=== PATIENT | female | born 1950 | race Caucasian/White ===

== ENCOUNTER 2018-10-12 21:58 | Inpatient (IN) | payer OTHER ==
[~2018-10-12] VITALS: Ht 165.1 cm; Wt 94.0 kg
--- OUTSIDE RECORDS SUMMARY | 2018-10-12 22:01 | XMS REPORT | Clinical Summary ---
Author Author [facility] Organization [facility] Address Unknown Phone Unavailable Care Team Providers Care Group Art Supervisor Name Role Phone Prabhu Kirk DO PCP Allergies Comments Active Allergy Reactions Severity Noted Date Erythromycin GI 05/22/2018 Intolerance Penicillins Rash Low 05/22/2018 Medications End Date Status Medication Sig Dispensed Refills Start Date Active LYRICA 50 mg capsule TK 1 C PO 1 BID FOR PAIN 8 Active sertraline (ZOLOFT) 100 TK 1 T PO D 1 MG tablet FOR MOOD 8 Active traZODone (DESYREL) 150 Take 150 mg 1 MG tablet by mouth 8 nightly as needed. for sleep Active Problems Not on file Encounters Care Team Description Date Type Specialty Aftab Freed MD Leukopenia, unspecified type (Primary Dx); Thrombocytopenia (HCC) 05/22/2018 Office Visit Oncology after 10/11/2017 Family History Medical History Relation Name Comments Colon cancer Mother Ovarian cancer Mother Relation Name Status Comments Mother Social History Date Tobacco Use Types Packs/Day Years Used Former Smoker Comments: quick 2010 Alcohol Use Drinks/Week oz/Week Comments No Alcohol Habits Answer Date Recorded How often do you have a drink containing alcohol? Never 05/22/2018 How many drinks containing alcohol do you have on Not asked a typical day when you are drinking? How often do you have six or more drinks on one Not asked occasion? Sex Assigned at Date Recorded Not on file Industry Job Start Date Occupation Not on file Not on file Not on file Travel End Travel History Travel Start No recent travel history available. Last Filed Vital Signs Time Taken Vital Sign Reading 05/22/2018 11:10 AM [facility] Blood Pressure 110/52 05/22/2018 11:10 AM [facility] Pulse 75 05/22/2018 11:10 AM [facility] Temperature 36.9 C (98.5 F) - Respiratory Rate - - Oxygen Saturation - - Inhaled Oxygen - Concentration 05/22/2018 11:10 AM [facility] Weight 78.9 kg (174 lb) 05/22/2018 11:10 AM [facility] Height 165.1 cm (5' 5") 05/22/2018 11:10 AM [facility] Body Mass Index 28.96 Plan of Treatment Care Team Description Date [place] [id number] [facility] [facility] [address] [place], [place] [id number] 11/20/2018 Office Visit Oncology Health Maintenance Due Date Last Done Comments BREAST CANCER SCREENING 1998 COLON CANCER SCREENING 1998 SHINGLES VACCINES (#1) 1998 65+ PNEUMOCOCCAL VACCINE 2013 (1 of 2 - PCV13) PNEUMOCOCCAL 2013 POLYSACCHARIDE VACCINE AGE 65 AND OVER INFLUENZA VACCINE 01/16/2019 Procedures Comments Procedure Name Priority Date/Time Associated Diagnosis HEMATOPATH, SMEAR Routine 05/22/2018 Leukopenia, unspecified 12:42 PM [facility] type Thrombocytopenia (HCC) HEPATITIS C ANTIBODY Routine 05/22/2018 Leukopenia, unspecified 12:42 PM [facility] type Thrombocytopenia (HCC) THYROID PANEL WITH TSH Routine 05/22/2018 Leukopenia, unspecified 12:42 PM [facility]ULER type Thrombocytopenia (HCC) PROTHROMBIN TIME WITH INR Routine 05/22/2018 Leukopenia, unspecified 12:42 PM [facility] type Thrombocytopenia (HCC) PARTIAL THROMBOPLASTIN Routine 05/22/2018 Leukopenia, unspecified TIME (PTT) 12:42 PM [facility]ER type Thrombocytopenia (HCC) COMPREHENSIVE METABOLIC Routine 05/22/2018 Leukopenia, unspecified PANEL 12:42 PM [facility]OBBIN [facility]ULER type Thrombocytopenia (HCC) SHASTA CASCADING REFLEX Routine 05/22/2018 Leukopenia, unspecified 12:42 PM [facility]BIN [facility]ULER type Thrombocytopenia (HCC) VITAMIN B12 LEVEL Routine 05/22/2018 Leukopenia, unspecified 12:42 PM [facility]ULER type Thrombocytopenia (HCC) FOLATE LEVEL Routine 05/22/2018 Leukopenia, unspecified 12:42 PM [facility]OBBIN [facility]ULER type Thrombocytopenia (HCC) after 10/11/2017 Results * SHASTA CASCADING REFLEX (05/22/2018 12:42 PM BOBBIN HAULER) SHASTA direct Negative Negative [facility] Comment: Effective June 24, 2018, test [id number] Antinuclear Ab Reflex [place] will be made nonorderable. There is not a direct replacement test. [facility] offers several SHASTA test options. Please refer to the [facility] Directory of Services. See below: Comment [facility] Comment: Autoantibody Disease Association Condition Frequency Antinuclear Antibody,SLE, mixed connective Direct (SHASTA-D) tissue diseases dsDNA SLE 40 - 60% Chromatin Drug induced SLE 90% SLE 48 - 97% SSA (Ro) SLE 25 - 35% Sjogren's Syndrome 40 - 70% Lupus 100% SSB (La) SLE 10% Sjogren's Syndrome 30% Sm (anti-Garcia) SLE 15 - 30% DIRECTOR OF MEDICAL STAFF SERVICES Mixed Connective Tissue Disease 95% (U1 nRNP, SLE 30 - 50% anti-ribonucleoprotein)Juwan ymyositis and/or Dermatomyositis 20% Scl-70 (antiDNASc leroderma (diffuse)20 - 35% topoisomerase) Crest 13% Jessica-1 Polymyositis and/or Dermatomyositis 20 - 40% Centromere B Scleroderma - Crest variant 80% Ribosomal PS LE 10 - 20% Specimen Blood Narrative Performed At Performed at:01 - [facility] [address], [id number] Training Director: Tarik Cedeño MD, Phone:[phone] Performing Organization Address City/[facility]/Zipcode Phone Number [facility] * Hepatitis C antibody (05/22/2018 12:42 PM BOBBIN HAULER) Hepatitis C Ab <0.1 0.0 - 0.9 s/co ratio [facility] Comment: Negative: < 0.8 Indeterminate: 0.8 - 0.9 Positive: > 0.9 The CDC recommends that a positive HCV antibody result be followed up with a HCV Nucleic Acid Amplification test (408714). Specimen Blood Narrative Performed At Performed at: - [facility] [address] [place], [id number] Training Director: Tarik Cedeño MD, Phone:[phone] Performing Organization Address [facility] Phone Number [facility] * Hematopath Smear (05/22/2018 12:42 PM [facility]ULER) WBC Note:Comment: No morphologic [facility] abnormality was detected on the Velasquez stained smear. RBC Note:Comment: No morphologic [facility] abnormality was detected on the Velasquez stained smear. Platelet count Note:Comment: Thrombocytopenia [facility] is confirmed by blood smear observation. Comment Note: [facility] Comment: Clinical correlation is suggested. Suggest repeat study after resolution of clinical symptoms to assure return of values to baseline levels. Pathologist Note:Comment: Reviewed by: [facility] Cooper MD, Pathologist WBC 3.6 3.4 - 10.8 x10E3/uL [facility] RBC 4.30 3.77 - 5.28 x10E6/uL [facility] HGB 12.3 11.1 - 15.9 g/dL [facility] HCT 38.5 34.0 - 46.6 % [facility] MCV 90 79 - 97 fL [facility] MCH 28.6 26.6 - 33.0 pg [facility] MCHC 31.9 31.5 - 35.7 g/dL [facility] RDW 15.9 (H) 12.3 - 15.4 % [facility] Platelet count 77 (LL) 150 - 379 x10E3/uL [facility] Comment: Platelet count verified by examination of peripheral blood smear. Decreased. Neutrophils 53 Not Estab. % [facility] Lymphocytes 33 Not Estab. % [facility] Monocytes 7 Not Estab. % [facility] Eosinophils 7 Not Estab. % [facility] Basophils 0 Not Estab. % [facility] Neutrophils, absolute 1.9 1.4 - 7.0 x10E3/uL [facility] Lymphocytes, absolute 1.2 0.7 - 3.1 x10E3/uL [facility] Monocytes, absolute 0.3 0.1 - 0.9 x10E3/uL [facility] Eosinophils, absolute 0.3 0.0 - 0.4 x10E3/uL [facility] Basophils, absolute 0.0 0.0 - 0.2 x10E3/uL [facility] Immature granulocytes 0 Not Estab. % [facility] Immature grans (abs) 0.0 0.0 - 0.1 x10E3/uL [facility] Hematology comments: Note:Comment: Verified by [facility] microscopic examination. Specimen Blood Narrative Performed At Performed at:[address] [place], [place] [id number] Training Director: Tarik Cedeño MD, Phone:[phone] Performing Organization Address [facility] Phone Number [facility] * Thyroid Panel With TSH (05/22/2018 12:42 PM BOBBIN HAULER) TSH 2.800 0.450 - 4.500 uIU/mL [facility] T4 4.7 4.5 - 12.0 ug/dL [facility] T3 uptake 26 24 - 39 % [facility] Free T4 index 1.2 1.2 - 4.9 [facility] Specimen Blood Narrative Performed At Performed at:[address] [place], [place] [id number] Training Director: Tarik Cedeño MD, Phone:[phone] Performing Organization Address [facility] Phone Number [facility] * Partial thromboplastin time, activated (05/22/2018 12:42 PM BOBBIN HAULER) aPTT 29 24 - 33 sec [facility] Comment: This test has not been validated for monitoring unfractionated heparin therapy. aPTT-based therapeutic ranges for unfractionated heparin therapy have not been established. For general guidelines on Heparin monitoring, refer to the [facility] Directory of Services. Specimen Blood Narrative Performed At Performed at:[address] [place], [place] [id number] Training Director: Tarik Cedeño MD, Phone:[phone] Performing Organization Address [facility] Phone Number [facility] * Prothrombin time with INR (05/22/2018 12:42 PM BOBBIN HAULER) INR 1.1 0.8 - 1.2 [facility] Comment: Reference interval is for non-anticoagulated patients. Suggested INR therapeutic range for Vitamin K antagonist therapy: Standard Dose (moderate intensity therapeutic range): 2.0 - 3.0 Higher intensity therapeutic range 2.5 - 3.5 Prothrombin time 11.7 9.1 - 12.0 sec [facility] Specimen Blood Narrative Performed At Performed at: [facility] [address] [place], [place] [id number] Training Director: Tarik Cedeño MD, Phone:[phone] Performing Organization Address [facility] Phone Number [facility] * Folate level (05/22/2018 12:42 PM BOBBIN HAULER) Folate 4.9 >3.0 ng/mL [facility] Comment: A serum folate concentration of less than 3.1 ng/mL is considered to represent clinical deficiency. Specimen Blood Narrative Performed At Performed at: [facility] [address] [place], [place] [id number] Training Director: Tarik Cedeño MD, Phone:[phone] Performing Organization Address [facility] Phone Number [facility] * Vitamin B12 level (05/22/2018 12:42 PM BOBBIN HAULER) Vitamin B12 522 232 - 1,245 pg/mL [facility] Specimen Blood Narrative Performed At Performed at: [facility] [place], [id number] Training Director: Tarik Cedeño MD, Phone:[phone] Performing Organization Address [facility] Phone Number [facility] * Comprehensive metabolic panel (05/22/2018 12:42 PM BOBBIN HAULER) Glucose 85 65 - 99 mg/dL [facility] BUN, whole blood 15 8 - 27 mg/dL [facility] Creatinine 0.88 0.57 - 1.00 mg/dL [facility] EGFR Non-Afr. Ethiopian 67 >59 mL/min/1.73 [facility] EGFR 78 >59 mL/min/1.73 [facility] BUN/creatinine ratio 17 12 - 28 [facility] Sodium 143 134 - 144 mmol/L [facility] Potassium 4.6 3.5 - 5.2 mmol/L [facility] Chloride 102 96 - 106 mmol/L [facility] CO2 27 20 - 29 mmol/L [facility] Calcium 9.0 8.7 - 10.3 mg/dL [facility] Protein 6.6 6.0 - 8.5 g/dL [facility] Albumin, S 3.8 3.6 - 4.8 g/dL [facility] Globulin, total 2.8 1.5 - 4.5 g/dL [facility] Albumin/globulin ratio 1.4 1.2 - 2.2 [facility] Total bilirubin 1.2 0.0 - 1.2 mg/dL [facility] Alkaline phosphatase 71 39 - 117 IU/L [facility] AST 37 0 - 40 IU/L [facility] ALT 17 0 - 32 IU/L [facility] Specimen Blood Narrative Performed At Performed at: - [facility] [address] [place], [id number] Training Director: Tarik Cedeño MD, Phone:[phone] Performing Organization Address City/State/Zipcode Phone Number [facility] after 10/11/2017 Insurance Payer Benefit Subscriber ID Type Phone Address Plan / Group UHC MEDICARE UHC xxxxxxxxx HMO MEDICARE HMO/PPO Advance Directives Patient has advance care planning documents on file. For more information, vikash mckee contact: Willard Kessler [address] [place] [address]
--- OUTSIDE RECORDS SUMMARY | 2018-10-12 22:01 | XMS REPORT ---
Author Author [facility] Address Unknown Phone Unavailable Care Team Providers Care Pipe Fitter Welding Name Role Phone Unavailable Unavailable Payers Payer Name Policy Type Policy Number Effective Date Expiration Date Problems This patient has no known problems. Allergies, Adverse Reactions, Alerts Allergy Name Allergy Type Status Severity Reaction(s) Onset Date Inactive Date Treating Clinician Comments Penicillins DA Active SV 2016-04-12 00:00:00 Macrolide Antibiotics DA Active U 2016-04-12 00:00:00 erythromycin base DA Active OR 2016-04-12 00:00:00 azithromycin DA Active OR 2016-04-12 00:00:00 Medications This patient has no known medications.
[2018-10-12] MEDS ORDERED: MORPHINE SULFATE INJ 4 MG/ML INJ 1ML IV STA (22:05)
[2018-10-12] MEDS ORDERED: ONDANSETRON HCL INJ 2MG/ML 2ML 2 MG/ML VIAL IV STA (22:05)
[2018-10-12] MEDS ORDERED: PANTOPRAZOLE 40 MG 10ML VIAL IV STA (22:05)
[2018-10-12] MEDS ORDERED: DICYCLOMINE HCL 20 MG/2 ML VIAL IM ONE (22:15)
[2018-10-12 23:13] LABS: BASOPHILS % 0.6 % (0.0-1.0); EOSINOPHILS # (AUTO) 0.3 (0.0-0.4); EOSINOPHILS % 5.7 % (0.0-6.0); HEMATOCRIT 38.5 % (34.2-44.1); HEMOGLOBIN 12.8 g/dL (12.0-16.0); LYMPHOCYTES # (AUTO) 1.1 (1.0-3.2); LYMPHOCYTES % 23.4 % (18.0-39.1); MEAN CORPUSCULAR HEMOGLOBIN 29.8 pg (28-32); MEAN CORPUSCULAR HGB CONC 33.2 g/dL (31-35); MEAN CORPUSCULAR VOLUME 89.5 fL (81-99); MONOCYTES # (AUTO) 0.3 (0.2-0.8); MONOCYTES % 6.8 % (4.4-11.3); NEUTROPHILS % 63.1 % (38.7-80.0); PLATELET COUNT 93 x10e3/uL (140-360); RED CELL DISTRIBUTION WIDTH 14.6 % (11.7-14.4)
[2018-10-12 23:19] LABS: CLARITY,URINE CLEAR (CLEAR); COLOR,URINE YELLOW (YELLOW); KETONES,URINE TRACE (NEGATIVE); LEUKOCYTE ESTERASE ,URINE 1+ (NEGATIVE); NITRITE,URINE NEGATIVE (NEGATIVE); PROTEIN,URINE DIPSTICK NEGATIVE (NEGATIVE); URINE UROBILINOGEN 0.2 mg/dL (0.2 - 1)
[2018-10-12 23:20] LABS: BILIRUBIN,URINE NEGATIVE (NEGATIVE)
[2018-10-12 23:22] LABS: INR 0.97; PROTHROMBIN TIME 13.4 seconds (11.9-14.5)
--- NOTE | 2018-10-12 23:23 | Diagnostic Imaging Report ---
EXAM: Gallbladder Ultrasound INDICATION: RUQ PAIN. Vomiting. COMPARISON: None. TECHNIQUE: Transverse and longitudinal images of the gallbladder were obtained. FINDINGS: Liver: 13.3 centimeters in length with coarsened echotexture diffusely. 1.4 cm simple cyst. Slight nodular contour. Gallbladder: Hydropic. Stones/Sludge: None Wall: 0.3 cm Appearance: No wall thickening, pericholecystic fluid or hydrops. Sonographic Danielson's Sign: Negative Bile Ducts: Intrahepatic Ducts: No dilatation Extrahepatic Ducts: Common bile duct measures 0.3 cm, no dilatation Free Fluid: No ascites or pleural effusion Pancreas obscured by bowel gas Right kidney: 11.2 cm in length. No hydronephrosis, shadowing nephrolithiasis or focal mass. Main portal vein: 0.5 cm in diameter. IMPRESSION: Hydropic gallbladder is a nonspecific finding. No gallbladder wall thickening, pericholecystic fluid or calculi/sludge. Signed by: Dr. Kamari Gomes M.D. on 10/12/2018 11:20 PM
[2018-10-12 23:24] LABS: BACTERIA,URINE MODERATE /HPF; EPITHELIAL CELLS,URINE MODERATE /LPF; RBC,URINE 0-5 /HPF (0-5)
[2018-10-12 23:42] LABS: ALBUMIN 3.4 g/dL (3.5-5.0); ALBUMIN/GLOBULIN RATIO 0.9 (0.8-2.0); ANION GAP 14.9 mmol/L (8-16); CALCIUM 9.1 mg/dL (8.4-10.2); CREATININE, SERUM 0.96 mg/dL (0.57-1.11); POTASSIUM 3.9 mmol/L (3.5-5.1)
[2018-10-13] VITALS (10 sets, daily range): BP systolic 91–107; BP diastolic 50–54
[2018-10-13] MEDS ORDERED: SODIUM CHLORIDE 0.9% 50ML 50 ML ONE (00:08)
[2018-10-13] MEDS ORDERED: IOPAMIDOL 370 MG/ML 200 ML INFUS..BTL INJ ONE (00:08)
--- NOTE | 2018-10-13 01:27 | Diagnostic Imaging Report ---
EXAM: CT Abdomen and Pelvis WITH contrast INDICATION: Abdominal pain. Vomiting. COMPARISON: None. Ultrasound gallbladder dated 10/12/2018. TECHNIQUE: Abdomen and pelvis were scanned utilizing a multidetector helical scanner from the lung base to the pubic symphysis after administration of IV contrast. Coronal and sagittal reformations were obtained. Routine protocol was performed. Scan was performed when during portal venous phase. IV CONTRAST: 100 cc Isovue-300 ORAL CONTRAST: Water RADIATION DOSE: Total DLP: 551.71 mGy*cm Estimated effective dose: (DLP x 0.015 x size factor) mSv COMPLICATIONS: None FINDINGS: LINES and TUBES: None. LOWER THORAX: Bibasilar subsegmental atelectasis, right greater than left. HEPATOBILIARY: Nodular hepatic contour. No biliary ductal dilation. GALLBLADDER: The gallbladder is elongated measuring 12.0 cm in craniocaudal dimension. No radio-opaque stones or sludge. The gallbladder wall is mildly thickened measuring 5.5 mm. Trace pericholecystic fluid. No significant pericholecystic fat stranding. SPLEEN: No splenomegaly. PANCREAS: No focal masses or ductal dilatation. ADRENALS: No adrenal nodules KIDNEYS/URETERS: Kidneys enhance symmetrically. No hydronephrosis. No cystic or solid mass lesions. No stones. GI TRACT: No abnormal distention, wall thickening, or evidence of bowel obstruction. Appendix is normal. 3.9 cm diverticulum off the second portion of the duodenum. PELVIC ORGANS/BLADDER: Unremarkable. LYMPH NODES: No lymphadenopathy. 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 There are splenic varices with a left splenorenal shunt. Atherosclerotic calcifications of the aorta, with mild ectasia just proximal to the bifurcation. Atherosclerotic calcifications of the iliac arteries without aneurysmal dilatation. PERITONEUM / RETROPERITONEUM: No free air or fluid. BONES: There are degenerative changes in the lumbar spine. SOFT TISSUES: Unremarkable. IMPRESSION: 1. Cirrhotic hepatic morphology. 2. Mild splenomegaly, and evidence of portal hypertension including gastrosplenic varices, and a spontaneous left splenorenal shunt. 3. Gallbladder hydrops. Mild gallbladder wall thickening and trace pericholecystic fluid may be in part related to the presence of hepatocellular disease and/or hypoalbuminemia in the proper setting. Acalculous cholecystitis is within the differential diagnosis but no additional supporting findings on the recently performed ultrasound of gallbladder. Correlate clinically. Consider surgical consultation. 4. 3.1 cm splenic artery aneurysm. Signed by: Dr. Kamari Gomes M.D. on 10/13/2018 1:24 AM
[2018-10-13] MEDS ORDERED: SODIUM CHLORIDE 0.9% 1000ML 1,000 ML IV ONE (01:45)
[2018-10-13] MEDS ORDERED: ONDANSETRON HCL INJ 2MG/ML 2ML 2 MG/ML VIAL IV PRN (02:15)
[2018-10-13] MEDS ORDERED: LEVOFLOXACIN 500MG/D5W 100ML IV SCH (02:15)
--- OUTSIDE RECORDS SUMMARY | 2018-10-13 02:27 | XMS REPORT | Clinical Summary ---
Author Author [facility] Organization [facility] Address Unknown Phone Unavailable Care Team Providers Care Copper Miner Name Role Phone Prabhu Kirk DO PCP [...] Thrombocytopenia (HCC) 05/22/2018 Office Visit Oncology after 10/12/2017 Family History Medical History Relation Name Comments [...] Taken Vital Sign Reading 05/22/2018 11:10 AM SPECTROSCOPIST Blood Pressure 110/52 05/22/2018 11:10 AM SPECTROSCOPIST Pulse 75 05/22/2018 11:10 AM SPECTROSCOPIST Temperature 36.9 C (98.5 F) - Respiratory Rate - - Oxygen Saturation - - Inhaled Oxygen - Concentration 05/22/2018 11:10 AM SPECTROSCOPIST Weight 78.9 kg (174 lb) 05/22/2018 11:10 AM SPECTROSCOPIST Height 165.1 cm (5' 5") 05/22/2018 11:10 AM SPECTROSCOPIST Body Mass Index 28.96 Plan of Treatment Care Team Description Date [place] [id number] [facility] [address] [place], [place] [id number] 11/20/2018 Office Visit Oncology Health Maintenance Due Date Last Done Comments BREAST CANCER SCREENING 1998 COLON CANCER SCREENING 1998 SHINGLES VACCINES (#1) 1998 65+ PNEUMOCOCCAL VACCINE 2013 (1 of 2 - PCV13) PNEUMOCOCCAL 2013 POLYSACCHARIDE VACCINE AGE 65 AND OVER INFLUENZA VACCINE 01/16/2019 Procedures Comments Procedure Name Priority Date/Time Associated Diagnosis HEMATOPATH, SMEAR Routine 05/22/2018 Leukopenia, unspecified 12:42 PM SPECTROSCOPIST type Thrombocytopenia (HCC) HEPATITIS C ANTIBODY Routine 05/22/2018 Leukopenia, unspecified 12:42 PM SPECTROSCOPIST type Thrombocytopenia (HCC) THYROID PANEL WITH TSH Routine 05/22/2018 Leukopenia, unspecified 12:42 PM SPECTROSCOPIST type Thrombocytopenia (HCC) PROTHROMBIN TIME WITH INR Routine 05/22/2018 Leukopenia, unspecified 12:42 PM SPECTROSCOPIST type Thrombocytopenia (HCC) PARTIAL THROMBOPLASTIN Routine 05/22/2018 Leukopenia, unspecified TIME (PTT) 12:42 PM SPECTROSCOPIST type Thrombocytopenia (HCC) COMPREHENSIVE METABOLIC Routine 05/22/2018 Leukopenia, unspecified PANEL 12:42 PM SPECTROSCOPIST type Thrombocytopenia (HCC) SHASTA CASCADING REFLEX Routine 05/22/2018 Leukopenia, unspecified 12:42 PM SPECTROSCOPIST type Thrombocytopenia (HCC) VITAMIN B12 LEVEL Routine 05/22/2018 Leukopenia, unspecified 12:42 PM SPECTROSCOPIST type Thrombocytopenia (HCC) FOLATE LEVEL Routine 05/22/2018 Leukopenia, unspecified 12:42 PM SPECTROSCOPIST type Thrombocytopenia (HCC) after 10/12/2017 Results * SHASTA CASCADING REFLEX (05/22/2018 12:42 PM SPECTROSCOPIST) SHASTA direct Negative Negative [facility] Comment: Effective June 24, 2018, test [id number] Antinuclear Ab Reflex [place] will be made nonorderable. There is not a direct replacement test. [facility] offers several SHASTA test options. Please refer to the [facility] Directory of Services. See below: Comment [facility] Comment: Autoantibody Disease Association Condition Frequency Antinuclear Antibody,SLE, mixed connective Direct (SHASTA-D) tissue diseases dsDNA SLE 40 - 60% Chromatin Drug induced SLE 90% SLE 48 - 97% SSA (Ro) SLE 25 - 35% Sjogren's Syndrome 40 - 70% Lupus 100% SSB (La) SLE 10% Sjogren's Syndrome 30% Sm (anti-Garcia) SLE 15 - 30% BITUMEN PLANT OPERATOR Mixed Connective Tissue Disease 95% (U1 nRNP, SLE 30 - 50% anti-ribonucleoprotein)Juwan ymyositis and/or Dermatomyositis 20% Scl-70 (antiDNASc leroderma (diffuse)20 - 35% topoisomerase) Crest 13% Jessica-1 Polymyositis and/or Dermatomyositis 20 - 40% Centromere B Scleroderma - Crest variant 80% Ribosomal PS LE 10 - 20% Specimen Blood Narrative Performed At Performed at:01 - [facility] [address], [id number] Prep[employer] Foods Supervisor: Tarik Cedeño MD, Phone:[phone] Performing Organization Address City/[facility]/Zipcode Phone Number [facility] * Hepatitis C antibody (05/22/2018 12:42 PM SPECTROSCOPIST) Hepatitis C Ab <0.1 0.0 - 0.9 s/co ratio [facility] Comment: Negative: < 0.8 Indeterminate: 0.8 - 0.9 Positive: > 0.9 The CDC recommends that a positive HCV antibody result be followed up with a HCV Nucleic Acid Amplification test (520132). Specimen Blood Narrative Performed At Performed at: - [facility] [address] [place], [id number] [employer] Supervisor: Tarik Cedeño MD, Phone:[phone] Performing Organization Address [facility] Phone Number [facility] * Hematopath Smear (05/22/2018 12:42 PM SPECTROSCOPIST) WBC Note:Comment: No morphologic [facility] abnormality was [...] examination. Specimen Blood Narrative Performed At Performed at:[address] [place], [place] [id number] Prep[employer] Supervisor: Tarik Cedeño MD, Phone:[phone] Performing Organization Address [facility] Phone Number [facility] * Thyroid Panel With TSH (05/22/2018 12:42 PM SPECTROSCOPIST) TSH 2.800 0.450 - 4.500 uIU/mL [facility] T4 4.7 4.5 - 12.0 ug/dL [facility] T3 uptake 26 24 - 39 % [facility] Free T4 index 1.2 1.2 - 4.9 [facility] Specimen Blood Narrative Performed At Performed at:[address] [place], [place] [id number] [employer] Supervisor: Tarik Cedeño MD, Phone:[phone] Performing Organization Address [facility] Phone Number [facility] * Partial thromboplastin time, activated (05/22/2018 12:42 PM SPECTROSCOPIST) aPTT 29 24 - 33 sec [facility] Comment: This test has not been validated for monitoring unfractionated heparin therapy. aPTT-based therapeutic ranges for unfractionated heparin therapy have not been established. For general guidelines on Heparin monitoring, refer to the [facility] Directory of Services. Specimen Blood Narrative Performed At Performed at:[address] [place], [place] [id number] [employer] Supervisor: Tarik Cedeño MD, Phone:[phone] Performing Organization Address [facility] Phone Number [facility] * Prothrombin time with INR (05/22/2018 12:42 PM SPECTROSCOPIST) INR 1.1 0.8 - 1.2 [facility] Comment: Reference interval is for non-anticoagulated patients. Suggested INR therapeutic range for Vitamin K antagonist therapy: Standard Dose (moderate intensity therapeutic range): 2.0 - 3.0 Higher intensity therapeutic range 2.5 - 3.5 Prothrombin time 11.7 9.1 - 12.0 sec [facility] Specimen Blood Narrative Performed At Performed at: [facility] [address] [place], [place] [id number] Prep[employer] Supervisor: Tarik Cedeño MD, Phone:[phone] Performing Organization Address [facility] Phone Number [facility] * Folate level (05/22/2018 12:42 PM SPECTROSCOPIST) Folate 4.9 >3.0 ng/mL [facility] Comment: A serum folate concentration of less than 3.1 ng/mL is considered to represent clinical deficiency. Specimen Blood Narrative Performed At Performed at: [facility] [address] [place], [place] [id number] [employer] Supervisor: Tarik Cedeño MD, Phone:[phone] Performing Organization Address [facility] Phone Number [facility] * Vitamin B12 level (05/22/2018 12:42 PM SPECTROSCOPIST) Vitamin B12 522 232 - 1,245 pg/mL [facility] Specimen Blood Narrative Performed At Performed at: [facility] [place], [id number] Prep[employer] Supervisor: Tarik Cedeño MD, Phone:[phone] Performing Organization Address [facility] Phone Number [facility] * Comprehensive metabolic panel (05/22/2018 12:42 PM SPECTROSCOPIST) Glucose 85 65 - 99 mg/dL [facility] BUN, whole blood 15 8 - 27 mg/dL [facility] Creatinine 0.88 0.57 - 1.00 mg/dL [facility] EGFR Non-Afr. Nauruan 67 >59 mL/min/1.73 [facility] EGFR 78 >59 [...] Narrative Performed At Performed at: - [facility] [address] [place], [id number] Prep[employer] Supervisor: Tarik Cedeño MD, Phone:[phone] Performing Organization Address City/State/Zipcode Phone Number [facility] after 10/12/2017 Insurance Payer Benefit Subscriber ID Type Phone Address Plan / Group UHC MEDICARE UHC xxxxxxxxx HMO MEDICARE HMO/PPO Advance Directives Patient has advance care planning documents on file. For more information, vikash mckee contact: Willard Kessler [address] [place] [address]
[2018-10-13] MEDS: SODIUM CHLORIDE 0.9% 1000ML 1,000 ML IV SCH ×3 (02:50→20:17)
[2018-10-13] MEDS ORDERED: METRONIDAZOLE 500MG/NS 100ML IV SCH (03:00)
--- NOTE | 2018-10-13 03:08 | NUR ---
Received patient from ER at this time. A&Ox3. Lungs clear. Bowel sounds active. Skin intact. Patient has small scabbed area on mid back and L upper arm from scratching but no other wounds or lesions noted. No edema noted. Patient wearing own socks, but wears shoes anytime she ambulates d/t her neuropathy. Gave patient non-skid footwear and explained that if she wanted to walk without shoes, to make sure she wears non-skid footwear. Patient verbalized understanding. R AC IV asymptomatic, intact, patent. Patient said her mouth was dry, provided with lemon swabs and mouth moisturizer. Explained bed alarm, call light system. Bed locked in lowest position. Semi-fowlers position with knees elevated. Call light in reach.
[2018-10-13] MEDS ORDERED: INFLUENZA VIRUS VAC SPLIT INJ 0.5 ML SYR IM SCH (04:52)
[2018-10-13] MEDS ORDERED: TRAZODONE HCL50 MG PO (05:02)
[2018-10-13] MEDS ORDERED: LYRICA50 MG PO ×2 (05:02)
[2018-10-13] MEDS ORDERED: ZOLOFT50 MG PO (05:02)
[2018-10-13] MEDS ORDERED: ASPERCREME 1035.4 GM TOP (05:02)
[2018-10-13] MEDS ORDERED: eye drops OU (05:02)
[2018-10-13] MEDS ORDERED: [UNRECOGNIZED DRUG - OTHER] (05:02)
[2018-10-13] MEDS ORDERED: HYDRALAZINE HCL 20 MG/ML VIAL IV PRN (06:00)
[2018-10-13] MEDS ORDERED: TRAZODONE HCL 50 MG TAB PO PRN (06:00)
[2018-10-13] MEDS ORDERED: ACETAMINOPHEN 325 MG TAB PO PRN (06:00)
[2018-10-13] MEDS: MORPHINE SULFATE INJ 4 MG/ML INJ 1ML IV PRN (06:00)
[2018-10-13] MEDS ORDERED: PREGABALIN 50 MG CAP PO PRN (06:00)
[2018-10-13] MEDS: CEFTRIAXONE SOD 1 GM/NS 50 ML 50 ML IV SCH (06:20)
[2018-10-13] MEDS: FAMOTIDINE 20 MG/2 ML VIAL IV SCH ×2 (07:30→16:30)
--- NOTE | 2018-10-13 13:28 | NUR ---
Patient seen by Dr. Campbell and started patient on a clear liquid diet.
--- NOTE | 2018-10-13 15:24 | Consultation ---
DATE OF CONSULTATION: 10/13/2018 CHIEF COMPLAINT: Abdominal pain. HISTORY OF PRESENT ILLNESS: The patient is a 68-year-old female with 1-day history of pain in the right upper quadrant radiating to the back with vomiting. No fever, chills, or diarrhea. No prior episodes. PAST MEDICAL HISTORY: Positive for fibromyalgia, lower extremity neuropathy, and polycythemia vera. PAST SURGICAL HISTORY: Positive for lower extremity fracture. Breast surgery. ALLERGIES: NO DRUGS ALLERGY EXCEPT FOR PENICILLIN AND ERYTHROMYCIN. SOCIAL HABITS: Nonsmoker. Alcohol abuser. REVIEW OF SYSTEMS: No chest pain. No shortness of breath. No cough. PHYSICAL EXAMINATION: VITAL SIGNS: Stable, afebrile. GENERAL: She is awake, alert, in mild discomfort. HEENT: Sclera nonicteric. NECK: Supple. LUNGS: Clear. HEART: Regular rate and rhythm. ABDOMEN: Soft with mild guarding and tenderness in right upper quadrant. No rebound. EXTREMITIES: No cyanosis or edema. LABORATORY DATA: White cell count 4.7, hemoglobin 12.8, and platelet count 93. Creatinine 0.9. Liver function tests; bilirubin 1.7, alkaline phosphatase 84, and lipase 64. CT of the abdomen showed gallbladder distention with no stones or pericholecystic fluid noted. 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 ASSESSMENT: Acalculous cholecystitis with incidental finding of aneurysm near the splenic hilum. PLAN: Vascular Surgery has been consulted regarding aneurysm. We will coordinate for cholecystectomy and with management of splenic artery aneurysm. Yuriy Herrera MD DNLorena/MODLorena /[id number]
--- NOTE | 2018-10-13 15:28 | NUR ---
Call to [facility], spoke with Jairo and notified of consult to Dr. Loo for splenic artery aneurysm.
--- NOTE | 2018-10-13 18:35 | Consultation ---
DATE OF CONSULTATION: 10/13/2018 REASON FOR CONSULTATION: Abdominal pain, evaluation of splenic artery aneurysm; requested by Dr. Luis. HISTORY OF PRESENT ILLNESS: I saw and evaluated this patient on October 13, 2018. She is a 68-year-old lady, who has a history of cirrhosis and presented with one-day history of right upper quadrant pain, radiating into the back with some vomiting. She did not have any fevers, chills, or diarrhea. She has a history of cirrhosis, which is attributed to alcohol, she has stopped drinking. She has not had any prior surgery. A CT scan of the abdomen was obtained on admission. This shows an enlarged gallbladder without stones and acalculous cholecystitis was suspected. There is a 3.1 cm splenic artery aneurysm in the splenic hilum that is not ruptured and does not have any signs of hemorrhage or thrombus. Note is made of a splenorenal shunt on the report dictation, but I could not visualize this on the images. There was also no history of surgically induced or radiologically induced splenorenal shunt that the patient admits to. No history of coronary artery disease. She has a history of fibromyalgia. No strokes. PAST MEDICAL HISTORY: Positive for fibromyalgia, lower extremity neuropathy, and polycythemia vera. PAST SURGICAL HISTORY: Positive for lower extremity fracture and breast surgery. SOCIAL HISTORY: Nonsmoker. She drank heavily until several years ago. No IV drugs. MEDICATIONS: Currently on flagyl and levofloxacin. Getting Protonix, Zofran, and hydralazine as necessary. ALLERGIES: NONE KNOWN. REVIEW OF SYSTEMS: GENERAL: Negative for fatigue or malaise. NEUROLOGIC: Negative for focal weakness of extremities or dysarthria. HEENT: Negative for decreased vision or decreased hearing. CARDIAC: Negative for chest pain or palpitation. PULMONARY: Negative for shortness of breath or wheezing. GI: Positive as above. : Negative for hematuria or dysuria. ENDOCRINE: Negative for polyuria or polydipsia. VASCULAR: Negative for claudication. SKIN: Negative for rashes or itching. HEMATOLOGIC: Negative for clotting or bleeding. INFECTIOUS: Negative for fevers or sweating. PHYSICAL EXAMINATION: GENERAL: Somewhat overweight lady, sitting up in bed, in no apparent distress. VITAL SIGNS: Blood pressure 140/70, pulse 80 and regular, respirations 16 and unlabored. NECK: Supple and nontender. No JVD. CARDIAC: Shows a regular rate and rhythm. There is a normal S1 and S2. There is no S3, S4, rub, or murmur. LUNGS: Clear to auscultation and percussion bilaterally. ABDOMEN: Some right upper quadrant tenderness to palpation, but no generalized rebound. There is no pain in the left upper quadrant. No back pain. No back or abdominal ecchymosis. BACK: No CVA tenderness. No muscular spasm. EXTREMITIES: No cyanosis, clubbing, or edema. VASCULAR: Carotids 2+/2+ bilaterally. No carotid bruits. Radials and femorals 2+/2+ bilaterally. SKIN: No rashes or nonhealing ulcers. MUSCULOSKELETAL: Full range of motion at all joints. No evidence of joint swelling. NEUROLOGIC: Cranial nerves II through XII intact. Sensation intact to light touch and pinprick bilaterally. Strength 5/5 in all extremities. LYMPHATICS: Negative for cervical, clavicular, or femoral adenopathy. LABORATORY DATA: CT scan and images are reviewed and as are above. White count 4.7, hemoglobin 12.8, hematocrit 38.5, and platelet count 93,000. INR 0.97 with PT 13.4 and PTT 32.0. Sodium 142, potassium 3.9, BUN 13, creatinine 0.96. Liver function tests are normal except for slightly elevated total bilirubin of 1.7 and slightly elevated AST of 43. Albumin is low at 3.4. IMPRESSION: Acalculous cholecystitis, which is being evaluated for surgery by Dr. Herrera and the General Surgery Service. The splenic artery aneurysm is approximately 3.1 cm in diameter. There was no evidence of rupture. CT imaging does not completely show the aneurysm. After cholecystectomy, further imaging maybe warranted. Thank you very much for asking me to see this nice lady. MD WILLIAM Gifford/SPENCER /[id number]
--- NOTE | 2018-10-13 18:37 | NUR ---
Rounds by Dr. Loo and saw patient, splenic aneurysm not very severe and will monitor from his stand point. Patient stable, abdl pains reduced, nausea reduced, medicated as ordered, OOB and ambulated x2 today and goes to the bathroom with help. will monitor
--- NOTE | 2018-10-13 18:39 | NUR ---
Tolerated clear liq diet and no vomiting, will monitor, continues on IV fluid
--- NOTE | 2018-10-13 18:55 | NUR ---
BEDSIDE SHIFT REPORT PERFORMED. RECEIVED PT LAYING SEMI FOWLERS IN BED, AAOX3, RR EVEN AND NON-LABORED, ON RA. NO S/SX OF DISTRESS NOTED. LEFT PT LAYING SEMI FOWLERS IN BED, BED IN LOW LOCKED POSITION, SIDE RAILS UPX2, CALL LIGHT AND PHONE WITHIN REACH.
[2018-10-13] MEDS: SERTRALINE HCL 50 MG TAB PO SCH (20:17)
[2018-10-13] MEDS: PREGABALIN 50 MG CAP PO SCH (20:17)
--- NOTE | 2018-10-13 20:56 | NUR ---
SPOKE WITH MD PANG CONCERNING POSSIBLE SURGERY IN AM. NEW ORDERS RECEIVED TO KEEP PT NPO PAST MIDNIGHT AND HE WILL SEE PATIENT IN AM.
[2018-10-14] VITALS (8 sets, daily range): BP systolic 94–137; BP diastolic 51–68
[2018-10-14 03:22] LABS: BASOPHILS % 0.8 % (0.0-1.0); EOSINOPHILS # (AUTO) 0.1 (0.0-0.4); EOSINOPHILS % 5.2 % (0.0-6.0); HEMATOCRIT 30.3 % (34.2-44.1); HEMOGLOBIN 9.8 g/dL (12.0-16.0); LYMPHOCYTES # (AUTO) 0.8 (1.0-3.2); MEAN CORPUSCULAR HEMOGLOBIN 29.8 pg (28-32); MEAN CORPUSCULAR HGB CONC 32.3 g/dL (31-35); MEAN CORPUSCULAR VOLUME 92.1 fL (81-99); MONOCYTES # (AUTO) 0.2 (0.2-0.8); MONOCYTES % 7.1 % (4.4-11.3); NEUTROPHILS # (AUTO) 1.4 (2.1-6.9); NEUTROPHILS % 55.1 % (38.7-80.0); PLATELET COUNT 55 x10e3/uL (140-360); RED BLOOD COUNT 3.29 x10e6/uL (3.6-5.1); RED CELL DISTRIBUTION WIDTH 14.6 % (11.7-14.4)
[2018-10-14 03:39] LABS: MAGNESIUM 1.5 MG/DL (1.3-2.1)
[2018-10-14 03:42] LABS: ALANINE AMINOTRANSFERASE 18 IU/L (0-55); ALBUMIN 2.7 g/dL (3.5-5.0); ALKALINE PHOSPHATASE 65 IU/L (40-150); AMYLASE 44 U/L (25-125); ANION GAP 9.9 mmol/L (8-16); BLOOD UREA NITROGEN 8 mg/dL (7-26); BUN/CREATININE RATIO 10 (6-25); CALCIUM 7.7 mg/dL (8.4-10.2); CARBON DIOXIDE 26 mmol/L (22-29); CHLORIDE 110 mmol/L (98-107); EST GLOMERULAR FILTRATION RATE > 60 ML/MIN (60-); GLUCOSE 85 mg/dL (74-118); LIPASE 61 U/L (8-78); POTASSIUM 3.9 mmol/L (3.5-5.1); SODIUM 142 mmol/L (136-145)
[2018-10-14 03:52] LABS: B-TYPE NATRIURETIC PEPTIDE2 207.9 pg/mL (0-100)
[2018-10-14 04:07] LABS: FREE T4 (FREE THYROXINE) 0.78 ng/dL (0.9-1.8); THYROID STIMULATING HORMONE 0.86 uIU/mL (0.350-4.940)
[2018-10-14] MEDS: SODIUM CHLORIDE 0.9% 1000ML 1,000 ML IV SCH ×3 (04:20→16:53)
[2018-10-14] MEDS: CEFTRIAXONE SOD 1 GM/NS 50 ML 50 ML IV SCH (05:05)
--- NOTE | 2018-10-14 07:23 | NUR ---
RECEIVED PATIENT AND WALKING ROUNDS COMPLETE. PATIENT AWAKE AT THIS TIME NO SIGNS OF DISTRESS. CALL LIGHT IN REACH, WHEELS LOCKED, BED IN LOWEST POSITION, SIDE RAILS X2. WILL CONTINUE TO MONITOR.
[2018-10-14] MEDS: FAMOTIDINE 20 MG/2 ML VIAL IV SCH ×2 (08:20→16:53)
--- NOTE | 2018-10-14 09:00 | NUR ---
PATIENT A/O X3, EVEN RESPIRATIONS ON RA. BOWEL SOUNDS ACTIVE, SKIN INTACT, NO EDEMA. TELE #[phone] NSR 86. PATIENT NPO AT THIS TIME DUE TO POSSIBLE PROCEDURE TODAY. RIGHT AC 20 GAUGE IV WITH NS @ 125 CC/HR. PATIENT AMBULATORY WITHOUT ASSISTANCE. CALL LIGHT IN REACH, BED LOW, WHEELS LOCKED, SIDE RAILS X2. VITALS STABLE. WILL CONTINUE TO MONITOR PATIENT.
--- NOTE | 2018-10-14 13:34 | NUR ---
SPOKE WITH DR. PANG, PATIENT OK TO HAVE CLEAR LIQUID DIET.
--- NOTE | 2018-10-14 16:39 | NUR ---
RIGHT AC IV LEAKING. REMOVED RIGHT AC IV, CATHETER TIP INTACT AND PRESSURE DRESSING APPLIED. NEW IV STARTED TO RIGHT FA 20 GAUGE.
[2018-10-14] MEDS: MORPHINE SULFATE INJ 4 MG/ML INJ 1ML IV PRN (16:53)
[2018-10-14] MEDS: SERTRALINE HCL 50 MG TAB PO SCH (21:07)
[2018-10-14] MEDS: PREGABALIN 50 MG CAP PO SCH (21:07)
[2018-10-15] VITALS (8 sets, daily range): BP systolic 96–111; BP diastolic 51–55
[2018-10-15] MEDS: SODIUM CHLORIDE 0.9% 1000ML 1,000 ML IV SCH ×3 (00:46→17:32)
--- NOTE | 2018-10-15 00:48 | NUR ---
PT IS MAINTAINING NPO FOR THE PROCEDURE.ASSESSMENT DONE.NO RESP.DISTRESS.NO PAIN VOICED AMBULATES.VOIDED.EDUCATE TO TAKE THE HIBICLEANS BATH.AGREED TO TAKE IN INTERIOR DECORATOR PAPERHANGING.BED LOCKED AND IN LOWEST POSITION.PHONE AND CALL LIGHT WITHIN REACH.INSTRUCTED TO CALL FOR ASSISTANCE NEEDED.
[2018-10-15] MEDS: CEFTRIAXONE SOD 1 GM/NS 50 ML 50 ML IV SCH (05:21)
[2018-10-15 07:00] LABS: BASOPHILS % 0.4 % (0.0-1.0); EOSINOPHILS # (AUTO) 0.1 (0.0-0.4); EOSINOPHILS % 5.5 % (0.0-6.0); HEMATOCRIT 29.3 % (34.2-44.1); HEMOGLOBIN 9.5 g/dL (12.0-16.0); LYMPHOCYTES # (AUTO) 0.7 (1.0-3.2); LYMPHOCYTES % 30.3 % (18.0-39.1); MEAN CORPUSCULAR HEMOGLOBIN 30.4 pg (28-32); MEAN CORPUSCULAR HGB CONC 32.4 g/dL (31-35); MEAN CORPUSCULAR VOLUME 93.6 fL (81-99); MONOCYTES # (AUTO) 0.2 (0.2-0.8); MONOCYTES % 8.4 % (4.4-11.3); NEUTROPHILS # (AUTO) 1.3 (2.1-6.9); NEUTROPHILS % 54.1 % (38.7-80.0); PLATELET COUNT 53 x10e3/uL (140-360); RED BLOOD COUNT 3.13 x10e6/uL (3.6-5.1); RED CELL DISTRIBUTION WIDTH 14.6 % (11.7-14.4)
--- NOTE | 2018-10-15 07:00 | NUR ---
Hibicleans bath taken.Report given to the oncoming rn.walking rounds done.stable condition.
[2018-10-15 07:34] LABS: ALANINE AMINOTRANSFERASE 14 IU/L (0-55); ALBUMIN 2.7 g/dL (3.5-5.0); ALKALINE PHOSPHATASE 58 IU/L (40-150); BILIRUBIN,DIRECT 0.7 mg/dL (0.0-0.5); CALCIUM 7.3 mg/dL (8.4-10.2); CARBON DIOXIDE 27 mmol/L (22-29); CHLORIDE 109 mmol/L (98-107); CREATININE, SERUM 0.76 mg/dL (0.57-1.11); EST GLOMERULAR FILTRATION RATE > 60 ML/MIN (60-); GLUCOSE 93 mg/dL (74-118); MAGNESIUM 1.8 MG/DL (1.3-2.1); SODIUM 140 mmol/L (136-145)
--- NOTE | 2018-10-15 07:43 | NUR ---
RECEIVED PATIENT AWAKE SITTING UPRIGHT IN BED. BED LOW, WHEELS LOCKED, SIDE RAILS X2. NO SIGNS OF DISTRESS AT THIS TIME. WILL CONTINUE TO MONITOR PATIENT.
[2018-10-15 08:22] LABS: BLOOD UREA NITROGEN 6 mg/dL (7-26); BUN/CREATININE RATIO 8 (6-25)
[2018-10-15] MEDS: FAMOTIDINE 20 MG/2 ML VIAL IV SCH (09:20)
[2018-10-15] MEDS ORDERED: BUPIVACAINE 0.25%/EPI 30ML SDV INJ ONE (10:36)
--- NOTE | 2018-10-15 11:14 | NUR ---
PATIENT LEFT TO OR AT THIS TIME VIA STRETCHER.
[2018-10-15] MEDS ORDERED: MEPERIDINE HCL INJ 25 MG/ML VIAL ONE (13:58)
--- NOTE | 2018-10-15 14:21 | NUR ---
PATIENT BACK FROM SURGERY AT THIS TIME. INCISION SITES INTACT AND JULIUS DRAIN IN PLACE WITH SEROUS FLUID. NO SIGNS OF DISTRESS. WILL CONTINUE TO MONITOR PATIENT.
[2018-10-15] MEDS: MORPHINE SULFATE INJ 4 MG/ML INJ 1ML IV PRN ×2 (15:01→23:58)
[2018-10-15] MEDS ORDERED: FAMOTIDINE 20 MG TAB PO SCH (16:30)
[2018-10-15] MEDS ORDERED: NEOSTIGMINE 5 MG/5ML SYR ONE (19:16)
[2018-10-15] MEDS ORDERED: ACETAMINOPHEN 1000 MG/100 ML IV ONE (19:16)
[2018-10-15] MEDS ORDERED: LIDOCAINE HCL 2% LOCAL INJ 5 ML SDV VIAL INJ ONE (19:16)
[2018-10-15] MEDS ORDERED: ROCURONIUM BROMIDE 10 MG/ML 5ML VIAL ONE (19:16)
[2018-10-15] MEDS ORDERED: SEVOFLURANE INHAL SOLN 250 ML PEN BTL ONE (19:16)
[2018-10-15] MEDS ORDERED: PROPOFOL IV EMULSION 10 MG/ML 20 ML VIAL ONE (19:16)
[2018-10-15] MEDS ORDERED: DEXAMETHASONE SOD PHOS INJ 4 MG/ML VIAL ONE (19:16)
[2018-10-15] MEDS ORDERED: GLYCOPYRROLATE INJ 1MG/ 5 ML SYR ONE (19:16)
[2018-10-15] MEDS ORDERED: ONDANSETRON HCL INJ 2MG/ML 2ML 2 MG/ML VIAL ONE (19:16)
[2018-10-15] MEDS ORDERED: MIDAZOLAM HCL 2 MG/2 ML VIAL ONE (19:57)
[2018-10-15] MEDS ORDERED: FENTANYL CITRATE/PF 100MCG/2 ML INJ ONE ×2 (19:57→19:59)
--- NOTE | 2018-10-15 20:10 | NUR ---
Assist to ambulate in the anna way.assessment done.no resp.distress.pain medication given.no pass gas .tolerated diet.beba draining serosanginuous .3 trochar sites noted .bed locked and in lowest position.phone and call light within reach.instructed to call for assistance as needed.
[2018-10-15] MEDS: SERTRALINE HCL 50 MG TAB PO SCH (20:50)
[2018-10-15] MEDS: PREGABALIN 50 MG CAP PO SCH (20:50)
--- NOTE | 2018-10-15 21:16 | Operative Report ---
DATE OF PROCEDURE: 10/15/2018 SURGEON: Yuriy Herrera MD PREOPERATIVE DIAGNOSIS: Acalculous cholecystitis. POSTOPERATIVE DIAGNOSIS: Acalculous cholecystitis. PROCEDURE: Laparoscopic cholecystectomy. PROCESSING TALC AND BORATE SUPERVISOR: None. ANESTHESIA: General endotracheal. INDICATION: A 68-year-old female with abdominal pain and dilated gallbladder consistent with a chronic acalculous cholecystitis. Patient consented for laparoscopic cholecystectomy, attendant risks discussed. PROCEDURE FINDING: Chronic dilated cholecystitis with cirrhosis of the liver and portal hypertension. DESCRIPTION OF PROCEDURE: The patient was brought to the OR intubated, abdomen was prepped and draped in a sterile fashion. Infraumbilical incision was made. An 11 mm port inserted, insufflation began under direct vision, other ports I placed in midepigastric and right upper quadrant. The gallbladder was chronically dilated and inflamed. Gallbladder fundus was retracted in cephalad direction. Next, the gallbladder retracted laterally with blunt and sharp dissection. The cystic artery and cystic duct isolated and triple clipped and divided between clips. The gallbladder detached from the liver with cautery. Bleeding from the gallbladder fossa controlled with cautery and Surgicel and hemostasis was achieved. The gallbladder was taken out through umbilical port site. A 19-Kazakh Jimmie drain was placed in the Morison pouch and taking it out from right upper quadrant port site. All other ports removed under direct vision. Fascia closure with 0 Vicryl. Skin was closed with subcuticular stitch. The patient was extubated and transported to the recovery room. ESTIMATED BLOOD LOSS: 100 mL. Yuriy Herrera MD DNL/MODL /[id number]
[2018-10-15] MEDS: ONDANSETRON HCL 4 MG ORAL DISINTEGRATING TAB PO PRN (23:55)
[2018-10-16] VITALS (9 sets, daily range): BP systolic 89–116; BP diastolic 50–56
--- NOTE | 2018-10-16 03:00 | NUR ---
French drain dressing saturated with serosanginuonus fluid.notified to .reinforces the dressing.keep monitor the pt.
[2018-10-16] MEDS: SODIUM CHLORIDE 0.9% 1000ML 1,000 ML IV SCH ×3 (04:37→18:50)
[2018-10-16 06:07] LABS: HEMATOCRIT 27.5 % (34.2-44.1); HEMOGLOBIN 8.9 g/dL (12.0-16.0); LYMPHOCYTES # (AUTO) 0.6 (1.0-3.2); LYMPHOCYTES % 19.7 % (18.0-39.1); MEAN CORPUSCULAR HEMOGLOBIN 29.8 pg (28-32); MEAN CORPUSCULAR HGB CONC 32.4 g/dL (31-35); MONOCYTES # (AUTO) 0.3 (0.2-0.8); MONOCYTES % 9.2 % (4.4-11.3); NEUTROPHILS # (AUTO) 2.1 (2.1-6.9); NEUTROPHILS % 70.1 % (38.7-80.0); RED BLOOD COUNT 2.99 x10e6/uL (3.6-5.1); RED CELL DISTRIBUTION WIDTH 14.3 % (11.7-14.4)
[2018-10-16 06:14] LABS: PLATELET COUNT 48 x10e3/uL (140-360)
--- NOTE | 2018-10-16 06:22 | NUR ---
Lab critical value (platelet 48L )informed to high school football coach of .no new orders.
[2018-10-16 06:32] LABS: BLOOD UREA NITROGEN 6 mg/dL (7-26); BUN/CREATININE RATIO 8 (6-25); CALCIUM 7.3 mg/dL (8.4-10.2); CARBON DIOXIDE 24 mmol/L (22-29); CREATININE, SERUM 0.77 mg/dL (0.57-1.11); EST GLOMERULAR FILTRATION RATE > 60 ML/MIN (60-); GLUCOSE 108 mg/dL (74-118); MAGNESIUM 1.4 MG/DL (1.3-2.1); PHOSPHORUS 2.2 MG/DL (2.3-4.7)
[2018-10-16 06:54] LABS: CHLORIDE 107 mmol/L (98-107); POTASSIUM 4.2 mmol/L (3.5-5.1); SODIUM 135 mmol/L (136-145)
[2018-10-16 07:11] LABS: ANION GAP 8.2 mmol/L (8-16)
--- NOTE | 2018-10-16 07:50 | NUR ---
Report given to the oncoming rn.walking rounds done.stable condition.
--- NOTE | 2018-10-16 07:50 | NUR ---
BEDSIDE REPORT GIVEN. NO COMPLAINS VOICED. PT VERY PLEASANT
[2018-10-16] MEDS: ALBUTEROL/IPRATROPIUM 3 ML NEB NEB SCH ×2 (08:15→13:00)
[2018-10-16] MEDS: PANTOPRAZOLE SOD 40 MG TABEC PO SCH (08:15)
[2018-10-16] MEDS: GUAIFENESIN 600 MG TAB PO SCH ×2 (08:18→20:57)
--- NOTE | 2018-10-16 10:00 | NUR ---
PT SEEN BY DR PANG EARLIER AND NO CHANGES AT THIS TIME
--- NOTE | 2018-10-16 10:08 | NUR ---
Ashley Palmer informed nurse to notify Dr. Loo regarding need for further images for possible surgery. Dr. Loo office notified at this time. Awaiting for call back.
[2018-10-16] MEDS: ONDANSETRON HCL 4 MG ORAL DISINTEGRATING TAB PO PRN (11:41)
[2018-10-16] MEDS: MORPHINE SULFATE INJ 4 MG/ML INJ 1ML IV PRN (11:41)
--- NOTE | 2018-10-16 15:27 | NUR ---
CASE MANAGEMENT ASSESSMENT Bench Scientist to bedside to discuss plan of care with patient/family. CM/SW role and care transitions discussed. Anticipated discharge plan discussed along with duration of care. CM/SW discussed patients right to make decisions in care. CM/SW work hours given. Patient lives: with daughter and 3 grandchildren Admit/Transfer: thru ED Hospital/ER visits since last admit: 2 ED visits; states has not been hospitalized in a few years POA/Emergency contact: daughter Olive Anglin [phone] Current/Previous Home Health: none PCP/Follow-up Care: Dr. Bajwa - PCP; advised pt to follow up with one of her MDs within a week of discharge Current/Previous DME: wheelchair, walker, rollator; pt states she only uses these DMEs as needed Medications (referring to index hospitalization or the first time you were in the hospital) a. Were changes made in your medications when you were in the hospital on [date of index hospitalization]? n/a b. Did you understand the changes? n/a c. Were you able to obtain your new medications right away? n/a d. Were you able to take your medications like the doctor wanted you to? n/a e. Did the hospital give you an accurate, easy to understand list of medications when you left? n/a Scale of 1-10 how comfortable does patient feel with disease management in outpatient settin Other Services: has provider M-F for 2-3 hrs each day Employment Status: retired Areas of Concerns: splenic artery aneurysm, cholecystitis Referral Needs: none Education Needs: medical management IMM/BRAVO given and signed (if applicable): n/a Goal for discharge: pt states she wants to transfer to another hospital if she needs to have surgery for her aneurysm. if no surgery, then pt wants to discharge home. CM/SW left business card at the bedside with contact information. Name and number was also written on the patients whiteboard. Patient verbalized understanding of discussion. CM will follow-up with ongoing discharge and transition of care needs.
--- NOTE | 2018-10-16 20:25 | Consultation ---
DATE OF CONSULTATION: 10/16/2018 REASON FOR CONSULTATION: Pancytopenia. HISTORY OF PRESENT ILLNESS: She is a very pleasant 68-year-old female with past medical history includes fibromyalgia, lower extremity neuropathy, history of polycythemia, history of alcohol abuse with chronic liver disease, admitted through Emergency with right upper quadrant pain, radiating to back, associated with nausea and vomiting. No fever or chills reported at admission. She has history of alcohol abuse causing chronic liver disease. Her CAT scan shows acalculous cholecystitis. The CAT scan also shows cirrhotic hepatic morphology, mild splenomegaly. The patient denies any weight loss or night sweats. Blood work on admission shows white cell count 4.3, hemoglobin 12, platelet count of 93. INR was 0.97. The patient also had elevated bilirubin with slightly elevated AST. Albumin was low 3.4. The patient with surgeon. PAST MEDICAL HISTORY: Fibromyalgia, lower extremity neuropathy, chronic liver disease, polycythemia. PAST SURGICAL HISTORY: Positive for the lower extremity fracture and history of breast surgery. SOCIAL HISTORY: Not a smoker. She has a history of rujmmjby-ay-bugdiy alcohol abuse. She has currently stopped drinking. No history of IV drug abuse. MEDICATIONS: List reviewed. ALLERGIES: NKDA. REVIEW OF SYSTEMS: A 12-point review as per HPI. PHYSICAL EXAMINATION: GENERAL: Alert, awake, communicative. HEENT: Normocephalic, atraumatic. Sclerae pale. Conjunctiva clear. NECK: Supple. CHEST: Decreased breath sounds at bases. CARDIOVASCULAR: Regular rate and rhythm. EXTREMITIES: No clubbing, cyanosis, or edema. EMERY GRINDER: Intact. LABORATORY DATA: Reviewed. ASSESSMENT AND PLAN: The patient with history of multiple medical conditions, I am currently following for pancytopenia. 1. Pancytopenia. The patient has history of chronic liver disease attributed to alcoholic abuse in the past. The patient's recent CAT scan showed cirrhotic liver with splenomegaly. Likely responsible of pancytopenia, chronic liver disease with portal hypertension causing decreased production of thrombopoietin, increased destruction . The patient has no active bleeding. Hemoglobin is stable. RECOMMENDATIONS: Close observation. We will check flow cytometry considering the history of polycythemia to rule out any possible myeloproliferative disorder. We will continue remaining care. We will follow the patient very closely. MD MACIEJ Cruz /[id number]
[2018-10-16] MEDS: SERTRALINE HCL 50 MG TAB PO SCH (20:57)
[2018-10-16] MEDS: PREGABALIN 50 MG CAP PO SCH (20:57)
--- NOTE | 2018-10-16 22:28 | NUR ---
Blood pressure reassessed manually: 110/60
[2018-10-17] VITALS (9 sets, daily range): BP systolic 96–117; BP diastolic 51–67
--- NOTE | 2018-10-17 02:23 | NUR ---
JULIUS drain dressing saturated with serosanginuonus fluid. Dressing removed and new dressing was placed.
[2018-10-17 03:58] LABS: BASOPHILS % 0.3 % (0.0-1.0); EOSINOPHILS # (AUTO) 0.1 (0.0-0.4); EOSINOPHILS % 3.4 % (0.0-6.0); HEMATOCRIT 24.4 % (34.2-44.1); HEMOGLOBIN 7.9 g/dL (12.0-16.0); LYMPHOCYTES # (AUTO) 0.9 (1.0-3.2); MEAN CORPUSCULAR HEMOGLOBIN 30.3 pg (28-32); MEAN CORPUSCULAR HGB CONC 32.4 g/dL (31-35); MEAN CORPUSCULAR VOLUME 93.5 fL (81-99); MONOCYTES # (AUTO) 0.3 (0.2-0.8); MONOCYTES % 8.4 % (4.4-11.3); NEUTROPHILS # (AUTO) 1.7 (2.1-6.9); NEUTROPHILS % 56.9 % (38.7-80.0); RED BLOOD COUNT 2.61 x10e6/uL (3.6-5.1); RED CELL DISTRIBUTION WIDTH 14.8 % (11.7-14.4)
[2018-10-17 04:12] LABS: PLATELET COUNT 47 x10e3/uL (140-360)
[2018-10-17 04:15] LABS: ALANINE AMINOTRANSFERASE 13 IU/L (0-55); ALBUMIN 2.3 g/dL (3.5-5.0); ALKALINE PHOSPHATASE 52 IU/L (40-150); BILIRUBIN,DIRECT 0.5 mg/dL (0.0-0.5); BLOOD UREA NITROGEN 5 mg/dL (7-26); BUN/CREATININE RATIO 8 (6-25); CARBON DIOXIDE 22 mmol/L (22-29); CHLORIDE 113 mmol/L (98-107); CREATININE, SERUM 0.65 mg/dL (0.57-1.11); EST GLOMERULAR FILTRATION RATE > 60 ML/MIN (60-); GLUCOSE 80 mg/dL (74-118); SODIUM 139 mmol/L (136-145)
--- NOTE | 2018-10-17 04:15 | NUR ---
KEITH Miles notified of critical lab value
[2018-10-17 04:31] LABS: CALCIUM 6.4 mg/dL (8.4-10.2)
[2018-10-17 04:32] LABS: MAGNESIUM 1.1 MG/DL (1.3-2.1)
[2018-10-17] MEDS: SODIUM CHLORIDE 0.9% 1000ML 1,000 ML IV SCH ×3 (04:43→17:01)
--- NOTE | 2018-10-17 06:08 | NUR ---
Dr. Bell aware of critical lab values
[2018-10-17] MEDS ORDERED: MAGNESIUM SULF 1GRAM/DEXTROSE 300 ML IV ONE (07:15)
--- NOTE | 2018-10-17 07:26 | NUR ---
KEITH Miles notified of 32 consecutive V tachs, orders received and placed
[2018-10-17 07:53] LABS: HYPOCHROMASIA MODERATE
[2018-10-17 07:54] LABS: ANISOCYTOSIS SLIGHT; PLATELET ESTIMATE MARKEDLY DECREASED; PLATELET MORPHOLOGY COMMENT NORMAL; RBC MORPHOLOGY COMMENT NORMAL
[2018-10-17] MEDS: PANTOPRAZOLE SOD 40 MG TABEC PO SCH (07:57)
[2018-10-17] MEDS ORDERED: CALCIUM GLUCONATE IV ONE (08:00)
[2018-10-17] MEDS ORDERED: CALCIUM GLUCONATE 10% INJ 4.65 MEQ in SODIUM CHLORIDE 0.9% 100 ML IV ONE (08:00)
[2018-10-17] MEDS ORDERED: SODIUM CHLORIDE 0.9% IV ONE (08:00)
[2018-10-17] MEDS: ASCORBIC ACID 500 MG TAB PO SCH ×2 (12:29→17:01)
[2018-10-17] MEDS: GUAIFENESIN 600 MG TAB PO SCH ×2 (12:29→21:20)
[2018-10-17] MEDS: METOPROLOL TARTRATE 25 MG TAB PO SCH ×2 (14:50→20:45)
[2018-10-17] MEDS ORDERED: POTASSIUM CHLORIDE 20 MEQ TAB CR PO NR (16:00)
--- NOTE | 2018-10-17 16:57 | NUR ---
JULIUS drain removed at this time, per orders of Dr. Herrera. 25cc of serous fluid collected in bulb.
[2018-10-17] MEDS ORDERED: IRON SUCROSE 100 MG in SODIUM CHLORIDE 0.9% 100 ML 100 ML IV SCH (17:00)
--- NOTE | 2018-10-17 19:32 | Consultation ---
DATE OF CONSULTATION: 10/17/2018 REASON FOR CONSULTATION: Questionable supraventricular tachycardia, ventricular tachycardia. CHIEF COMPLAINT: Nausea, vomiting. HISTORY OF PRESENT ILLNESS: This is a 68-year-old female with history of liver cirrhosis, esophageal varices, fibromyalgia, neuropathy, pancytopenia. The patient presents to [facility] ER with apparent complaints of nausea, vomiting, right upper quadrant pain, was seen by General Surgery, underwent a cholecystectomy on October 15. No major complications or events during the surgery, however, this morning, the patient was noted with questionable supraventricular tachycardia, ventricular tachycardia, so therefore Cardiology was consulted. Of note, on initial evaluation, the patient was noted on CT with a 3.1 cm splenic artery aneurysm and has been evaluated by CV Surgery. The patient was seen in room in no acute distress. She reports she feels fine. She does, however, report for many years has felt intermittent palpitations, occasional dizziness, but no syncope. Denies any chest pains or shortness of breath. Currently, the patient is comfortable and in no acute distress. PAST MEDICAL HISTORY: Liver cirrhosis, esophageal varices, fibromyalgia, pancytopenia, neuropathy, ex-smoker. PAST SURGICAL HISTORY: Apparently, several breast biopsies, left ankle surgery, tonsillectomy, x2, and also colonoscopy with polypectomy. FAMILY HISTORY: Apparently, mother at the age of 62 with apparently history of CAD. Father, unknown as the patient has not seen her father since the age of 6. SOCIAL HISTORY: The patient lives with her daughter. She is an ex-smoker, she quit about 6 years ago, she smoked for 40 years 3 packs a day. Alcohol use, she has quit in the recent history, however, she did drink, but apparently a pint of Aamir daily for 30 years. HOME MEDICATIONS: Lyrica 50 mg daily, Zoloft 50 mg daily, and trazodone p.r.n. ALLERGIES: PENICILLIN. REVIEW OF SYSTEMS: GENERAL: Denies any weight changes, any fatigue, weakness, fevers, chills, or night sweats. SKIN: No rashes or bruises. HEENT: Positive for nausea and vomiting prior to admission. Denies any vision changes, blurred vision, double vision, epistaxis, sore throat, swollen gums, bleeding gums. CARDIAC: Denies any chest pain. Positive for intermittent palpitations. Positive for dyspnea on exertion. Denies any orthopnea, PND, or lower extremity edema. RESPIRATORY: Positive for dyspnea on exertion. Denies any hemoptysis. GI: Reports good appetite, however, recently had episodes of nausea and vomiting. Denies any melena or hematochezia. URINARY: Denies any frequency, urgency, dysuria, or hematuria. VASCULAR: Denies any lower extremity edema or claudication. NEUROLOGIC: Denies any tremors, weakness, paralysis, fainting, blackout, or seizures. HEMATOLOGY: Positive for anemia. Denies any bruising. ENDOCRINE: Denies any heat or cold intolerance, any polyuria, polydipsia, or polyphagia. PHYSICAL EXAMINATION: VITAL SIGNS: Height 65 inches, weight 185 pounds. Current vitals, temperature 98.7, pulse 90, respiratory rate 22, blood pressure 108/55, pulse ox 92% on room air. GENERAL: Appears stated age, reliable informant, pleasant person. SKIN: No rashes or bruises noted. HEENT: Normocephalic. Pupils equal and reactive. Extraocular movements intact. Oral mucosa pink. NECK: Trachea midline. Soft right carotid bruit noted. No JVD. HEART: Regular rate and rhythm. Positive for systolic murmur heard in the right upper quadrant sternal border. LUNGS: Bilateral breath sounds clear to auscultation. Diminished throughout. ABDOMEN: Soft, has a right JULIUS drain. Positive bowel sounds. VASCULAR: +2 bilateral radial pulses bilaterally and +1 DP and PT pulses bilaterally. NEUROLOGIC: Cranial nerves II through XII seem intact. LABORATORY DATA: Sodium 139, potassium 3.0, chloride 113, BUN 5, creatinine 0.6, calcium 6.4, magnesium 1.1. BNP 154. TSH 0.8. White count of 2.9, hemoglobin 7.9, hematocrit 24, platelets 47. IMAGING DATA: CT of abdomen showing a cirrhotic liver, mild splenomegaly and portal hypertension and gastrosplenic varices, 3.1 cm splenic artery aneurysm. ASSESSMENT: 1. Cholecystitis, status post cholecystectomy. 2. Liver cirrhosis. 3. Paroxysmal atrial fibrillation with aberrancy. 4. Splenic artery aneurysm. 5. Pancytopenia. 6. Hypokalemia. 7. Hypomagnesemia. PLAN: 1. The patient presents with abdominal pain, nausea, vomiting, underwent cholecystectomy. No major events noted, however, overnight. This morning, was noted with episode of tachycardia and questionable ventricular tachycardia. However, during review of the telemetry, the patient appears to be in atrial fibrillation with aberrancies. Given patient's history of liver cirrhosis, pancytopenia, the patient is not a candidate for oral anticoagulation therapy. Currently, platelets of 40s. 2. We will go ahead and place the patient on BiPAP, on rate control therapy and continue telemonitoring. Also, the patient is also not a candidate for antiarrhythmic therapy such as amiodarone given liver cirrhosis. 3. We will go ahead and get an echo just to evaluate heart structure and function. 4. Continue telemonitoring. 5. We will monitor the patient and adjust cardiac therapy as clinical course dictates. Thank you very much for this consult. Dictated by Yuriy Kang NP seen and examined, agree with note Amalia Cotter MD DC/SPENCER /[id number] ABELARDO
[2018-10-17] MEDS: SERTRALINE HCL 50 MG TAB PO SCH (21:20)
[2018-10-17] MEDS: PREGABALIN 50 MG CAP PO SCH (21:20)
[2018-10-18] VITALS: BP 107/54
--- NOTE | 2018-10-18 00:43 | Progress Note ---
DATE: SUBJECTIVE: The patient seen and examined today. The patient appeared comfortable. She had persistent pancytopenia and anemia. Hemoglobin dropped. The patient was started on iron treatment. OBJECTIVE: GENERAL: Alert, awake, communicative. HEENT: Normocephalic, atraumatic. Sclerae pale. Conjunctivae are clear. NECK: Supple. CHEST: Decreased breath sounds in the bases. CARDIOVASCULAR: Regular rate and rhythm. EXTREMITIES: No edema. LABORATORY AND IMAGING DATA: Labs and imaging reviewed. ASSESSMENT/PLAN: The patient with history of multiple medical conditions, I am currently following for anemia and pancytopenia. The patient has a history of chronic liver disease patient's hemoglobin is slightly trending down. Workup in the past consistent with anemia of iron deficiency and anemia of chronic disease. RECOMMENDATIONS: Continue present treatment. Blood transfusion if hemoglobin below 7. Monitor patient closely. We will follow the patient. MD SHARRI Cruz/SPENCER /[id number]
[2018-10-18 04:00] VITALS: BP 97/52
[2018-10-18] MEDS: SODIUM CHLORIDE 0.9% 1000ML 1,000 ML IV SCH (04:00)
[2018-10-18 04:18] LABS: BASOPHILS % 0.3 % (0.0-1.0); EOSINOPHILS # (AUTO) 0.1 (0.0-0.4); EOSINOPHILS % 4.5 % (0.0-6.0); HEMATOCRIT 27.5 % (34.2-44.1); HEMOGLOBIN 8.7 g/dL (12.0-16.0); LYMPHOCYTES # (AUTO) 0.8 (1.0-3.2); LYMPHOCYTES % 25.8 % (18.0-39.1); MEAN CORPUSCULAR HGB CONC 31.6 g/dL (31-35); MEAN CORPUSCULAR VOLUME 94.8 fL (81-99); MONOCYTES # (AUTO) 0.3 (0.2-0.8); MONOCYTES % 8.7 % (4.4-11.3); NEUTROPHILS # (AUTO) 1.9 (2.1-6.9); NEUTROPHILS % 59.7 % (38.7-80.0); PLATELET COUNT 57 x10e3/uL (140-360); RED CELL DISTRIBUTION WIDTH 15.1 % (11.7-14.4)
[2018-10-18 04:44] LABS: MAGNESIUM 1.8 MG/DL (1.3-2.1)
[2018-10-18 05:04] LABS: FERRITIN 100.37 ng/mL (4.63-204.00)
[2018-10-18] MEDS: METOPROLOL TARTRATE 25 MG TAB PO SCH (06:00)
[2018-10-18] MEDS ORDERED: FOLIC ACID1 MG PO (06:49)
[2018-10-18] MEDS ORDERED: LOPRESSOR25 MG PO (06:49)
[2018-10-18] MEDS ORDERED: ASCORBIC ACID500 MG PO (06:49)
--- NOTE | 2018-10-18 07:05 | NUR ---
received pt lying in bed with eyes open and TV on. denies pain and sob at this time. call light within reach and instructed to call for assistance.
[2018-10-18 07:16] LABS: ALANINE AMINOTRANSFERASE 13 IU/L (0-55); ALBUMIN 2.6 g/dL (3.5-5.0); ALKALINE PHOSPHATASE 53 IU/L (40-150); ANION GAP 7.2 mmol/L (8-16); BLOOD UREA NITROGEN 5 mg/dL (7-26); BUN/CREATININE RATIO 7 (6-25); CALCIUM 7.6 mg/dL (8.4-10.2); CARBON DIOXIDE 24 mmol/L (22-29); CHLORIDE 111 mmol/L (98-107); CREATININE, SERUM 0.68 mg/dL (0.57-1.11); EST GLOMERULAR FILTRATION RATE > 60 ML/MIN (60-); GLUCOSE 91 mg/dL (74-118); POTASSIUM 4.2 mmol/L (3.5-5.1); SODIUM 138 mmol/L (136-145)
[2018-10-18 07:29] VITALS: BP 97/53
[2018-10-18 08:01] VITALS: BP 97/53
[2018-10-18] MEDS: GUAIFENESIN 600 MG TAB PO SCH (08:23)
[2018-10-18] MEDS: PANTOPRAZOLE SOD 40 MG TABEC PO SCH (08:23)
[2018-10-18] MEDS: ASCORBIC ACID 500 MG TAB PO SCH (08:23)
[2018-10-18] MEDS ORDERED: FOLIC ACID 1 MG TAB PO SCH (09:00)
--- NOTE | 2018-10-18 10:30 | Progress Note ---
DATE: 10/18/2018 SUBJECTIVE: The patient seen and examined today. The patient appears comfortable. Clinical condition has improved. OBJECTIVE: GENERAL: Alert, awake, communicative. HEENT: Normocephalic, atraumatic. Sclerae pale. Conjunctivae are clear. NECK: Supple. CHEST: Clear to auscultation. CARDIOVASCULAR: Regular rate and rhythm. ABDOMEN: Soft. EXTREMITIES: No edema. LABORATORY AND IMAGING DATA: Labs and imaging reviewed. ASSESSMENT: The patient with history of multiple medical conditions, includes anemia, pancytopenia. Workup is consistent with a chronic liver disease. Anemia workup showed iron deficiency, currently on iron infusion. Hemoglobin improved. Blood count has improved. RECOMMENDATION: Continue current care. We will follow the patient as outpatient. MD SHARRI Cruz/SPENCER /[id number]
[2018-10-18] MEDS ORDERED: CALCIUM GLUCONATE 10% INJ 9.3 MEQ in SODIUM CHLORIDE 0.9% 100 ML 100 ML IV ONE (11:00)
[2018-10-18 11:50] VITALS: BP 139/64
--- NOTE | 2018-10-18 13:19 | NUR ---
PIV removed with tip intact. denies pain, denies SOB upon d/c. all personal belongings, D/C instructions and RX with pt at time of d/c. escorted to front lobby entrance where daughter awaited in private auto.
--- NOTE | 2018-10-19 04:10 | Discharge Summary ---
ADMISSION DIAGNOSES: Acalculous cholecystitis, splenic artery aneurysm, cirrhosis, fibromyalgia, urinary tract infection, insomnia, depression. DISCHARGE DIAGNOSES: Acalculous cholecystitis, splenic artery aneurysm, cirrhosis, fibromyalgia, urinary tract infection, insomnia, depression, new onset atrial fibrillation; pancytopenia, status post lap josephine, folic acid deficiency, anemia. PAST MEDICAL HISTORY: The patient has a history of cirrhosis, fibromyalgia, depression, insomnia, and polycythemia. SURGICAL HISTORY: Tonsillectomy, , left ankle surgery, left foot surgery, right breast biopsy. FAMILY HISTORY: The patient's mom and grandma had cancer. SOCIAL HISTORY: Noncontributory. The patient admits to quitting smoking 6 to 7 years ago. She also admits to a history of alcohol abuse, but quit 13 years ago. HOSPITAL COURSE: A 68-year-old female, complains of right back pain that began two days ago. She was using with no issues. Then yesterday, the back pain radiated to her right upper quadrant. The pain was sharp and constant. She denies dizziness, fever, and diarrhea. She had associated nausea and vomiting. On admission, the patient was started on Rocephin. Ultrasound of the gallbladder showed hydropic gallbladder with nonspecific findings. CT of the abdomen showed cirrhotic hepatic morphology, mild splenomegaly, gallbladder hydrops, 3.1 cm splenic artery aneurysm. The patient was believed to have a urine infection, so once the culture came back and was negative, the Rocephin was stopped. The patient had a lap josephine by Dr. Herrera before CV Surgery would see the patient. The patient was given IV iron by Hematology for her anemia x1 bag. After discussing the plan with CV Surgery and Dr. Luis, it was decided that the patient will discharge home and follow up at [place] for further workup of the splenic artery aneurysm as the patient's [facility] is unable to do the test that wanted. The patient is tolerating diet and having bowel movements, status post lap josephine and she is feeling much better. She will discharge home with metoprolol due to her new found atrial fibrillation. Per cardiology, she is not a candidate for anticoagulation due to her pancytopenia. She is also not a candidate for amiodarone due to her cirrhosis. The patient will also get a prescription for folic acid and vitamin C. She refuses iron p.o. as she says that it upsets her stomach. She will follow up with primary care in 1 to 2 weeks, Cardiology in 1 to 2 weeks, and CV Surgery as discussed. The patient understands discharge instructions and agrees to plan. Dictated by Ashley Palmer NP MD MANJULA Vann/SPENCER /[id number]
== END 2018-10-18 13:19 | disposition home or self-care (01) | DRG 418 ==
LOC: ER 21:58 → ERHOLD 10-13 02:24 → MED/SURG 10-13 03:08
PROVIDERS: ADMIT Internal Medicine; ATTEND Internal Medicine
PROC: 0FT44ZZ Resection of Gallbladder, Percutaneous Endoscopic Approach (ICD-10-PCS; principal; 2018-10-15 11:30)
DX: K81.0 Acute cholecystitis (principal); A52.0 Cardiovascular and cerebrovascular syphilis
CPT/HCPCS: 36415; 74177; 76705; 80048; 80053; 80076; 81001; 82150; 82607; 82728; 82746; 83036; 83540; 83690; 83735; 83880; 84100; 84439; 84443; 84466; 85025; 85610; 85730; 86850; 86900; 87086; 88304; 93306; 99284; J0500; J0610; J0696; J1100; J1756; J1956; J2001; J2175; J2250; J2270; J2405; J3475; J7030; J7050; Q9967

== ENCOUNTER 2019-09-07 15:47 | Inpatient (IN) | payer MEDICARE, OTHER ==
[~2019-09-07] VITALS: Ht 165.1 cm; Wt 85.7 kg
[~2019-09-07 15:47] MED LIST: ASCORBIC ACID500 MG PO; ASPERCREME 1035.4 GM TOP; FOLIC ACID1 MG PO; LOPRESSOR25 MG PO; LYRICA50 MG PO; TRAZODONE HCL50 MG PO; ZOLOFT50 MG PO; [UNRECOGNIZED DRUG - OTHER]; eye drops OU
[2019-09-07] MEDS ORDERED: MORPHINE SULFATE 2 MG/ML SYR 1ML IV NR (16:45)
[2019-09-07 16:50] LABS: BASOPHILS % 0.5 % (0.0-1.0); EOSINOPHILS # (AUTO) 0.1 (0.0-0.4); EOSINOPHILS % 1.7 % (0.0-6.0); HEMATOCRIT 35.5 % (34.2-44.1); HEMOGLOBIN 11.8 g/dL (12.0-16.0); LYMPHOCYTES # (AUTO) 1.3 (1.0-3.2); LYMPHOCYTES % 20.9 % (18.0-39.1); MEAN CORPUSCULAR HEMOGLOBIN 29.6 pg (28-32); MEAN CORPUSCULAR HGB CONC 33.2 g/dL (31-35); MEAN CORPUSCULAR VOLUME 89.2 fL (81-99); MONOCYTES # (AUTO) 0.6 (0.2-0.8); NEUTROPHILS # (AUTO) 4.2 (2.1-6.9); NEUTROPHILS % 66.3 % (38.7-80.0); PLATELET COUNT 101 x10e3/uL (140-360); RED BLOOD COUNT 3.98 x10e6/uL (3.6-5.1); RED CELL DISTRIBUTION WIDTH 14.4 % (11.7-14.4)
[2019-09-07] MEDS ORDERED: ONDANSETRON HCL INJ 2MG/ML 2ML 2 MG/ML VIAL IV NR (17:00)
[2019-09-07 17:04] LABS: INR 1.26; PROTHROMBIN TIME 16.6 seconds (11.9-14.5)
[2019-09-07 17:05] LABS: PARTIAL THROMBOPLASTIN TIME 32.1 seconds (23.8-35.5)
[2019-09-07 17:16] LABS: ALANINE AMINOTRANSFERASE 22 IU/L (0-55); ALBUMIN 3.6 g/dL (3.5-5.0); ALBUMIN/GLOBULIN RATIO 1.2 (0.8-2.0); ALKALINE PHOSPHATASE 74 IU/L (40-150); ANION GAP 13.2 mmol/L (8-16); BLOOD UREA NITROGEN 17 mg/dL (7-26); BUN/CREATININE RATIO 18 (6-25); CALCIUM 8.9 mg/dL (8.4-10.2); CARBON DIOXIDE 27 mmol/L (22-29); CHLORIDE 101 mmol/L (98-107); CREATINE KINASE 913 IU/L (29-168); CREATININE, SERUM 0.94 mg/dL (0.57-1.11); EST GLOMERULAR FILTRATION RATE 59 ML/MIN (60-); GLUCOSE 87 mg/dL (74-118); MAGNESIUM 1.6 MG/DL (1.3-2.1); POTASSIUM 4.2 mmol/L (3.5-5.1); SODIUM 137 mmol/L (136-145)
[2019-09-07 17:29] LABS: CLARITY,URINE CLEAR (CLEAR); COLOR,URINE YELLOW (YELLOW)
[2019-09-07 17:30] LABS: KETONES,URINE TRACE (NEGATIVE); LEUKOCYTE ESTERASE ,URINE NEGATIVE (NEGATIVE); NITRITE,URINE NEGATIVE (NEGATIVE); PROTEIN,URINE DIPSTICK NEGATIVE (NEGATIVE)
[2019-09-07 17:31] LABS: BILIRUBIN,URINE NEGATIVE (NEGATIVE)
[2019-09-07 17:32] LABS: BACTERIA,URINE RARE /HPF; EPITHELIAL CELLS,URINE FEW /LPF; RBC,URINE 0-5 /HPF (0-5); WBC,URINE (MAN) 0-5 /HPF (0-5)
--- NOTE | 2019-09-07 17:57 | Diagnostic Imaging Report ---
Examination: Single AP view of the chest. COMPARISON: None. INDICATION: Stroke, altered mental status DISCUSSION: Lines/tubes: None. Lungs: The lungs are well inflated and clear. No pneumonia or pulmonary edema. Pleura: No pleural effusion or pneumothorax. Heart and mediastinum: The heart and the mediastinum are unremarkable. Bones and soft tissues: No acute bony abnormalities. IMPRESSION: 1. No acute cardiopulmonary abnormalities. Signed by: Dr. Benedict Carpio M.D. on 09/07/2019 5:54 PM
--- NOTE | 2019-09-07 17:57 | Diagnostic Imaging Report ---
History: Altered mental status Comparison studies: None Technique: Axial images were obtained from the skull base to the vertex. Coronal and sagittal reconstructions obtained from the axial data. Dose modulation, iterative reconstruction, and/or weight based adjustment of the mA/kV was utilized to reduce the radiation dose to as low as reasonably achievable. Intravenous contrast: None Findings: Scalp/skull: No abnormalities. No fractures, blastic or lytic lesions. Extra-axial spaces: No masses. No fluid collections. Brain sulci: Appropriate for age. Ventricles: Normal in size and configuration. No hydrocephalus. Parenchyma: No abnormal densities. No masses, hemorrhage, acute or chronic cortical vascular insults. Sellar/suprasellar region: No abnormalities Craniocervical junction: Patent foramen magnum. No Chiari one malformation. Incidental findings: None. IMPRESSION: No abnormalities Signed by: Dr. Oscar Luu M.D. on 09/07/2019 5:53 PM
[2019-09-07] MEDS ORDERED: SODIUM CHLORIDE 0.9% 250ML 500 ML ONE (18:19)
[2019-09-07] MEDS ORDERED: ULTRAM 50MG50 MG PO (18:26)
[2019-09-07] MEDS ORDERED: SODIUM CHLORIDE 0.9% 500ML 500 ML IV ONE (18:30)
[2019-09-07] MEDS ORDERED: MEROPENEM 1GM 100 ML IV ONE (18:30)
[2019-09-07] MEDS ORDERED: ONDANSETRON HCL INJ 2MG/ML 2ML 2 MG/ML VIAL IV PRN (18:30)
[2019-09-07 19:24] LABS: AMYLASE 22 U/L (25-125); LIPASE 15 U/L (8-78)
[2019-09-07] MEDS ORDERED: IOPAMIDOL 370 MG/ML 200 ML INFUS..BTL INJ ONE (19:51)
[2019-09-07] MEDS ORDERED: SODIUM CHLORIDE 0.9% 50ML 50 ML ONE (19:51)
[2019-09-07] MEDS: FAMOTIDINE 20 MG/2 ML VIAL IV SCH (20:00)
[2019-09-07] MEDS: SODIUM CHLORIDE 0.9% 1000ML 1,000 ML IV SCH (20:03)
[2019-09-07] MEDS ORDERED: SERTRALINE HCL 50 MG TAB PO ONE (20:30)
[2019-09-07] MEDS ORDERED: TRAZODONE HCL 50 MG TAB PO ONE (20:30)
--- NOTE | 2019-09-07 20:36 | Diagnostic Imaging Report ---
EXAM: CT Abdomen and Pelvis WITH contrast INDICATION: Abdominal pain. Elevated bilirubin. COMPARISON: 10/13/2018. TECHNIQUE: Abdomen and pelvis were scanned utilizing a multidetector helical scanner from the lung base to the pubic symphysis after administration of IV contrast. Coronal and sagittal reformations were obtained. Routine protocol was performed. Scan was performed when during portal venous phase. IV CONTRAST: 100 cc Isovue-370 ORAL CONTRAST: Water RADIATION DOSE: Total DLP: 829.92 mGy*cm Estimated effective dose: (DLP x 0.015 x size factor) mSv COMPLICATIONS: None FINDINGS: LINES and TUBES: None. LOWER THORAX: Unremarkable HEPATOBILIARY: Shrunken liver with nodular contour, consistent with cirrhotic morphology. No focal hepatic lesions. Mild dilatation of the common bile duct up to 1.0 cm may reflect reservoir effect status post cholecystectomy. GALLBLADDER: There are cholecystectomy clips. SPLEEN: Mild splenomegaly. PANCREAS: No focal masses or ductal dilatation. ADRENALS: No adrenal nodules KIDNEYS/URETERS: Kidneys enhance symmetrically. No hydronephrosis. No cystic or solid mass lesions. No stones. GI TRACT: No abnormal distention, wall thickening, or evidence of bowel obstruction. Appendix is normal. PELVIC ORGANS/BLADDER: Unremarkable. LYMPH NODES: No lymphadenopathy. VESSELS: There is mild atherosclerotic disease in the aorta and major arterial branches. The main portal vein branches are decreased in caliber, with mild cavernous transformation again observed. Extensive collateral circulation, with a large splenic varices and splenorenal shunt. Prominent left gonadal vein. 3.0 cm splenic artery aneurysm. PERITONEUM / RETROPERITONEUM: No free air or fluid. BONES: There are degenerative disc disease and spondylosis at L1-L2. Generalized osteopenia. SOFT TISSUES: Unremarkable. IMPRESSION: 1. Hepatic cirrhosis. 2. Splenomegaly and portal hypertension. 3. Mild dilatation of the common bile duct up to 1.0 cm may reflect reservoir effect status post cholecystectomy. Signed by: Dr. Kamari Gomes M.D. on 09/07/2019 8:33 PM
[2019-09-07] MEDS ORDERED: TRAZODONE HCL 50 MG TAB ONE (20:38)
[2019-09-07 22:40] VITALS: BP 100/73
[2019-09-07 23:10] VITALS: BP 100/73
[2019-09-07 23:21] VITALS: BP 100/73
[2019-09-07 23:23] VITALS: BP 100/73
[2019-09-08] VITALS (10 sets, daily range): BP systolic 80–100; BP diastolic 44–73
[2019-09-08] MEDS: SODIUM CHLORIDE 0.9% 1000ML 1,000 ML IV SCH (04:36)
[2019-09-08 05:32] LABS: BASOPHILS % 0.6 % (0.0-1.0); EOSINOPHILS # (AUTO) 0.1 (0.0-0.4); EOSINOPHILS % 2.1 % (0.0-6.0); HEMATOCRIT 32.4 % (34.2-44.1); LYMPHOCYTES # (AUTO) 1.2 (1.0-3.2); MEAN CORPUSCULAR HEMOGLOBIN 28.4 pg (28-32); MEAN CORPUSCULAR HGB CONC 30.9 g/dL (31-35); MONOCYTES # (AUTO) 0.6 (0.2-0.8); MONOCYTES % 10.7 % (4.4-11.3); NEUTROPHILS # (AUTO) 3.4 (2.1-6.9); PLATELET COUNT 72 x10e3/uL (140-360); RED BLOOD COUNT 3.52 x10e6/uL (3.6-5.1); RED CELL DISTRIBUTION WIDTH 14.6 % (11.7-14.4)
[2019-09-08 05:42] LABS: CREATINE KINASE 962 IU/L (29-168)
[2019-09-08 06:18] LABS: ALANINE AMINOTRANSFERASE 24 IU/L (0-55); ALBUMIN 3.2 g/dL (3.5-5.0); ALBUMIN/GLOBULIN RATIO 1.2 (0.8-2.0); ALKALINE PHOSPHATASE 60 IU/L (40-150); ANION GAP 11.1 mmol/L (8-16); BLOOD UREA NITROGEN 16 mg/dL (7-26); BUN/CREATININE RATIO 18 (6-25); CALCIUM 8.3 mg/dL (8.4-10.2); CARBON DIOXIDE 27 mmol/L (22-29); CHLORIDE 104 mmol/L (98-107); CHOL/HDL RATIO 3.1 (3.0-3.6); CHOLESTEROL 138 MD/DL (0-199); EST GLOMERULAR FILTRATION RATE > 60 ML/MIN (60-); GLUCOSE 79 mg/dL (74-118); HDL CHOLESTEROL 44 MG/DL (40-60); LDL CHOLESTEROL 72 MG/DL (60-130); POTASSIUM 4.1 mmol/L (3.5-5.1); SODIUM 138 mmol/L (136-145); TRIGLYCERIDES 110 MG/DL (0-149)
--- NOTE | 2019-09-08 07:10 | NUR ---
PT AWAKE AND ALERT ON BEDSIDE. 1:1 AT BEDSIDE FOR SAFETY
[2019-09-08] MEDS: FAMOTIDINE 20 MG/2 ML VIAL IV SCH ×2 (08:20→19:49)
--- NOTE | 2019-09-08 10:25 | NUR ---
ASSESSMENT: No concerns expressed Staff sitter at bedside. Pt open, friendly and challenged to stay awake. Intervention: Provided hospitality and information on how to reach saturator, if needed. Outcome: No need to follow at this time. STEVEN PEREZ Showroom Sales Consultant Spiritual Care Department O: [phone]
--- NOTE | 2019-09-08 10:30 | NUR ---
SAFETY MAINTAIN. 1:1 AT BEDSIDE
--- NOTE | 2019-09-08 13:36 | NUR ---
WOUND CARE CONSULTATION PUP SCREEN Age=69 Aníbal Score = 15 Alternating Pressure Air Mattress Moderate PATIENT VISIT / SKIN CHECK: - NO WOUNDS NOTED AT THIS TIME RECOMMENDATION: - MODERATE PUP STATUS AND INTERVENTIONS - Alternating Pressure Air Mattress - Bilateral Heel Protectors / Offload Heels with Pillows - Turn and Reposition Every 2 Hours Addendum: 09/08/19 at 1338 by Cosme Lopez RN Amended: Links added.
[2019-09-08 14:17] LABS: CREATINE KINASE MB 17.8 ng/mL (0-5.0)
--- NOTE | 2019-09-08 14:40 | NUR ---
Stephanie NAQVI INFORMED OF MICRO RESULTS.
[2019-09-08] MEDS ORDERED: MEROPENEM 1GM 100 ML IV SCH (15:30)
[2019-09-08] MEDS ORDERED: CEFTRIAXONE SOD 1 GM/NS 50 ML 50 ML IV SCH (15:30)
[2019-09-08] MEDS ORDERED: SODIUM CHLORIDE 0.9% 500ML 500 ML IV ONE (16:15)
--- NOTE | 2019-09-08 16:45 | NUR ---
pt transferred to [facility] closer for safety. bed alarm on
[2019-09-08] MEDS ORDERED: ASCORBIC ACID 500 MG TAB PO SCH (17:00)
[2019-09-08] MEDS: MEROPENEM 1GM 100 ML IV SCH (17:00)
[2019-09-08] MEDS: TROLAMINE SALICYLATE 35.4 GM CR TP SCH (17:00)
[2019-09-08] MEDS: ASCORBIC ACID 500 MG TAB PO SCH (17:00)
--- NOTE | 2019-09-08 18:40 | NUR ---
PT UP TO BATHROOM AND BACK IN BED. FALL ALARM ON
--- NOTE | 2019-09-08 19:00 | NUR ---
RECEIVED PATIENT IN BEDSIDE SHIFT REPORT. PATIENT RESTING IN BED AT THIS TIME. BACK PAIN REPORTED 11/25, WILL MEDICATE. BOLUS RUNNING AT THIS TIME, FOR 500ML D/T LOW BP TO L WRIST 22G ASYMPTOMATIC, INTACT, AND PATENT. NO S&S OF DISTRESS NOTED. BED ALARM ACTIVE. BED LOCKED IN LOWEST POSITION, SIDE RAILS UPX2, CALL LIGHT IN REACH.
[2019-09-08] MEDS: TRAMADOL HCL 50 MG TAB PO PRN (19:49)
[2019-09-08] MEDS ORDERED: TRAMADOL HCL 50 MG TAB PO PRN (22:00)
[2019-09-09] VITALS (7 sets, daily range): BP systolic 92–129; BP diastolic 53–62
[2019-09-09] MEDS: TRAMADOL HCL 50 MG TAB PO PRN ×2 (05:00→21:52)
[2019-09-09] MEDS: MEROPENEM 1GM 100 ML IV SCH ×2 (05:00→17:42)
--- NOTE | 2019-09-09 05:22 | NUR ---
PATIENT HAS AMBULATED UP AND DOWN WANG 4 TIMES THIS SHIFT WITH ROLLING WALKER AND STAFF STANDBY ASSISTANCE. STEADY GAIT NOTED, BUT STANDBY IS STILL NEEDED. PATIENT ALSO GETS UP TO URINATE ABOUT EVERY 30 MINUTES, STATES THIS HAS BEEN GOING ON FOR A FEW MONTHS. BECAUSE OF THIS, PATIENT STATES SHE HAS NOT SLEPT WELL "FOR A LONG WHILE." WILL CONTINUE TO MONITOR.
[2019-09-09] MEDS: FAMOTIDINE 20 MG/2 ML VIAL IV SCH (08:35)
[2019-09-09] MEDS: TROLAMINE SALICYLATE 35.4 GM CR TP SCH ×2 (08:35→17:41)
[2019-09-09] MEDS: ASCORBIC ACID 500 MG TAB PO SCH ×2 (08:35→17:40)
[2019-09-09] MEDS: FOLIC ACID 1 MG TAB PO SCH (08:35)
[2019-09-09] MEDS ORDERED: EYE OU SCH (09:00)
[2019-09-09] MEDS ORDERED: ASPIRIN 81 MG CHEW TAB PO ONE ×2 (09:45→12:30)
[2019-09-09 09:59] LABS: BASOPHILS % 0.6 % (0.0-1.0); EOSINOPHILS # (AUTO) 0.2 (0.0-0.4); EOSINOPHILS % 5.6 % (0.0-6.0); HEMATOCRIT 30.6 % (34.2-44.1); HEMOGLOBIN 9.7 g/dL (12.0-16.0); LYMPHOCYTES % 26.7 % (18.0-39.1); MEAN CORPUSCULAR HGB CONC 31.7 g/dL (31-35); MEAN CORPUSCULAR VOLUME 91.6 fL (81-99); MONOCYTES # (AUTO) 0.4 (0.2-0.8); MONOCYTES % 12.3 % (4.4-11.3); NEUTROPHILS # (AUTO) 1.9 (2.1-6.9); NEUTROPHILS % 53.1 % (38.7-80.0); PLATELET COUNT 63 x10e3/uL (140-360); RED BLOOD COUNT 3.34 x10e6/uL (3.6-5.1); RED CELL DISTRIBUTION WIDTH 14.7 % (11.7-14.4)
[2019-09-09 10:21] LABS: ANION GAP 8.8 mmol/L (8-16); BLOOD UREA NITROGEN 12 mg/dL (7-26); BUN/CREATININE RATIO 15 (6-25); CALCIUM 8.5 mg/dL (8.4-10.2); CARBON DIOXIDE 28 mmol/L (22-29); CHLORIDE 106 mmol/L (98-107); CREATINE KINASE 557 IU/L (29-168); CREATININE, SERUM 0.81 mg/dL (0.57-1.11); EST GLOMERULAR FILTRATION RATE > 60 ML/MIN (60-); GLUCOSE 113 mg/dL (74-118); MAGNESIUM 1.7 MG/DL (1.3-2.1); PHOSPHORUS 2.5 MG/DL (2.3-4.7); POTASSIUM 3.8 mmol/L (3.5-5.1); SODIUM 139 mmol/L (136-145)
[2019-09-09] MEDS ORDERED: ONDANSETRON HCL 4 MG ORAL DISINTEGRATING TAB PO PRN (11:00)
[2019-09-09] MEDS ORDERED: FAMOTIDINE 20 MG TAB PO SCH (11:15)
[2019-09-09] MEDS ORDERED: SODIUM CHLORIDE 0.9% 1000ML 1,000 ML IV ONE (12:30)
[2019-09-09] MEDS ORDERED: HYDROCODONE/APAP 7.5MG-325MG 1 EA TAB PO PRN (13:15)
[2019-09-09] MEDS ORDERED: SODIUM CHLORIDE 0.9% 1000ML 1,000 ML IV SCH (13:15)
[2019-09-09] MEDS: SODIUM CHLORIDE 0.9% 1000ML 1,000 ML IV SCH ×2 (13:30→23:30)
--- NOTE | 2019-09-09 17:21 | Diagnostic Imaging Report ---
Veins: Brain MRI, neck MRA and intracranial MRAs without IV contrast History: Altered mental status Comparison studies: Head CT 09/06/2018 Technique: Brain: Axial DWI, 3-D T1, axial T2 FLAIR and axial T2*GRE.. Neck MRA: Axial 2-D [id number] with 3-D MIP reformats. Intracranial MRA: Axial 3-D [id number] with 3-D MIP reformats. Findings: All exams significantly limited by artifacts related to patient motion. The brain MRI was also terminated early due to the patient's request. Brain: Scalp: No abnormal signal. No masses. Bone marrow: Normal in signal intensity. Brain sulci: Mildly prominent . Ventricles: Normal in size. No hydrocephalus. Extra axial spaces: No mass, no fluid collection. Focal increased DWI signal with decreased ADC signal along the left superior thalamocapsular junction is without associated T2 FLAIR hyperintensity may reflect acute nonhemorrhagic infarct or possibly be artifactual (axial DWI series 2, image 18. No mass or hemorrhage. A few scattered small T2 FLAIR hyperintense foci in the supratentorial white matter are nonspecific but are most compatible chronic microvascular ischemic changes. Suprasellar region: No abnormalities. Craniocervical junction: No abnormalities. The foramen magnum is patent. No Chiari malformations. Vessels: Normal flow-voids in the arteries and sinuses. Neck MRA: Please note, any potential stenosis at the carotid bulbs is measured utilizing NASCET criteria which compares the narrowest ICA diameter at the carotid bulb to the diameter of the normal distal cervical ICA. Carotid arteries: Patent bilaterally. Carotid bulbs: Patent bilaterally. No gross significant stenosis of the carotid bulbs. Internal carotid arteries: Patent bilaterally. Vertebral arteries: Patent bilaterally. Intracranial MRA: Internal carotid arteries: Patent bilaterally. Middle cerebral arteries: Patent bilateral M1 segments. Anterior cerebral arteries: Patent bilateral A1 segments. Vertebral arteries: Obscured by artifacts. Basilar artery: Patent. Mild bulbous configuration of the basilar tip at the confluence of the posterior cerebral arteries and superior cerebellar arteries. Posterior cerebral arteries: Patent proximal P1 and P2 segments are patent bilaterally. IMPRESSION: Brain: 1. Exam is moderately limited by motion artifacts was terminated early at the patient's. 2. Possible acute nonhemorrhagic left thalamocapsular infarct vs. artifact. 3. No other gross acute intracranial abnormality. 4. Mild chronic microvascular ischemic changes. Neck and intracranial MRAs: 1. Exam significantly limited by motion artifacts. 2. Patent carotid and vertebral arteries in the neck and grossly patent [place] without gross flow-limiting stenosis. Signed by: Dr. Yuriy Boland M.D. on 09/09/2019 5:17 PM
--- NOTE | 2019-09-09 17:21 | Diagnostic Imaging Report ---
Veins: Brain MRI, neck MRA and intracranial MRAs without IV contrast History: Altered mental status Comparison studies: Head CT 09/06/2018 Technique: Brain: Axial DWI, 3-D T1, axial T2 FLAIR and axial T2*GRE.. Neck MRA: Axial 2-D [id number] with 3-D MIP reformats. Intracranial MRA: Axial 3-D [id number] with 3-D MIP reformats. Findings: All exams significantly limited by artifacts related to patient motion. The brain MRI was also terminated early due to the patient's request. Brain: Scalp: No abnormal signal. No masses. Bone marrow: Normal in signal intensity. Brain sulci: Mildly prominent . Ventricles: Normal in size. No hydrocephalus. Extra axial spaces: No mass, no fluid collection. Focal increased DWI signal with decreased ADC signal along the left superior thalamocapsular junction is without associated T2 FLAIR hyperintensity may reflect acute nonhemorrhagic infarct or possibly be artifactual (axial DWI series 2, image 18. No mass or hemorrhage. A few scattered small T2 FLAIR hyperintense foci in the supratentorial white matter are nonspecific but are most compatible chronic microvascular ischemic changes. Suprasellar region: No abnormalities. Craniocervical junction: No abnormalities. The foramen magnum is patent. No Chiari malformations. Vessels: Normal flow-voids in the arteries and sinuses. Neck MRA: Please note, any potential stenosis at the carotid bulbs is measured utilizing NASCET criteria which compares the narrowest ICA diameter at the carotid bulb to the diameter of the normal distal cervical ICA. Carotid arteries: Patent bilaterally. Carotid bulbs: Patent bilaterally. No gross significant stenosis of the carotid bulbs. Internal carotid arteries: Patent bilaterally. Vertebral arteries: Patent bilaterally. Intracranial MRA: Internal carotid arteries: Patent bilaterally. Middle cerebral arteries: Patent bilateral M1 segments. Anterior cerebral arteries: Patent bilateral A1 segments. Vertebral arteries: Obscured by artifacts. Basilar artery: Patent. Mild bulbous configuration of the basilar tip at the confluence of the posterior cerebral arteries and superior cerebellar arteries. Posterior cerebral arteries: Patent proximal P1 and P2 segments are patent bilaterally. IMPRESSION: Brain: 1. Exam is moderately limited by motion artifacts was terminated early at the patient's. 2. Possible acute nonhemorrhagic left thalamocapsular infarct vs. artifact. 3. No other gross acute intracranial abnormality. 4. Mild chronic microvascular ischemic changes. Neck and intracranial MRAs: 1. Exam significantly limited by motion artifacts. 2. Patent carotid and vertebral arteries in the neck and grossly patent [place] without gross flow-limiting stenosis. Signed by: Dr. Yuriy Boland M.D. on 09/09/2019 5:17 PM
--- NOTE | 2019-09-09 17:21 | Diagnostic Imaging Report ---
Veins: Brain MRI, neck MRA and intracranial MRAs without IV contrast History: Altered mental status Comparison studies: Head CT 09/06/2018 Technique: Brain: Axial DWI, 3-D T1, axial T2 FLAIR and axial T2*GRE.. Neck MRA: Axial 2-D [id number]-[id number] with 3-D MIP reformats. Intracranial MRA: Axial 3-D [id number] with 3-D MIP reformats. Findings: All exams significantly limited by artifacts related to patient motion. The brain MRI was also terminated early due to the patient's request. Brain: Scalp: No abnormal signal. No masses. Bone marrow: Normal in signal intensity. Brain sulci: Mildly prominent . Ventricles: Normal in size. No hydrocephalus. Extra axial spaces: No mass, no fluid collection. Focal increased DWI signal with decreased ADC signal along the left superior thalamocapsular junction is without associated T2 FLAIR hyperintensity may reflect acute nonhemorrhagic infarct or possibly be artifactual (axial DWI series 2, image 18. No mass or hemorrhage. A few scattered small T2 FLAIR hyperintense foci in the supratentorial white matter are nonspecific but are most compatible chronic microvascular ischemic changes. Suprasellar region: No abnormalities. Craniocervical junction: No abnormalities. The foramen magnum is patent. No Chiari malformations. Vessels: Normal flow-voids in the arteries and sinuses. Neck MRA: Please note, any potential stenosis at the carotid bulbs is measured utilizing NASCET criteria which compares the narrowest ICA diameter at the carotid bulb to the diameter of the normal distal cervical ICA. Carotid arteries: Patent bilaterally. Carotid bulbs: Patent bilaterally. No gross significant stenosis of the carotid bulbs. Internal carotid arteries: Patent bilaterally. Vertebral arteries: Patent bilaterally. Intracranial MRA: Internal carotid arteries: Patent bilaterally. Middle cerebral arteries: Patent bilateral M1 segments. Anterior cerebral arteries: Patent bilateral A1 segments. Vertebral arteries: Obscured by artifacts. Basilar artery: Patent. Mild bulbous configuration of the basilar tip at the confluence of the posterior cerebral arteries and superior cerebellar arteries. Posterior cerebral arteries: Patent proximal P1 and P2 segments are patent bilaterally. IMPRESSION: Brain: 1. Exam is moderately limited by motion artifacts was terminated early at the patient's. 2. Possible acute nonhemorrhagic left thalamocapsular infarct vs. artifact. 3. No other gross acute intracranial abnormality. 4. Mild chronic microvascular ischemic changes. Neck and intracranial MRAs: 1. Exam significantly limited by motion artifacts. 2. Patent carotid and vertebral arteries in the neck and grossly patent [place] without gross flow-limiting stenosis. Signed by: Dr. Yuriy Boland M.D. on 09/09/2019 5:17 PM
--- NOTE | 2019-09-09 19:00 | NUR ---
RECEIVED PATIENT IN BEDSIDE SHIFT REPORT. PATIENT RESTING IN BED AT THIS TIME. A&OX3. IV NOTED TO BE OCCLUDED, IV REMOVED, CATHETER TIP INTACT, PRESSURE DRESSING APPLIED. BACK PAIN 4/10 AT THIS TIME. NO S&S OF DISTRESS NOTED. BED LOCKED IN LOWEST POSITION, SIDE RAILS UPX2, CALL LIGHT IN REACH.
[2019-09-10] VITALS (9 sets, daily range): BP systolic 82–127; BP diastolic 50–89
[2019-09-10] MEDS: MEROPENEM 1GM 100 ML IV SCH ×2 (04:40→19:00)
[2019-09-10 05:27] LABS: BASOPHILS % 0.8 % (0.0-1.0); EOSINOPHILS # (AUTO) 0.2 (0.0-0.4); EOSINOPHILS % 4.8 % (0.0-6.0); HEMATOCRIT 34.1 % (34.2-44.1); HEMOGLOBIN 10.7 g/dL (12.0-16.0); LYMPHOCYTES % 25.3 % (18.0-39.1); MEAN CORPUSCULAR HEMOGLOBIN 29.3 pg (28-32); MEAN CORPUSCULAR HGB CONC 31.4 g/dL (31-35); MEAN CORPUSCULAR VOLUME 93.4 fL (81-99); MONOCYTES # (AUTO) 0.4 (0.2-0.8); MONOCYTES % 9.6 % (4.4-11.3); NEUTROPHILS # (AUTO) 2.3 (2.1-6.9); PLATELET COUNT 76 x10e3/uL (140-360); RED BLOOD COUNT 3.65 x10e6/uL (3.6-5.1); RED CELL DISTRIBUTION WIDTH 14.9 % (11.7-14.4)
[2019-09-10 05:58] LABS: ALANINE AMINOTRANSFERASE 30 IU/L (0-55); ALBUMIN 3.5 g/dL (3.5-5.0); ALBUMIN/GLOBULIN RATIO 1.3 (0.8-2.0); ALKALINE PHOSPHATASE 63 IU/L (40-150); ANION GAP 8.8 mmol/L (8-16); BLOOD UREA NITROGEN 8 mg/dL (7-26); BUN/CREATININE RATIO 11 (6-25); CALCIUM 8.4 mg/dL (8.4-10.2); CARBON DIOXIDE 29 mmol/L (22-29); CHLORIDE 106 mmol/L (98-107); CREATINE KINASE 356 IU/L (29-168); CREATININE, SERUM 0.75 mg/dL (0.57-1.11); EST GLOMERULAR FILTRATION RATE > 60 ML/MIN (60-); GLUCOSE 88 mg/dL (74-118); POTASSIUM 3.8 mmol/L (3.5-5.1); SODIUM 140 mmol/L (136-145)
--- NOTE | 2019-09-10 06:54 | NUR ---
PATIENTS HEART RATE 180, BLOOD PRESSURE 120/57. EMILY PARKER OF DR. MARSHALL MCCOY FOR ORDERS. NEW ORDER TO CONTINUE METOPROLOL 25 MG PO Q8 HRS.
[2019-09-10] MEDS ORDERED: METOPROLOL TARTRATE 25 MG TAB PO SCH (07:00)
--- NOTE | 2019-09-10 07:02 | NUR ---
SPOKE WITH DR. JULES NEW CONSULT WITH DR. DONALD. NEW ORDER FOR METOPROLOL 5 MG IV ONCE.
[2019-09-10] MEDS ORDERED: METOPROLOL TARTRATE INJ 1 MG/ML VIAL IV ONE (07:15)
--- NOTE | 2019-09-10 07:39 | NUR ---
HEART RATE STILL IN 160'S PAGED DR. JULES FOR NEW ORDERS. NEW ORDER FOR ANOTHER ONE TIME DOSE OF METOPROLOL 25 MG PO. NEW ORDER FOR METOPROLOL 50 MG PO Q6 HOURS AND METOPROLOL 5 MG IV Q2 HOURS PRN HEART RATE GREATER THAN 120. NEW ORDERS IMPLEMENTED.
[2019-09-10] MEDS ORDERED: METOPROLOL TARTRATE INJ 1 MG/ML VIAL IV PRN (07:45)
--- NOTE | 2019-09-10 08:00 | NUR ---
CALL RECEIVED FROM [facility] IN TELEMETRY. PATIENT WAS IN AFIB WITH RVR AND CONVERTED TO SR 83.
[2019-09-10] MEDS: PANTOPRAZOLE SOD 40 MG TABEC PO SCH (08:08)
[2019-09-10] MEDS: TROLAMINE SALICYLATE 35.4 GM CR TP SCH ×2 (08:08→16:53)
[2019-09-10] MEDS: FOLIC ACID 1 MG TAB PO SCH (08:08)
[2019-09-10] MEDS: ASCORBIC ACID 500 MG TAB PO SCH ×2 (08:08→16:53)
[2019-09-10] MEDS ORDERED: METOPROLOL TARTRATE 25 MG TAB PO ONE (08:15)
[2019-09-10] MEDS: SODIUM CHLORIDE 0.9% 1000ML 1,000 ML IV SCH ×3 (09:20→19:18)
--- NOTE | 2019-09-10 11:14 | NUR ---
DR. BRIGGS ROUNDING ON PATIENT. NEW ORDER FOR ECHO. NEW ORDERS IMPLEMENTED.
--- NOTE | 2019-09-10 11:34 | Consultation ---
DATE OF CONSULTATION: 09/09/2019 HISTORY OF PRESENT ILLNESS: The patient is a 69-year-old female admitted with UTI. Neurology consultation for confusion. MRI of the brain and MRA are reviewed. She has senescent changes and potential left small thalamic ischemic changes. The patient with a history of atrial fibrillation. PAST MEDICAL HISTORY: Includes asthma, liver disease, depression, hyperlipidemia, chronic back pain, atrial fibrillation, osteoporosis, neuropathy, fibromyalgia. PAST SURGICAL HISTORY: Cholecystectomy. MEDICATIONS: . ALLERGIES: MULTIPLE PER CHART. REVIEW OF SYSTEMS: No unusual symptoms reported other than what is mentioned above. A total of 70 minutes were spent today with more than half time spent on counseling and coordination of care. FAMILY HISTORY: Noncontributory. PHYSICAL EXAMINATION: VITAL SIGNS: Temperature 98, respiratory rate 16, pulse rate 82 and regular, blood pressure 114/64. HEAD AND NECK: No meningeal signs. LUNGS: Good air entry. ABDOMEN: Soft. EXTREMITIES: Pulses present. NEUROLOGIC: Alert. Cognitive impairment. No speech problems. Abnormal gait with no lateralized weakness, however. Sensory, decreased pinprick on the right side. ASSESSMENT: 1. Small left thalamic stroke. The patient is currently at her baseline neurologically. Considering the above and history of atrial fibrillation, she needs to be on long-term anticoagulation as well as high-dose statins. Antiplatelets would not be necessary in this situation. 2. Rehabilitation consultation . 3. Check lipid panel, TSH, and vitamin B12. 4. Cardiology evaluation, echocardiogram. 5. Neuro checks. 6. Once cleared by Cardiology and Primary Service, the patient can be transferred to Rehabilitation Facility from Neurology standpoint. Daniele Hall MD AM/SPENCER /[id number]
[2019-09-10] MEDS: METOPROLOL TARTRATE 50 MG TAB PO SCH ×2 (12:00→16:36)
[2019-09-10] MEDS: DOCUSATE SODIUM 100 MG CAP PO SCH ×2 (14:23→20:34)
[2019-09-10] MEDS: POLYETHYLENE GLYCOL 3350 17 GM PACK PO SCH (16:53)
[2019-09-10] MEDS: APIXABAN 5 MG TABLET PO SCH (16:53)
--- NOTE | 2019-09-10 16:57 | NUR ---
PT SIGNED CHOICE FOR [facility], FILED IN CHART AND FAXED CLINICALS TO [phone].
--- NOTE | 2019-09-10 18:22 | Consultation ---
DATE OF CONSULTATION: 09/10/2019 Cardiology Consultation REASON FOR CONSULTATION: Atrial fibrillation. HISTORY OF PRESENT ILLNESS: This is a 69-year-old woman, has a history of liver cirrhosis, splenic artery aneurysm, paroxysmal atrial fibrillation, and anemia, who presented to the emergency department with altered mental status. The patient is mildly confused, cannot provide me the exact details of her presenting symptoms or review of systems. She was found to have atrial fibrillation with rapid ventricular response, which as of now has converted to normal sinus rhythm with metoprolol. She is currently feeling well. Denies any chest pain or shortness of breath, palpitations, or near syncopal symptoms. REVIEW OF SYSTEMS: Unable to be obtained due to mild confusion. PAST MEDICAL HISTORY: As stated above in the HPI. PAST SURGICAL HISTORY: None recent. PAST FAMILY HISTORY: Noncontributory to current illness. ALLERGIES: PENICILLINS AND ERYTHROMYCIN. SOCIAL HISTORY: No illicit drug, alcohol, or tobacco use. MEDICATIONS: See medication reconciliation form. PHYSICAL EXAMINATION: VITAL SIGNS: Temperature is 98.8, heart rate 73, respirations are 18, blood pressure is 123/70, and oxygen saturation 93% on 2 L nasal cannula. GENERAL: She is well-appearing, well-built, elderly woman, lying comfortably in bed, no apparent distress. Alert and oriented x3. HEAD: Normocephalic and atraumatic. EYES: The extraocular muscles intact. Conjunctivae clear. NECK: No JVD. No bruits. CARDIOVASCULAR: She has regular rate and rhythm. No murmurs. LUNGS: Clear to auscultation. ABDOMEN: Soft, nontender, and nondistended. EXTREMITIES: No clubbing, cyanosis, or edema. VASCULAR: 2+ pulses. SKIN: Warm, dry, and intact. NEUROLOGIC: No focal deficits noted. Cranial nerves grossly intact. PSYCHIATRIC: Normal mood and affect. CARDIOVASCULAR MEDICATIONS: Reviewed. LABORATORY DATA: Reviewed. Hemoglobin is 10.7 and platelets are 76. Creatinine is 0.75. Creatine kinase is elevated at 661 and CK-MB is 17.8. Troponins are negative x3. Potassium is 3.8 and magnesium 1.7. A 12-lead electrocardiogram showed atrial fibrillation with rapid ventricular response. IMPRESSION: 1. Paroxysmal atrial fibrillation. 2. Anemia. 3. Thrombocytopenia. 4. Altered mental status. 5. Hypomagnesemia. 6. Hypertension. 7. Cerebrovascular accident. RECOMMENDATIONS: The patient has atrial fibrillation, which now is converted normal sinus rhythm. This is likely the reason for her small embolic stroke. Start Eliquis given elevated CHADS-VASc score. Continue metoprolol for rate and rhythm control. Titrate antihypertensives. Echocardiogram was performed and shows normal left ventricular systolic function. Continue to monitor on telemetry. DO LEONIDES Rollins/MATTL /[id number]
--- NOTE | 2019-09-10 19:22 | NUR ---
SBAR REPORT RECEIVED FROM DAYSHIFT RN, PATIENT AWAKE ALERT, SITTING IN BED NO DISTRESS NOTED, VSS, REMAIN ON TELEMETRY REPORT TO ME PATIENT AHS BEEN SR THROUGHOUT DAYSHIFT, IV ABT CONTINUED TOLERATING WELL, CALL LIGHT WITHIN REACH, WILL CONTINUE TO MONITOR
[2019-09-10] MEDS ORDERED: CRESTOR 10MG PO SCH (21:00)
--- NOTE | 2019-09-10 22:08 | NUR ---
REPORT CALLED TO OBSERVATION UNIT [facility], PATIENT WILL BE TRANSFERRED TO ROOM 177, TRANSFERRED VIA WHEELCHAIR, ALL BELONGINGS TAKEN WITH HER
[2019-09-11 00:30] VITALS: BP 121/57
[2019-09-11] MEDS: METOPROLOL TARTRATE 50 MG TAB PO SCH ×3 (00:45→13:21)
[2019-09-11 05:00] VITALS: BP 105/52
[2019-09-11] MEDS: SODIUM CHLORIDE 0.9% 1000ML 1,000 ML IV SCH ×2 (05:30→15:30)
[2019-09-11 06:27] LABS: BASOPHILS % 0.3 % (0.0-1.0); EOSINOPHILS # (AUTO) 0.2 (0.0-0.4); EOSINOPHILS % 6.1 % (0.0-6.0); HEMATOCRIT 29.3 % (34.2-44.1); HEMOGLOBIN 9.4 g/dL (12.0-16.0); LYMPHOCYTES % 29.8 % (18.0-39.1); MEAN CORPUSCULAR HEMOGLOBIN 29.7 pg (28-32); MEAN CORPUSCULAR HGB CONC 32.1 g/dL (31-35); MEAN CORPUSCULAR VOLUME 92.7 fL (81-99); MONOCYTES # (AUTO) 0.4 (0.2-0.8); MONOCYTES % 11.7 % (4.4-11.3); NEUTROPHILS # (AUTO) 1.7 (2.1-6.9); NEUTROPHILS % 50.9 % (38.7-80.0); PLATELET COUNT 70 x10e3/uL (140-360); RED BLOOD COUNT 3.16 x10e6/uL (3.6-5.1); RED CELL DISTRIBUTION WIDTH 15.1 % (11.7-14.4)
[2019-09-11 06:50] LABS: ANION GAP 8.9 mmol/L (8-16); BLOOD UREA NITROGEN 8 mg/dL (7-26); BUN/CREATININE RATIO 12 (6-25); CALCIUM 8.1 mg/dL (8.4-10.2); CARBON DIOXIDE 30 mmol/L (22-29); CHLORIDE 103 mmol/L (98-107); CREATININE, SERUM 0.69 mg/dL (0.57-1.11); EST GLOMERULAR FILTRATION RATE > 60 ML/MIN (60-); GLUCOSE 87 mg/dL (74-118); MAGNESIUM 1.7 MG/DL (1.3-2.1); POTASSIUM 3.9 mmol/L (3.5-5.1); SODIUM 138 mmol/L (136-145)
[2019-09-11] MEDS: POLYETHYLENE GLYCOL 3350 17 GM PACK PO SCH (07:58)
[2019-09-11] MEDS: TROLAMINE SALICYLATE 35.4 GM CR TP SCH (07:58)
[2019-09-11] MEDS: FOLIC ACID 1 MG TAB PO SCH (07:58)
[2019-09-11] MEDS: DOCUSATE SODIUM 100 MG CAP PO SCH ×2 (07:58→15:00)
[2019-09-11] MEDS: APIXABAN 5 MG TABLET PO SCH (07:58)
[2019-09-11] MEDS: MEROPENEM 1GM 100 ML IV SCH (07:58)
[2019-09-11] MEDS: PANTOPRAZOLE SOD 40 MG TABEC PO SCH (07:58)
[2019-09-11] MEDS: ASCORBIC ACID 500 MG TAB PO SCH (07:58)
[2019-09-11 08:24] VITALS: BP 117/57
[2019-09-11 08:28] VITALS: BP 117/57
--- NOTE | 2019-09-11 11:09 | NUR ---
Nutrition Screen Note RD Recommendation for Physician: -Continue current diet per MD. Plan of Care: RD following, monitoring for tolerance and adequacy Nutrition reason for involvement: LOS-early Primary Diagnose(s): AMS PMH: Includes asthma, liver disease, depression, hyperlipidemia, chronic back pain, atrial fibrillation, osteoporosis, neuropathy, fibromyalgia. Ht: 65 in Wt: 189 lb BMI:31.5 kg/m2 IBW: 125lb RD Assessment: (09/10) 69 YOF admitted for AMS with PMH listed above. The pt is currently in insolation, unable to perform malnutrition assessment d/t ID protocol. Spoke with nurse who reports the pt has a good appetite. Pt has been consuming 50-100% of her meals per FS. Pt was 207 lbs in September 2018, suggesting the pt had an 8.6% weight loss within the past year, which is not significant enough to meet malnutrition criteria. LBM: 09/10. Chart reviewed. Labs and meds reviewed. Will continue to monitor. Current Diet: cardiac Malnutrition Evaluation 09/10 The patient does not meet criteria for a specified degree of malnutrition at this time. Will re-evaluate at follow-up as appropriate. Energy intake: none Weight loss: Does not meet criteria Fat loss: unable to evaluate Muscle loss: unable to evaluate Diet Education Needs Assessment: Diet education not indicated. Diet Adequacy: Meeting calorie needs, Meeting protein needs Nutrition Care Level: low Signed: Chelle Clark RD, LD
[2019-09-11 11:50] VITALS: BP 118/56
[2019-09-11] MEDS ORDERED: ELIQUIS5 MG PO (13:13)
[2019-09-11] MEDS ORDERED: Rosuvastatin Calcium PO (13:13)
[2019-09-11] MEDS ORDERED: PROTONIX40 MG/ML PO (13:13)
[2019-09-11] MEDS ORDERED: METOPROLOL TART50 MG PO (13:13)
--- NOTE | 2019-09-11 13:30 | NUR ---
CALL TO [facility] REGARDING HH FOR THE PT. INFORMED THE PT WAS AMBULATING 800FT W A WALKER AND DOES NOT NEED HOME PT. STATES SHE THOUGHT PT RECOMMENDED PT. INFORMED I WILL F/U W THE PT. STATES THE PT WILL PROBABLY DC HOME TODAY.
--- NOTE | 2019-09-11 14:36 | NUR ---
CALL RECEIVED FROM GEN IN [facility] REGARDING HH FOR PT. INFORMED NURSE PT WAS AMBULATING >800FT W/O DIFFICULTY. GEN CONFIRMED THE PT WAS AMBULATING INDEPENDENTLY IN THE [facility]. CM SPOKE W THE PT OVER THE PHONE. STATES SHE HAD SOMEONE HELP HER CLEAN AND PREPARE MEALS AND JUST HELP AROUND THE HOUSE. PT CONFIRMED SHE HAS A PROVIDER, BUT DID NOT REMEMBER HER NAME. STATES SHE HAS A TEMPORARY PROVIDER UNTIL HER REGULAR PROVIDER RETURNS FROM [place]. DISCUSSED PROVIDER SELF-QUARANTINING BEFORE RETURNING TO WORK. STATES SHE WILL ASK. PROVIDER COMES M- 1 -5, AND SUN 1 - 430. STATES THE PROVIDER'S # WAS AT HOME. STATES SHE WOULD HAVE HER DTR CALL. CALL WAS MADE TO [facility]; PT'S DTR. STATES SHE HAD RECEIVED A CALL FROM THE PROVIDER ON YESTERDAY, BUT DID NOT KEEP THE #. STATES SHE DID NOT THINK HER MOM WOULD RETURN HOME TIL SHE WAS CLEARED FOR COVID 19. INQUIRED ABOUT THE [facility] REFERRAL. INFORMED HER OF THE DISTANCE HER MOTHER WALKED AND CRITERIA FOR REHAB. DISCUSSED PT WOULD NOT NEED HOME PT, BECAUSE SHE WAS WALKING 800FT. VERBALIZED UNDERSTANDING. STATES SHE WILL BE ABLE TO PICK HER MOM UP IF SHE IS DC'D TODAY. STATES SHE WILL F/U W THE PROVIDER ONCE SHE TAKES HER MOM HOME. CLARIFIED W THE DTR THE PT WAS NOT DISCHARGED YET, BUT THEY WILL CONTACT HER WHEN READY.
[2019-09-11 15:50] VITALS: BP 120/58
--- NOTE | 2019-09-11 17:00 | NUR ---
patient discharged. IV access removed, telemetry removed. Prescriptions and discharge instructions given to patient. Patient clear on pending covid test and appropriate precautions to take at home. discharge instructions also explained to Geni, patient's sister who came to roller picker patient. both denied questions regarding follow ups, prescriptions, or precautions. patient entered Geni's vehicle in stable condition with mask.
--- NOTE | 2019-09-11 19:46 | Consultation ---
DATE OF CONSULTATION: 09/11/2019 REASON FOR CONSULTATION: Recommendation and possibility of exposure to COVID-19. HISTORY OF PRESENT ILLNESS: This patient, who is 69-year-old female, no past medical history, who had liver cirrhosis, splenic artery aneurysm, paroxysmal atrial fibrillation, and anemia, comes into emergency room with altered mental status. The patient was seen by Neurology and Cardiology. She did improve during her stay here. There was concern if she may have exposure to COVID-19. The patient at the present time, she is alert and comfortable. There are no new complaints. She denies any fever, chills, or shortness of breath. PAST MEDICAL HISTORY: As above. PAST SURGICAL HISTORY: As above. ALLERGIES: NKA. SOCIAL HISTORY: There is no smoking, drug abuse, or alcohol abuse. FAMILY HISTORY: Otherwise unremarkable. REVIEW OF SYSTEMS: At the present time, there is no fever, no chills, no cough, no sore throat, no nausea, no vomiting, no diarrhea. PHYSICAL EXAMINATION: GENERAL: She is currently alert and oriented. Does not seem to be in acute distress. VITAL SIGNS: Stable, currently afebrile. HEENT: She is not icteric. NECK: Supple. CHEST: Clear bilateral. HEART: S1 and S2. No S3, S4, or murmur. ABDOMEN: Soft. Bowel sounds present. No tenderness. EXTREMITIES: No edema. IMPRESSION: 1. Possible exposure to COVID-19. From Infectious Disease point of view, I would recommend to check for COVID-19 now to give us an idea if she had any before. The exposure presumably took place a day or 2 before. 2. To stay in home isolation quarantine until we get if she have any symptoms, strongly recommend to come back to the emergency room. Also, strongly recommend to check probably again in a week or so. She will follow up and see me in 3 weeks. Thank you for asking me to see this patient. Other medical problem as mentioned above stable. The patient will be discharged home from Infectious Disease point of view. MD MAGGIE Otero/SPENCER /[id number]
--- NOTE | 2019-09-15 05:33 | Discharge Summary ---
ADMISSION DIAGNOSES: 1. Altered mental status, unknown source. 2. Abdominal pain. 3. Possible urinary tract infection. 4. Rhabdo. 5. Cirrhosis. 6. Thrombocytopenia. 7. Lower back pain. DISCHARGE DIAGNOSES: 1. Altered mental status, unknown source. 2. Abdominal pain. 3. Possible urinary tract infection. 4. Rhabdo. 5. Cirrhosis. 6. Thrombocytopenia. 7. Lower back pain. HISTORY: Asthma, liver disease, depression, hyperlipidemia, chronic lower back pain, thrombocytopenia, cirrhosis, osteoporosis, neuropathy, fibromyalgia, atrial fibrillation. SURGICAL HISTORY: , tonsillectomy, lumpectomy in breast, cholecystectomy, splenic artery surgery. FAMILY HISTORY: The patient's mom and grandmother had cancer. The patient's grandmother had a stroke. SOCIAL HISTORY: The patient admits to quitting alcohol and tobacco use. HOSPITAL COURSE: A 69-year-old female admitted via the ER with complaints of dysuria, frequency. Per family, she has been confused since 3 a.m. on 09/06, but was found to be alert and oriented in the ER. On admission, chest x-ray was negative. CT of the brain was negative. CT of the abdomen and pelvis showed cirrhosis, splenomegaly and portal hypertension. MRI and MRA of the neck show patent carotid and vertebral arteries in the neck and grossly patent [place] without gross flow-limiting stenosis. MRI of the brain showed possible acute nonhemorrhagic left thalamocapsular infarct versus artifact. The patient's urine culture was negative. One blood culture was negative and the other was contaminated. CK on admission was 913, so patient was given IV fluids. Her ammonia was within normal limits. Due to the finding of the MRI, Neurology was consulted. Per Neurology recommendation, the patient had a small left thalamic stroke. The patient was started on Eliquis per Neurology recommendation. Due to the atrial fibrillation, Cardiology was consulted, who continued the patient on metoprolol and although the last hospitalization they said that she would not need anticoagulation they are now recommending Eliquis as well. Her metoprolol dose was increased per Cardiology recommendation. 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 At time of discharge, the PCR is pending. Per PT recommendation, the patient is walking over 800 feet independently. She will be discharged home with new prescriptions for Eliquis, metoprolol, Protonix, and Crestor. ID was consulted for exposure to coronavirus, who cleared the patient for discharge follow up with her regarding the results. The patient was advised to stay at home until she hears the results and if positive for coronavirus she will need to quarantine for 14 days. The patient understands discharge instructions and agrees to plan. Vital signs stable, the patient is afebrile. Dictated by Ashley Palmer NP MD MANJULA Vann/MODL /[id number]
== END 2019-09-11 17:07 | disposition home or self-care (01) | DRG 65 ==
LOC: ER 15:47 → ERHOLD 18:41 → MED/SURG 22:36 → IMCU 09-10 17:35 → MED/SURG 09-10 17:45 → IMCU 09-10 22:46
PROVIDERS: ADMIT Internal Medicine; ATTEND Internal Medicine
DX: I63.9 Cerebral infarction, unspecified (principal); M62.82 Rhabdomyolysis; N39.0 Urinary tract infection, site not specified; G93.1 Anoxic brain damage, not elsewhere classified; D69.6 Thrombocytopenia, unspecified; R47.01 Aphasia; I95.89 Other hypotension; D64.9 Anemia, unspecified; K74.60 Unspecified cirrhosis of liver; Z79.01 Long term (current) use of anticoagulants; Z20.828 Contact with and (suspected) exposure to other viral communicable diseases; F32.9 Major depressive disorder, single episode, unspecified; G62.9 Polyneuropathy, unspecified; M81.0 Age-related osteoporosis without current pathological fracture; I48.0 Paroxysmal atrial fibrillation; E83.42 Hypomagnesemia; E78.5 Hyperlipidemia, unspecified
CPT/HCPCS: 36415; 70450; 70544; 70547; 70551; 71045; 74177; 80048; 80053; 80061; 81001; 82140; 82150; 82550; 82553; 83690; 83735; 83880; 84100; 84484; 85025; 85610; 85730; 87040; 87071; 87086; 87205; 87635; 93005; 93306; 96361; 97139; 99251; 99284; J2270; J2405; J7030; J7040; J7050; Q9967

== ENCOUNTER 2020-02-01 09:28 | Inpatient (IN) | payer MEDICARE, OTHER ==
[~2020-02-01] VITALS: Ht 165.1 cm; Wt 85.7 kg
[~2020-02-01 09:28] MED LIST changes: +ELIQUIS5 MG PO; +METOPROLOL TART50 MG PO; +PROTONIX40 MG/ML PO; +Rosuvastatin Calcium PO; +ULTRAM 50MG50 MG PO
[2020-02-01] MEDS ORDERED: SODIUM CHLORIDE 0.9% 1000ML 1,000 ML IV STA (09:47)
--- OUTSIDE RECORDS SUMMARY | 2020-02-01 10:21 | XMS REPORT | Clinical Summary ---
Author Author [facility] Address Unknown Phone Unavailable Care Team Providers Care Plastic Roller Name Role Phone Prabhu Kirk DO PCP [...] for sleep Active Problems Not on file Family History Medical History Relation Name Comments Colon cancer Mother Ovarian cancer Mother Relation Name Status Comments Mother Social History Date Tobacco Use Types Packs/Day Years Used Former Smoker Comments: quick 2010 Drinks/Week oz/Week Comments Alcohol Use No Alcohol Habits Answer Date Recorded How often do you have a drink containing alcohol? Never 05/22/2018 How many drinks containing alcohol do you have on No t asked a typical day when you are drinking? How often do you have six or more drinks on one Not asked occasion? Sex Assigned at Date Recorded Not on file Industry Job Start Date Occupation Not on file Not on file Not on file Travel End Travel History Travel Start No recent travel history available. 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
--- OUTSIDE RECORDS SUMMARY | 2020-02-01 10:21 | XMS REPORT | Continuity of Care Document ---
Author Author [facility] t Organization [facility] Address [address] [place] [address] Phone Unavailable Care Team Providers Care Merchandise Executive Name Role Phone ALPHONSO OLIVARES MD PCP ALPHONSO OLIVARES Attphys Unavailable Lorena STEWART Attphys Unavailable ALPHONSO OLIVARES Admjanettes Unavailable Payers Payer Name Policy Type Policy Number Effective Date Expiration Date [employer] [id number] 2019 00:00 :00 [facility] Medicare A & B [id number] 2013 00:00:00 [facility] Problems Condition Name Condition Details Condition Category Status Onset Date Resolution Date Last Treatment Date Treating Clinician Comments Source Cholecystitis without calculus Acalculous cholecystitis Problem Active [facility] 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 [facility] Urinary tract infection UTI (urinary tract infection) Problem Active [facility] ALTERED MENTAL STATUS, UNSPECIFIED Problem Active [facility] DISORDER OF BILIRUBIN METABOLISM, UNSPECIFIED Problem Active [facility] RHABDOMYOLYSIS Problem Active [facility] UNSPECIFIED ABDOMINAL PAIN Problem Active [facility] Allergies, Adverse Reactions, Alerts Allergy Name Allergy Type Status Severity Reaction(s) Onset Date Inacti ve Date Treating Clinician Comments Source Penicillin Allergy to Substance Active Mild 2018-10-12 00:00:00 [facility] Erythromycin base Allergy to Substance Active Mild 2018-10-12 00 :00:00 [facility] Erythromycin Propensity to adverse reactions to drug Active GI Intolerance 2018-05-22 00:00:00 [place] [facility] Penicillins Propensity to adverse reactions to drug Active Rash 2018-05-22 00:00:00 [place] Method[facility] t Penicillins DA Active SV 2016-04-12 00:00:00 [facility] Macrolide Antibiotics DA Active U 2016-04-12 00:00:00 [facility] erythromycin base DA Active MA 2016-04-12 00:00:00 [facility] azithromycin DA Active MA 2016-04-12 00:00:00 [facility] Family History Family Member Diagnosis Comments Start Date Stop Date Source Natural mother Colon cancer [place] [facility] Natural mother Ovarian cancer [place] [facility] Social History Social Habit Start Date Stop Date Quantity Comments Source History SDOH Alcohol Std Drinks [place] [facility] History SDOH Alcohol Binge [place] [facility] Sex Assigned At [facility] stofrances [facility] Alcohol intake 2018-05-22 00:00:00 2018-05-22 00:00:00 Current non-drinker of alcohol (finding) [place] [facility] History SDOH Alcohol Frequency 2018-05-22 00:00:00 2018-05-22 00:00:0 0 1 [place] [facility] Tobacco Comment 2018-05-22 00:00:00 2018-05-22 00:00:00 romeo 2011 [place] [facility] Smoking Status Start Date Stop Date Source Former smoker 2018-05-22 00:00:00 2018-05-22 00:00:00 [place] [facility] Medications Ordered Medication Name Filled Medication Name Start Date Stop Da te Current Medication? Ordering Clinician Indication Dosage Frequency Signature (SIG) Comments Components Source Apixaban (Eliquis) 5 Mg Tablet Apixaban (Eliquis) 5 Mg Table t 2019-09-11 00:00:00 Yes Ashley Palmer [employer] 5 Twice A Day [facility] Metoprolol Tartrate 50 Mg Tablet Metoprolol Tartrate 50 Mg T ablet 2019-09-11 00:00:00 Yes Ashley Palmer [employer] 50 Every 6 Hours [facility] Pantoprazole Sod (Protonix) 40 Mg/Ml Susp Pantoprazole Sod (Protonix) 40 Mg/Ml Susp 2019-09-11 00:00:00 Yes Ashley M Spencer [employer] 40 Before Breakfast [facility] Rosuvastatin Calcium 10 Mg Tab Rosuvastatin Calcium 10 Mg Ta b 2019-09-11 00:00:00 Yes Ashley M [place] [employer] 10 Bedtime [facility] Ascorbic Acid 500 Mg Tablet Ascorbic Acid 500 Mg Tablet 2018-10-18 00:00:00 Yes Ashley M [employer] 500 Twice A Day [facility] Folic Acid 1 Mg Tablet Folic Acid 1 Mg Tablet 2018-10-18 00:00:00 Yes Ashley M [place] [employer] 1 Daily [facility] Metoprolol Tartrate (Lopressor) 25 Mg Tab, 25 Mg Oral Metoprolol Tartrate (Lopressor) 25 Mg Tab, 25 Mg Oral 2018-10-18 00:00:00 2019-09-11 00:00:00 No Ashley M Spencer [employer] 25 Every 8 Hours [facility] LYRICA 50 mg capsule 2018-05-08 00:00:00 Yes TK 1 C PO BID FOR PAIN [place] [facility] sertraline (ZOLOFT) 100 MG tablet 2018-05-08 00:00:00 Yes TK 1 T PO D FOR MOOD [place] [facility] traZODone (DESYREL) 150 MG tablet 2018-04-01 00:00:00 Yes 150mg QD Take 150 mg by mouth nightly as needed. for sleep [place] [facility] Eye Drops Eye Drops Yes 1 Daily for Dry Eyes [facility] Sertraline Hcl (Zoloft) 50 Mg Tablet Sertraline Hcl (Zoloft) 50 Mg Tablet Yes 50 Bedtime [facility] Tramadol Hcl (Ultram 50MG*) 50 Mg Tab Tramadol Hcl (Ultram 50MG*) 5 0 Mg Tab Yes 50 Every 8 Hours [facility] Trazodone Hcl 50 Mg Tablet Trazodone Hcl 50 Mg Tablet Yes 75 Bedtime as needed for Insomnia [facility] Trolamine Salicylate (Aspercreme 10% Cream) 35.4 Gm Cr Trolamine Salicylate (Aspercreme 10% Cream) 35.4 Gm Cr Yes for Neuropathy [facility] Flunase , 1 Sprays Nasal Flunase , 1 Sprays Nasal 2019-09-11 00: 00:00 No 1 for Allergies [facility] Pregabalin (Lyrica) 50 Mg Cap, 50 Mg Oral Pregabalin ( Lyrica) 50 Mg Cap, 50 Mg Oral 2019-09-07 00:00:00 No 50 Bedtime [facility] Pregabalin (Lyrica) 50 Mg Cap, 50 Mg Oral Pregabalin ( Lyrica) 50 Mg Cap, 50 Mg Oral 2019-09-07 00:00:00 No 50 Daily as needed fo r Neuropathy [facility] Procedures Procedure Date / Time Performed Performing Clinician [facility] e Magnetic resonance angiography of neck without contrast 2019 00:00:00 DEVEN RAMOS [facility] Magnetic resonance imaging of brain without contrast 2019-08 00:00:00 DEVEN RAMOS [facility] Magnetic resonance angiography of head without contrast 2019 00:00:00 DEVEN RAMOS [facility] Computed tomography of brain without radiopaque contrast 00:00:00 PADMINI LYMAN [facility] Computed tomography of abdomen and pelvis with contrast 2019 00:00:00 PADMINI LYMAN [facility] Plan of Care Planned Activity Planned Date Details Comments Source Future Scheduled Test 2020-02-17 00:00:00 INFLUENZA VACCINE [code = INFLUENZA VACCINE] [facility] Future Scheduled Test 2013 00:00:00 65+ PNEUMOCOCCAL V ACCINE (1 of 2 - PCV13) [code = 65+ PNEUMOCOCCAL VACCINE (1 of 2 - PCV13)] [facility] Future Scheduled Test 1998 00:00:00 BREAST CANCER SCRE ENING [code = BREAST CANCER SCREENING] [facility] Future Scheduled Test 1998 00:00:00 COLONOSCOPY SCREEN ING [code = COLONOSCOPY SCREENING] [facility] Scheduled Test 1998 00:00:00 SHINGLES VACCINES (#1) [code = SHINGLES VACCINES (#1)] [place] [facility] Start Date/Time End Date/Time Encounter Type Ad[facility] Encounter ID Source 2019-09-07 18:41:00 2019-09-11 17:07:00 Discharged Inpatient 1 ALPHONSO OLIVARES [facility] [id number] [facility] 2018-10-13 02:24:00 2018-10-18 13:19:00 Discharged Inpatient 1 DARIN STEWART [facility] [id number] [facility] Results Test Description Test Time Test Comments Results Result Comments Source Blood Culture 2019-09-12 16:43:00 Test Item Blood Culture (test code = 35454434) NO GROWTH AFTER 5 DAYS, FINAL REPORT [facility]-09-12 15:25:00* Test Item Value Reference Range Interpretation Comments Coronavirus (PCR) (test code = Coronavirus (PCR)) NOT DETECTED NOTD ETECTED SARS-COV-2 (COVID19), HIGHRISK, RT-PCRNegative results do not preclude SARS-CoV- 2 infection and should not be used as the sole basis for patient management deci sions. Negative results must be combined with clinical observations, patient his tory, and epidemiological information. Optimum specimen types and timing for pea k viral levels during infections caused by SARS-CoV-2 have not been determined. Collection of multiple specimens ot types of specimens may be necessary to detec t virus. Improper specimen collection and handling, sequence variability under p rimers/probes, or organism present below the limit of detection may lead to fals e negative results. Positive and negative predictive values of testing are highl y dependent on prevalance. False negative test results are more likely when prev alence is high.The expected result is negative (not detected).The SARS-CoV-2 india t is intended for the qualitative detection of nucleic acid from SARS-CoV-2 in n asopharyngeal and oropharyngeal swab samples from patients who meet COVID-19 cli nical and or epidemiological criteria. For lower respiratory tract specimens, th e assay is submitted for authoriztion by FDA under an Emergency Use Authorizatio n (EUA). Testing methodology is real time RT-PCR. If received as separate collec tion devices, nasopharygeal and oropharyngeal specimens are combined for analysi s. Additional specimens may be split to a separate accession for analysi and rep orting as this test includes a single unit of service.Test results must be corre lated with clinical presentation and evaluated in the context of other laborator y and epidemiologic data. Test performance can be affected because the epidemiol ogy and clinical spectrum of infection caused by SARS-CoV-2 is not fully known. For example, the optimum types of specimens to collect and when during the cours e of infection these specimens are most likely to contain detectable viral RNA m ay not be known.This test has not been Food and Drug Administration (FDA) cleare d or approved and has been authorized by FDA under an Emergency Use Authorizatio n (EUA). The test is only authorized for the duration of the declaration that ci rcumstances exist justifying the authorization of emergency use of in vitro diag nostic tests for detection and/or diagnosis of SARS-CoV-2 under section 564(b) o f the Act, 21 U.S.C. section 360bbb-3(b)(1), unless the authorization is termina robin or revoked sooner. [facility] are certified under the C linical Laboratory Improvement Amendments of 1988 (CLIA), 42 U.S.C. section 263a , to perform high complexity tests.Specimen sent to [facility] and testing performed by [facility] [id number] [place] [address] [phone] Director: Dank Avila M.D.CLIA # [id number] [facility] Hospitalodium [id number] 06:50:00 * Test Item Value Reference Range Interpretation Comments Sodium Level (test code = 2951-2) 138 136-145 [facility] Xwhhz0139-66-08 06:50:00* Test Item Value Reference Range Interpretation Comments Potassium Level (test code = 2823-3) 3.9 3.5-5.1 [facility] LancasterChloride Wifnj9001-84-70 06:50:00* Test Item Value Reference Range Interpretation Comments Chloride Level (test code = 2075-0) 103 98-107 [facility] LancasterCarbon Dioxide Kylvc9764-90-02 06:50:00* Test Item Value Reference Range Interpretation Comments Carbon Dioxide Level (test code = 2028-9) 30 22-29 H [facility] LancasterAnion [id number] 06:50:00* Test Item Value Reference Range Interpretation Comments Anion Gap (test code = 03587-1) 8.9 8-16 [facility] Lancaster[facility] Urea Zbgnzofy3283-63-89 06:50:00* Test Item Value Reference Range Interpretation Comments Blood Urea Nitrogen (test code = 3094-0) 8 7-26 [facility] LancasterCreatinine2020-03-26 06:50:00* Test Item Value Reference Range Interpretation Comments Creatinine (test code = 2160-0) 0.69 0.57-1.11 [facility] LancasterBUN/Creatinine Ythtz3015-25-34 06:50:00* Test Item Value Reference Range Interpretation Comments BUN/Creatinine Ratio (test code = 3097-3) 12 6-25 [facility] LancasterEstimat Glomerular Filtration Rate 2019-09-11 06:50:00* Test Item Value Reference Range Interpretation Comments Estimat Glomerular Filtration Rate (test code = 624391423) > 60 >60 Ranges were taken from the National Kidney Disease Education Program and the [facility] literature.Reference ranges:60 or greater: Duhszl66-79 ( for 3 consecutive months): Chronic kidney disease 15 or less: Kidney failureCrescent Medical Center LancasterGlucose Nwigr9984-52-37 06:50:00* Test Item Value Reference Range Interpretation Comments Glucose Level (test code = RZF5208) 87 74-118 [facility] LancasterCalcium Wjsnp1866-91-98 06:50:00* Test Item Value Reference Range Interpretation Comments Calcium Level (test code = 87825-3) 8.1 8.4-10.2 L [facility] LancasterMagnesium Mnfjd7015-06-75 06:50:00* Test Item Value Reference Range Interpretation Comments Magnesium Level (test code = 96195-8) 1.7 1.3-2.1 [facility] LancasterWhite Blood Ukhes6748-49-71 06:29:00* Test Item Value Reference Range Interpretation Comments White Blood Count (test code = 6690-2) 3.42 4.8-10.8 L [facility] LancasterRed Blood Zstkn6569-01-46 06:29:00* Test Item Value Reference Range Interpretation Comments Red Blood Count (test code = 789-8) 3.16 3.6-5.1 L [facility] LancasterHemoglobin2020-03-26 06:29:00* Test Item Value Reference Range Interpretation Comments Hemoglobin (test code = 10611-6) 9.4 12.0-16.0 L [facility] LancasterHematocrit2020-03-26 06:29:00* Test Item Value Reference Range Interpretation Comments Hematocrit (test code = 4544-3) 29.3 34.2-44.1 L [facility] LancasterMean Corpuscular Wklgei0557-85-45 06:29:00* Test Item Value Reference Range Interpretation Comments Mean Corpuscular Volume (test code = 787-2) 92.7 81-99 [facility] LancasterMean Corpuscular Wvaqpqdmzb7552-77-02 06:29:00* Test Item Value Reference Range Interpretation Comments Mean Corpuscular Hemoglobin (test code = 785-6) 29.7 28-32 [facility] LancasterMean Corpuscular Hemoglobin Concent 2019-09-11 06:29:00* Test Item Value Reference Range Interpretation Comments Mean Corpuscular Hemoglobin Concent (test code = 786-4) 32.1 31-35 [facility] LancasterRed Cell Distribution Vndht9671-17-16 06:29:00* Test Item Value Reference Range Interpretation Comments Red Cell Distribution Width (test code = 37625-7) 15.1 11.7 -14.4 H [facility] LancasterPlatelet Ocnoi9609-20-29 06:29:00* Test Item Value Reference Range Interpretation Comments Platelet Count (test code = 777-3) 70 140-360 L [facility] LancasterNeutrophils (%) (Auto)2019-09-11 06:29:00 * Test Item Value Reference Range Interpretation Comments Neutrophils (%) (Auto) (test code = 78068-8) 50.9 38.7-80.0 [facility] LancasterLymphocytes (%) (Auto)2019-09-11 06:29:00 * Test Item Value Reference Range Interpretation Comments Lymphocytes (%) (Auto) (test code = 736-9) 29.8 18.0-39.1 [facility] LancasterMonocytes (%) (Auto)2019-09-11 06:29:00* Test Item Value Reference Range Interpretation Comments Monocytes (%) (Auto) (test code = 5905-5) 11.7 4.4-11.3 H [facility] LancasterEosinophils (%) (Auto)2019-09-11 06:29:00 * Test Item Value Reference Range Interpretation Comments Eosinophils (%) (Auto) (test code = 713-8) 6.1 0.0-6.0 H [facility] LancasterBasophils (%) (Auto)2019-09-11 06:29:00* Test Item Value Reference Range Interpretation Comments Basophils (%) (Auto) (test code = 706-2) 0.3 0.0-1.0 [facility] LancasterIM GRANULOCYTES %2019-09-11 06:29:00* Test Item Value Reference Range Interpretation Comments IM GRANULOCYTES % (test code = IM GRANULOCYTES %) 1.2 0.0- 1.0 H [facility] LancasterNeutrophils # (Auto)2019-09-11 06:29:00* Test Item Value Reference Range Interpretation Comments Neutrophils # (Auto) (test code = 751-8) 1.7 2.1-6.9 L [facility] LancasterLymphocytes # (Auto)2019-09-11 06:29:00* Test Item Value Reference Range Interpretation Comments Lymphocytes # (Auto) (test code = 96506-4) 1.0 1.0-3.2 [facility] LancasterMonocytes # (Auto)2019-09-11 06:29:00* Test Item Value Reference Range Interpretation Comments Monocytes # (Auto) (test code = 742-7) 0.4 0.2-0.8 [facility] LancasterEosinophils # (Auto)2019-09-11 06:29:00* Test Item Value Reference Range Interpretation Comments Eosinophils # (Auto) (test code = 711-2) 0.2 0.0-0.4 [facility]Basophils # (Auto)2019-09-11 06:29:00* Test Item Value Reference Range Interpretation Comments Basophils # (Auto) (test code = 704-7) 0.0 0.0-0.1 [facility] LancasterAbsolute Immature Granulocyte (auto 2019-09-11 06:29:00* Test Item Value Reference Range Interpretation Comments Absolute Immature Granulocyte (auto (india t code = Absolute Immature Granulocyte (auto) 0.04 0-0.1 [facility] LancasterTotal Dwajisned1619-14-14 06:21:00* Test Item Value Reference Range Interpretation Comments Total Bilirubin (test code = 1975-2) 2.5 0.2-1.2 H [facility] LancasterAspartate Amino Transf (AST/SGOT) 2019-09-10 06:21:00* Test Item Value Reference Range Interpretation Comments Aspartate Amino Transf (AST/SGOT) (test code = Aspartate Amino Transf (AST/SGOT)) 63 5-34 H [facility] LancasterAlanine Aminotransferase (ALT/SGPT) 2019-09-10 06:21:00* Test Item Value Reference Range Interpretation Comments Alanine Aminotransferase (ALT/SGPT) (test code = 1742-6) 30 0-55 [facility] LancasterTotal Pgdqqxa4775-38-60 06:21:00* Test Item Value Reference Range Interpretation Comments Total Protein (test code = 2885-2) 6.3 6.5-8.1 L [facility] LancasterAlbumin2020-03-25 06:21:00* Test Item Value Reference Range Interpretation Comments Albumin (test code = 1751-7) 3.5 3.5-5.0 [facility] LancasterGlobulin2020-03-25 06:21:00* Test Item Value Reference Range Interpretation Comments Globulin (test code = 91677-3) 2.8 2.3-3.5 [facility] LancasterAlbumin/Globulin Brnot6367-10-75 06:21:00 * Test Item Value Reference Range Interpretation Comments Albumin/Globulin Ratio (test code = 1759-0) 1.3 0.8-2.0 [facility] LancasterAlkaline Oujqczggvfn1049-42-72 06:21:00* Test Item Value Reference Range Interpretation Comments Alkaline Phosphatase (test code = 6768-6) 63 40-150 [facility] LancasterCreatine Acguqg3877-95-93 06:21:00* Test Item Value Reference Range Interpretation Comments Creatine Kinase (test code = 2157-6) 356 29-168 H [facility] LancasterCreatine Kinase [id number] 06:21:00* Test Item Value Reference Range Interpretation Comments Creatine Kinase MB (test code = 47858-1) 13.20 0-5.0 H [facility] LancasterTroponin [id number] 06:21:00* Test Item Value Reference Range Interpretation Comments Troponin I (test code = MPH9608) < 0.001 0-0.300 [facility] LancasterMRA HEAD [id number] 16:58:00 [facility] [address] [place] [address] Patient Name: TORY ANGLIN MR #: [id number] : 1950 Age/Sex: 69/F Req #: [id number] Adm Physician: ALPHONSO OLIVARES MD Ordered by: DEVEN RAMOS MD Report #: [id number] Location: MED/SURG Room/Bed: [facility] Procedure: [id number] MRI /MRA HEAD WO Exam Date: Exam Time: REPORT STATUS: Signed Veins: Brain MRI, neck MRA and intracranial MRAs without IV contrast History: Altered mental status Comparison studies: Head CT 09/06/2018 Technique: Brain: Axial DWI, 3-D T1, axial T2 FLAIR and axial T2*GRE.. Neck MRA: Axial 2-D fpoy-ai-dmulkr with 3-D MIP reformats. Intracranial MRA: Axial 3-D ffaz-iq-tdhddu with 3-D MIP re formats. Findings: All exams significantly limited by artifacts relate d to patient motion. The brain MRI was also terminated early due to the patien t's request. Brain: Scalp: No abnormal signal. No masses. Bone mar row: Normal in signal intensity. Brain sulci: Mildly prominent . Ventricl es: Normal in size. No hydrocephalus. Extra axial spaces: No mass, no fluid co llection. Focal increased DWI signal with decreased ADC signal along the le ft superior thalamocapsular junction is without associated T2 FLAIR hyperinten sity may reflect acute nonhemorrhagic infarct or possibly be artifactual (axia l DWI series 2, image 18. No mass or hemorrhage. A few scattered small T2 FLAIR hyperintense foci in the supratentorial white matter are nonspecific but are most compatible chronic microvascular ischemic changes. Suprasellar region: No abnormalities. Craniocervical junction: No abnormalities. The fora men magnum is patent. No Chiari malformations. Vessels: Normal flow-voids in the arteries and sinuses. Neck MRA: Please note, any potential stenos is at the carotid bulbs is measured utilizing NASCET criteria which compares t he narrowest ICA diameter at the carotid bulb to the diameter of the normal di stal cervical ICA. Carotid arteries: Patent bilaterally. Carotid bulbs: P atent bilaterally. No gross significant stenosis of the carotid bulbs. Inter nal carotid arteries: Patent bilaterally. Vertebral arteries: Patent bilateral ly. Intracranial MRA: Internal carotid arteries: Patent bilaterally. Middle cerebral arteries: Patent bilateral M1 segments. Anterior cerebral art eries: Patent bilateral A1 segments. Vertebral arteries: Obscured by artifa cts. Basilar artery: Patent. Mild bulbous configuration of the basilar tip at the confluence of the posterior cerebral arteries and superior cerebellar jerardo mariah. Posterior cerebral arteries: Patent proximal P1 and P2 segments are laughlin nt bilaterally. IMPRESSION: Brain: 1. Exam is moderately limit ed by motion artifacts was terminated early at the patient's. 2. Possible a cute nonhemorrhagic left thalamocapsular infarct vs. artifact. 3. No other gr oss acute intracranial abnormality. 4. Mild chronic microvascular ischemic ch anges. Neck and intracranial MRAs: 1. Exam significantly limited by luann on artifacts. 2. Patent carotid and vertebral arteries in the neck and grossl y patent [place] without gross flow-limiting stenosis. Signed by : Dr. Danielle Hicks M.D. on 09/09/2019 5:17 PM Dictated By: DANIELLE BENJAMIN MD 16 Transcribe d By: MIKE on 09/09/191716 COPY TO: DEVEN RAMOS MD MRA NECK [id number] 16:58:00 [place] [address] Patient Name: TORY ANGLIN MR #: [id number] : 1950 Age/Sex: 69/F Req #: [id number] Adm Physician: ALPHONSO OLIVARES MD Ordered by: DEVEN RAMOS MD Report #: [id number] Location: MED/SURG Room/Bed: [facility] Procedure: [id number] MRI /MRA NECK WO Exam Date: Exam Time: REPORT STATUS: Signed Veins: Brain MRI, neck MRA and intracranial MRAs without IV contrast History: Altered mental status Comparison studies: Head CT 09/06/2018 Technique: Brain: Axial DWI, 3-D T1, axial T2 FLAIR and axial T2*GRE.. Neck MRA: Axial 2-D xrdi-ce-xldgux with 3-D MIP reformats. Intracranial MRA: Axial 3-D lpvc-sq-wehhke with 3-D MIP re formats. Findings: All exams significantly limited by artifacts relate d to patient motion. The brain MRI was also terminated early due to the patien t's request. Brain: Scalp: No abnormal signal. No masses. Bone mar row: Normal in signal intensity. Brain sulci: Mildly prominent . Ventricl es: Normal in size. No hydrocephalus. Extra axial spaces: No mass, no fluid co llection. Focal increased DWI signal with decreased ADC signal along the le ft superior thalamocapsular junction is without associated T2 FLAIR hyperinten sity may reflect acute nonhemorrhagic infarct or possibly be artifactual (axia l DWI series 2, image 18. No mass or hemorrhage. A few scattered small T2 FLAIR hyperintense foci in the supratentorial white matter are nonspecific but are most compatible chronic microvascular ischemic changes. Suprasellar region: No abnormalities. Craniocervical junction: No abnormalities. The fora men magnum is patent. No Chiari malformations. Vessels: Normal flow-voids in the arteries and sinuses. Neck MRA: Please note, any potential stenos is at the carotid bulbs is measured utilizing NASCET criteria which compares t he narrowest ICA diameter at the carotid bulb to the diameter of the normal di stal cervical ICA. Carotid arteries: Patent bilaterally. Carotid bulbs: P atent bilaterally. No gross significant stenosis of the carotid bulbs. Inter nal carotid arteries: Patent bilaterally. Vertebral arteries: Patent bilateral ly. Intracranial MRA: Internal carotid arteries: Patent bilaterally. Middle cerebral arteries: Patent bilateral M1 segments. Anterior cerebral art eries: Patent bilateral A1 segments. Vertebral arteries: Obscured by artifa cts. Basilar artery: Patent. Mild bulbous configuration of the basilar tip at the confluence of the posterior cerebral arteries and superior cerebellar jerardo mariah. Posterior cerebral arteries: Patent proximal P1 and P2 segments are laughlin nt bilaterally. IMPRESSION: Brain: 1. Exam is moderately limit ed by motion artifacts was terminated early at the patient's. 2. Possible a cute nonhemorrhagic left thalamocapsular infarct vs. artifact. 3. No other gr oss acute intracranial abnormality. 4. Mild chronic microvascular ischemic ch anges. Neck and intracranial MRAs: 1. Exam significantly limited by luann on artifacts. 2. Patent carotid and vertebral arteries in the neck and grossl y patent [place] without gross flow-limiting stenosis. Signed by : Dr. Danielle Hicks M.D. on 09/09/2019 5:17 PM Dictated By: DANIELLE BENJAMIN MD 16 Transcribe d By: MIKE on 09/09/191716 COPY TO: DEVEN RAMOS MD MRI BRAIN [id number] 16:58:00 [place] [address] Patient Name: TORY ANGLIN MR #: [id number] : 1950 Age/Sex: 69/F Req #: [id number] Adm Physician: ALPHONSO OLIVARES MD Ordered by: DEVEN RAMOS MD Report #: [id number] Location: MED/SURG Room/Bed: [facility] Procedure: [id number] MRI /MRI BRAIN WO Exam Date: Exam Time: REPORT STATUS: Signed Veins: Brain MRI, neck M RA and intracranial MRAs without IV contrast History: Altered mental status Comparison studies: Head CT 09/06/2018 Technique: Brain: Axial DWI, 3-D T1, axial T2 FLAIR and axial T2*GRE.. Neck MRA: Axial 2-D kwvr-gf-bfcbbo with 3-D MIP reformats. Intracranial MRA: Axial 3-D vqpj-jr-jzbhtc with 3-D MIP r eformats. Findings: All exams significantly limited by artifacts relat ed to patient motion. The brain MRI was also terminated early due to the patie nt's request. Brain: Scalp: No abnormal signal. No masses. Bone ma rrow: Normal in signal intensity. Brain sulci: Mildly prominent . Ventric les: Normal in size. No hydrocephalus. Extra axial spaces: No mass, no fluid c ollection. Focal increased DWI signal with decreased ADC signal along the l eft superior thalamocapsular junction is without associated T2 FLAIR hyperinte nsity may reflect acute nonhemorrhagic infarct or possibly be artifactual (axi al DWI series 2, image 18. No mass or hemorrhage. A few scattered small T 2 FLAIR hyperintense foci in the supratentorial white matter are nonspecific b ut are most compatible chronic microvascular ischemic changes. Suprasella r region: No abnormalities. Craniocervical junction: No abnormalities. The for amen magnum is patent. No Chiari malformations. Vessels: Normal flow-voids i n the arteries and sinuses. Neck MRA: Please note, any potential steno sis at the carotid bulbs is measured utilizing NASCET criteria which compares the narrowest ICA diameter at the carotid bulb to the diameter of the normal d istal cervical ICA. Carotid arteries: Patent bilaterally. Carotid bulbs: Patent bilaterally. No gross significant stenosis of the carotid bulbs. Inte rnal carotid arteries: Patent bilaterally. Vertebral arteries: Patent bilatera lly. Intracranial MRA: Internal carotid arteries: Patent bilaterally. Middle cerebral arteries: Patent bilateral M1 segments. Anterior cerebral ar teries: Patent bilateral A1 segments. Vertebral arteries: Obscured by artif acts. Basilar artery: Patent. Mild bulbous configuration of the basilar tip at the confluence of the posterior cerebral arteries and superior cerebellar art eries. Posterior cerebral arteries: Patent proximal P1 and P2 segments are pat ent bilaterally. IMPRESSION: Brain: 1. Exam is moderately limi robin by motion artifacts was terminated early at the patient's. 2. Possible acute nonhemorrhagic left thalamocapsular infarct vs. artifact. 3. No other g ross acute intracranial abnormality. 4. Mild chronic microvascular ischemic c hanges. Neck and intracranial MRAs: 1. Exam significantly limited by mot ion artifacts. 2. Patent carotid and vertebral arteries in the neck and gross ly patent [place] without gross flow-limiting stenosis. Signed b y: Dr. Danielle Hicks M.D. on 09/09/2019 5:17 PM Dictated By: DANIELLE NEFF MD 9010 Transcrib ed By: MIKE on 09/09/19 3747 COPY TO: DEVEN RAMOS MD Blood Plfzwly5496-40-75 13:51:00* Test Item Value Reference Range Interpretation Comments Blood Culture (test code = 600-7) No Result Data Provided [facility] LancasterPhosphorus Zptlr4108-93-65 10:32:00* Test Item Value Reference Range Interpretation Comments Phosphorus Level (test code = VVY8917) 2.5 2.3-4.7 [facility] LancasterTriglycerides Jyhao8683-24-85 06:23:00* Test Item Value Reference Range Interpretation Comments Triglycerides Level (test code = 2571-8) 110 0-149 [facility] LancasterCholesterol Ptdwu8518-45-14 06:23:00* Test Item Value Reference Range Interpretation Comments Cholesterol Level (test code = 2093-3) 138 0-199 Less than 200 mg/dL Low Gxuq715 - 239 mg/dL Borderline Nxvj813 m g/dl and greater High Risk [facility] LancasterLDL Rsyzhcznswk3161-94-77 06:23:00* Test Item Value Reference Range Interpretation Comments LDL Cholesterol (test code = 2089-1) 72 60-130 [facility] LancasterHDL Gonvjmbhhvt7526-31-01 06:23:00* Test Item Value Reference Range Interpretation Comments HDL Cholesterol (test code = 2085-9) 44 40-60 [facility] LancasterCholesterol/HDL Dxoqe5713-81-75 06:23:00 * Test Item Value Reference Range Interpretation Comments Cholesterol/HDL Ratio (test code = 9830-1) 3.1 3.0-3.6 [facility] LancasterAmmonia2020-03-23 05:31:00* Test Item Value Reference Range Interpretation Comments Ammonia (test code = 74904-1) 66 31-123 [facility] LancasterCT ABDOMEN/PELVIS [id number] 20:18:00 [facility] [address] [place] [address] Patient Name: TORY ANGLIN MR #: [id number] : 1950 Age/Sex: 69/F Req #: [id number] [facility] Physician: ALPHONSO OLIVARES MD Ordered by: PADMINI LYMAN MD Report #: [id number] Location: [facility] Room/Bed: [place] [address] Procedure: [id number] CT/CT ABDOMEN/PELVIS W Exam Date: 09/07/19 Exam Time: 1924 REPORT STATUS: Signed EXAM: CT Abdomen and Pelvis WITH contrast INDICATION: Abdominal pain. Elevated bi lirubin. COMPARISON: 10/13/2018. TECHNIQUE: Abdomen and pelvis were sca nned utilizing a multidetector helical scanner from the lung base to the pubic symphysis after administration of IV contrast. Coronal and sagittal reformati ons were obtained. Routine protocol was performed. Scan was performed when dur ing portal venous phase. IV CONTRAST: 100 cc Isovue-370 ORAL CONTRAST: Water RADIATION DOSE: Total DLP: 829.92 mGy* cm Estimated effective dose: (DLP x 0.015 x size factor) mSv COMPLICATIONS: None FINDINGS: LINES and TUBES: None. LO WER THORAX: Unremarkable HEPATOBILIARY: Shrunken liver with nodular contou r, consistent with cirrhotic morphology. No focal hepatic lesions. Mild dilat ation of the common bile duct up to 1.0 cm may reflect reservoir effect status post cholecystectomy. GALLBLADDER: There are cholecystectomy clips. SPLEEN: Mild splenomegaly. PANCREAS: No focal masses or ductal dilatation. ADRENALS: No adrenal nodules KIDNEYS/URETERS: Kidneys enhance symmetrically. No hydronephrosis. No cystic or solid mass lesions. No stones . GI TRACT: No abnormal distention, wall thickening, or evidence of bowel obstruction. Appendix is normal. PELVIC ORGANS/BLADDER: Unremarkable. LYMPH NODES: No lymphadenopathy. VESSELS: There is mild atherosclerotic d isease in the aorta and major arterial branches. The main portal vein branches are decreased in caliber, with mild cavernous transformation again observed. Extensive collateral circulation, with a large splenic varices and splenorenal shunt. Prominent left gonadal vein. 3.0 cm splenic artery aneurysm. MICHELLE TONEUM / RETROPERITONEUM: No free air or fluid. BONES: There are degenerati ve disc disease and spondylosis at L1-L2. Generalized osteopenia. SOFT TI SSUES: Unremarkable. IMPRESSION: 1. Hepatic cirrhosis. 2. Sple nomegaly and portal hypertension. 3. Mild dilatation of the common bile du ct up to 1.0 cm may reflect reservoir effect status post cholecystectomy. Signed by: Dr. Kamari Fung M.D. on 09/07/2019 8:33 PM Dictated By: CORTEZ FUNG MD, MD 32 COPY TO: JOSE LYMAN MD Amylase Vwbzs2530-80-46 19:47:00* Test Item Value Reference Range Interpretation Comments Amylase Level (test code = 1798-8) 22 25-125 L [facility] LancasterLipase2020-03-22 19:47:00* Test Item Value Reference Range Interpretation Comments Lipase (test code = 3040-3) 15 8-78 [facility] LancasterCHEST SINGLE (PORTABLE)2019-09-07 17:52:00 [facility] [address] [place] [address] Patient Name: TORY ANGLIN MR #: [id number] : 1950 Age/Sex: 69/F Req #: [id number] Adm Physician: Ordered by: PADMINI LYMAN MD Report #: [id number] Location: Room/Bed: Procedure: [id number] DX/LEILANI ST SINGLE (PORTABLE) Exam Date: 09/07/19 Exam Time: 1729 REPORT STATUS: Signed [place]: Single AP view of the chest. COMPARISON: None. INDICATION: Str isa, altered mental status DISCUSSION: Lines/tubes: None. L ungs: The lungs are well inflated and clear. No pneumonia or pulmonary edema. Pleura: No pleural effusion or pneumothorax. Heart and mediastinum: T he heart and the mediastinum are unremarkable. Bones and soft tissues: No acute bony abnormalities. IMPRESSION: 1. No acute cardiopulmonary abnormalities. Signed by: Dr. Ro Vazquez M.D. on 09/07/2019 5:54 PM Dictated By: RO VAZQUEZ MD 53 Transcribed By: MIKE on 09/07/191753 COPY TO: PADMINI LYMAN MD CT BRAIN [id number] 17:52:00 [place] [address] Patient Name: TORY ANGLIN MR #: [id number] : 1950 Age/Sex: 69/F Req #: [id number] Adm Physician: Ordered by: PADMINI LYMAN MD Report #: [id number] Location: ER Room/Bed: Procedure: [id number] CT/CT BRAIN WO Exam Date: 09/07/19 Exam Time: 1729 REPORT STATUS: Signed History: Altered mental status Comparison studies: None Technique: Axial images w ere obtained from the skull base to the vertex. Coronal and sagittal reconst ructions obtained from the axial data. Dose modulation, iterative reconstructi on, and/or weight based adjustment of the mA/kV was utilized to reduce the ra diation dose to as low as reasonably achievable. Intravenous contrast: N one Findings: Scalp/skull: No abnormalities. No fractures, blastic or lytic lesions. Extra-axial spaces: No masses. No fluid collections. Brain sulci: Appropriate for age. Ventricles: Normal in size and configur ation. No hydrocephalus. Parenchyma: No abnormal densities. No masses , hemorrhage, acute or chronic cortical vascular insults. Sellar/suprasella r region: No abnormalities Craniocervical junction: Patent foramen magnum. No Chiari one malformation. Incidental findings: None. IMPRESSION: No abnormalities Signed by: Dr. Oscar Amin M.D. on 09/07/2019 5:53 PM Dictated By: OSCAR AMIN MD, MD 52 Transcribed By: MIKE on 09/06 COPY TO: PADMINI LYMAN MD Urine [id number] 17:32:00* Test Item Value Reference Range Interpretation Comments Urine Color (test code = 5778-6) YELLOW YELLOW [facility] LancasterUrine Qasjuor4762-05-27 17:32:00* Test Item Value Reference Range Interpretation Comments Urine Clarity (test code = 32576-8) CLEAR CLEAR [facility] LancasterUrine Specific Ksaweuo0753-13-16 17:32:00 * Test Item Value Reference Range Interpretation Comments Urine Specific [place] (test code = 5811-5) >=1.030 1.010-1.02 5 [facility] LancasterUrine kA6746-36-71 17:32:00* Test Item Value Reference Range Interpretation Comments Urine pH (test code = 85726-4) 8 5-7 [facility] Lancaster[facility] Leukocyte Nmkqspmt8926-28-60 17:32:00* Test Item Value Reference Range Interpretation Comments Urine Leukocyte Esterase (test code = 5799-2) NEGATIVE NEGATIVE [facility] LancasterUrine Aixhugw7840-24-32 17:32:00* Test Item Value Reference Range Interpretation Comments Urine Nitrite (test code = 02242-9) NEGATIVE NEGATIVE [facility] LancasterUrine Fdmowzi0415-98-56 17:32:00* Test Item Value Reference Range Interpretation Comments Urine Protein (test code = 5804-0) NEGATIVE NEGATIVE [facility] LancasterUrine Glucose (UA)2019-09-07 17:32:00* Test Item Value Reference Range Interpretation Comments Urine Glucose (UA) (test code = 2349-9) NEGATIVE NEGATIVE [facility] LancasterUrine Vmqhcuu0820-30-68 17:32:00* Test Item Value Reference Range Interpretation Comments Urine Ketones (test code = 05605-2) TRACE NEGATIVE H [facility] LancasterUrine Qcjevkxetuqw8086-02-74 17:32:00* Test Item Value Reference Range Interpretation Comments Urine Urobilinogen (test code = 54458-7) 2.0 0.2-1 H [facility] LancasterUrine Kagxakpxp8430-76-18 17:32:00* Test Item Value Reference Range Interpretation Comments Urine Bilirubin (test code = 1978-6) NEGATIVE NEGATIVE [facility] LancasterUrine Anqzc7546-16-46 17:32:00* Test Item Value Reference Range Interpretation Comments Urine Blood (test code = 98989-8) NEGATIVE NEGATIVE [facility] LancasterUrine LRL1844-07-45 17:32:00* Test Item Value Reference Range Interpretation Comments Urine WBC (test code = 5821-4) 0-5 0-5 [facility] LancasterUrine QRE9154-93-64 17:32:00* Test Item Value Reference Range Interpretation Comments Urine RBC (test code = 77031-5) 0-5 0-5 [facility] LancasterUrine Aiwevuxa4932-11-19 17:32:00* Test Item Value Reference Range Interpretation Comments Urine Bacteria (test code = 36198-0) RARE NONE [facility] LancasterUrine Epithelial Fqzsm5934-65-70 17:32:00 * Test Item Value Reference Range Interpretation Comments Urine Epithelial Cells (test code = 21029-8) FEW NONE [facility] LancasterB-Type Natriuretic Baazmmu3311-25-00 17:21:00* Test Item Value Reference Range Interpretation Comments B-Type Natriuretic Peptide (test code = 85423-8) 217.4 0-100 H [facility] LancasterProthrombin Eptk9595-89-55 17:10:00* Test Item Value Reference Range Interpretation Comments Prothrombin Time (test code = 5902-2) 16.6 11.9-14.5 H [facility] LancasterProthromb Time International Ratio 2019-09-07 17:10:00* Test Item Value Reference Range Interpretation Comments Prothromb Time International Ratio (test code = 6301-6) 1.26 Oral Anticoagulant Therapy INR Values:1. Low Intensity Therapy 1.5 - 2.02 . Moderate Intensity Therapy 2.0 - 3.03. High Intensity Therapy(1) 2.5 - 3. 54. High Intensity Therapy(2) 3.0 - 4.05. Panic Value INR > 5.0 [facility] LancasterActivated Partial Thromboplast Time 2019-09-07 17:10:00* Test Item Value Reference Range Interpretation Comments Activated Partial Thromboplast Time (test code = 03544-5) 32.1 23.8-35.5 [facility] KIRIT CAD DIGITAL 2019-04-29 10:00:23 - SCR MAMM BILATERAL KIRIT CAD DIGITALBILATERAL DIGITAL SCREENING MAMMOGRAM 3D/2D WITH CAD: 04/04/2019CLINICAL: Asymptomatic. Digital breast tomosynthesis was performed in addition to routine CC and MLO views. Current mammographic images were evaluated by either a [employer] ImageChecker CAD (computer aided detection system). Comparison is made to exams dated 02/20/2018 mammogram, 02/08/2016 mammogram, and 12/17/2015 mammogram - [facility]. There are scattered fibroglandular tissues in both breasts. There are benign calcifications in both breasts. No suspicious mass, architectural distortion, malignant type calcification, or lymph node abnormality detected. Breast architecture is stable compared to prior exams.IMPRESSION: BENIGNThere is no mammographic evidence of malignancy. Resume annual screening mammography in one year. Elvin Espinoza M.D. et/:04/29/2019 10:00:23 Entry: cl - 04/29/2019 10:00:23Imaging Technologist: Tory Fong MM, [facility] Mammographyletter sent: BIRADS 1-2 Normal Mammogram BI-RADS: 2 BenignSodium Xuyjv1203-28-98 07:22:00* Test Item Value Reference Range Interpretation Comments Sodium Level (test code = 2951-2) 138 136-145 [facility] LancasterPotassium Phhdc5242-82-45 07:22:00* Test Item Value Reference Range Interpretation Comments Potassium Level (test code = 2823-3) 4.2 3.5-5.1 [facility] LancasterChloride Rgnyz0639-23-83 07:22:00* Test Item Value Reference Range Interpretation Comments Chloride Level (test code = 2075-0) 111 98-107 H [facility] LancasterCarbon Dioxide Ldfck8110-83-62 07:22:00* Test Item Value Reference Range Interpretation Comments Carbon Dioxide Level (test code = 2028-9) 24 22-29 [facility] LancasterAnion Xci3427-69-81 07:22:00* Test Item Value Reference Range Interpretation Comments Anion Gap (test code = 54753-6) 7.2 8-16 L [facility] LancasterBlood Urea Nkvzbadf9625-77-45 07:22:00* Test Item Value Reference Range Interpretation Comments Blood Urea Nitrogen (test code = 3094-0) 5 7-26 L [facility] LancasterCreatinine2019-05-03 07:22:00* Test Item Value Reference Range Interpretation Comments Creatinine (test code = 2160-0) 0.68 0.57-1.11 [facility] LancasterBUN/Creatinine Roxev0414-55-81 07:22:00* Test Item Value Reference Range Interpretation Comments BUN/Creatinine Ratio (test code = 3097-3) 7 6-25 [facility] LancasterEstimat Glomerular Filtration Rate 2018-10-18 07:22:00* Test Item Value Reference Range Interpretation Comments Estimat Glomerular Filtration Rate (test code = 593881171) > 60 >60 Ranges were taken from the National Kidney Disease Education Program and the [facility] literature.Reference ranges:60 or greater: Unaojs94-06 ( for 3 consecutive months): Chronic kidney disease 15 or less: Kidney failureCrescent Medical Center LancasterGlucose Ssxhs5882-62-16 07:22:00* Test Item Value Reference Range Interpretation Comments Glucose Level (test code = MXP4159) 91 74-118 [facility] LancasterCalcium Maquy8705-35-69 07:22:00* Test Item Value Reference Range Interpretation Comments Calcium Level (test code = 76144-3) 7.6 8.4-10.2 L [facility] LancasterTotal Mfsoyungq9562-63-27 07:22:00* Test Item Value Reference Range Interpretation Comments Total Bilirubin (test code = 1975-2) 1.3 0.2-1.2 H [facility] LancasterAspartate Amino Transf (AST/SGOT) 2018-10-18 07:22:00* Test Item Value Reference Range Interpretation Comments Aspartate Amino Transf (AST/SGOT) (test code = Aspartate Amino Transf (AST/SGOT)) 23 5-34 [facility] LancasterAlanine Aminotransferase (ALT/SGPT) 2018-10-18 07:22:00* Test Item Value Reference Range Interpretation Comments Alanine Aminotransferase (ALT/SGPT) (test code = 1742-6) 13 0-55 [facility] LancasterTotal Ylzfhpw9536-82-53 07:22:00* Test Item Value Reference Range Interpretation Comments Total Protein (test code = 2885-2) 5.1 6.5-8.1 L [facility] LancasterAlbumin2019-05-03 07:22:00* Test Item Value Reference Range Interpretation Comments Albumin (test code = 1751-7) 2.6 3.5-5.0 L [facility] LancasterGlobulin2019-05-03 07:22:00* Test Item Value Reference Range Interpretation Comments Globulin (test code = 86806-5) 2.5 2.3-3.5 [facility] LancasterAlbumin/Globulin Tmnsz0405-36-90 07:22:00 * Test Item Value Reference Range Interpretation Comments Albumin/Globulin Ratio (test code = 1759-0) 1.0 0.8-2.0 [facility] LancasterAlkaline Wiqiyzjvapg9184-89-01 07:22:00* Test Item Value Reference Range Interpretation Comments Alkaline Phosphatase (test code = 6768-6) 53 40-150 [facility] LancasterVitamin B12 Mksng4058-11-44 05:44:00* Test Item Value Reference Range Interpretation Comments Vitamin B12 Level (test code = 64778-7) 353 213-816 [facility] LancasterFolate2019-05-03 05:44:00* Test Item Value Reference Range Interpretation Comments Folate (test code = 2284-8) 6.0 7.0-15.4 L [facility] LancasterB-Type Natriuretic Wvrxwyp9077-74-87 05:19:00* Test Item Value Reference Range Interpretation Comments B-Type Natriuretic Peptide (test code = 19166-3) 361.2 0-100 H [facility] LancasterFerritin2019-05-03 05:06:00* Test Item Value Reference Range Interpretation Comments Ferritin (test code = 2276-4) 100.37 4.63-204.00 [facility] LancasterMagnesium Xfedg4264-51-47 04:46:00* Test Item Value Reference Range Interpretation Comments Magnesium Level (test code = 36096-7) 1.8 1.3-2.1 [facility] LancasterIron Jklkd4970-29-60 04:46:00* Test Item Value Reference Range Interpretation Comments Iron Level (test code = 2498-4) 115 50-170 [facility] LancasterTotal Iron Binding Hdblhzqp1026-44-42 04:46:00* Test Item Value Reference Range Interpretation Comments Total Iron Binding Capacity (test code = 2500-7) 207 261-4 78 L [facility] LancasterPercent Iron Auynlfiggc4026-52-07 04:46:00* Test Item Value Reference Range Interpretation Comments Percent Iron Saturation (test code = 2502-3) 56 15-50 H [facility] LancasterTransferrin2019-05-03 04:46:00* Test Item Value Reference Range Interpretation Comments Transferrin (test code = 3034-6) 148 180-382 L [facility] LancasterWhite Blood Fjmzh7297-41-66 04:24:00* Test Item Value Reference Range Interpretation Comments White Blood Count (test code = 6690-2) 3.10 4.8-10.8 L [facility] LancasterRed Blood Wkvxi7319-30-78 04:24:00* Test Item Value Reference Range Interpretation Comments Red Blood Count (test code = 789-8) 2.90 3.6-5.1 L [facility] LancasterHemoglobin2019-05-03 04:24:00* Test Item Value Reference Range Interpretation Comments Hemoglobin (test code = 36555-2) 8.7 12.0-16.0 L [facility] LancasterHematocrit2019-05-03 04:24:00* Test Item Value Reference Range Interpretation Comments Hematocrit (test code = 4544-3) 27.5 34.2-44.1 L [facility] LancasterMean Corpuscular Kcgcpw3530-13-30 04:24:00* Test Item Value Reference Range Interpretation Comments Mean Corpuscular Volume (test code = 787-2) 94.8 81-99 [facility] LancasterMean Corpuscular Lakhuxvqav3198-16-83 04:24:00* Test Item Value Reference Range Interpretation Comments Mean Corpuscular Hemoglobin (test code = 785-6) 30.0 28-32 [facility] Corpuscular Hemoglobin Concent 2018-10-18 04:24:00* Test Item Value Reference Range Interpretation Comments Mean Corpuscular Hemoglobin Concent (test code = 786-4) 31.6 31-35 [facility] LancasterRed Cell Distribution Bvuwu8499-93-15 04:24:00* Test Item Value Reference Range Interpretation Comments Red Cell Distribution Width (test code = 36927-5) 15.1 11.7 -14.4 H [facility] LancasterPlatelet Xjikz3024-64-09 04:24:00* Test Item Value Reference Range Interpretation Comments Platelet Count (test code = 777-3) 57 140-360 L [facility]ut[facility] (%) (Auto)2018-10-18 04:24:00 * Test Item Value Reference Range Interpretation Comments Neutrophils (%) (Auto) (test code = 48191-2) 59.7 38.7-80.0 [facility] LancasterLymphocytes (%) (Auto)2018-10-18 04:24:00 * Test Item Value Reference Range Interpretation Comments Lymphocytes (%) (Auto) (test code = 736-9) 25.8 18.0-39.1 [facility] LancasterMonocytes (%) (Auto)2018-10-18 04:24:00* Test Item Value Reference Range Interpretation Comments Monocytes (%) (Auto) (test code = 5905-5) 8.7 4.4-11.3 [facility]Eosinophils (%) (Auto)2018-10-18 04:24:00 * Test Item Value Reference Range Interpretation Comments Eosinophils (%) (Auto) (test code = 713-8) 4.5 0.0-6.0 [facility]ophils (%) (Auto)2018-10-18 04:24:00* Test Item Value Reference Range Interpretation Comments Basophils (%) (Auto) (test code = 706-2) 0.3 0.0-1.0 [facility]IM GR[facility]ULOCYTES %2018-10-18 04:24:00* Test Item Value Reference Range Interpretation Comments IM GRANULOCYTES % (test code = IM GRANULOCYTES %) 1.0 0.0- 1.0 [facility] LancasterNeutrophils # (Auto)2018-10-18 04:24:00* Test Item Value Reference Range Interpretation Comments Neutrophils # (Auto) (test code = 751-8) 1.9 2.1-6.9 L [facility] LancasterLymphocytes # (Auto)2018-10-18 04:24:00* Test Item Value Reference Range Interpretation Comments Lymphocytes # (Auto) (test code = 59721-3) 0.8 1.0-3.2 L [facility] LancasterMonocytes # (Auto)2018-10-18 04:24:00* Test Item Value Reference Range Interpretation Comments Monocytes # (Auto) (test code = 742-7) 0.3 0.2-0.8 [facility] LancasterEosinophils # (Auto)2018-10-18 04:24:00* Test Item Value Reference Range Interpretation Comments Eosinophils # (Auto) (test code = 711-2) 0.1 0.0-0.4 [facility] LancasterBasophils # (Auto)2018-10-18 04:24:00* Test Item Value Reference Range Interpretation Comments Basophils # (Auto) (test code = 704-7) 0.0 0.0-0.1 [facility] LancasterAbsolute Immature Granulocyte (auto 2018-10-18 04:24:00* Test Item Value Reference Range Interpretation Comments Absolute Immature Granulocyte (auto (india t code = Absolute Immature Granulocyte (auto) 0.03 0-0.1 [facility] LancasterPlatelet Esdteosn2177-25-01 07:54:00* Test Item Value Reference Range Interpretation Comments Platelet Estimate (test code = 87918-0) MARKEDLY DECREASED [facility] LancasterPlatelet Morphology Jkaogkq3243-78-10 07:54:00* Test Item Value Reference Range Interpretation Comments Platelet Morphology Comment (test code = 32142-1) NORMAL [facility] LancasterHypochromasia2019-05-02 07:54:00* Test Item Value Reference Range Interpretation Comments Hypochromasia (test code = 728-6) MODERATE [facility] LancasterAnisocytosis2019-05-02 07:54:00* Test Item Value Reference Range Interpretation Comments Anisocytosis (test code = 702-1) SLIGHT [facility] LancasterRed Cell Morphology Cratmsr4979-50-94 07:54:00* Test Item Value Reference Range Interpretation Comments Red Cell Morphology Comment (test code = 6742-1) NORMAL [facility] LancasterDirect Gbefyjdtz6075-25-41 04:32:00* Test Item Value Reference Range Interpretation Comments Direct Bilirubin (test code = 15271-5) 0.5 0.0-0.5 [facility] LancasterPhosphorus Radcn1334-15-31 06:45:00* Test Item Value Reference Range Interpretation Comments Phosphorus Level (test code = JPY9696) 2.2 2.3-4.7 L [facility] LancasterFree Yqlzffywa2650-16-67 04:07:00* Test Item Value Reference Range Interpretation Comments Free Thyroxine (test code = 3024-7) 0.78 0.9-1.8 L [facility] LancasterThyroid Stimulating Hormone (TSH) 2018-10-14 04:07:00* Test Item Value Reference Range Interpretation Comments Thyroid Stimulating Hormone (TSH) (test code = 33634-4) 0.860 0.350-4.940 [facility] LancasterAmylase Voyfg7621-29-80 03:46:00* Test Item Value Reference Range Interpretation Comments Amylase Level (test code = 1798-8) 44 25-125 [facility] LancasterLipase2019-04-29 03:46:00* Test Item Value Reference Range Interpretation Comments Lipase (test code = 3040-3) 61 8-78 [facility] LancasterHemoglobin A1c Qsusahc8548-63-37 03:40:00 * Test Item Value Reference Range Interpretation Comments Hemoglobin A1c Percent (test code = Hemoglobin A1c Percent) 4.5 4.0-7.0 [facility] LancasterCT ABDOMEN/PELVIS M4950-92-00 01:07:00 [facility] [address] [place] [address] Patient Name: TORY ANGLIN MR #: [id number] : 1950 Age/Sex: 68/F Req #: [id number] Adm Physician: Ordered by: DARIN STEWART MD Report #: [id number] Location: ER Room/Bed: Procedure: [id number] CT/CT ABDOMEN/PELVIS W Exam Date: Exam Time: REPORT STATUS: Signed EXAM: CT Abdomen and Pelvis WITH contrast INDICATION: Abdominal pain. Vomiting. COMPARISON: None. Ultrasound gallbladder dated 10/12/2018. TECHNIQUE: Abdomen and pelvis were scanned utilizing a multidetector helical scanner from the lung base to the pubic symphysis after administration of IV contrast. Coronal and sagittal reformations were obtained. Routine protocol was performed. Scan was performed when during portal venous phase. IV CONTRAST: 100 cc Isovue-300 ORAL CONTRAST: Water RADIATION DOSE: Total DLP: 551.71 mGy*cm Estimated effective dose: (DLP x 0.015 x size factor) mSv COMPLICATIONS: None FINDINGS: LINES and TUBES: None. LOWER THORAX: Bibasilar subsegmental atelectasis, right greater than left. HEPATOBILIARY: Nodular hepatic contour. No biliary ductal dilation. GALLBLADDER: The gallbladder is elongated measuring 12.0 cm in craniocaudal di mension. No radio-opaque stones or sludge. The gallbladder wall is mildly thi ckened measuring 5.5 mm. Trace pericholecystic fluid. No significant perichole cystic fat stranding. SPLEEN: No splenomegaly. PANCREAS: No focal mas ses or ductal dilatation. ADRENALS: No adrenal nodules KIDNEYS/U RETERS: Kidneys enhance symmetrically. No hydronephrosis. No cystic or solid mass lesions. No stones. GI TRACT: No abnormal distention, wall thickening , or evidence of bowel obstruction. Appendix is normal. 3.9 cm diverticu lum off the second portion of the duodenum. PELVIC ORGANS/BLADDER: Unrema rkable. LYMPH NODES: No lymphadenopathy. 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 There are splenic varices with a left splenorenal shunt. Atherosclerotic calcifications of the aorta, with mild ecta franki just proximal to the bifurcation. Atherosclerotic calcifications of the il iac arteries without aneurysmal dilatation. PERITONEUM / RETROPERITONEUM: No free air or fluid. BONES: There are degenerative changes in the lumbar spine. SOFT TISSUES: Unremarkable. IMPRESSION: 1. Cirrhotic hepa tic morphology. 2. Mild splenomegaly, and evidence of portal hypertension including gastrosplenic varices, and a spontaneous left splenorenal shunt. 3. Gallbladder hydrops. Mild gallbladder wall thickening and trace perichol ecystic fluid may be in part related to the presence of hepatocellular disease and/or hypoalbuminemia in the proper setting. Acalculous cholecystitis is wit hin the differential diagnosis but no additional supporting findings on the re cently performed ultrasound of gallbladder. Correlate clinically. Consider clarke rgical consultation. 4. 3.1 cm splenic artery aneurysm. Signed by: Dr Keo Fung M.D. on 10/13/2018 1:24 AM Dictated By: CORTEZ PERALTA MD, MD 3 Tra nscribed By: MIKE on 10/13/18123 COPY TO: DARIN STEWART MD Prothrombin Sljg9012-89-30 23:25:00* Test Item Value Reference Range Interpretation Comments Prothrombin Time (test code = 5902-2) 13.4 11.9-14.5 [facility] LancasterProthromb Time International Ratio 2018-10-12 23:25:00* Test Item Value Reference Range Interpretation Comments Prothromb Time International Ratio (test code = 6301-6) 0.97 Oral Anticoagulant Therapy INR Values:1. Low Intensity Therapy 1.5 - 2.02 . Moderate Intensity Therapy 2.0 - 3.03. High Intensity Therapy(1) 2.5 - 3. 54. High Intensity Therapy(2) 3.0 - 4.05. Panic Value INR > 5.0 [facility] LancasterActivated Partial Thromboplast Time 2018-10-12 23:25:00* Test Item Value Reference Range Interpretation Comments Activated Partial Thromboplast Time (test code = 61400-6) 32.0 23.8-35.5 [facility] LancasterUrine [id number] 23:25:00* Test Item Value Reference Range Interpretation Comments Urine WBC (test code = 5821-4) 11-20 0-5 H [facility] LancasterUrine RAU6514-08-09 23:25:00* Test Item Value Reference Range Interpretation Comments Urine RBC (test code = 75958-8) 0-5 0-5 [facility] LancasterU[facility] Ziaxxmkj2557-60-10 23:25:00* Test Item Value Reference Range Interpretation Comments Urine Bacteria (test code = 46178-9) MODERATE NONE H [facility] LancasterUrine Epithelial Obqra0489-62-98 23:25:00 * Test Item Value Reference Range Interpretation Comments Urine Epithelial Cells (test code = 74179-3) MODERATE NONE [facility] LancasterU[facility] Ypbxn5837-85-76 23:20:00* Test Item Value Reference Range Interpretation Comments Urine Color (test code = 5778-6) YELLOW YELLOW [facility] LancasterU[facility] Nlrlqvc8107-32-48 23:20:00* Test Item Value Reference Range Interpretation Comments Urine Clarity (test code = 49433-5) CLEAR CLEAR [facility] LancasterUrine Specific Rxkslfi7524-99-93 23:20:00 * Test Item Value Reference Range Interpretation Comments Urine Specific [place] (test code = 5811-5) 1.020 1.010-1.02 5 [facility] LancasterU[facility] [id number] 23:20:00* Test Item Value Reference Range Interpretation Comments Urine pH (test code = 63516-1) 6.5 5-7 [facility] Leukocyte Hghsaxun2173-59-52 23:20:00* Test Item Value Reference Range Interpretation Comments Urine Leukocyte Esterase (test code = 5799-2) 1+ NEGATIVE H [facility] Estiuge7258-97-70 23:20:00* Test Item Value Reference Range Interpretation Comments Urine Nitrite (test code = 23905-6) NEGATIVE NEGATIVE [facility] Qbsgzlt9436-34-96 23:20:00* Test Item Value Reference Range Interpretation Comments Urine Protein (test code = 5804-0) NEGATIVE NEGATIVE [facility] Glucose (UA)2018-10-12 23:20:00* Test Item Value Reference Range Interpretation Comments Urine Glucose (UA) (test code = 2349-9) NEGATIVE NEGATIVE [facility] LancasterU[facility] Pqqstpo2717-23-37 23:20:00* Test Item Value Reference Range Interpretation Comments Urine Ketones (test code = 40121-8) TRACE NEGATIVE H [facility] LancasterU[facility] Xebmjfngteaj0982-16-06 23:20:00* Test Item Value Reference Range Interpretation Comments Urine Urobilinogen (test code = 27921-8) 0.2 0.2-1 [facility] Lancaster[facility] Kapdsqoeb2675-73-18 23:20:00* Test Item Value Reference Range Interpretation Comments Urine Bilirubin (test code = 1978-6) NEGATIVE NEGATIVE [facility] Idnsb1136-12-34 23:20:00* Test Item Value Reference Range Interpretation Comments Urine Blood (test code = 63804-3) NEGATIVE NEGATIVE [facility] LancasterUS [id number] 23:15:00 [facility] [address] [address] Patient Name: TORY ANGLIN MR #: [id number] : 1950 Age/Sex: 68/F Req #: [id number] Adm Physician: Ordered by: DARIN STEWART MD Report #: [id number] Location: ER Room/Bed: Procedure: [id number] US/US GALLBLADDER Exam Date: 10/12/18 Exam Time: 22 43 REPORT STATUS: Signed EXAM: G allbladder Ultrasound INDICATION: RUQ PAIN. Vomiting. COMPARISON: None. TECHNIQUE: Transverse and longitudinal images of the gallbladder were obtaine d. FINDINGS: Liver: 13.3 centimeters in length with coarsened ech otexture diffusely. 1.4 cm simple cyst. Slight nodular contour. Gallbladd er: Hydropic. Stones/Sludge: None Wall: 0.3 cm Appearance: No wall thicken ing, pericholecystic fluid or hydrops. Sonographic Danielson's Sign: Negative Bile Ducts: Intrahepatic Ducts: No dilatation Extrahepatic Ducts: Common bile duct measures 0.3 cm, no dilatation Free Fluid: No ascites or pleur al effusion Pancreas obscured by bowel gas Right kidney: 11.2 cm in length. No hydronephrosis, shadowing nephrolithiasis or focal mass. Main portal vein: 0.5 cm in diameter. IMPRESSION: Hydropic gallbladder is a n onspecific finding. No gallbladder wall thickening, pericholecystic fluid or c alculi/sludge. Signed by: Dr. Kamari Fung M.D. on 10/12/2018 1 1:20 PM Dictated By: CORTEZ FUNG MD, MD 19 Transcribed By: MIKE on 10/12/182319 COPY TO: DARIN STEWART MD
[2020-02-01 10:59] LABS: BASOPHILS % 0.7 % (0.0-1.0); EOSINOPHILS # (AUTO) 0.3 (0.0-0.4); EOSINOPHILS % 4.2 % (0.0-6.0); HEMATOCRIT 33.1 % (34.2-44.1); HEMOGLOBIN 10.5 g/dL (12.0-16.0); LYMPHOCYTES # (AUTO) 1.1 (1.0-3.2); MEAN CORPUSCULAR HEMOGLOBIN 29.2 pg (28-32); MEAN CORPUSCULAR HGB CONC 31.7 g/dL (31-35); MEAN CORPUSCULAR VOLUME 91.9 fL (81-99); MONOCYTES # (AUTO) 0.6 (0.2-0.8); MONOCYTES % 9.3 % (4.4-11.3); NEUTROPHILS # (AUTO) 3.9 (2.1-6.9); NEUTROPHILS % 66.3 % (38.7-80.0); PLATELET COUNT 79 x10e3/uL (140-360); RED CELL DISTRIBUTION WIDTH 14.7 % (11.7-14.4)
[2020-02-01 11:03] LABS: CLARITY,URINE CLOUDY (CLEAR); COLOR,URINE YELLOW (YELLOW); KETONES,URINE NEGATIVE (NEGATIVE); LEUKOCYTE ESTERASE ,URINE SMALL (NEGATIVE); NITRITE,URINE NEGATIVE (NEGATIVE); PROTEIN,URINE DIPSTICK NEGATIVE (NEGATIVE)
[2020-02-01 11:04] LABS: BILIRUBIN,URINE NEGATIVE (NEGATIVE)
[2020-02-01 11:13] LABS: INR 1.15; PROTHROMBIN TIME 15.3 seconds (11.9-14.5)
[2020-02-01 11:14] LABS: PARTIAL THROMBOPLASTIN TIME 29.7 seconds (23.8-35.5)
[2020-02-01 11:16] LABS: EPITHELIAL CELLS,URINE FEW /LPF; RBC,URINE 0-5 /HPF (0-5); RENAL EPITHELIAL CELLS,URINE RARE; TRANSITIONAL EPI CELLS,URINE FEW; WBC,URINE (MAN) 21-50 /HPF (0-5)
[2020-02-01 11:17] LABS: BACTERIA,URINE MODERATE /HPF
[2020-02-01 11:24] LABS: ALANINE AMINOTRANSFERASE 17 IU/L (0-55); ALBUMIN 3.3 g/dL (3.5-5.0); ALBUMIN/GLOBULIN RATIO 1.1 (0.8-2.0); ALKALINE PHOSPHATASE 73 IU/L (40-150); ANION GAP 13.4 mmol/L (8-16); BLOOD UREA NITROGEN 24 mg/dL (7-26); BUN/CREATININE RATIO 22 (6-25); CALCIUM 8.5 mg/dL (8.4-10.2); CARBON DIOXIDE 28 mmol/L (22-29); CHLORIDE 101 mmol/L (98-107); CREATINE KINASE 226 IU/L (29-168); CREATININE, SERUM 1.07 mg/dL (0.57-1.11); EST GLOMERULAR FILTRATION RATE 51 ML/MIN (60-); GLUCOSE 90 mg/dL (74-118); MAGNESIUM 1.6 MG/DL (1.3-2.1); POTASSIUM 4.4 mmol/L (3.5-5.1); SODIUM 138 mmol/L (136-145)
[2020-02-01 11:35] LABS: B-TYPE NATRIURETIC PEPTIDE2 142.1 pg/mL (0-100)
--- NOTE | 2020-02-01 11:36 | Diagnostic Imaging Report ---
EXAMINATION: CHEST SINGLE (PORTABLE) INDICATION: Status post fall. COMPARISON: None FINDINGS: TUBES and LINES: None. There is linear area of high density projecting over the mid chest, likely artifact external to the patient. LUNGS: Normal lung volumes. Lungs are clear. No consolidations. PLEURA: No pleural effusion or pneumothorax. HEART AND MEDIASTINUM: The cardiomediastinal silhouette is unremarkable. BONES AND SOFT TISSUES: No acute osseous lesion. Soft tissues are unremarkable. UPPER ABDOMEN: No free air under the diaphragm. IMPRESSION: No acute thoracic radiographic abnormality. Signed by: Alireza Pineda MD on 02/01/2020 11:32 AM
--- NOTE | 2020-02-01 11:40 | Diagnostic Imaging Report ---
X-ray 3 views of the ankle. HISTORY: Ankle pain COMPARISON: None available. FINDINGS: See impression. IMPRESSION: 1. Status post ORIF for healing distal fibular fracture. There are percutaneous K wires over the healing medial malleolar fracture. 2. There is mild medial clear space widening measuring approximately 5 mm suggestive of ligamentous injury. 3. There is diffuse soft tissue swelling around the ankle. Signed by: Alireza Pineda MD on 02/01/2020 11:36 AM
--- NOTE | 2020-02-01 11:42 | Diagnostic Imaging Report ---
X-ray 3 views of the ankle. HISTORY: Ankle pain. COMPARISON: None available. FINDINGS: Bones/joints: No acute fracture or dislocation. Ankle mortise is symmetric. Enthesophytes at the dorsal calcaneus, dorsal navicular and talus. Soft tissues: There is mild ankle soft tissue swelling. IMPRESSION: No acute fracture or dislocation. Mild ankle soft tissue swelling. Signed by: Alireza Pineda MD on 02/01/2020 11:38 AM
--- NOTE | 2020-02-01 11:43 | Emergency Department Note ---
History of Present Illnes History of Present Illness Chief Complaint: General Medicine Complaints History of Present Illness This is a 69 year old female ARRIVED VIA EMS. PT LIVES AT HOME AND FELL 2 DAYS AGO FROM LEGS FEELING WEAK. PT KEPT TRYING TO WALK OVER THE LAST FEW DAYS AND GETTING WORSE, MULTIPLE FALLS., LAST OCCURRED THIS AM. RT ANKLE LIGHT BRUISING, BUT STATES LEFT ANKLE WITH MORE PAIN. PT DROWSY. 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 O2 SAT 97 ROOM AIR, PLACED ON NC 3 LPM FOR COMFORT AFTER FENTANYL. 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 Arrival Mode: [facility] EMS Treatment SLIDING JOINT MAKER: IV, O2, See EMS Report Additional Treatment SLIDING JOINT MAKER: FENTENYL 75MCG IVP Backbreaker Required: No Onset (how long ago): day(s) (2) Location: BOTH ANKLES, BACK, NECK, RIGHT HIP Quality: PAIN Radiation: Reports non-radiation Severity: moderate Onset quality: sudden Timing of current episode: constant Progression: unchanged Chronicity: new Context: Denies recent illness Relieving factors: none Exacerbating factors: none Associated symptoms: Reports denies other symptoms Treatments prior to arrival: none Past Medical/Family History Physician Review I have reviewed the patient's past medical and family history. Any updates have been documented here. Past Medical History Recent Fever: No Clinical Suspicion of Infectio: No New/Unexplained Change in Ment: No Past Medical History: Asthma, Liver Disease, Anxiety, Depression, Hyperlipedemia, Chronic Back Pain, Osteoarthritis Other Medical History: low WBC, RBCs, and platelets osteoporosis neuropathy in feet and legs fibromyalgia Past Surgical History: Other Surgery: tonsillectomy, broken leg, removal of precancerous cells in breast and colon Social History Smoking Cessation: Former smoker Counseling Performed: Yes Alcohol Use: None Any Illegal Drug Use: No TB Exposure/Symptoms: No Physically hurt or threatened: No Family History Family history of heart diseas: No Other Last Tetanus: UNKNOWN Any Pre-Existing Lines (PICC,: No Review of Systems Review of Systems Constitutional: Reports as per HPI, Reports weakness EENTM: Reports no symptoms Cardiovascular: Reports no symptoms Respiratory: Reports no symptoms Gastrointestinal: Reports no symptoms Genitourinary: Reports no symptoms Musculoskeletal: Reports as per HPI, Reports back pain, Reports joint pain Integumentary: Reports no symptoms Neurological: Reports as per HPI, Reports weakness (BOTH LEGS) Psychological: Reports no symptoms Endocrine: Reports no symptoms Hematological/Lymphatic: Reports no symptoms Physical Exam Related Data Allergies: Coded Allergies: Penicillins (Verified Allergy, Mild, 10/12/18) erythromycin base (Verified Allergy, Mild, 10/12/18) Triage Vital Signs Vital Signs Date Time Temp Pulse Resp B/P (MAP) Pulse Ox O2 Delivery O2 Flow Rate FiO2 02/01/20 09:31 98.2 59 10 106/32 97 Room Air Vital signs reviewed: Yes Physical Exam CONSTITUTIONAL Constitutional: Present well-developed, Present well-nourished HENT HENT: Present normocephalic, Present other (RIGHT PERIORBITAL ECCHYMOSES) HENT L/R: Present left TM normal, Present right TM normal, Present left canal normal, Present right canal normal, Present left ext ear normal, Present right ext ear normal EYES Eyes: Reports PERRL, Reports conjunctivae normal, Reports EOM normal NECK Neck: Present other (C-COLLAR PLACED DUE TO NECK PAIN) PULMONARY Pulmonary: Present effort normal, Present breath sounds normal CARDIOVASCULAR Cardiovascular: Present regular rhythm, Present heart sounds normal, Present normal rate GASTROINTESTINAL Abdominal: Present soft, Present nontender, Present bowel sounds normal; Absent tender GENITOURINARY Genitourinary: Present exam deferred SKIN Skin: Present warm, Present dry, Present bruising MUSCULOSKELETAL Musculoskeletal: Present other (TENDER ALONG ENTIRE SPINE ESPECIALLY AROUND LOWER THORACIC/UPPER LUMBAR AREA, OLD-APPEARING BRUISING BILATERAL ANKLES/FEET WITH MOD SWELLING BILAT (L>R)) NEUROLOGICAL Neurological: Present alert, Present oriented x 3, Present DTRs normal, Present sensory deficit (SLIGHT DECREASED TOUCH SENSATION BELOW UMBILICUS TO TOES), Present other (MILDLY SOMNOLENCE); Absent abnormal DTRs, Absent weakness (5/5 STR THROUGHOUT) PSYCHOLOGICAL Psychological: Present mood/affect normal Results Laboratory Result Diagram: 02/01/20 1022 Laboratory Laboratory Tests Test 02/01/20 10:40 02/01/20 10:22 Urine Color Yellow (YELLOW) Urine Clarity Cloudy (CLEAR) Urine pH 5.5 (5 - 7) Urine Specific Friend >=1.030 (1.010-1.025) Urine Protein Negative (NEGATIVE) Urine Glucose (UA) Negative (NEGATIVE) Urine Ketones Negative (NEGATIVE) Urine Blood Negative (NEGATIVE) Urine Nitrite Negative (NEGATIVE) Urine Bilirubin Negative (NEGATIVE) Urine Urobilinogen 4.0 mg/dL (0.2 - 1) Urine Leukocyte Esterase Small (NEGATIVE) Urine RBC 0-5 /HPF (0-5) Urine WBC 21-50 /HPF (0-5) Urine Epithelial Cells Few /LPF (NONE) Urine Transitional Epithelial Cells Few (NONE) Urine Renal Epithelial Cells Rare (NONE) Urine Bacteria Moderate /HPF (NONE) White Blood Count 5.90 x10e3/uL (4.8-10.8) Red Blood Count 3.60 x10e6/uL (3.6-5.1) Hemoglobin 10.5 g/dL (12.0-16.0) Hematocrit 33.1 % (34.2-44.1) Mean Corpuscular Volume 91.9 fL (81-99) Mean Corpuscular Hemoglobin 29.2 pg (28-32) Mean Corpuscular Hemoglobin Concent 31.7 g/dL (31-35) Red Cell Distribution Width 14.7 % (11.7-14.4) Platelet Count 79 x10e3/uL (140-360) Neutrophils (%) (Auto) 66.3 % (38.7-80.0) Lymphocytes (%) (Auto) 19.0 % (18.0-39.1) Monocytes (%) (Auto) 9.3 % (4.4-11.3) Eosinophils (%) (Auto) 4.2 % (0.0-6.0) Basophils (%) (Auto) 0.7 % (0.0-1.0) Neutrophils # (Auto) 3.9 (2.1-6.9) Lymphocytes # (Auto) 1.1 (1.0-3.2) Monocytes # (Auto) 0.6 (0.2-0.8) Eosinophils # (Auto) 0.3 (0.0-0.4) Basophils # (Auto) 0.0 (0.0-0.1) Absolute Immature Granulocyte (auto 0.03 x10e3/uL (0-0.1) Prothrombin Time 15.3 seconds (11.9-14.5) Prothromb Time International Ratio 1.15 Activated Partial Thromboplast Time 29.7 seconds (23.8-35.5) Sodium Level 138 mmol/L (136-145) Potassium Level 4.4 mmol/L (3.5-5.1) Chloride Level 101 mmol/L (98-107) Carbon Dioxide Level 28 mmol/L (22-29) Anion Gap 13.4 mmol/L (8-16) Blood Urea Nitrogen 24 mg/dL (7-26) Creatinine 1.07 mg/dL (0.57-1.11) Estimat Glomerular Filtration Rate 51 ML/MIN (60-) BUN/Creatinine Ratio 22 (6-25) Glucose Level 90 mg/dL (74-118) Calcium Level 8.5 mg/dL (8.4-10.2) Magnesium Level 1.6 MG/DL (1.3-2.1) Total Bilirubin 3.8 mg/dL (0.2-1.2) Aspartate Amino Transf (AST/SGOT) 38 IU/L (5-34) Alanine Aminotransferase (ALT/SGPT) 17 IU/L (0-55) Alkaline Phosphatase 73 IU/L (40-150) Ammonia 59 UG/DL (31-123) Creatine Kinase 226 IU/L (29-168) Creatine Kinase MB 3.00 ng/mL (0-5.0) Troponin I < 0.001 ng/mL (0-0.300) B-Type Natriuretic Peptide 142.1 pg/mL (0-100) Total Protein 6.4 g/dL (6.5-8.1) Albumin 3.3 g/dL (3.5-5.0) Globulin 3.1 g/dL (2.3-3.5) Albumin/Globulin Ratio 1.1 (0.8-2.0) Laboratory Tests Test 02/01/20 10:40 02/01/20 10:22 Urine Color Yellow (YELLOW) Urine Clarity Cloudy (CLEAR) Urine pH 5.5 (5 - 7) Urine Specific Friend >=1.030 (1.010-1.025) Urine Protein Negative (NEGATIVE) Urine Glucose (UA) Negative (NEGATIVE) Urine Ketones Negative (NEGATIVE) Urine Blood Negative (NEGATIVE) Urine Nitrite Negative (NEGATIVE) Urine Bilirubin Negative (NEGATIVE) Urine Urobilinogen 4.0 mg/dL (0.2 - 1) Urine Leukocyte Esterase Small (NEGATIVE) Urine RBC 0-5 /HPF (0-5) Urine WBC 21-50 /HPF (0-5) Urine Epithelial Cells Few /LPF (NONE) Urine Transitional Epithelial Cells Few (NONE) Urine Renal Epithelial Cells Rare (NONE) Urine Bacteria Moderate /HPF (NONE) White Blood Count 5.90 x10e3/uL (4.8-10.8) Red Blood Count 3.60 x10e6/uL (3.6-5.1) Hemoglobin 10.5 g/dL (12.0-16.0) Hematocrit 33.1 % (34.2-44.1) Mean Corpuscular Volume 91.9 fL (81-99) Mean Corpuscular Hemoglobin 29.2 pg (28-32) Mean Corpuscular Hemoglobin Concent 31.7 g/dL (31-35) Red Cell Distribution Width 14.7 % (11.7-14.4) Platelet Count 79 x10e3/uL (140-360) Neutrophils (%) (Auto) 66.3 % (38.7-80.0) Lymphocytes (%) (Auto) 19.0 % (18.0-39.1) Monocytes (%) (Auto) 9.3 % (4.4-11.3) Eosinophils (%) (Auto) 4.2 % (0.0-6.0) Basophils (%) (Auto) 0.7 % (0.0-1.0) Neutrophils # (Auto) 3.9 (2.1-6.9) Lymphocytes # (Auto) 1.1 (1.0-3.2) Monocytes # (Auto) 0.6 (0.2-0.8) Eosinophils # (Auto) 0.3 (0.0-0.4) Basophils # (Auto) 0.0 (0.0-0.1) Absolute Immature Granulocyte (auto 0.03 x10e3/uL (0-0.1) Prothrombin Time 15.3 seconds (11.9-14.5) Prothromb Time International Ratio 1.15 Activated Partial Thromboplast Time 29.7 seconds (23.8-35.5) Ammonia 59 UG/DL (31-123) Lab results reviewed: Yes Imaging Imaging results reviewed: Yes Impressions EXAMINATION: CT of the thoracic spine without contrast. HISTORY: 69-year-old female status post fall multiple times in the last 3 days, the last time this morning, back pain COMPARISON: None. TECHNIQUE: Multidetector helical axial images were obtained without contrast through the thoracic spine. The images were reconstructed using bone and soft tissue algorithms and were viewed in axial, sagittal and coronal planes. Dose modulation, iterative reconstruction, and/or weight based adjustment of the mA/kV was utilized to reduce the radiation dose to as low as reasonably achievable. FINDINGS: Curvature: Increased upper thoracic kyphosis centered at C6 chronic fracture and in the thoracolumbar region center at the T12 fracture. Vertebrae: * Acute severe osteoporotic compression fracture of the T12 vertebral body, with decreased vertebral body height by approximately 90% (vertebral plan), associated approximately 7 mm dorsal retropulsion of the posterior vertebral body within the spinal canal, which results in severe canal stenoses and probable cord compression. Foci of air are seen within the fractured vertebral body and within the adjacent T11-T12 and T12-L1 intervertebral disc. Minimal associated paraspinal soft tissue swelling without definite hematoma formation at this time. Associated kyphotic malalignment centered at this level. * Moderate chronic compression fracture of the T6 vertebral body, decreased vertebral body height by approximately 60 %, anterior wedging, minimal inferior endplate posterior retropulsion without associated canal stenosis * Minimal chronic anterior wedging of the T2 and T4 vertebral bodies without posterior retropulsion or spinal spinal stenosis. Discs: Mild visible at C6-C7, T11-T12 and T12-L1 without significant additional stenoses. Spinal canal: As above Paraspinal soft tissues: As above Posterior ribs: Unremarkable. IMPRESSION: 1. Acute severe osteoporotic compression fracture of the T12 vertebral body (90% decreased height) with posterior retropulsion and moderate canal stenosis as well as probable mild cord compression, correlation with physical examination is advised. Thoracic spine MRI and neurosurgery consult are also recommended 2. Moderate chronic compression fracture of the T6 vertebral body without posterior retropulsion or foraminal stenoses. 3. Minimal chronic anterior wedging of the T2 and T4 vertebral bodies without posterior functional canal stenosis. Note is made of acute post traumatic spinal cord, vascular ligamentous injury cannot adequately be assessed with CT. The findings were discussed with the attending physician Dr. Lyman on 01/31/2020 at 11:35 AM. Signed by: Dr. China Gibson M.D. on 02/01/2020 11:39 AM Procedures 12 Lead ECG Interpretation ECG Interpretation : ECG: ECG 1 Backbreaker: Interpreted by ED physician Date: Feb 01, 2020 Time: 10:26 Rhythm: sinus bradycardia Rate: bradycardia (55) QRS axis: normal Conduction: incomplete RBBB ST segments normal: Yes T wave inversion: III, aVR Clinical Impression: abnormal ECG Assessment & Plan Medical Decision Making MDM MULTIPLE FALLS, ON ANTICOAGULANTS - CBC, CHEM, ECG, CARDIACS, UA/CX, NH3, CXR, CT BRAIN/C-SPINE/T&L SPINE/PELVIS, BILAT ANKLE XRAYS - R/O TRAUMATIC INJURY, CEREBRAL BLEED, SPINE FX, FACIAL FX, STEMI/NSTEMI, UTI, RENAL INSUFF, RHABDOM YOLYSIS, HEPATIC ENCEPHALOPATHY Reassessment Reassessment ACUTE T12 FX ON CT - MILD SENSORY DEFICIT - WILL GET STAT MRI, I SPOKE WITH DR OLIVARES - HE WILL TALK WITH DR JOHNSON, ADMIT. WILL GIVE DOSE OF DECADRON, PAIN CONTROL Assessment & Plan Final Impression: (1) Multiple falls (2) T12 compression fracture (3) UTI (urinary tract infection) Depart Disposition: ADMITTED Last Vital Signs Date Time Temp Pulse Resp B/P (MAP) Pulse Ox O2 Delivery O2 Flow Rate FiO2 02/01/20 09:31 98.2 59 10 106/32 97 Room Air Home Meds Active Scripts [Rosuvastatin Calcium] 10 MG TAB No Conflict Check, 10 MG PO HS for 30 Days Prov:RACIEL SILVA PERIODONTAL ASSISTANT 09/11/19 Pantoprazole Sod (PROTONIX) 40 Mg/Ml Susp, 40 MG PO ACB for 30 Days Prov:RACIEL SILVA PERIODONTAL ASSISTANT 09/11/19 Metoprolol Tartrate (METOPROLOL TARTRATE) 50 Mg Tablet, 50 MG PO Q6H for 30 Days Prov:RACIEL SILVA PERIODONTAL ASSISTANT 09/11/19 Apixaban (Eliquis) 5 Mg Tablet, 5 MG PO BID for 30 Days Prov:RACIEL SILVA PERIODONTAL ASSISTANT 09/11/19 Ascorbic Acid (ASCORBIC ACID) 500 Mg Tablet, 500 MG PO BID for 30 Days Prov:RACIEL SILVA PERIODONTAL ASSISTANT 10/18/18 Folic Acid (FOLIC ACID) 1 Mg Tablet, 1 MG PO DAILY for 30 Days Prov:RACIEL SILVA PERIODONTAL ASSISTANT 10/18/18 Reported Medications Tramadol Hcl* (ULTRAM 50MG*) 50 Mg Tab, 50 MG PO Q8H, TAB 09/07/19 Trolamine Salicylate (ASPERCREME 10% CREAM) 35.4 Gm Cr, TOP for neuropathy 10/13/18 [eye drops] No Conflict Check, 1 DROP OU DAILY for dry eyes 10/13/18 Trazodone Hcl (TRAZODONE HCL) 50 Mg Tablet, 75 MG PO HS PRN for INSOMNIA, #30 TAB 10/13/18 Sertraline Hcl (ZOLOFT) 50 Mg Tablet, 50 MG PO HS, #30 TAB 10/13/18 Medications in the ED Sodium Chloride 1,000 ml @ 0 mls/hr Q0M STAT IV ; Start 02/01/20 at 09:47; Stop 02/01/20 at 09:51; Status DC Ceftriaxone Sodium 50 ml @ 100 mls/hr Q12H IV ; Start 02/01/20 at 11:30; Stop 02/08/20 at 11:29; Status UNV PADMINI LYMAN MD Feb 01, 2020 11:42
--- NOTE | 2020-02-01 11:52 | Diagnostic Imaging Report ---
EXAMINATION: CT of the lumbar spine HISTORY: 69-year-old female status post fall multiple times in the last 3 days, the last time this morning, back pain COMPARISON: Thoracic spine CT performed on the same day TECHNIQUE: Multidetector helical axial images were obtained without contrast from L1 to S1. Dose modulation, iterative reconstruction, and/or weight based adjustment of the mA/kV was utilized to reduce the radiation dose to as low as reasonably achievable. FINDINGS: Alignment: Normal alignment and lordosis. Vertebral bodies: * Age indeterminate likely subacute or chronic mild compression fracture of the L4 vertebral body, depression of the superior endplate and decreased vertebral body height by approximately 15% centrally. No significant spinal canal stenosis. * Probably acute mild compression/burst fracture of the L3 vertebral body with minimal decreased vertebral body height (about 10%), no posterior retropulsion or canal stenosis, motion artifact limits evaluation. * Partially visualized severe acute compression fracture of T12, better described on separate thoracic spine CT report. * Diffuse demineralization. Paraspinal muscles: Atrophy of the paraspinal muscles. Partially visualized possible small splenules in the left upper quadrant.. Intervertebral disks: : Mild disc bulge at L2-L3 and L3-L4 without spinal canal stenosis. IMPRESSION: 1. Probably acute mild osteoporotic compression fracture of the L3 vertebral body without posterior retropulsion or canal stenosis. 2. Mild chronic osteoporotic compression fracture of the L4 vertebral body without posterior retropulsion or canal stenosis. 3. Partially visualized severe acute postoperative compression fracture of T12, please see separate dictation for thoracic spine CT performed on the same day and the recommendation of MRI for further evaluation, the findings were discussed with the attending physician at the completion of dictation. Signed by: Dr. China Gibson M.D. on 02/01/2020 11:49 AM
--- NOTE | 2020-02-01 11:55 | Diagnostic Imaging Report ---
EXAMINATION: Head CT HISTORY: 69-year-old female status post multiple fall, trauma, pain COMPARISON: Brain MRI 09/09/2019 TECHNIQUE: Helical axial images of the head were obtained. Reformatted coronal and sagittal images from the axial data. Dose modulation, iterative reconstruction, and/or weight based adjustment of the mA/kV was utilized to reduce the radiation dose to as low as reasonably achievable. Image quality: Motion/streaking artifact limits the evaluation of the skull base and posterior cranial fossa. FINDINGS: Parenchyma: 1. Few scattered white matter hypodensities, consistent with minimal chronic microvascular ischemic changes. Better visualized and unchanged from prior MRI of 09/09/2019 2. No mass or hemorrhage. No CT evidence of acute territorial vascular insult. Extra-axial spaces:No abnormal density. No extra-axial fluid collections Brain volume: Normal for age. Ventricles: No hydrocephalus or displacement. Arteries: No density suggestive of thrombus. Dural sinuses: No abnormal density. Foramen magnum: No mass, Chiari malformation, or basilar invagination. Sella: No obvious mass. Paranasal/mastoid sinuses: Imaged portions unremarkable. Skull/Scalp: No lytic or blastic lesions. No fractures. IMPRESSION: 1. No acute post traumatic intracranial hemorrhage. 2. Minimal chronic microvascular ischemic changes, stable compared to MRI of 09/09/2019. Signed by: Dr. China Gibson M.D. on 02/01/2020 11:52 AM
--- NOTE | 2020-02-01 12:00 | Diagnostic Imaging Report ---
EXAMINATION: CT of the cervical spine HISTORY: 69-year-old female with frequent falls in the left upper lobe days, pain COMPARISON: None available TECHNIQUE: Multidetector helical axial images were obtained without contrast from the foramen magnum to T1. The images were reconstructed using bone and soft tissue algorithms and were viewed in axial, sagittal and coronal planes. Dose modulation, iterative reconstruction, and/or weight based adjustment of the mA/kV was utilized to reduce the radiation dose to as low as reasonably achievable. FINDINGS: Alignment: Normal alignment and lordosis Soft tissues: Normal Vertebrae: Diffuse demineralization. Minimal chronic depression of the inferior endplate of the C6 vertebral body without posterior retropulsion or spinal stenosis. Partially visualized minimal chronic anterior wedging of the T2 vertebral body. Degenerative changes: No significant degenerative changes, spinal canal or foraminal stenosis. IMPRESSION: 1. No acute cervical spine fractures or dislocations. 2. Minimal chronic depression of the inferior endplate of C6 and anterior wedging of T2 vertebral bodies. Note: Acute postraumatic spinal cord, vascular or ligamentous injuries cannot adequately be assessed by CT. Signed by: Dr. China Gibson M.D. on 02/01/2020 11:57 AM
[2020-02-01] MEDS ORDERED: DEXAMETHASONE SOD PHOS 10 MG/1 ML VIAL IV ONE (12:30)
[2020-02-01] MEDS: CEFTRIAXONE SOD 1 GM/NS 50 ML 50 ML IV SCH ×2 (12:40→22:31)
--- NOTE | 2020-02-01 12:41 | Diagnostic Imaging Report ---
EXAM: CT Pelvis WITHOUT contrast INDICATION: Pelvic pain after recent fall. COMPARISON: CT abdomen and pelvis on 09/07/2019. TECHNIQUE: Pelvis were scanned utilizing a multidetector helical scanner from the iliac crest to the pubic symphysis without administration of IV contrast. Coronal and sagittal reformations were obtained. Routine protocol was performed. IV CONTRAST: None ORAL CONTRAST: Water COMPLICATIONS: None RADIATION DOSE: Total DLP: 3866.96 mGy*cm Estimated effective dose: (DLP x 0.015 x size factor) mSv CTDIvol has been reviewed. It is below the limits set by the Radiation Protocol Committee (RPC). Dose modulation, iterative reconstruction, and/or weight based adjustment of the mA/kV was utilized to reduce the radiation dose to as low as reasonably achievable. FINDINGS: LINES and TUBES: Greenberg catheter which terminates in the urinary bladder lumen. GI TRACT: In the partially imaged abdomen, no abnormal distention, wall thickening, or evidence of bowel obstruction. Appendix is not visualized. PELVIC ORGANS/BLADDER: Unremarkable. LYMPH NODES: No lymphadenopathy. VESSELS: Mild atherosclerotic calcification of the distal abdominal aorta and its pelvic branches. PERITONEUM / RETROPERITONEUM: No free air or fluid. BONES: There is endplate depression of the L4 vertebral body new since prior examination on 09/07/2019. No displaced fracture on the pelvis identified. There are mild degenerative changes of the bilateral hips. SOFT TISSUES: Unremarkable. IMPRESSION: 1. L4 vertebral body superior endplate compression fracture of indeterminate age, although new since 09/07/2019. Correlate with point tenderness. 2. No displaced fractures around the pelvis. Signed by: Alireza Pineda MD on 02/01/2020 12:37 PM
[2020-02-01] MEDS ORDERED: LORAZEPAM INJ 2 MG/ML VIAL IV STA (12:48)
[2020-02-01] MEDS ORDERED: ONDANSETRON HCL INJ 2MG/ML 2ML 2 MG/ML VIAL IV STA (12:48)
[2020-02-01] MEDS ORDERED: ONDANSETRON HCL INJ 2MG/ML 2ML 2 MG/ML VIAL IV PRN (13:00)
[2020-02-01] MEDS ORDERED: TETANUS/DIPHTHERIA TOX ADULT 0.5 ML SYR IM ONE (13:00)
--- OUTSIDE RECORDS SUMMARY | 2020-02-01 13:00 | XMS REPORT | Clinical Summary ---
Author Author [employer] Organization [employer] Address Unknown Phone Unavailable Care Team Providers Care Manager Bench Name Role Phone Prabhu Kirk DO PCP [...] Phone Address Plan / Dates Group HMO [facility] MEDICARE [facility] xxxxxxxxx 2017-P MEDICARE resent HMO/PPO Advance Directives For more information, please contact: [phone] Patient General Handling Supervisor Explanation Type Date Recorded Advance Directives, Living Will and Medical Power of Manager Zone
--- OUTSIDE RECORDS SUMMARY | 2020-02-01 13:00 | XMS REPORT | Continuity of Care Document ---
Author Author [facility] t Organization [facility] Address [address] [place] [address] Phone Unavailable Care Team Providers Care Kelp Gatherer Name Role Phone ALPHONSO OLIVARES MD PCP Kirill GOLDSMITH Attphys Unavailable ALPHONSO OLIVARES Attphys Unavailable Lorena STEWART Attphys Unavailable ALPHONSO OLIVARES Admjanettes Unavailable Payers Payer Name Policy Type Policy Number Effective Date Expiration Date [facility] [id number] 2019 00:00 :00 [facility] Medicare A & B [id number] 2013 00:00:00 [facility] Problems Condition Name Condition Details Condition Category Status Onset Date Resolution Date Last Treatment Date Treating Clinician Comments Source Cholecystitis without calculus Acalculous cholecystitis Problem Active [facility] 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 [facility] Urinary tract infection UTI (urinary tract infection) Problem Active [facility] ALTERED MENTAL STATUS, UNSPECIFIED Problem Active [facility] DISORDER OF BILIRUBIN METABOLISM, UNSPECIFIED Problem Active [facility] RHABDOMYOLYSIS Problem Active [facility] UNSPECIFIED ABDOMINAL PAIN Problem Active [facility] Allergies, Adverse Reactions, Alerts Allergy Name Allergy Type Status Severity Reaction(s) Onset Date Inacti ve Date Treating Clinician Comments Source Penicillin Allergy to Substance Active Mild 2018-10-12 00:00:00 [facility] Erythromycin base Allergy to Substance Active Mild 2018-10-12 00 :00:00 [facility] Erythromycin Propensity to adverse reactions to drug Active GI Intolerance 2018-05-22 00:00:00 [facility] Penicillins Propensity to adverse reactions to drug Active Rash 2018-05-22 00:00:00 [facility] Penicillins DA Active SV 2016-04-12 00:00:00 [facility] Macrolide Antibiotics DA Active U 2016-04-12 00:00:00 [facility] erythromycin base DA Active CA 2016-04-12 00:00:00 [facility] azithromycin DA Active CA 2016-04-12 00:00:00 [facility] Family History Family Member Diagnosis Comments Start Date Stop Date Source Natural mother Colon cancer [facility] Natural mother Ovarian cancer [place] [facility] Social History Social Habit Start Date Stop Date Quantity Comments Source History SDOH Alcohol Std Drinks [facility] History SDOH Alcohol Binge [facility] Sex Assigned At [place] [facility] Alcohol intake 2018-05-22 00:00:00 2018-05-22 00:00:00 Current non-drinker of alcohol (finding) [facility] History SDOH Alcohol Frequency 2018-05-22 00:00:00 2018-05-22 00:00:0 0 1 [facility] Tobacco Comment 2018-05-22 00:00:00 2018-05-22 00:00:00 romeo 2011 [facility] Smoking Status Start Date Stop Date Source Former smoker 2018-05-22 00:00:00 2018-05-22 00:00:00 [facility] Medications Ordered Medication Name Filled Medication Name Start Date Stop Da te Current Medication? Ordering Clinician Indication Dosage Frequency Signature (SIG) Comments Components Source Apixaban (Eliquis) 5 Mg Tablet Apixaban (Eliquis) 5 Mg Table t 2019-09-11 00:00:00 Yes Ashley Palmer Lifter 5 Twice A Day [facility] Metoprolol Tartrate 50 Mg Tablet Metoprolol Tartrate 50 Mg T ablet 2019-09-11 00:00:00 Yes Ashley Palmer Lifter 50 Every 6 Hours [facility] Pantoprazole Sod (Protonix) 40 Mg/Ml Susp Pantoprazole Sod (Protonix) 40 Mg/Ml Susp 2019-09-11 00:00:00 Yes Ashley M [place] Lifter 40 Before Breakfast [facility] Rosuvastatin Calcium 10 Mg Tab Rosuvastatin Calcium 10 Mg Ta b 2019-09-11 00:00:00 Yes Ashley M [place] Lifter 10 Bedtime [facility] Ascorbic Acid 500 Mg Tablet Ascorbic Acid 500 Mg Tablet 2018-10-18 00:00:00 Yes Ashley M [place] Lifter 500 Twice A Day [facility] Folic Acid 1 Mg Tablet Folic Acid 1 Mg Tablet 2018-10-18 00:00:00 Yes Ashley M [place] Lifter 1 Daily [facility] Metoprolol Tartrate (Lopressor) 25 Mg Tab, 25 Mg Oral Metoprolol Tartrate (Lopressor) 25 Mg Tab, 25 Mg Oral 2018-10-18 00:00:00 2019-09-11 00:00:00 No Ashley M [place] Lifter 25 Every 8 Hours [facility] LYRICA 50 mg capsule 2018-05-08 00:00:00 Yes TK 1 C PO BID FOR PAIN [facility] sertraline (ZOLOFT) 100 MG tablet 2018-05-08 00:00:00 Yes TK 1 T PO D FOR MOOD [facility] traZODone (DESYREL) 150 MG tablet 2018-04-01 00:00:00 Yes 150mg QD Take 150 mg by mouth nightly as needed. for sleep [facility] Eye Drops Eye Drops Yes 1 Daily for Dry Eyes [facility] Sertraline Hcl (Zoloft) 50 Mg Tablet Sertraline Hcl (Zoloft) 50 Mg Tablet Yes 50 Bedtime [facility] Tramadol Hcl (Ultram 50MG*) 50 Mg Tab Tramadol Hcl (Ultram 50MG*) 5 0 Mg Tab Yes 50 Every 8 Hours [facility] Trazodone Hcl 50 Mg Tablet Trazodone Hcl 50 Mg Tablet Yes 75 Bedtime as needed for Insomnia [facility] Trolamine Salicylate (Aspercreme 10% Cream) 35.4 Gm Cr Trolamine Salicylate (Aspercreme 10% Cream) 35.4 Gm Cr Yes for Neuropathy [facility] Flunase , 1 Sprays Nasal Flunase , 1 Sprays Nasal 2019-09-11 00: 00:00 No 1 for Allergies [facility] Pregabalin (Lyrica) 50 Mg Cap, 50 Mg Oral Pregabalin ( Lyrica) 50 Mg Cap, 50 Mg Oral 2019-09-07 00:00:00 No 50 Bedtime [facility] Pregabalin (Lyrica) 50 Mg Cap, 50 Mg Oral Pregabalin ( Lyrica) 50 Mg Cap, 50 Mg Oral 2019-09-07 00:00:00 No 50 Daily as needed fo r Neuropathy [facility] Procedures Procedure Date / Time Performed Performing Clinician [facility] e Magnetic resonance angiography of neck without contrast 2019 00:00:00 DEVEN RAMOS [facility] Magnetic resonance imaging of brain without contrast 2019-08 00:00:00 DEVEN RAMOS [facility] Magnetic resonance angiography of head without contrast 2019 00:00:00 DEVEN RAMOS [facility] Computed tomography of brain without radiopaque contrast 00:00:00 PADMINI GOLDSMITH [facility] Computed tomography of abdomen and pelvis with contrast 2019 00:00:00 PADMINI GOLDSMITH [facility] Plan of Care Planned Activity Planned Date Details Comments Source Future Scheduled Test 2020-02-17 00:00:00 INFLUENZA VACCINE [code = INFLUENZA VACCINE] [facility] Scheduled Test 2013 00:00:00 65+ PNEUMOCOCCAL V ACCINE (1 of 2 - PCV13) [code = 65+ PNEUMOCOCCAL VACCINE (1 of 2 - PCV13)] [facility] Scheduled Test 1998 00:00:00 BREAST CANCER SCRE ENING [code = BREAST CANCER SCREENING] [facility] Scheduled Test 1998 00:00:00 COLONOSCOPY SCREEN ING [code = COLONOSCOPY SCREENING] [facility] Future Scheduled Test 1998 00:00:00 SHINGLES VACCINES (#1) [code = SHINGLES VACCINES (#1)] [facility] Encounters Start Date/Time End Date/Time Encounter Type Admission Type [facility] Care Department Encounter ID Source 2019-09-07 18:41:00 2019-09-11 17:07:00 Discharged Inpatient 1 ALPHONSO OLIVARES [facility] [id number] [facility] 2018-10-13 02:24:00 2018-10-18 13:19:00 Discharged Inpatient 1 DARIN STEWART [facility] [id number] [facility] Results Test Description Test Time Test Comments Results Result Comments Source CT PELVIS WO 2020-02-01 12:29:00 [facility] [address] [address] Patient Name: TORY ANGLIN MR #: [id number] : 1950 Age/Sex: 69/F Req #: [id number] Adm Physician: Ordered by: PADMINI GOLDSMITH MD Report #: [id number] Location: ER Room/Bed: Procedure: [id number] CT/CT PELVIS WO Exam Date: 02/01/20 Exam Time: 1030 REPORT STATUS: Signed EXAM: CT Pelvis WITHOUT contrast INDICATION: Pelvic pain after recent fall. COMPARISON: CT abdomen and pelvis on 09/07/2019. TECHNIQUE: Pelvis were scanned utilizing a multidetector helical scanner from the iliac crest to the pubic symphysis without administration of IV contrast. Coronal and sagittal reformations were obtained. Routine protocol was performed. IV CONTRAST: None ORAL CONTRAST: Water COMPLICATIONS: None RADIATION DOSE: Total DLP: 3866.96 mGy*cm Estimated effective dose: (DLP x 0.015 x size factor) mSv CTDIvol has been reviewed. It is below the limits set by the Radiation Protocol Commit sharee (RPC). Dose modulation, iterative reconstruction, and/or weight based adjustment of the mA/kV was utilized to reduce the radiation dose to as low as reasonably achievable. FINDINGS: LINES and TUBES: Greenberg catheter which terminates in the urinary bladder lumen. GI TRACT: In the partially imaged abdomen, no abnormal distention, wall thickening, or evidence of bowel obstruction. Appendix is not visualized. PELVIC ORGANS/BLADDER: Unremarkable. LYMPH NODES: No lymphadenopathy. VESSELS: Mild atherosclerotic calcification of the distal abdominal aorta and its pelvic branches. PERITONEUM / RETROPERITONEUM: No free air or fluid. BONES: There is endplate depression of the L4 vertebral body new since prior examination on 09/07/2019. No displaced fracture on the pelvis identified. There are mild degenerative changes of the bilateral hips. SOFT TISSUES: Unremarkable. IMPRESSION: 1. L4 vertebral body superior endplate compression fracture of indeterminate age, although new since 09/07/2019. Correlate with point tenderness. 2. No displaced fractures around the pelvis. Signed by: Jose G Rowell MD on 02/01/2020 12:37 PM Dictated By: JOSE G ROWELL MD 1237 Transcribed By: MIKE on 02/01/20 1237 COPY TO: PADMINI GOLDSMITH MD CT CERVICAL SPINE WO 2020-02-01 11:53:[address] [address] Patient Name: TORY ANGLIN MR #: [id number] : 1950 Age/Sex: 69/F Req #: [id number] Adm Physician: Ordered by: PADMINI GOLDSMITH MD Report #: [id number] Location: ER Room/Bed: Procedure: [id number] CT/CT CERVICAL SPINE WO Exam Date: 02/01/20 Exam Time: 1030 REPORT STATUS: Signed EXAMINATION: CT of the cervical spine HISTORY: 69-year-old female with frequent falls in the left upper lobe days, pain COMPARISON: None available TECHNIQUE: Multidetector helical axial images were obtained without contrast from the foramen magnum to T1. The images were reconstructed using bone and soft tissue algorithms and were viewed in axial, sagittal and coronal planes. Dose modulation, iterative reconstruction, and/or weight based adjustment of the mA/kV was utilized to reduce the radiation dose to as low as reasonably achievable. FINDINGS: Alignment: Normal alignment and lordosis Soft tissues: Normal Vertebrae: Diffuse demineralization. Minimal chronic depression of the inferior endplate of the C6 vertebral body without posterior retropulsion or spinal stenosis. Partially visualized minimal chronic anterior wedging of the T2 vertebral body. Degenerative changes: No significant degenerative changes, spinal canal or foraminal stenosis. IMPRESSION: 1. No acute cervical spine fractures or dislocations. 2. Minimal chronic depression of the inferior endplate of C6 and anterior wedging of T2 vertebral bodies. Note: Acute postraumatic spinal cord, vascular or ligamentous injuries cannot adequately be assessed by CT. Signed by: Dr. Elyse Gibson M.D. on 02/01/2020 11:57 AM Dictated By: ELYSE GIBSON MD Transcribed By: MIKE on 02/01/20 1157 COPY TO: PADMINI GOLDSMITH MD CT BRAIN WO 2020-02-01 11:49:[address] [place] [address] Patient Name: TORY ANGLIN MR #: [id number] : 1950 Age/Sex: 69/F Req #: [id number] Adm Physician: Ordered by: PADMINI GOLDSMITH MD Report #: [id number] Location: ER Room/Bed: Procedure: [id number] CT/CT BRAIN WO Exam Date: 02/01/20 Exam Time: 1030 REPORT STATUS: Signed EXAMINATION: Head CT HISTORY: 69-year-old female status post multiple fall, trauma, pain COMPARISON: Brain MRI 09/09/2019 TECHNIQUE: Helical axial images of the head were obtained. Reformatted coronal and sagittal images from the axial data. Dose modulation, iterative reconstruction, and/or weight based adjustment of the mA/kV was utilized to reduce the radiation dose to as low as reasonably achievable. Image quality: Motion/streaking artifact limits the evaluation of the skull base and posterior cranial fossa. FINDINGS: Parenchyma: 1. Few scattered white matter hypodensities, consistent with minimal chronic microvascular ischemic changes. Better visualized and unchanged from prior MRI of 09/09/2019 2. No mass or hemorrhage. No CT evidence of acute territorial vascular insult. Extra-axial spaces:No abnormal density. No extra-axial fluid collections Brain volume: Normal for age. Ventricles: No hydrocephalus or displacement. Arteries: No density suggestive of thrombus. Dural sinuses: No abnormal density. Foramen magnum: No mass, Chiari malformation, or basilar invagination. Sella: No obvious mass. Paranasal/mastoid sinuses: Imaged portions unremarkable. Skull/Scalp: No lytic or blastic lesions. No fractures. IMPRESSION: 1. No acute post traumatic intracranial hemorrhage. 2. Minimal chronic microvascular ischemic changes, stable compared to MRI of 09/09/2019. Signed by: Dr. Elyse Gibson M.D. on 02/01/2020 11:52 AM Dictated By: ELYSE GIBSON MD 1152 Transcribed By: MIKE on 02/01/20 1152 COPY TO: PADMINI GOLDSMITH MD CT LUMBAR SPINE WO 2020-02-01 11:39:[address] [address] Patient Name: TORY ANGLIN MR #: [id number] : 1950 Age/Sex: 69/F [facility] #: [id number] [facility] Physician: Ordered by: PADMINI GOLDSMITH MD Report #: [id number] Location: ER Room/Bed: Procedure: [id number] CT/CT LUMBAR SPINE WO Exam Date: 02/01/20 Exam Time: 1030 REPORT STATUS: Signed EXAMINATION: CT of the lumbar spine HISTORY: 69-year-old female status post fall multiple times in the last 3 days, the last time this morning, back pain COMPARISON: Thoracic spine CT performed on the same day TECHNIQUE: Multidetector helical axial images were obtained without contrast from L1 to S1. Dose modulation, iterative reconstruction, and/or weight based adjustment of the mA/kV was utilized to reduce the radiation dose to as low as reasonably achievable. FINDINGS: Alignment: Normal alignment and lordosis. Vertebral bodies: * Age indeterminate likely subacute or chronic mild compression fracture of the L4 vertebral body, depression of the superior endplate and decreased vertebral body height by approximately 15% centrally. No significant spinal canal stenosis. * Probably acute mild compression/burst fracture of the L3 vertebral body with minimal decreased vertebral body height (about 10%), no posterior retropulsion or canal stenosis, motion artifact limits evaluation. * Partially visualized severe acute compression fracture of T12, better described on separate thoracic spine CT report. * Diffuse demineralization. Paraspinal muscles: Atrophy of the paraspinal muscles. Partially visualized possible small splenules in the left upper quadrant.. Intervertebral disks: : Mild disc bulge at L2-L3 and L3-L4 without spinal canal stenosis. IMPRESSION: 1. Probably acute mild osteoporotic compression fracture of the L3 vertebral body without posterior retropulsion or canal stenosis. 2. Mild chronic osteoporotic compression fracture of the L4 vertebral body without posterior retropulsion or canal stenosis. 3. Partially visualized severe acute postoperative compression fracture of T12, please see separate dictation for thoracic spine CT performed on the same day and the recommendation of MRI for further evaluation, the findings were discussed with the attending physician at the completion of dictation. Signed by: Dr. Elyse Gibson M.D. on 02/01/2020 11:49 AM Dictated By: ELYSE GIBSON MD 1149 Transcribed By: MIKE on 02/01/20 1149 COPY TO: PADMINI GOLDSMITH MD ANKLE 3 + VIEWS RIGHT 2020-02-01 11:37:[address] [address] Patient Name: TORY ANGLIN MR #: [id number] : 1950 Age/Sex: 69/F Req #: [id number] Adm Physician: Ordered by: PADMINI GOLDSMITH MD Report #: [id number] Location: ER Room/Bed: Procedure: [id number] DX/ANKLE 3 + VIEWS RIGHT Exam Date: 02/01/20 Exam Time: 1103 REPORT STATUS: Signed X-ray 3 views of the ankle. HISTORY: Ankle pain. COMPARISON: None available. FINDINGS: Bones/joints: No acute fracture or dislocation. Ankle mortise is symmetric. Enthesophytes at the dorsal calcaneus, dorsal navicular and talus. Soft tissues: There is mild ankle soft tissue swelling. IMPRESSION: No acute fracture or dislocation. Mild ankle soft tissue swelling. Signed by: Jose G Rowell MD on 02/01/2020 11:38 AM Dictated By: JOSE G ROWELL MD 37 COPY TO: PADMINI GOLDSMITH MD ANKLE 3+ VIEWS LEFT 2020-02-01 11:33:00 [address] [address] Patient Name: TORY ANGLIN MR #: [id number] : 1950 Age/Sex: 69/F Req #: [id number] Adm Physician: Ordered by: PADMINI GOLDSMITH MD Report #: [id number] Location: ER Room/Bed: Procedure: [id number] DX/ANKLE 3+ VIEWS LEFT Exam Date: 02/01/20 Exam Time: 1103 REPORT STATUS: Signed X-ray 3 views of the ankle. HISTORY: Ankle pain COMPARISON: None available. FINDINGS: See impression. IMPRESSION: 1. Status post ORIF for healing distal fibular fracture. There are percutaneous K wires over the healing medial malleolar fracture. 2. There is mild medial clear space widening measuring approximately 5 mm suggestive of ligamentous injury. 3. There is diffuse soft tissue swelling around the ankle. Signed by: Jose G Rowell MD on 02/01/2020 11:36 AM Dictated By: JOSE G ROWELL MD 35 Transcribed By: MIKE on 02/01/201135 COPY TO: PADMINI GOLDSMITH MD [facility] SINGLE (PORTABLE) 2020-02-01 11:31:[address] [address] Patient Name: TORY ANGLIN MR #: [id number] : 1950 Age/Sex: 69/F Req #: [id number] Adm Physician: Ordered by: PADMINI GOLDSMITH MD Report #: [id number] Location: ER Room/Bed: Procedure: [id number] DX/CHEST SINGLE (PORTABLE) Exam Date: 02/01/20 Exam Time: 1103 REPORT STATUS: Signed EXAMINATION: CHEST SINGLE (PORTABLE) INDICATION: Status post fall. COMPARISON: None FINDINGS: TUBES and LINES: None. There is linear area of high density projecting over the mid chest, likely artifact external to the patien t. LUNGS: Normal lung volumes. Lungs are clear. No consolidations. PLEURA: No pleural effusion or pneumothorax. HEART AND MEDIASTINUM: The cardiomediastinal silhouette is unremarkable. BONES AND SOFT TISSUES: No acute osseous lesion. Soft tissues are unremarkable. UPPER ABDOMEN: No free air under the diaphragm. IMPRESSION: No acute thoracic radiographic abnormality. Signed by: Jos eG Rowell MD on 02/01/2020 11:32 AM Dictated By: JOSE G ROWELL MD 113 Transcribed By: MIKE on 02/01/20 1132 COPY TO: PADMINI GOLDSMITH MD CT THORACIC SPINE WO 2020-02-01 11:16:00 [address] [place] [address] Patient Name: TORY ANGLIN MR #: [id number] : 1950 Age/Sex: 69/F Req #: [id number] Adm Physician: Ordered by: PADMINI GOLDSMITH MD Report #: [id number] Location: ER Room/Bed: Procedure: [id number] CT/CT THORACIC SPINE WO Exam Date: 02/01/20 Exam Time: 1030 REPORT STATUS: Signed EXAMINATION: CT of the thoracic spine without contrast. HISTORY: 69-year-old female status post fall multiple times in the last 3 days, the last time this morning, back pain COMPARISON: None. TECHNIQUE: Multidetector helical axial images were obtained without contrast through the thoracic spine. The images were reconstructed using bone and soft tissue algorithms and were viewed in axial, sagittal and coronal planes. Dose modulation, iterative reconstruction, and/or weight based adjustment of the mA/kV was utilized to reduce the radiation dose to as low as reasonably achievable. FINDINGS: Curvature: Increased upper thoracic kyphosis centered at C6 chronic fracture and in the thoracolumbar region center at the T12 fracture. Vertebrae: * Acute severe osteoporotic compression fracture of the T12 vertebral body, with decreased vertebral body height by approximately 90% (vertebral plan), associated approximately 7 mm dorsal retropulsion of the posterior vertebral body within the spinal canal, which results in severe canal stenoses and probable cord compression. Foci of air are seen within the fractured vertebral body and within the adjacent T11-T12 and T12-L1 intervertebral disc. Minimal associated paraspinal soft tissue swelling without definite hematoma formation at this time. Associated kyphotic malalignment centered at this level. * Moderate chronic compression fracture of the T6 vertebral body, decreased vertebral body height by approximately 60 %, anterior wedging, minimal inferior endplate posterior retropulsion without associated canal stenosis * Minimal chronic anterior wedging of the T2 and T4 vertebral bodies without posterior retropulsion or spinal spinal stenosis. Discs: Mild visible at C6-C7, T11-T12 and T12-L1 without significant additional stenoses. Spinal canal: As above Paraspinal soft tissues: As above Posterior ribs: Unremarkable. IMPRESSION: 1. Acute severe osteoporotic compression fracture of the T12 vertebral body (90% decreased height) with posterior retropulsion and moderate canal stenosis as well as probable mild cord compression, correlation with physical examination is advised. Thoracic spine MRI and neurosurgery consult are also recommended 2. Moderate chronic compression fracture of the T6 vertebral body without posterior retropulsion or foraminal stenoses. 3. Minimal chronic anterior wedging of the T2 and T4 vertebral bodies without posterior functional canal stenosis. Note is made of acute post traumatic spinal cord, vascular ligamentous injury cannot adequately be assessed with CT. The findings were discussed with the attending physician Dr. Goldsmith on 01/31/2020 at 11:35 AM. Signed by: Dr. Elyse Gibson M.D. on 02/01/2020 11:39 AM Dictated By: ELYSE GIBSON MD 113 Transcribed By: MIKE on 02/01/20 113 COPY TO: PADMINI GOLDSMITH MD Blood Culture 2019-09-12 16:43:00 Test Item Blood Culture (test code = [id number]) NO GROWTH AFTER 5 DAYS, FINAL REPORT [facility] 15:25:00* Test Item Value Reference Range [...] to perform high complexity tests.Specimen sent to [facility] and testing performed by [facility] [id number] [place] [address] [phone] Director: Dank Avila M.D.CLIA # [id number] Medical Centerodium [id number] 06:50:00 * Test Item Value Reference Range Interpretation Comments Sodium Level (test code = 2951-2) 138 136-145 [facility]assium [id number] 06:50:00* Test Item Value Reference Range Interpretation Comments Potassium Level (test code = 2823-3) 3.9 3.5-5.1 [facility] Northwest[facility]loride [id number] 06:50:00* Test Item Value Reference Range Interpretation Comments Chloride Level (test code = 2075-0) 103 98-107 [facility] Northwest[facility]bon Dioxide [id number] 06:50:00* Test Item Value Reference Range Interpretation Comments Carbon Dioxide Level (test code = 2028-9) 30 22-29 H [facility] NorthwestAnion [id number] 06:50:00* Test Item Value Reference Range Interpretation Comments Anion Gap (test code = 55617-2) 8.9 8-16 [facility] Urea [id number] 06:50:00* Test Item Value Reference Range Interpretation Comments Blood Urea Nitrogen (test code = 3094-0) 8 - [facility] NorthwestCreatinine2020-03-26 06:50:00* Test Item Value Reference Range Interpretation Comments Creatinine (test code = 2160-0) 0.69 0.57-1.11 [facility] Northwest[facility]UN/Creatinine [id number] 06:50:00* Test Item Value Reference Range Interpretation Comments BUN/Creatinine Ratio (test code = 3097-3) 12 12-10 [facility] NorthwestEstimat Glomerular Filtration Rate 2019-09-11 06:50:00* Test Item Value Reference Range Interpretation Comments Estimat Glomerular Filtration Rate (test code = 800445312) > 60 >60 Ranges were taken from the National Kidney Disease Education Program and the [facility] Foundation literature.Reference ranges:60 or greater: Dmmmjx85-56 ( for 3 consecutive months): Chronic kidney disease 15 or less: Kidney failureHCA [facility] Healthcare NorthwestGlucose Soshw3489-13-55 06:50:00* Test Item Value Reference Range Interpretation Comments Glucose Level (test code = CAW5908) 87 74-118 [facility] NorthwestCalcium Zxalu2155-39-63 06:50:00* Test Item Value Reference Range Interpretation Comments Calcium Level (test code = 20439-0) 8.1 8.4-10.2 L [facility] NorthwestMagnesium Iwaol6013-42-48 06:50:00* Test Item Value Reference Range Interpretation Comments Magnesium Level (test code = 55535-0) 1.7 1.3-2.1 [facility] NorthwestWhite Blood Mrruk4283-61-11 06:29:00* Test Item Value Reference Range Interpretation Comments White Blood Count (test code = 6690-2) 3.42 4.8-10.8 L [facility] NorthwestRed Blood Mkuut3442-88-29 06:29:00* Test Item Value Reference Range Interpretation Comments Red Blood Count (test code = 789-8) 3.16 3.6-5.1 L [facility] NorthwestHemoglobin2020-03-26 06:29:00* Test Item Value Reference Range Interpretation Comments Hemoglobin (test code = 46476-4) 9.4 12.0-16.0 L [facility] NorthwestHematocrit2020-03-26 06:29:00* Test Item Value Reference Range Interpretation Comments Hematocrit (test code = 4544-3) 29.3 34.2-44.1 L [facility] NorthwestMean Corpuscular Dohror7866-28-73 06:29:00* Test Item Value Reference Range Interpretation Comments Mean Corpuscular Volume (test code = 787-2) 92.7 81-99 [facility] NorthwestMean Corpuscular Cdvbihtzjr7342-03-30 06:29:00* Test Item Value Reference Range Interpretation Comments Mean Corpuscular Hemoglobin (test code = 785-6) 29.7 28-32 [facility] NorthwestMean Corpuscular Hemoglobin Concent 2019-09-11 06:29:00* Test Item Value Reference Range Interpretation Comments Mean Corpuscular Hemoglobin Concent (test code = 786-4) 32.1 31-35 [facility] NorthwestRed Cell Distribution Cxavp6720-12-79 06:29:00* Test Item Value Reference Range Interpretation Comments Red Cell Distribution Width (test code = 53387-8) 15.1 11.7 -14.4 H [facility] NorthwestPlatelet Oajuy2011-88-08 06:29:00* Test Item Value Reference Range Interpretation Comments Platelet Count (test code = 777-3) 70 140-360 L [facility] NorthwestNeutrophils (%) (Auto)2019-09-11 06:29:00 * Test Item Value Reference Range Interpretation Comments Neutrophils (%) (Auto) (test code = 29887-7) 50.9 38.7-80.0 [facility] NorthwestLymphocytes (%) (Auto)2019-09-11 06:29:00 * Test Item Value Reference Range Interpretation Comments Lymphocytes (%) (Auto) (test code = 736-9) 29.8 18.0-39.1 [facility] NorthwestMonocytes (%) (Auto)2019-09-11 06:29:00* Test Item Value Reference Range Interpretation Comments Monocytes (%) (Auto) (test code = 5905-5) 11.7 4.4-11.3 H [facility] NorthwestEosinophils (%) (Auto)2019-09-11 06:29:00 * Test Item Value Reference Range Interpretation Comments Eosinophils (%) (Auto) (test code = 713-8) 6.1 0.0-6.0 H [facility] NorthwestBasophils (%) (Auto)2019-09-11 06:29:00* Test Item Value Reference Range Interpretation Comments Basophils (%) (Auto) (test code = 706-2) 0.3 0.0-1.0 [facility] NorthwestIM GRANULOCYTES %2019-09-11 06:29:00* Test Item Value Reference Range Interpretation Comments IM GRANULOCYTES % (test code = IM GRANULOCYTES %) 1.2 0.0- 1.0 H [facility] NorthwestNeutrophils # (Auto)2019-09-11 06:29:00* Test Item Value Reference Range Interpretation Comments Neutrophils # (Auto) (test code = 751-8) 1.7 2.1-6.9 L [facility] NorthwestLymphocytes # (Auto)2019-09-11 06:29:00* Test Item Value Reference Range Interpretation Comments Lymphocytes # (Auto) (test code = 78616-7) 1.0 1.0-3.2 [facility] NorthwestMonocytes # (Auto)2019-09-11 06:29:00* Test Item Value Reference Range Interpretation Comments Monocytes # (Auto) (test code = 742-7) 0.4 0.2-0.8 [facility] NorthwestEosinophils # (Auto)2019-09-11 06:29:00* Test Item Value Reference Range Interpretation Comments Eosinophils # (Auto) (test code = 711-2) 0.2 0.0-0.4 [facility] NorthwestBasophils # (Auto)2019-09-11 06:29:00* Test Item Value Reference Range Interpretation Comments Basophils # (Auto) (test code = 704-7) 0.0 0.0-0.1 [facility] NorthwestAbsolute Immature Granulocyte (auto 2019-09-11 06:29:00* Test Item Value Reference Range Interpretation Comments Absolute Immature Granulocyte (auto (india t code = Absolute Immature Granulocyte (auto) 0.04 0-0.1 [facility] NorthwestTotal Vcwibgecc4670-01-40 06:21:00* Test Item Value Reference Range Interpretation Comments Total Bilirubin (test code = 1975-2) 2.5 0.2-1.2 H [facility] NorthwestAspartate Amino Transf (AST/SGOT) 2019-09-10 06:21:00* Test Item Value Reference Range Interpretation Comments Aspartate Amino Transf (AST/SGOT) (test code = Aspartate Amino Transf (AST/SGOT)) 63 5-34 H [facility] NorthwestAlanine Aminotransferase (ALT/SGPT) 2019-09-10 06:21:00* Test Item Value Reference Range Interpretation Comments Alanine Aminotransferase (ALT/SGPT) (test code = 1742-6) 30 0-55 [facility] NorthwestTotal Fqkdsax1129-40-62 06:21:00* Test Item Value Reference Range Interpretation Comments Total Protein (test code = 2885-2) 6.3 6.5-8.1 L [facility] NorthwestAlbumin2020-03-25 06:21:00* Test Item Value Reference Range Interpretation Comments Albumin (test code = 1751-7) 3.5 3.5-5.0 [facility] NorthwestGlobulin2020-03-25 06:21:00* Test Item Value Reference Range Interpretation Comments Globulin (test code = 39087-4) 2.8 2.3-3.5 [facility] NorthwestAlbumin/Globulin Ladvg8261-02-21 06:21:00 * Test Item Value Reference Range Interpretation Comments Albumin/Globulin Ratio (test code = 1759-0) 1.3 0.8-2.0 [facility] NorthwestAlkaline Inmeyetckrh3424-44-97 06:21:00* Test Item Value Reference Range Interpretation Comments Alkaline Phosphatase (test code = 6768-6) 63 40-150 [facility] NorthwestCreatine Ltvggb7367-82-37 06:21:00* Test Item Value Reference Range Interpretation Comments Creatine Kinase (test code = 2157-6) 356 29-168 H [facility] NorthwestCreatine Kinase DD0944-01-10 06:21:00* Test Item Value Reference Range Interpretation Comments Creatine Kinase MB (test code = 52295-9) 13.20 0-5.0 H [facility] NorthwestTroponin X3387-16-76 06:21:00* Test Item Value Reference Range Interpretation Comments Troponin I (test code = HXL6204) < 0.001 0-0.300 [facility] NorthwestMRA HEAD FT0196-60-52 16:58:00 [facility] [address] [address] Patient Name: TORY ANGLIN MR #: [id number] : 1950 Age/Sex: 69/F Req #: [id number] Adm Physician: ALPHONSO OLIVARES MD Ordered by: DEVEN RAMOS MD Report #: [id number] Location: MED/SURG Room/Bed: [facility] Procedure: [id number] MRI /MRA HEAD WO Exam Date: Exam Time: REPORT STATUS: Signed Veins: Brain MRI, neck MRA and intracranial MRAs without IV contrast History: Altered mental status Comparison studies: Head CT 09/06/2018 Technique: Brain: Axial DWI, 3-D T1, axial T2 FLAIR and axial T2*GRE.. Neck MRA: Axial 2-D msrd-oo-mjkjfk with 3-D MIP reformats. Intracranial MRA: Axial 3-D ypyz-ks-bnuwcp with 3-D MIP re formats. Findings: All [...] in the neck and grossl y patent [facility] [place] without gross flow-limiting stenosis. Signed by : Dr. Danielle Hicks M.D. on 09/09/2019 5:17 PM Dictated By: DANIELLE BENJAMIN MD 16 Transcribe d By: MIKE on 09/09/191716 COPY TO: DEVEN RAMOS MD MRA NECK HI4308-96-79 16:58:[address] [address] Patient Name: TORY ANGLIN MR #: [id number] : 1950 Age/Sex: 69/F Req #: [id number] Adm Physician: ALPHONSO OLIVARES MD Ordered by: DEVEN RAMOS MD Report #: [id number] Location: MED/SURG Room/Bed: [facility] Procedure: [id number] MRI /MRA NECK WO Exam Date: Exam Time: REPORT STATUS: Signed Veins: Brain MRI, neck MRA and intracranial MRAs without IV contrast History: Altered mental status Comparison studies: Head CT 09/06/2018 Technique: Brain: Axial DWI, 3-D T1, axial T2 FLAIR and axial T2*GRE.. Neck MRA: Axial 2-D ohoq-rv-nhwgdj with 3-D MIP reformats. Intracranial MRA: Axial 3-D egaf-fh-yusitr with 3-D MIP re formats. Findings: All [...] in the neck and grossl y patent [facility] [place] without gross flow-limiting stenosis. Signed by : Dr. Danielle Hicks M.D. on 09/09/2019 5:17 PM Dictated By: DANIELLE BENJAMIN MD 16 Transcribe d By: MIKE on 09/09/191716 COPY TO: DEVEN RAMOS MD MRI BRAIN ND3981-67-31 16:58:[address] [place] [address] Patient Name: TORY ANGLIN MR #: [id number] : 1950 Age/Sex: 69/F Req #: [id number] Adm Physician: ALPHONSO OLIVARES MD Ordered by: DEVEN RAMOS MD Report #: [id number] Location: MED/SURG Room/Bed: [facility] Procedure: [id number] MRI /MRI BRAIN WO Exam Date: Exam Time: REPORT STATUS: Signed Veins: Brain MRI, neck M RA and intracranial MRAs without IV contrast History: Altered mental status Comparison studies: Head CT 09/06/2018 Technique: Brain: Axial DWI, 3-D T1, axial T2 FLAIR and axial T2*GRE.. Neck MRA: Axial 2-D pcuk-xz-ahokkw with 3-D MIP reformats. Intracranial MRA: Axial 3-D idmq-xc-trbtxy with 3-D MIP r eformats. Findings: All [...] in the neck and gross ly patent [facility] [place] without gross flow-limiting stenosis. Signed b y: Dr. Danielle Hicks M.D. on 09/09/2019 5:17 PM Dictated By: DANIELLE NEFF MD 16 Transcrib ed By: MIKE on 09/09/191716 COPY TO: DEVEN RAMOS MD Blood Oqaqiea5878-23-23 13:51:00* Test Item Value Reference Range Interpretation Comments Blood Culture (test code = 600-7) No Result Data Provided [facility] NorthwestPhosphorus Dzyws8222-23-57 10:32:00* Test Item Value Reference Range Interpretation Comments Phosphorus Level (test code = DSU1389) 2.5 2.3-4.7 [facility] NorthwestTriglycerides Rxefx7974-14-15 06:23:00* Test Item Value Reference Range Interpretation Comments Triglycerides Level (test code = 2571-8) 110 0-149 [facility] NorthwestCholesterol Mlhqr7680-86-80 06:23:00* Test Item Value Reference Range Interpretation Comments Cholesterol Level (test code = 2093-3) 138 0-199 Less than 200 mg/dL Low Mhan819 - 239 mg/dL Borderline Qsac288 m g/dl and greater High Risk [facility] NorthwestLDL Kvjctaazcgp3136-72-50 06:23:00* Test Item Value Reference Range Interpretation Comments LDL Cholesterol (test code = 2089-1) 72 60-130 [facility] NorthwestHDL Gphwbnkbrok3036-41-98 06:23:00* Test Item Value Reference Range Interpretation Comments HDL Cholesterol (test code = 2085-9) 44 40-60 [facility] NorthwestCholesterol/HDL Aaagk3895-73-08 06:23:00 * Test Item Value Reference Range Interpretation Comments Cholesterol/HDL Ratio (test code = 9830-1) 3.1 3.0-3.6 [facility] NorthwestAmmonia2020-03-23 05:31:00* Test Item Value Reference Range Interpretation Comments Ammonia (test code = 59338-0) 66 31-123 [facility] NorthwestCT ABDOMEN/PELVIS J4816-14-48 20:18:00 [address] [place] [address] Patient Name: TORY ANGLIN MR #: [id number] : 1950 Age/Sex: 69/F Req #: [id number] [facility] Physician: ALPHONSO OLIVARES MD Ordered by: PADMINI GOLDSMITH MD Report #: [id number] Location: [facility] Room/Bed: [place] [address] Procedure: [id number] CT/CT ABDOMEN/PELVIS W Exam Date: 09/07/19 Exam [...] FUNG MD, MD 32 COPY TO: JOSE GOLDSMITH MD Amylase Nnrzg2396-81-63 19:47:00* Test Item Value Reference Range Interpretation Comments Amylase Level (test code = 1798-8) 22 25-125 L [facility] NorthwestLipase2020-03-22 19:47:00* Test Item Value Reference Range Interpretation Comments Lipase (test code = 3040-3) 15 8-78 [facility] NorthwestCHEST SINGLE (PORTABLE)2019-09-07 17:52:00 [facility] [address] [place] [address] Patient Name: TORY ANGLIN MR #: [id number] : 1950 Age/Sex: 69/F Req #: [id number] Adm Physician: Ordered by: PADMINI GOLDSMITH MD Report #: [id number] Location: ER Room/Bed: Procedure: [id number] DX/LEILANI ST SINGLE (PORTABLE) Exam Date: 09/07/19 [...] By: MIKE on 09/07/191753 COPY TO: PADMINI GOLDSMITH MD CT BRAIN IY5593-38-10 17:52:00 [address] [place] [address] Patient Name: TORY ANGLIN MR #: [id number] : 1950 Age/Sex: 69/F Req #: [id number] Adm Physician: Ordered by: PADMINI GOLDSMITH MD Report #: [id number] Location: ER Room/Bed: Procedure: [id number] CT/CT BRAIN WO Exam Date: 09/07/19 Exam [...] By: MIKE on 09/06 COPY TO: PADMINI GOLDSMITH MD Urine Nzzii3130-20-27 17:32:00* Test Item Value Reference Range Interpretation Comments Urine Color (test code = 5778-6) YELLOW YELLOW [facility] NorthwestUrine Qxgozwh4955-39-28 17:32:00* Test Item Value Reference Range Interpretation Comments Urine Clarity (test code = 43764-4) CLEAR CLEAR [facility] NorthwestUrine Specific Nynbqks5642-19-96 17:32:00 * Test Item Value Reference Range Interpretation Comments Urine Specific [place] (test code = 5811-5) >=1.030 1.010-1.02 5 [facility] NorthwestUrine oF4477-91-18 17:32:00* Test Item Value Reference Range Interpretation Comments Urine pH (test code = 44792-0) 8 5-7 [facility] NorthwestUrine Leukocyte Rumrnkef9529-05-19 17:32:00* Test Item Value Reference Range Interpretation Comments Urine Leukocyte Esterase (test code = 5799-2) NEGATIVE NEGATIVE [facility] NorthwestUrine Lrfalzk3534-44-66 17:32:00* Test Item Value Reference Range Interpretation Comments Urine Nitrite (test code = 94215-4) NEGATIVE NEGATIVE [facility] NorthwestUrine Yrzwwfu7635-96-51 17:32:00* Test Item Value Reference Range Interpretation Comments Urine Protein (test code = 5804-0) NEGATIVE NEGATIVE [facility] NorthwestUrine Glucose (UA)2019-09-07 17:32:00* Test Item Value Reference Range Interpretation Comments Urine Glucose (UA) (test code = 2349-9) NEGATIVE NEGATIVE [facility] NorthwestUrine Ahongtf3342-51-91 17:32:00* Test Item Value Reference Range Interpretation Comments Urine Ketones (test code = 76728-6) TRACE NEGATIVE H [facility] Qurvunrmaxyt2894-20-91 17:32:00* Test Item Value Reference Range Interpretation Comments Urine Urobilinogen (test code = 72690-1) 2.0 0.2-1 H [facility] Htabpaoly5876-78-52 17:32:00* Test Item Value Reference Range Interpretation Comments Urine Bilirubin (test code = 1978-6) NEGATIVE NEGATIVE [facility] Kgais6353-86-93 17:32:00* Test Item Value Reference Range Interpretation Comments Urine Blood (test code = 20901-3) NEGATIVE NEGATIVE [facility] NorthwestUrine FJZ6973-76-68 17:32:00* Test Item Value Reference Range Interpretation Comments Urine WBC (test code = 5821-4) 0-5 0-5 [facility] MUU7667-58-26 17:32:00* Test Item Value Reference Range Interpretation Comments Urine RBC (test code = 57915-8) 0-5 0-5 [facility] NorthwestUrine Rebueelz7787-84-42 17:32:00* Test Item Value Reference Range Interpretation Comments Urine Bacteria (test code = 56166-7) RARE NONE [facility] NorthwestUrine Epithelial Csvnb4865-35-71 17:32:00 * Test Item Value Reference Range Interpretation Comments Urine Epithelial Cells (test code = 42507-0) FEW NONE [facility] NorthwestB-Type Natriuretic Fpinrpg0302-53-07 17:21:00* Test Item Value Reference Range Interpretation Comments B-Type Natriuretic Peptide (test code = 70959-5) 217.4 0-100 H [facility] NorthwestProthrombin Mdgh8714-65-09 17:10:00* Test Item Value Reference Range Interpretation Comments Prothrombin Time (test code = 5902-2) 16.6 11.9-14.5 H [facility] NorthwestProthromb Time International Ratio 2019-09-07 17:10:00* Test Item Value Reference Range Interpretation Comments Prothromb Time International Ratio (test code = 6301-6) 1.26 Oral Anticoagulant Therapy INR Values:1. Low Intensity Therapy 1.5 - 2.02 . Moderate Intensity Therapy 2.0 - 3.03. High Intensity Therapy(1) 2.5 - 3. 54. High Intensity Therapy(2) 3.0 - 4.05. Panic Value INR > 5.0 [facility] NorthwestActivated Partial Thromboplast Time 2019-09-07 17:10:00* Test Item Value Reference Range Interpretation Comments Activated Partial Thromboplast Time (test code = 14833-3) 32.1 [facility] 2019-04-29 10:00:23 - SCR MAMM BILATERAL KIRIT CAD DIGITALBILATERAL DIGITAL SCREENING MAMMOGRAM 3D/2D WITH CAD: 04/04/2019CLINICAL: Asymptomatic. Digital breast tomosynthesis was performed in addition to routine CC and MLO views. Current mammographic images were evaluated by either a [employer] M-Vu ora [employer] Image[employer]er CAD (computer aided detection system). Comparison is made to exams dated 02/20/2018 mammogram, 02/08/2016 mammogram, and 12/17/2015 mammogram - [facility]. There are scattered fibroglandular tissues in both [...] 04/29/2019 10:00:23Imaging Technologist: Tory Fong MM, [facility] Mammographyletter sent: BIRADS 1-2 Normal Mammogram BI-RADS: 2 BenignSodium Rfxho1403-19-74 07:22:00* Test Item Value Reference Range Interpretation Comments Sodium Level (test code = 2951-2) 138 136-145 [facility] NorthwestPotassium Eikep4390-25-38 07:22:00* Test Item Value Reference Range Interpretation Comments Potassium Level (test code = 2823-3) 4.2 3.5-5.1 [facility] NorthwestChloride Utwap2564-88-74 07:22:00* Test Item Value Reference Range Interpretation Comments Chloride Level (test code = 2075-0) 111 98-107 H [facility] NorthwestCarbon Dioxide Pktmr6803-34-60 07:22:00* Test Item Value Reference Range Interpretation Comments Carbon Dioxide Level (test code = 2028-9) 24 22-29 [facility] NorthwestAnion Aqj4344-03-70 07:22:00* Test Item Value Reference Range Interpretation Comments Anion Gap (test code = 76684-8) 7.2 8-16 L [facility] NorthwestBlood Urea Fphuvrtt3970-56-30 07:22:00* Test Item Value Reference Range Interpretation Comments Blood Urea Nitrogen (test code = 3094-0) 5 7-26 L [facility] NorthwestCreatinine2019-05-03 07:22:00* Test Item Value Reference Range Interpretation Comments Creatinine (test code = 2160-0) 0.68 0.57-1.11 [facility] NorthwestBUN/Creatinine Wajwg6093-63-14 07:22:00* Test Item Value Reference Range Interpretation Comments BUN/Creatinine Ratio (test code = 3097-3) 7 6-25 [facility] NorthwestEstimat Glomerular Filtration Rate 2018-10-18 07:22:00* Test Item Value Reference Range Interpretation Comments Estimat Glomerular Filtration Rate (test code = 018862257) > 60 >60 Ranges were taken from the National Kidney Disease Education Program and the [facility] Kid[facility] Foundation literature.Reference ranges:60 or greater: Wmnmce08-35 ( for 3 consecutive months): Chronic kidney disease 15 or less: Kidney failureHCA [facility] Healthcare NorthwestGlucose Qgbgx6855-52-50 07:22:00* Test Item Value Reference Range Interpretation Comments Glucose Level (test code = KNB6703) 91 74-118 [facility] NorthwestCalcium Zixms5262-73-36 07:22:00* Test Item Value Reference Range Interpretation Comments Calcium Level (test code = 54727-8) 7.6 8.4-10.2 L [facility] NorthwestTotal Psmctffau5232-77-82 07:22:00* Test Item Value Reference Range Interpretation Comments Total Bilirubin (test code = 1975-2) 1.3 0.2-1.2 H [facility] NorthwestAspartate Amino Transf (AST/SGOT) 2018-10-18 07:22:00* Test Item Value Reference Range Interpretation Comments Aspartate Amino Transf (AST/SGOT) (test code = Aspartate Amino Transf (AST/SGOT)) 23 5-34 [facility] NorthwestAlanine Aminotransferase (ALT/SGPT) 2018-10-18 07:22:00* Test Item Value Reference Range Interpretation Comments Alanine Aminotransferase (ALT/SGPT) (test code = 1742-6) 13 0-55 [facility] Wdnryfc2094-51-66 07:22:00* Test Item Value Reference Range Interpretation Comments Total Protein (test code = 2885-2) 5.1 6.5-8.1 L [facility] NorthwestAlbumin2019-05-03 07:22:00* Test Item Value Reference Range Interpretation Comments Albumin (test code = 1751-7) 2.6 3.5-5.0 L [facility] NorthwestGlobulin2019-05-03 07:22:00* Test Item Value Reference Range Interpretation Comments Globulin (test code = 44133-2) 2.5 2.3-3.5 [facility] NorthwestAlbumin/Globulin Oiuvb4794-49-14 07:22:00 * Test Item Value Reference Range Interpretation Comments Albumin/Globulin Ratio (test code = 1759-0) 1.0 0.8-2.0 [facility] NorthwestAlkaline Tltqiekevvp8851-98-66 07:22:00* Test Item Value Reference Range Interpretation Comments Alkaline Phosphatase (test code = 6768-6) 53 40-150 [facility] NorthwestVitamin B12 Lwhdq3952-73-48 05:44:00* Test Item Value Reference Range Interpretation Comments Vitamin B12 Level (test code = 71818-9) 353 213-816 [facility] NorthwestFolate2019-05-03 05:44:00* Test Item Value Reference Range Interpretation Comments Folate (test code = 2284-8) 6.0 7.0-15.4 L [facility] NorthwestB-Type Natriuretic Gbmsjea3467-02-34 05:19:00* Test Item Value Reference Range Interpretation Comments B-Type Natriuretic Peptide (test code = 40916-9) 361.2 0-100 H [facility] NorthwestFerritin2019-05-03 05:06:00* Test Item Value Reference Range Interpretation Comments Ferritin (test code = 2276-4) 100.37 4.63-204.00 [facility] NorthwestMagnesium Fdhny6775-37-66 04:46:00* Test Item Value Reference Range Interpretation Comments Magnesium Level (test code = 85521-8) 1.8 1.3-2.1 [facility] NorthwestIron Xbgmc6641-95-20 04:46:00* Test Item Value Reference Range Interpretation Comments Iron Level (test code = 2498-4) 115 50-170 [facility] NorthwestTotal Iron Binding Ybwxkhkp9894-23-40 04:46:00* Test Item Value Reference Range Interpretation Comments Total Iron Binding Capacity (test code = 2500-7) 207 261-4 78 L [facility] NorthwestPercent Iron Ameijeemxd2116-49-25 04:46:00* Test Item Value Reference Range Interpretation Comments Percent Iron Saturation (test code = 2502-3) 56 15-50 H [facility] NorthwestTransferrin2019-05-03 04:46:00* Test Item Value Reference Range Interpretation Comments Transferrin (test code = 3034-6) 148 180-382 L [facility] NorthwestWhite Blood Suvny3838-85-00 04:24:00* Test Item Value Reference Range Interpretation Comments White Blood Count (test code = 6690-2) 3.10 4.8-10.8 L [facility] NorthwestRed Blood Uvzck0253-54-01 04:24:00* Test Item Value Reference Range Interpretation Comments Red Blood Count (test code = 789-8) 2.90 3.6-5.1 L [facility] NorthwestHemoglobin2019-05-03 04:24:00* Test Item Value Reference Range Interpretation Comments Hemoglobin (test code = 45765-3) 8.7 12.0-16.0 L [facility] NorthwestHematocrit2019-05-03 04:24:00* Test Item Value Reference Range Interpretation Comments Hematocrit (test code = 4544-3) 27.5 34.2-44.1 L [facility] NorthwestMean Corpuscular Iwoaug2104-40-94 04:24:00* Test Item Value Reference Range Interpretation Comments Mean Corpuscular Volume (test code = 787-2) 94.8 81-99 [facility] NorthwestMean Corpuscular Yqzlyhieuq4719-11-18 04:24:00* Test Item Value Reference Range Interpretation Comments Mean Corpuscular Hemoglobin (test code = 785-6) 30.0 28-32 [facility] NorthwestMean Corpuscular Hemoglobin Concent 2018-10-18 04:24:00* Test Item Value Reference Range Interpretation Comments Mean Corpuscular Hemoglobin Concent (test code = 786-4) 31.6 31-35 [facility] Cell Distribution [id number] 04:24:00* Test Item Value Reference Range Interpretation Comments Red Cell Distribution Width (test code = 23954-0) 15.1 11.7 -14.4 H [facility] NorthwestPlatelet Obxdp0089-62-80 04:24:00* Test Item Value Reference Range Interpretation Comments Platelet Count (test code = 777-3) 57 140-360 L [facility] NorthwestNeutrophils (%) (Auto)2018-10-18 04:24:00 * Test Item Value Reference Range Interpretation Comments Neutrophils (%) (Auto) (test code = 99450-3) 59.7 38.7-80.0 [facility] NorthwestLymphocytes (%) (Auto)2018-10-18 04:24:00 * Test Item Value Reference Range Interpretation Comments Lymphocytes (%) (Auto) (test code = 736-9) 25.8 18.0-39.1 [facility] NorthwestMonocytes (%) (Auto)2018-10-18 04:24:00* Test Item Value Reference Range Interpretation Comments Monocytes (%) (Auto) (test code = 5905-5) 8.7 4.4-11.3 [facility] NorthwestEosinophils (%) (Auto)2018-10-18 04:24:00 * Test Item Value Reference Range Interpretation Comments Eosinophils (%) (Auto) (test code = 713-8) 4.5 0.0-6.0 [facility] NorthwestBasophils (%) (Auto)2018-10-18 04:24:00* Test Item Value Reference Range Interpretation Comments Basophils (%) (Auto) (test code = 706-2) 0.3 0.0-1.0 [facility] NorthwestIM GRANULOCYTES %2018-10-18 04:24:00* Test Item Value Reference Range Interpretation Comments IM GRANULOCYTES % (test code = IM GRANULOCYTES %) 1.0 0.0- 1.0 [facility] NorthwestNeutrophils # (Auto)2018-10-18 04:24:00* Test Item Value Reference Range Interpretation Comments Neutrophils # (Auto) (test code = 751-8) 1.9 2.1-6.9 L [facility] NorthwestLymphocytes # (Auto)2018-10-18 04:24:00* Test Item Value Reference Range Interpretation Comments Lymphocytes # (Auto) (test code = 28805-6) 0.8 1.0-3.2 L [facility] NorthwestMonocytes # (Auto)2018-10-18 04:24:00* Test Item Value Reference Range Interpretation Comments Monocytes # (Auto) (test code = 742-7) 0.3 0.2-0.8 [facility] NorthwestEosinophils # (Auto)2018-10-18 04:24:00* Test Item Value Reference Range Interpretation Comments Eosinophils # (Auto) (test code = 711-2) 0.1 0.0-0.4 [facility] NorthwestBasophils # (Auto)2018-10-18 04:24:00* Test Item Value Reference Range Interpretation Comments Basophils # (Auto) (test code = 704-7) 0.0 0.0-0.1 [facility] NorthwestAbsolute Immature Granulocyte (auto 2018-10-18 04:24:00* Test Item Value Reference Range Interpretation Comments Absolute Immature Granulocyte (auto (india t code = Absolute Immature Granulocyte (auto) 0.03 0-0.1 [facility] NorthwestPlatelet Zoebnqiy7466-24-78 07:54:00* Test Item Value Reference Range Interpretation Comments Platelet Estimate (test code = 23692-4) MARKEDLY DECREASED [facility] NorthwestPlatelet Morphology Ipoachs4895-56-72 07:54:00* Test Item Value Reference Range Interpretation Comments Platelet Morphology Comment (test code = 95801-8) NORMAL [facility] NorthwestHypochromasia2019-05-02 07:54:00* Test Item Value Reference Range Interpretation Comments Hypochromasia (test code = 728-6) MODERATE [facility] NorthwestAnisocytosis2019-05-02 07:54:00* Test Item Value Reference Range Interpretation Comments Anisocytosis (test code = 702-1) SLIGHT [facility] NorthwestRed Cell Morphology Ntprpmz8127-99-11 07:54:00* Test Item Value Reference Range Interpretation Comments Red Cell Morphology Comment (test code = 6742-1) NORMAL [facility] NorthwestDirect Fuzsilhqj5902-55-22 04:32:00* Test Item Value Reference Range Interpretation Comments Direct Bilirubin (test code = 98791-6) 0.5 0.0-0.5 [facility] NorthwestPhosphorus Unkix2274-31-84 06:45:00* Test Item Value Reference Range Interpretation Comments Phosphorus Level (test code = VAU5191) 2.2 2.3-4.7 L [facility] NorthwestFree Akzkxpioj4557-28-82 04:07:00* Test Item Value Reference Range Interpretation Comments Free Thyroxine (test code = 3024-7) 0.78 0.9-1.8 L [facility] NorthwestThyroid Stimulating Hormone (TSH) 2018-10-14 04:07:00* Test Item Value Reference Range Interpretation Comments Thyroid Stimulating Hormone (TSH) (test code = 11552-2) 0.860 0.350-4.940 [facility] NorthwestAmylase Ourwl0734-69-24 03:46:00* Test Item Value Reference Range Interpretation Comments Amylase Level (test code = 1798-8) 44 25-125 [facility] NorthwestLipase2019-04-29 03:46:00* Test Item Value Reference Range Interpretation Comments Lipase (test code = 3040-3) 61 8-78 [facility] NorthwestHemoglobin A1c Twolbbo6636-16-43 03:40:00 * Test Item Value Reference Range Interpretation Comments Hemoglobin A1c Percent (test code = Hemoglobin A1c Percent) 4.5 4.0-7.0 [facility] NorthwestCT ABDOMEN/PELVIS [id number] 01:07:00 [facility] [address] [address] Patient Name: TORY ANGLIN MR #: [id number] : 1950 Age/Sex: 68/F Req #: [id number] Adm Physician: Ordered by: DARIN STEWART MD Report #: [id number] Location: ER Room/Bed: Procedure: [id number] CT/CT ABDOMEN/PELVIS W Exam Date: Exam Time: [...] 10/13/18123 COPY TO: DARIN STEWART MD Prothrombin Xayc6722-70-14 23:25:00* Test Item Value Reference Range Interpretation Comments Prothrombin Time (test code = 5902-2) 13.4 11.9-14.5 [facility] NorthwestProthromb Time International Ratio 2018-10-12 23:25:00* Test Item Value Reference Range Interpretation Comments Prothromb Time International Ratio (test code = 6301-6) 0.97 Oral Anticoagulant Therapy INR Values:1. Low Intensity Therapy 1.5 - 2.02 . Moderate Intensity Therapy 2.0 - 3.03. High Intensity Therapy(1) 2.5 - 3. 54. High Intensity Therapy(2) 3.0 - 4.05. Panic Value INR > 5.0 [facility] NorthwestActivated Partial Thromboplast Time 2018-10-12 23:25:00* Test Item Value Reference Range Interpretation Comments Activated Partial Thromboplast Time (test code = 70154-0) 32.0 23.8-35.5 [facility] NorthwestUrine [id number] 23:25:00* Test Item Value Reference Range Interpretation Comments Urine WBC (test code = 5821-4) 11-20 0-5 H [facility] NorthwestUrine BNU9612-64-08 23:25:00* Test Item Value Reference Range Interpretation Comments Urine RBC (test code = 63061-1) 0-5 0-5 [facility] NorthwestUrine Pvrvblnm0291-20-81 23:25:00* Test Item Value Reference Range Interpretation Comments Urine Bacteria (test code = 31903-3) MODERATE NONE H [facility] NorthwestUrine Epithelial Dswcf2461-20-72 23:25:00 * Test Item Value Reference Range Interpretation Comments Urine Epithelial Cells (test code = 68123-0) MODERATE NONE [facility] NorthwestUrine Aoetk4024-12-76 23:20:00* Test Item Value Reference Range Interpretation Comments Urine Color (test code = 5778-6) YELLOW YELLOW [facility] NorthwestUrine Ndjgiju3440-55-41 23:20:00* Test Item Value Reference Range Interpretation Comments Urine Clarity (test code = 74930-1) CLEAR CLEAR [facility] NorthwestUrine Specific Ygdrbfu0756-24-21 23:20:00 * Test Item Value Reference Range Interpretation Comments Urine Specific N[place]ezi (test code = 5811-5) 1.020 1.010-1.02 5 [facility] NorthwestUrine [id number] 23:20:00* Test Item Value Reference Range Interpretation Comments Urine pH (test code = 39944-6) 6.5 5-7 [facility] NorthwestUrine Leukocyte Wvjvligx1650-95-31 23:20:00* Test Item Value Reference Range Interpretation Comments Urine Leukocyte Esterase (test code = 5799-2) 1+ NEGATIVE H [facility] NorthwestUrine Qtxxdld9456-55-09 23:20:00* Test Item Value Reference Range Interpretation Comments Urine Nitrite (test code = 15857-0) NEGATIVE NEGATIVE [facility] NorthwestUrine Taxrtzm5083-35-95 23:20:00* Test Item Value Reference Range Interpretation Comments Urine Protein (test code = 5804-0) NEGATIVE NEGATIVE [facility] NorthwestUrine Glucose (UA)2018-10-12 23:20:00* Test Item Value Reference Range Interpretation Comments Urine Glucose (UA) (test code = 2349-9) NEGATIVE NEGATIVE [facility] NorthwestUrine [id number] 23:20:00* Test Item Value Reference Range Interpretation Comments Urine Ketones (test code = 17173-5) TRACE NEGATIVE H [facility] NorthwestUrine Ibigqhhivkkg0298-07-57 23:20:00* Test Item Value Reference Range Interpretation Comments Urine Urobilinogen (test code = 33040-1) 0.2 0.2-1 [facility] NorthwestUrine Cmllhcpai4899-89-06 23:20:00* Test Item Value Reference Range Interpretation Comments Urine Bilirubin (test code = 1978-6) NEGATIVE NEGATIVE [facility] NorthwestUrine [id number] 23:20:00* Test Item Value Reference Range Interpretation Comments Urine Blood (test code = 18038-1) NEGATIVE NEGATIVE [facility] NorthwestUS [id number] 23:15:00 [facility] [address] [address] Patient Name: TORY ANGLIN MR #: [id number] : 1950 Age/Sex: 68/F Req #: [id number] Adm Physician: Ordered by: DARIN STEWART MD Report #: [id number] Location: ER Room/Bed: Procedure: [id number] US/US GALLBLADDER Exam Date: 10/12/18 Exam Time: [...]
[2020-02-01] MEDS ORDERED: MORPHINE SULFATE INJ 4 MG/ML INJ 1ML IV STA (13:01)
[2020-02-01] MEDS ORDERED: MORPHINE SULFATE INJ 4 MG/ML INJ 1ML IV PRN (13:15)
--- NOTE | 2020-02-01 13:40 | NUR ---
Received report from KVNG Gonzalez at 1326. Patient is still in ER at this time. Waiting for patient arrival. Addendum: 02/01/20 at 1545 by Linda Redmond RN Patient arrived from ER after MRI was done at 1515. Patient was able to state her name, , where she was, date, and who the president was without prompting. Patient is however very lethargic and falls asleep while talking. Patient was given pain medication prior to coming to the floor. Patient was assessed and does have multiple bruises all over body from 3 falls within the last 24 hours. The most recent was 8am today where she was found on her bedroom floor. Patient has a large goose egg on her forehead that is black and blue. Her right eye is black and blue as well. Patient has bilateral tops of her feet bruised and her left ankle is swollen. Patient does has 1L NC oxygen in place due to her lethargy + pain meds. Patient was oriented to room, procedures, and plan of care. Patient's daughter was called while in the room with patient and they were both given the latest update and what to expect next. Patient's daughter told me she does not have teeth and eats soft food, patient is however NPO at this time Patient tele was placed and she is on tele #29 running sinus bradycardia at 59. Patient does have glasses and cellphone at bedside. Patient has a [address] and it is draining well. Patient had 2 IVs when she arrived and only the right 18g AC is running so the other was removed and covered with a C/D/I dressing. Patient IV fluids were started at 75mL/hr for 2L only. Patient had no other issues or complaints at this time. Bed alarm is on and patient is aware that she is on complete bedrest. Patient does not have any skin breakdown. Patient has call de la fuente within reach and no other issues
[2020-02-01] MEDS: SODIUM CHLORIDE 0.9% 1000ML 1,000 ML IV SCH (15:20)
[2020-02-01 15:31] VITALS: BP 116/70
[2020-02-01 16:00] VITALS: BP 90/50
--- NOTE | 2020-02-01 16:00 | Diagnostic Imaging Report ---
EXAMINATION: MRI of the thoracic spine without contrast HISTORY: 69-year-old female status post multiple falls, severe back pain and severe compression fracture of T12. COMPARISON: Thoracic spine CT performed earlier on the same day TECHNIQUE: Sagittal T1 without contrast, T2, and STIR; axial T2. Coronal T2. FINDINGS: Curvature: Mild increased upper thoracic and lower thoracic kyphosis at the level of the T6 and T12 compression fractures. Vertebrae: * Acute severe osteoporotic compression fracture of the T12 vertebral body, with decreased vertebral body height by approximately 90% (vertebral plan), diffuse bone marrow edema is seen in the remaining vertebral body, there is associated approximately 7 mm dorsal retropulsion of the posterior vertebral body within the spinal canal, which results in severe canal stenoses, it is abutting the ventral spinal cord with minimal compression, and abnormal signal within the cord at this time. Bone marrow edema is extending to the right T12 pedicle. * Moderate chronic compression fracture of the T6 vertebral body, decreased vertebral body height by approximately 60 %, anterior wedging, minimal inferior endplate posterior retropulsion without associated canal stenosis. * Minimal chronic anterior wedging of the T2 and T4 vertebral bodies without posterior retropulsion or spinal spinal stenosis. * Diffuse heterogeneous bone marrow signal intensity related to osteoporosis. Discs: Mild disc bulge at T5-T6 and T6-T7 as well as T11-T12 and T12-L1 results in mild foraminal narrowing. Spinal canal: No mass or abnormal blood vessels. Spinal cord: No abnormal signal intensity Foramina: Mild foraminal narrowing at T11-T12 and T12-L1 Paraspinal soft tissues: Unremarkable. Proximal ribs: No abnormal signal intensity. IMPRESSION: Overall suboptimal evaluation due to motion artifact. 1. Grossly unchanged severe acute osteoporotic compression fracture of the T12 vertebral body with posterior retropulsion results in severe spinal canal stenosis and mild cord compression compared to CT performed earlier on the same date. No abnormal signal within the cord at this time. 2. Moderate chronic compression fracture of T6. Minimal chronic compression fracture of T2 and T4 as detailed above. Signed by: Dr. China Gibson M.D. on 02/01/2020 3:57 PM
[2020-02-01] MEDS ORDERED: BACLOFEN10 MG PO (16:22)
[2020-02-01] MEDS ORDERED: METOPROLOL TART50 MG PO (16:22)
[2020-02-01] MEDS ORDERED: PANTOPRAZOLE SO40 MG PO (16:22)
[2020-02-01] MEDS ORDERED: CIPRO500 MG PO (16:22)
[2020-02-01 17:51] VITALS: BP 90/50
[2020-02-01] MEDS ORDERED: MELATONIN 5 MG TABLET PO PRN (18:00)
[2020-02-01] MEDS ORDERED: KETOROLAC TROMETHAMINE 30 MG/ML VIAL IV PRN (18:00)
[2020-02-01] MEDS ORDERED: HYDRALAZINE HCL 20 MG/ML VIAL IV PRN (18:00)
[2020-02-01] MEDS ORDERED: ACETAMINOPHEN 325 MG TAB PO PRN (18:00)
--- NOTE | 2020-02-01 19:10 | NUR ---
RECEIVED REPORT FROM PREVIOUS NURSE. PATIENT IN BED. CALL LIGHT WITHIN REACH.
[2020-02-01 20:14] LABS: CREATINE KINASE 168 IU/L (29-168)
[2020-02-01 20:15] VITALS: BP 91/50
[2020-02-01] MEDS: SERTRALINE HCL 50 MG TAB PO SCH (21:00)
--- NOTE | 2020-02-01 23:55 | NUR ---
MENDOZA CARE PERFORMED.
[2020-02-02] VITALS: BP 104/51
[2020-02-02 03:50] VITALS: BP 101/61
[2020-02-02 04:12] LABS: BASOPHILS % 0.3 % (0.0-1.0); HEMATOCRIT 27.8 % (34.2-44.1); HEMOGLOBIN 8.6 g/dL (12.0-16.0); LYMPHOCYTES # (AUTO) 0.5 (1.0-3.2); LYMPHOCYTES % 17.9 % (18.0-39.1); MEAN CORPUSCULAR HGB CONC 30.9 g/dL (31-35); MEAN CORPUSCULAR VOLUME 93.6 fL (81-99); MONOCYTES # (AUTO) 0.2 (0.2-0.8); MONOCYTES % 5.3 % (4.4-11.3); NEUTROPHILS # (AUTO) 2.3 (2.1-6.9); NEUTROPHILS % 75.8 % (38.7-80.0); RED BLOOD COUNT 2.97 x10e6/uL (3.6-5.1); RED CELL DISTRIBUTION WIDTH 14.6 % (11.7-14.4)
[2020-02-02 04:17] LABS: PLATELET COUNT 49 x10e3/uL (140-360)
--- NOTE | 2020-02-02 04:19 | NUR ---
CALLED DR. OLIVARES OFFICE AND TALKED TO KEITH SCHRADER ABOUT THE PATIENT HAVING A CRITICAL PLATELET COUNT OF 49. SHE SAID SHE WILL LOOK AT IT WHEN SHE GETS HERE.
[2020-02-02 04:42] LABS: ALBUMIN 2.8 g/dL (3.5-5.0); ALBUMIN/GLOBULIN RATIO 1.1 (0.8-2.0); ANION GAP 13.8 mmol/L (8-16); CALCIUM 7.7 mg/dL (8.4-10.2); CREATININE, SERUM 0.98 mg/dL (0.57-1.11); POTASSIUM 4.8 mmol/L (3.5-5.1)
[2020-02-02] MEDS: SODIUM CHLORIDE 0.9% 1000ML 1,000 ML IV SCH (05:35)
[2020-02-02 06:02] LABS: CREATINE KINASE MB 3.4 ng/mL (0-5.0)
--- NOTE | 2020-02-02 07:03 | NUR ---
GAVE BEDSIDE SHIFT REPORT TO ONCOMING NURSE. CALL LIGHT WITHIN REACH. PATIENT IN BED. HOURLY ROUNDING PERFORMED.
[2020-02-02] MEDS: FAMOTIDINE 20 MG TAB PO SCH ×2 (07:30→17:09)
--- NOTE | 2020-02-02 07:41 | NUR ---
ASSUMED CARE AT APPROXIMATELY 0710. AAOX3. ACYANOTIC. RESTING IN BED WATCHING TELEVSION. NO DISTRESS NOTED. PATIENT CURRENTLY ON ROOM AIR. O2 SAT 95 PERCENT. NASAL CANNULA FOUND NOT PROPERLY INSERTED. CALL LIGHT IN REACH. SIDE RAILS UP X2. BED LOW AND LOCKED. BED ALARM AND SCDS NOTED.
[2020-02-02 08:00] VITALS: BP 112/47
[2020-02-02 08:05] VITALS: BP 112/47
[2020-02-02] MEDS: FOLIC ACID 1 MG TAB PO SCH (08:11)
[2020-02-02] MEDS: METOPROLOL TARTRATE 50 MG TAB PO SCH ×2 (08:12→16:41)
--- NOTE | 2020-02-02 11:01 | NUR ---
ORDERS TO TRANSFER PT TO [facility] FOR T12 SURGERY HIGHER LEVEL OF CARE, NEEDED SURGICAL EQUIPMENT PER DR JOHNSON CHOICE LETTER SIGNED SPOKE WITH PT AND DTR [employer]ATHERS [phone], BOTH AGREEABLE CALLED TRANSFER CENTER AND FAXED FACE SHEET PH: [phone] FAX:[phone] SPOKE WITH [place] IN TRANSFER CENTER FAXED FACE SHEET TO [facility] REQUESTED: [phone] WILL TRANSFER WHEN ACCEPTED MOT INITIATED AND PLACED IN CHART
[2020-02-02] MEDS: CEFTRIAXONE SOD 1 GM/NS 50 ML 50 ML IV SCH ×2 (12:00→23:21)
[2020-02-02 13:08] VITALS: BP 110/30
--- NOTE | 2020-02-02 14:20 | NUR ---
REC'D APPROVAL FROM [facility] FOR TRANSFER MOT: CALL REPORT TO [phone] ROOM 5007 ACCEPTING PHYSICIAN ALPHONSO OLIVARES AOS [place] [place] MOT COMPLETED NURSE NOTIFIED OF NUMBER TO CALL REPORT TO RACIEL SILVA NOTIFIED OF ACCEPTANCE AND DC ORDERS WRITTEN DR JOHNSON TO SEE PT AT [facility] PER RACIEL
[2020-02-02] MEDS ORDERED: SODIUM CHLORIDE 0.9% 250ML 250 ML ONE (14:44)
--- NOTE | 2020-02-02 15:50 | NUR ---
DR JOHNSON HERE AND EXAMINED PT ORDERS TO CANCEL TRANSFER TO [facility] DR JOHNSON EXPLAINED TO PT THAT DUE TO HER CIRRHOSIS AND LOW PLATELETS SHE IS NOT A SURGICAL CANDIDATE DUE TO HIGH RISK FOR BLEEDING TLSO BRACE ORDERED AND ACUTE REHAB EVAL
--- NOTE | 2020-02-02 16:11 | NUR ---
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 EVAL ORDERED
--- NOTE | 2020-02-02 16:14 | Consultation ---
DATE OF CONSULTATION: 02/02/2020 REASON FOR CONSULTATION: Compression fracture. HISTORY OF PRESENT ILLNESS: The patient is a 69-year-old woman with severe osteoporosis and cirrhosis and profound thrombocytopenia, who fell a couple of days ago and developed thoracic spine pain. She also bruised her legs. She comes in with complaint of back pain. She has aches and pains in her feet and ankles, but has no radiating pain from the thoracic spine down the leg. She cannot stand due to exacerbation of pain with standing, but has good strength in her legs. PHYSICAL EXAMINATION: She is alert and oriented. She has a bruise around the face and multiple bruises on her legs. She is able to turn from ulyq-cx-clbc in bed without much difficulty. The thoracic spine is only mildly tender to palpation. Straight leg raising is negative. She is able to lift both legs very well against gravity and resistance without any obvious weakness. Sensory testing reveals no sensory level or dermatomal deficits. Deep tendon reflexes are symmetric. Plantar responses are flexor. IMPRESSION: MRI and CT of the thoracic spine were reviewed. There is an acute severe compression fracture of T12 with nearly 90% loss of vertebral body height. There is wzrk-ze-zwpfvzdv retropulsion of the bone producing spinal stenosis, but no significant cord compression. There is no myelomalacia. In view of her profound thrombocytopenia due to cirrhosis, she is not a candidate for surgical treatment. Even with platelet transfusion, it will be virtually impossible to maintain her platelet count consistently above 100,000, which is what it would take for this particular operation. Therefore, I recommend against surgical treatment. I recommend a TLSO brace and immobilization and rehab transfer. I will sign off. Dima Bennett MD PP/SPENCER /[id number]
[2020-02-02] MEDS: SERTRALINE HCL 50 MG TAB PO SCH (20:55)
[2020-02-02] MEDS: TRAMADOL HCL 50 MG TAB PO PRN (20:56)
[2020-02-02 22:50] VITALS: BP 103/75
[2020-02-03 04:36] VITALS: BP 108/59
[2020-02-03 04:59] LABS: BASOPHILS % 0.5 % (0.0-1.0); HEMATOCRIT 27.2 % (34.2-44.1); HEMOGLOBIN 8.3 g/dL (12.0-16.0); LYMPHOCYTES # (AUTO) 1.1 (1.0-3.2); LYMPHOCYTES % 28.1 % (18.0-39.1); MEAN CORPUSCULAR HEMOGLOBIN 29.2 pg (28-32); MEAN CORPUSCULAR HGB CONC 30.5 g/dL (31-35); MEAN CORPUSCULAR VOLUME 95.8 fL (81-99); MONOCYTES # (AUTO) 0.3 (0.2-0.8); NEUTROPHILS # (AUTO) 2.4 (2.1-6.9); NEUTROPHILS % 61.1 % (38.7-80.0); PLATELET COUNT 103 x10e3/uL (140-360); RED BLOOD COUNT 2.84 x10e6/uL (3.6-5.1); RED CELL DISTRIBUTION WIDTH 15.2 % (11.7-14.4)
[2020-02-03 05:31] LABS: ALANINE AMINOTRANSFERASE 16 IU/L (0-55); ALKALINE PHOSPHATASE 57 IU/L (40-150); ANION GAP 11.8 mmol/L (8-16); BLOOD UREA NITROGEN 28 mg/dL (7-26); BUN/CREATININE RATIO 33 (6-25); CALCIUM 7.9 mg/dL (8.4-10.2); CARBON DIOXIDE 26 mmol/L (22-29); CHLORIDE 107 mmol/L (98-107); CHOL/HDL RATIO 3.5 (3.0-3.6); CHOLESTEROL 138 MD/DL (0-199); CREATINE KINASE 126 IU/L (29-168); CREATININE, SERUM 0.85 mg/dL (0.57-1.11); EST GLOMERULAR FILTRATION RATE > 60 ML/MIN (60-); GLUCOSE 87 mg/dL (74-118); HDL CHOLESTEROL 40 MG/DL (40-60); LDL CHOLESTEROL 83 MG/DL (60-130); POTASSIUM 3.8 mmol/L (3.5-5.1); SODIUM 141 mmol/L (136-145); TRIGLYCERIDES 75 MG/DL (0-149)
[2020-02-03] MEDS ORDERED: CALCIUM GLUCONATE 10% INJ 4.65 MEQ in SODIUM CHLORIDE 0.9% 50ML 50 ML IV ONE ×2 (06:00→08:00)
--- NOTE | 2020-02-03 07:27 | NUR ---
ASSUMED CARE. RESTING IN BED WITH EYES CLOSED. ACYANOTIC. EQUAL RISE AND FALL OF CHEST NOTED WITH EACH RESPIRATIONS. SIDE RAILS UP X2. BED LOW AND LOCKED. CALL LIGHT IN REACH.
[2020-02-03] MEDS: FOLIC ACID 1 MG TAB PO SCH (07:56)
[2020-02-03] MEDS: FAMOTIDINE 20 MG TAB PO SCH ×2 (07:56→16:43)
[2020-02-03 08:00] VITALS: BP 110/50
[2020-02-03] MEDS: TRAMADOL HCL 50 MG TAB PO PRN ×2 (08:05→22:39)
[2020-02-03 08:30] VITALS: BP 110/50
[2020-02-03] MEDS: METOPROLOL TARTRATE 50 MG TAB PO SCH ×2 (08:39→16:29)
[2020-02-03 11:00] VITALS: BP 101/44
[2020-02-03] MEDS: CEFTRIAXONE SOD 1 GM/NS 50 ML 50 ML IV SCH ×2 (12:17→23:29)
[2020-02-03 16:00] VITALS: BP 116/55
[2020-02-03 20:00] VITALS: BP 111/58
[2020-02-03] MEDS: SERTRALINE HCL 50 MG TAB PO SCH (21:42)
[2020-02-04] VITALS (7 sets, daily range): BP systolic 95–112; BP diastolic 32–62
--- NOTE | 2020-02-04 02:30 | NUR ---
SPOKE TO RESPIRATORY REGARDING 12 LEAD EKG.
--- NOTE | 2020-02-04 02:47 | NUR ---
SPOKE TO MD OLIVARES'S DRILL HAND VSAILE REGARDING A FIB RVR 138 HR. C/O CHEST HEAVINESS. NEW ORDERS RECEIVED.
[2020-02-04] MEDS ORDERED: DILTIAZEM HCL 5 MG/ML 5 ML VIAL IV STA ×2 (02:51→04:44)
--- NOTE | 2020-02-04 02:56 | NUR ---
SPOKE TO MD SAM REGARDING NEW CONSULT. AWARE A FIB RVR AND C/O CHEST HEAVINESS. NO NEW ORDERS AT THIS TIME.
--- NOTE | 2020-02-04 04:29 | NUR ---
DAILY MENDOZA CARE PROVIDED VIA CASTILE SOAP WIPES. DENIES CHEST PAIN AT THIS TIME.
--- NOTE | 2020-02-04 04:44 | NUR ---
SPOKE TO MD SAM. NEW ORDERS RECEIVED.
[2020-02-04] MEDS ORDERED: METOPROLOL TARTRATE 50 MG TAB PO ONE (04:45)
[2020-02-04 05:01] LABS: BASOPHILS % 0.6 % (0.0-1.0); EOSINOPHILS # (AUTO) 0.2 (0.0-0.4); EOSINOPHILS % 4.5 % (0.0-6.0); HEMATOCRIT 26.6 % (34.2-44.1); HEMOGLOBIN 8.5 g/dL (12.0-16.0); LYMPHOCYTES # (AUTO) 0.8 (1.0-3.2); LYMPHOCYTES % 22.8 % (18.0-39.1); MEAN CORPUSCULAR HEMOGLOBIN 30.9 pg (28-32); MEAN CORPUSCULAR VOLUME 96.7 fL (81-99); MONOCYTES # (AUTO) 0.3 (0.2-0.8); MONOCYTES % 8.1 % (4.4-11.3); NEUTROPHILS # (AUTO) 2.1 (2.1-6.9); NEUTROPHILS % 62.5 % (38.7-80.0); PLATELET COUNT 72 x10e3/uL (140-360); RED BLOOD COUNT 2.75 x10e6/uL (3.6-5.1); RED CELL DISTRIBUTION WIDTH 15.5 % (11.7-14.4)
[2020-02-04 05:24] LABS: ALANINE AMINOTRANSFERASE 16 IU/L (0-55); ALBUMIN 2.7 g/dL (3.5-5.0); ALKALINE PHOSPHATASE 61 IU/L (40-150); ANION GAP 8.9 mmol/L (8-16); BLOOD UREA NITROGEN 15 mg/dL (7-26); BUN/CREATININE RATIO 20 (6-25); CARBON DIOXIDE 29 mmol/L (22-29); CHLORIDE 107 mmol/L (98-107); CREATININE, SERUM 0.76 mg/dL (0.57-1.11); EST GLOMERULAR FILTRATION RATE > 60 ML/MIN (60-); GLUCOSE 95 mg/dL (74-118); MAGNESIUM 1.5 MG/DL (1.3-2.1); POTASSIUM 3.9 mmol/L (3.5-5.1); SODIUM 141 mmol/L (136-145)
--- NOTE | 2020-02-04 07:11 | NUR ---
REPORT GIVEN TO DAYSHIFT NURSE. ALERT AND ORIENTED. RESTING. NO SIGNS IV INFILTRATION. BED LOCKED AND IN LOW POSITION. CALL LIGHT WITHIN REACH.
[2020-02-04] MEDS: METOPROLOL TARTRATE 50 MG TAB PO SCH ×2 (09:00→16:32)
[2020-02-04] MEDS: FOLIC ACID 1 MG TAB PO SCH (09:22)
[2020-02-04] MEDS: FAMOTIDINE 20 MG TAB PO SCH ×2 (09:22→16:32)
--- NOTE | 2020-02-04 11:34 | Consultation ---
DATE OF CONSULTATION: 02/04/2020 Cardiac Consultation REASON FOR CONSULTATION: Atrial fibrillation. HISTORY OF PRESENT ILLNESS: This is a very delightful lady, 69-year-old, who is known with advanced severe liver cirrhosis with chronic thrombocytopenia, paroxysmal atrial fibrillation, history of asthma, depression, severe osteoporosis, and several other medical health problems. The patient came to this institution after sustaining a fall and severe injury involving multiple bruises and right raccoon eye. She was in severe pain. Workup revealed a T12 fracture. Seen by Neurosurgery and deemed she is surgically not candidate because of her severe thrombocytopenia. Her platelet counts were at 49,000. The patient had the platelet transfusion. The patient went to atrial fibrillation with fast ventricular response. Cardiac consultation is obtained. The patient was noted to have paroxysmal atrial fibrillation, supposed to be on metoprolol tartrate 50 mg twice a day, but this was placed on hold secondary to her "relative low blood pressure." In fact, it was not given for more than 24 hours. The patient's activities are very limited. She had a tendency to fall in fact does noted to have a fall. She falls frequently and she bruises very easily. She does have easy fatigability and shortness of breath even with her minimal activity. There is no angina. There is no orthopnea, no paroxysmal nocturnal dyspnea. No syncope or presyncope. REVIEW OF SYSTEMS: GENERAL: No fever, no chills. HEENT: No vision problem. No hearing problem. PULMONARY: Shortness of breath on minimal activity. No pleuritic chest pain. Occasional cough. No hemoptysis. CARDIAC: No angina. heart beating. However, the patient's activities are very limited and she does have easy fatigability and severe shortness of breath on minimal activity. GI: Constipation, abdominal discomfort, nausea. No hematemesis. No melena. : Incontinence, repeated urinary tract infection. MUSCULOSKELETAL: Severe pain, unsteady gait, "arthritis all over," very limited activity. Severe thoracic spine pain. Unable to do much activity. Very difficult for her to move because of her severe pain. NEUROLOGY: She was admitted with altered mental status, but there were no neurological deficit. HEMATOLOGY: Easy bruising and multiple bruises and multiple fall. SOCIAL HISTORY: She lives by herself. She got a dog. She takes care of her small dogs. She stopped smoking and drinking 25 years ago. HOME MEDICATION: Multiple long list including metoprolol 50 mg twice a day, Zoloft 50 mg a day, Protonix 40 mg a day, folic acid 1 mg a day, p.r.n. ALLERGIES: ERYTHROMYCIN AND PENICILLIN. PAST MEDICAL HISTORY: 1. Liver cirrhosis. 2. Chronic lung disease. 3. Depression. 4. Severe osteoporosis. 5. Multiple fall and injury. 6. Cholecystectomy. 7. Known to have splenic artery aneurysm. 8. . 9. Chronic low back pain and chronic knee pain. 10. Debility and limited activity. 11. Paroxysmal atrial fibrillation. 12. Admission currently with T12 fracture. FAMILY HISTORY: Positive for cancer several member of the family with cancer. PHYSICAL EXAMINATION: VITAL SIGNS: Height of 5 feet 5 inches, weight of 190 pounds, blood pressure 95/30, heart rate currently 70. The patient is back in normal sinus rhythm, respiratory rate of 18. HEENT: Pupils are reactive. NECK: No elevation of jugular venous pulsation. CHEST: Decreased air entry with coarse crackles, very tender on her back. HEART: PMI 5th left intercostal space. Normal first and second heart sounds. Soft tricuspid regurgitation murmur. ABDOMEN: Mild tenderness, but no rebound. Bowel sounds are present. EXTREMITIES: No peripheral edema. Able to move her extremity. NEUROLOGIC: No localized deficit, but limited activity secondary to the pain and chronic problem. Other findings right raccoon eye and several bruises all over. LABORATORY DATA: Sodium of 141, potassium 3.9, BUN of 15, and creatinine of 0.76, platelet count of only 49,000. She had 3 units of packed red cells, now 72,000. Hemoglobin of 8.5, hematocrit 26%, white cell count 3.3, total bilirubin of 1.4, total protein of 5.4, albumin only of 2.7. EKG showing sinus bradycardia, incomplete right bundle branch block. TSH of 0.49, triglycerides of 75, cholesterol of 138, HDL of 40, LDL of 83. MRI of the brain showed chronic changes with no acute changes. No hemorrhage. The MRI of spine showed T12 fracture with changes. Please refer to the report. IMPRESSION AND PLAN: 1. Admission with fall injury, T12 fracture. 2. Several bruises. 3. Repeated fall. 4. Liver cirrhosis, thrombocytopenia. 5. Chronic lung disease. 6. Debility. From a cardiac point of view, my recommendation will be only to continue metoprolol tartrate 50 mg twice a day and to get on discharge or if no surgery or no intervention to be done. She can start on aspirin only 81 mg a day with precaution. If the patient having any heartburn or any changes in stool color, then even aspirin not indicated. The patient verbalized understanding. I would put an instruction not to hold metoprolol unless if her heart rate is low. We will follow the patient's progression with you. We are going to check an echocardiogram also to evaluate left ventricular function. The patient was evaluated. Her questions are answered. MD CESAR Ramos/MODL /[id number]
--- NOTE | 2020-02-04 14:30 | NUR ---
CM SPOKE WITH PT WHO CHOSE [facility] CHOICE LETTER SIGNED BY PT AND PLACED ON CHART CLINICAL INFORMATION FAXED TO [facility] AT [phone] CONFIRMATION BASILIO'Patrick NICE WITH [facility] NOTIFIED THAT PT TO BE TRANSFERED TODAY WHEN BED APPROVED MOT INITIATED AND PLACED IN PACKET AT DESK
--- NOTE | 2020-02-04 17:06 | NUR ---
MOT: [facility] [address] [facility] [id number] [address] DARIN LAWRENCE ACCEPTING P[facility]LO [facility] MANAGER CT -NUMBER FOR REPORT [phone]
--- NOTE | 2020-02-04 17:21 | NUR ---
CALLED REPORT TO HOLGER CALDERON AT [facility] IN [place], [place] AT [phone], PATIENT TO GO TO ROOM 132.
--- NOTE | 2020-02-04 17:48 | NUR ---
PATIENT'S MENDOZA CATHETER REMOVED, 700 ML IN COLLECTION BAG, PATIENT SHOWED NO SIGNS OF DISTRESS AND EXPRESSED RELIEF AFTER MENDOZA REMOVED.
--- NOTE | 2020-02-04 22:54 | Discharge Summary ---
ADMISSION DIAGNOSES: Ambulatory dysfunction with multiple falls, severe acute T12 compression fracture, UTI present on admission, thrombocytopenia, cirrhosis, depression, hyperlipidemia, and atrial fibrillation. DISCHARGE DIAGNOSES: Ambulatory dysfunction with multiple falls, severe acute T12 compression fracture, UTI present on admission, thrombocytopenia, cirrhosis, depression, hyperlipidemia, atrial fibrillation with RVR plus rule out urinary tract infection. HISTORY: Asthma, cirrhosis, depression, hyperlipidemia, chronic lower back pain, osteoporosis, fibromyalgia/neuropathy, atrial fibrillation, and thrombocytopenia secondary to cirrhosis. SURGICAL HISTORY: , tonsillectomy, breast lumpectomy, splenic artery surgery, left ankle surgery and cholecystectomy. FAMILY HISTORY: The patient's mom and grandmother had cancer. The patient's grandmother had a stroke. SOCIAL HISTORY: Noncontributory. HOSPITAL COURSE: A 69-year-old female admitted status post multiple falls with the worse and last fall being on Sunday. She says she stood up, her legs got weak and she fell. She fell to her right arm and hit her face on the dresser. She had to call EMS to get her up. She now has excruciating pain in both of her feet, left greater than right and her lower back. On admission, right ankle x-ray was negative for fracture. Left ankle x-ray showed status post ORIF for healing distal fibular fracture, mild medial clear space widening suggestive of ligamentous injury. CT of the brain showed no acute abnormality. CT of the C-spine showed no acute abnormality. Chest x-ray showed no acute thoracic abnormality. CT of the L-spine showed probably acute mild osteoporotic compression fracture of L3 vertebral body without posterior retropulsion or canal stenosis, partially visualized severe acute postop compression fracture of T12. CT of the pelvis showed L4 vertebral body superior endplate compression fracture of indeterminate age. No displaced fractures around the pelvis. CT of the T-spine showed acute severe osteoporotic compression fractures of T12 vertebral body with 90% decreased height with posterior retropulsion and moderate canal stenosis as well as probable mild cord compression, moderate chronic compression fracture of T6, minimal chronic anterior wedging of T2 and T4. MRI of the T-spine showed again severe acute T12 compression fracture. Neurosurgery was consulted once the images were obtained. The patient's platelets dropped to 49, 2 units of platelets were ordered. Haddad virus negative, home medications were resumed. Per neurosurgery evaluation although the patient likely would need some type of fusion due to her cirrhosis and thrombocytopenia she is not a candidate for surgical treatment, even with platelet transfusion it is virtually impossible to maintain her platelet count consistently above 100,000, instead he ordered a TLSO brace and immobilization and transfer to inpatient rehab. Initially, the patient was started on IV antibiotics for presumed urine infection, but the culture came back negative, so antibiotics were stopped. At time of discharge to [facility] the patient's home medicines were resumed, minus the baclofen and trazodone. She will follow up with primary care in 1 to 2 weeks. The patient and daughter understand discharge instructions and agrees to plan. Vital signs stable, patient afebrile. Dictated by Ashley Palmer NP MD MANJULA Vann/MODL /[id number]
== END 2020-02-04 20:06 | DRG 544 ==
LOC: ER 10:18 → ERHOLD 12:51 → MED/SURG 14:54
PROVIDERS: ADMIT Internal Medicine; ATTEND Internal Medicine
PROC: 30233R1 Transfusion of Nonautologous Platelets into Peripheral Vein, Percutaneous Approach (ICD-10-PCS; principal; 2020-02-02)
DX: M80.88XA Other osteoporosis with current pathological fracture, vertebra(e), initial encounter for fracture (principal); I48.0 Paroxysmal atrial fibrillation; K74.60 Unspecified cirrhosis of liver; S00.83XA Contusion of other part of head, initial encounter; W18.39XA Other fall on same level, initial encounter; S90.01XA Contusion of right ankle, initial encounter; S90.02XA Contusion of left ankle, initial encounter; J45.909 Unspecified asthma, uncomplicated; F41.9 Anxiety disorder, unspecified; F32.9 Major depressive disorder, single episode, unspecified; D69.6 Thrombocytopenia, unspecified; M54.9 Dorsalgia, unspecified; M19.90 Unspecified osteoarthritis, unspecified site; S05.11XA Contusion of eyeball and orbital tissues, right eye, initial encounter; G62.9 Polyneuropathy, unspecified; M79.7 Fibromyalgia; Y92.019 Unspecified place in single-family (private) house as the place of occurrence of the external cause; Z87.891 Personal history of nicotine dependence; Z98.890 Other specified postprocedural states; Z91.81 History of falling; Z88.0 Allergy status to penicillin; Z88.8 Allergy status to other drugs, medicaments and biological substances; Z82.3 Family history of stroke; Z80.9 Family history of malignant neoplasm, unspecified; R53.81 Other malaise; Z11.59 Encounter for screening for other viral diseases
CPT/HCPCS: 36415; 70450; 71045; 72125; 72128; 72131; 72146; 72192; 80053; 80061; 81001; 82140; 82550; 82553; 83735; 83880; 84443; 84484; 85025; 85610; 85730; 86900; 87086; 90714; 93005; 93306; 97139; J0610; J0696; J1100; J2270; J2405; J7030; J7050; P9034; U0002

== ENCOUNTER 2020-02-29 14:25 | Emergency (ER) | payer MEDICARE, OTHER ==
[~2020-02-29] VITALS: Ht 317.5 cm; Wt 85.7 kg
[~2020-02-29 14:25] MED LIST changes: +BACLOFEN10 MG PO; +CIPRO500 MG PO; +PANTOPRAZOLE SO40 MG PO
[2020-02-29] MEDS ORDERED: SODIUM CHLORIDE 0.9% 1000ML 1,000 ML IV STA (14:49)
--- OUTSIDE RECORDS SUMMARY | 2020-02-29 14:59 | XMS REPORT | Clinical Summary ---
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
--- OUTSIDE RECORDS SUMMARY | 2020-02-29 14:59 | XMS REPORT | Continuity of Care Document ---
Author Author [facility] t Organization [facility] Address [address] [place] [address] Phone Unavailable Care Team Providers Care Tile Fitter Name Role Phone ALPHONSO OLIVARES MD PCP ALPHONSO OLIVARES Attphys Unavailable Lorena STEWART Attphys Unavailable ALPHONSO OLIVARES Admjanettes Unavailable Payers Payer Name Policy Type Policy Number Effective Date Expiration Date [employer] [id number] 2019 00:00 :00 [facility] Medicare A & B [id number] 2013 00:00:00 [facility] Problems Condition Name Condition Details Condition Category Status Onset Date Resolution Date Last Treatment Date Treating Clinician Comments Source Cholecystitis without calculus Acalculous cholecystitis Problem Active [facility] 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 UNSPECIFIED ABDOMINAL PAIN Problem Active [facility] Allergies, Adverse Reactions, Alerts Allergy Name Allergy Type Status Severity Reaction(s) Onset Date Inacti ve Date Treating Clinician Comments Source Penicillin Allergy to Substance Active Mild 2018-10-12 00:00:00 [facility] Erythromycin base Allergy to Substance Active Mild 2018-10-12 00 :00:00 [facility] Erythromycin Propensity to adverse reactions to drug Active GI Intolerance 2018-05-22 00:00:00 [place] [facility] Penicillins Propensity to adverse reactions to drug Active Rash 2018-05-22 00:00:00 [place] [facility] Penicillins DA Active SV 2016-04-12 00:00:00 [facility] Macrolide Antibiotics DA Active U 2016-04-12 00:00:00 [facility] erythromycin base DA Active DC 2016-04-12 00:00:00 [facility] azithromycin DA Active DC 2016-04-12 00:00:00 [facility] Family History Family Member Diagnosis Comments Start Date Stop Date Source Natural mother Colon cancer [facility] Natural mother Ovarian cancer [place] [facility] Social History Social Habit Start Date Stop Date Quantity Comments Source History SDOH Alcohol Std Drinks [place] [facility] History SDOH Alcohol Binge [place] [facility] Sex Assigned At [facility] Alcohol intake 2018-05-22 00:00:00 2018-05-22 00:00:00 Current non-drinker of alcohol (finding) [place] [facility] History SDOH Alcohol Frequency 2018-05-22 00:00:00 2018-05-22 00:00:0 0 1 [place] [facility] Tobacco Comment 2018-05-22 00:00:00 2018-05-22 00:00:00 romeo 2011 [facility] Smoking Status Start Date Stop Date Source Former smoker 2018-05-22 00:00:00 2018-05-22 00:00:00 [facility] Medications Ordered Medication Name Filled Medication Name Start Date Stop Da te Current Medication? Ordering Clinician Indication Dosage Frequency Signature (SIG) Comments Components Source Apixaban (Eliquis) 5 Mg Tablet Apixaban (Eliquis) 5 Mg Table t 2019-09-11 00:00:00 Yes Ashley Palmer [employer] 5 Twice A Day [facility] Metoprolol Tartrate 50 Mg Tablet Metoprolol Tartrate 50 Mg T ablet 2019-09-11 00:00:00 Yes Ashley Palmer [employer] 50 Every 6 Hours [facility] Pantoprazole Sod (Protonix) 40 Mg/Ml Susp Pantoprazole Sod (Protonix) 40 Mg/Ml Susp 2019-09-11 00:00:00 Yes Ashley M Spencer [employer] 40 Before Breakfast [facility] Rosuvastatin Calcium 10 Mg Tab Rosuvastatin Calcium 10 Mg Ta b 2019-09-11 00:00:00 Yes Ashley M Hubertus [employer] 10 Bedtime [facility] Ascorbic Acid 500 Mg Tablet Ascorbic Acid 500 Mg Tablet 2018-10-18 00:00:00 Yes Ashley M Spencer [employer] 500 Twice A Day [facility] Folic Acid 1 Mg Tablet Folic Acid 1 Mg Tablet 2018-10-18 00:00:00 Yes Ashley M Hubertus [employer] 1 Daily [facility] Metoprolol Tartrate (Lopressor) 25 Mg Tab, 25 Mg Oral Metoprolol Tartrate (Lopressor) 25 Mg Tab, 25 Mg Oral 2018-10-18 00:00:00 2019-09-11 00:00:00 No Ashley M Spencer [employer] 25 Every 8 Hours [facility] LYRICA 50 mg capsule 2018-05-08 00:00:00 Yes TK 1 C PO BID FOR PAIN [place] [facility] sertraline (ZOLOFT) 100 MG tablet 2018-05-08 00:00:00 Yes TK 1 T PO D FOR MOOD [facility] traZODone (DESYREL) 150 MG tablet 2018-04-01 00:00:00 Yes 150mg QD Take 150 mg by mouth nightly as needed. for sleep [facility] Eye Drops Eye Drops Yes 1 Daily for Dry Eyes [facility] Sertraline Hcl (Zoloft) 50 Mg Tablet Sertraline Hcl (Zoloft) 50 Mg Tablet Yes 50 Bedtime [facility] Tramadol Hcl (Ultram 50MG*) 50 Mg Tab Tramadol Hcl (Ultram 50MG*) 5 0 Mg Tab Yes 50 Every 8 Hours [facility] Trazodone Hcl 50 Mg Tablet Trazodone Hcl 50 Mg Tablet Yes 75 Bedtime as needed for Insomnia [facility] Trolamine Salicylate (Aspercreme 10% Cream) 35.4 Gm Cr Trolamine Salicylate (Aspercreme 10% Cream) 35.4 Gm Cr Yes for Neuropathy [facility] Flunase , 1 Sprays Nasal Flunase , 1 Sprays Nasal 2019-09-11 00: 00:00 No 1 for Allergies [facility] Pregabalin (Lyrica) 50 Mg Cap, 50 Mg Oral Pregabalin ( Lyrica) 50 Mg Cap, 50 Mg Oral 2019-09-07 00:00:00 No 50 Bedtime [facility] Pregabalin (Lyrica) 50 Mg Cap, 50 Mg Oral Pregabalin ( Lyrica) 50 Mg Cap, 50 Mg Oral 2019-09-07 00:00:00 No 50 Daily as needed fo r Neuropathy [facility] Procedures Procedure Date / Time Performed Performing Clinician [facility] e Magnetic resonance angiography of neck without contrast 2019 00:00:00 DEVEN RAMOS [facility] Magnetic resonance imaging of brain without contrast 2019-08 00:00:00 DEVEN RAMOS [facility] Magnetic resonance angiography of head without contrast 2019 00:00:00 DEVEN RAMOS [facility] Computed tomography of brain without radiopaque contrast 00:00:00 PADMINI GOLDSMITH [facility] Computed tomography of abdomen and pelvis with contrast 2019 00:00:00 PADMINI GOLDSMITH [facility] Plan of Care Planned Activity Planned Date Details Comments Source Future Scheduled Test 2020-03-18 00:00:00 INFLUENZA VACCINE [code = INFLUENZA VACCINE] [facility] Future Scheduled Test 2013 00:00:00 65+ PNEUMOCOCCAL V ACCINE (1 of 2 - PCV13) [code = 65+ PNEUMOCOCCAL VACCINE (1 of 2 - PCV13)] [facility] Future Scheduled Test 1998 00:00:00 BREAST CANCER SCRE ENING [code = BREAST CANCER SCREENING] [facility] Future Scheduled Test 1998 00:00:00 COLONOSCOPY SCREEN ING [code = COLONOSCOPY SCREENING] [facility] Scheduled Test 1998 00:00:00 SHINGLES VACCINES (#1) [code = SHINGLES VACCINES (#1)] [place] [facility] Encounters Start Date/Time End Date/Time Encounter Type Admission Type Attendi [facility] Facility Care Department Encounter ID Source 2019-09-07 18:41:00 2019-09-11 17:07:00 Discharged Inpatient [address] [facility] [id number] [facility] 2018-10-13 02:24:00 2018-10-18 13:19:00 Discharged Inpatient [address] [facility] [id number] [facility] Results Test Description Test Time Test Comments Results Result Comments Source MRI SPINE THORACIC WO 2020-02-01 15:47:00 [facility] [address] [address] Patient Name: TORY ANGLIN MR #: [id number] : 1950 Age/Sex: 69/F Req #: [id number] Adm Physician: ALPHONSO OLIVARES MD Ordered by: PADMINI GOLDSMITH MD Report #: [id number] Location: MED/SURG Room/Bed: [facility] Procedure: [id number] MRI/MRI SPINE THORACIC WO Exam Date: Exam Time: REPORT STATUS: Signed EXAMINATION: MRI of the thoracic spine without contrast HISTORY: 69-year-old female status post multiple falls, severe back pain and severe compression fracture of T12. COMPARISON: Thoracic spine CT performed earlier on the same day TECHNIQUE: Sagittal T1 without contrast, T2, and STIR; axial T2. Coronal T2. FINDINGS: Curvature: Mild increased upper thoracic and lower thoracic kyphosis at the level of the T6 and T12 compression fractures. Vertebrae: * Acute severe osteoporotic compression fracture of the T12 vertebral body, with decreased vertebral body height by approximately 90% (vertebral plan), diffuse bone marrow edema is seen in the remaining vertebral body, there is associated approximately 7 mm dorsal retropulsion of the posterior vertebral body within the spinal canal, which results in severe canal stenoses, it is abutting the ventral spinal cord with minimal compression, and abnormal signal within the cord at this time. Bone marrow edema is extending to the right T12 pedicle. * Moderate chronic compression fracture of the T6 vertebral body, decreased vertebral body height by approximately 60 %, anterior wedging, minimal inferior endplate posterior retropulsion without associated canal stenosis. * Minimal chronic anterior wedging of the T2 and T4 vertebral bodies without posterior retropulsion or spinal spinal stenosis. * Diffuse heterogeneous bone marrow signal intensity related to osteoporosis. Discs: Mild disc bulge at T5-T6 and T6-T7 as well as T11-T12 and T12-L1 results in mild foraminal narrowing. Spinal canal: No mass or abnormal blood vessels. Spinal co rd: No abnormal signal intensity Foramina: Mild foraminal narrowing at T11-T12 and T12-L1 Paraspinal soft tissues: Unremarkable. Proximal ribs: No abnormal signal intensity. IMPRESSION: Overall suboptimal evaluation due to motion artifact. 1. Grossly unchanged severe acute osteoporotic compression fracture of the T12 vertebral body with posterior retropulsion results in severe spinal canal stenosis and mild cord compression compared to CT performed earlier on the same date. No abnormal signal within the cord at this time. 2. Moderate chronic compression fracture of T6. Minimal chronic compression fracture of T2 and T4 as detailed above. Signed by: Dr. Elyse Gibson M.D. on 02/01/2020 3:57 PM Dictated By: ELYSE GIBSON MD [id number] Transcribed By: MIKE on 02/01/20 9592 COPY TO: PADMINI GOLDSMITH MD CT PELVIS WO 2020-02-01 12:29:[address] [address] Patient Name: TORY ANGLIN MR #: [id number] : 1950 Age/Sex: 69/F Req #: [id number] Adm Physician: Ordered by: PADMINI GOLDSMITH MD Report #: [id number] Location: Room/Bed: Procedure: [id number] CT/CT PELVIS WO Exam Date: 02/01/20 Exam [...] MD CT CERVICAL SPINE WO 2020-02-01 11:53:00 [address] [address] Patient Name: TORY ANGLIN MR #: [id number] : 1950 Age/Sex: 69/F Req #: [id number] Adm Physician: Ordered by: PADMINI GOLDSMITH MD Report #: [id number] Location: ER Room/Bed: Procedure: [id number] CT/CT CERVICAL SPINE WO Exam Date: 02/01/20 [...] 11:57 AM Dictated By: ELYSE GIBSON MD 56 Transcribed By: MIKE on 02/01/201156 COPY TO: PADMINI GOLDSMITH MD CT BRAIN WO 2020-02-01 11:49:00 [address] [address] Patient Name: TORY ANGLIN MR #: [id number] : 1950 Age/Sex: 69/F Req #: [id number] Adm Physician: Ordered by: PADMINI GOLDSMITH MD Report #: [id number] Location: ER Room/Bed: Procedure: [id number] CT/CT BRAIN WO Exam Date: 02/01/20 Exam [...] 11:52 AM Dictated By: ELYSE GIBSON MD 115 Transcribed By: MIKE on 02/01/20 115 COPY TO: PADMINI GOLDSMITH MD CT LUMBAR SPINE WO 2020-02-01 11:39:00 [address] [address] Patient Name: TORY ANGLIN MR #: [id number] : 1950 Age/Sex: 69/F Req #: [id number] Adm Physician: Ordered by: PADMINI GOLDSMITH MD Report #: [id number] Location: ER Room/Bed: Procedure: [id number] CT/CT LUMBAR SPINE WO Exam Date: 02/01/20 [...] ANKLE 3 + VIEWS RIGHT 2020-02-01 11:37:00 [address] [address] Patient Name: TORY ANGLIN MR #: [id number] : 1950 Age/Sex: 69/F Req #: [id number] Adm Physician: Ordered by: PADMINI GOLDSMITH MD Report #: [id number] Location: Room/Bed: Procedure: DX/ANKLE 3 + VIEWS RIGHT Exam Date: [...] AM Dictated By: JOSE G ROWELL MD 1138 Transcribed By: MIKE on 02/01/20 1138 COPY TO: PADMINI GOLDSMITH MD ANKLE 3+ VIEWS LEFT 2020-02-01 11:33:00 [address] [address] Patient Name: TORY ANGLIN MR #: [id number] : 1950 Age/Sex: 69/F Req #: [id number] Adm Physician: Ordered by: PADMINI GOLDSMITH MD Report #: [id number] Location: ER Room/Bed: Procedure: DX/ANKLE 3+ VIEWS LEFT Exam Date: 02/01/20 [...] MD 113 Transcribed By: MIKE on 02/01/20 1136 COPY TO: PADMINI GOLDSMITH MD CHEST SINGLE (PORTABLE) 2020-02-01 11:31:00 [address] [address] Patient Name: TORY ANGLIN MR #: [id number] : 1950 Age/Sex: 69/F Req #: [id number] Adm Physician: Ordered by: PADMINI GOLDSMITH MD Report #: [id number] Location: ER Room/Bed: Procedure: [id number] DX/CHEST SINGLE (PORTABLE) Exam Date: 02/01/20 Exam [...] No acute thoracic radiographic abnormality. Signed by: Jose G Rowell MD on 02/01/2020 11:32 AM Dictated By: JOSE G ROWELL MD 31 Transcribed By: MIKE on 02/01/201131 COPY TO: PADMINI GOLDSMITH MD CT THORACIC SPINE WO 2020-02-01 11:16:00 [id number] [address] Patient Name: TORY ANGLIN MR #: [id number] : 1950 Age/Sex: 69/F Req #: [id number] Adm Physician: Ordered by: PADMINI GOLDSMITH MD Report #: [id number] Location: ER Room/Bed: Procedure: [id number] CT/CT THORACIC SPINE WO Exam Date: 02/01/20 [...] MD 113 Transcribed By: MIKE on 02/01/20 1139 COPY TO: PADMINI GOLDSMITH MD Blood Culture 2019-09-12 16:43:00 Test Item Blood Culture (test code = 09066887) NO GROWTH AFTER 5 DAYS, FINAL REPORT [facility] Center[facility]onavirus (PCR)2019-09-12 15:25:00* Test Item Value Reference Range [...] to perform high complexity tests.Specimen sent to [facility] and testing performed by [facility] [address] [place] [address] [phone] Director: Dank Avila M.D.CLIA # 4 [id number] Memorial Hospitalodium Szvaa9480-89-79 06:50:00 * Test Item Value Reference Range Interpretation Comments Sodium Level (test code = 2951-2) 138 136-145 [facility] CenterPotassium Xpven8031-55-40 06:50:00* Test Item Value Reference Range Interpretation Comments Potassium Level (test code = 2823-3) 3.9 3.5-5.1 [facility] CenterChloride Qyddd1314-69-07 06:50:00* Test Item Value Reference Range Interpretation Comments Chloride Level (test code = 2075-0) 103 98-107 [facility] CenterCarbon Dioxide Cscll0477-73-41 06:50:00* Test Item Value Reference Range Interpretation Comments Carbon Dioxide Level (test code = 2028-9) 30 22-29 H [facility] CenterAnion Ucr4280-12-89 06:50:00* Test Item Value Reference Range Interpretation Comments Anion Gap (test code = 03453-7) 8.9 8-16 [facility] CenterBlood Urea Bhsmgxmc6606-99-53 06:50:00* Test Item Value Reference Range Interpretation Comments Blood Urea Nitrogen (test code = 3094-0) 8 7-26 [facility] CenterCreatinine2020-03-26 06:50:00* Test Item Value Reference Range Interpretation Comments Creatinine (test code = 2160-0) 0.69 0.57-1.11 [facility] CenterBUN/Creatinine Yoclx3855-57-14 06:50:00* Test Item Value Reference Range Interpretation Comments BUN/Creatinine Ratio (test code = 3097-3) 12 6- [facility] CenterEstimat Glomerular Filtration Rate 2019-09-11 06:50:00* Test Item Value Reference Range Interpretation Comments Estimat Glomerular Filtration Rate (test code = 427754649) > 60 >60 Ranges were taken from the National Kidney Disease Education Program and the [facility] Kidney Foundation literature.Reference ranges:60 or greater: Xcschn45-28 ( for 3 consecutive months): Chronic kidney disease 15 or less: Kidney failureCHRISTUS [facility] – Medical CenterGlucose Naimn1635-72-19 06:50:00* Test Item Value Reference Range Interpretation Comments Glucose Level (test code = NCZ7162) 87 74-118 [facility] CenterCalcium Cfrdn6623-11-82 06:50:00* Test Item Value Reference Range Interpretation Comments Calcium Level (test code = 24229-9) 8.1 8.4-10.2 L [facility] CenterMagnesium Uevgj7042-67-00 06:50:00* Test Item Value Reference Range Interpretation Comments Magnesium Level (test code = 85040-3) 1.7 1.3-2.1 [facility] CenterWhite Blood Gbyej2560-55-74 06:29:00* Test Item Value Reference Range Interpretation Comments White Blood Count (test code = 6690-2) 3.42 4.8-10.8 L [facility] CenterRed Blood Pcrtt5405-03-85 06:29:00* Test Item Value Reference Range Interpretation Comments Red Blood Count (test code = 789-8) 3.16 3.6-5.1 L [facility] CenterHemoglobin2020-03-26 06:29:00* Test Item Value Reference Range Interpretation Comments Hemoglobin (test code = 14180-8) 9.4 12.0-16.0 L [facility] CenterHematocrit2020-03-26 06:29:00* Test Item Value Reference Range Interpretation Comments Hematocrit (test code = 4544-3) 29.3 34.2-44.1 L [facility] CenterMean Corpuscular Yzfzya8269-48-39 06:29:00* Test Item Value Reference Range Interpretation Comments Mean Corpuscular Volume (test code = 787-2) 92.7 81-99 [facility] CenterMean Corpuscular Haeoeuykkk9376-52-24 06:29:00* Test Item Value Reference Range Interpretation Comments Mean Corpuscular Hemoglobin (test code = 785-6) 29.7 28-32 [facility] CenterMean Corpuscular Hemoglobin Concent 2019-09-11 06:29:00* Test Item Value Reference Range Interpretation Comments Mean Corpuscular Hemoglobin Concent (test code = 786-4) 32.1 31-35 [facility] CenterRed Cell Distribution Qljax3588-56-71 06:29:00* Test Item Value Reference Range Interpretation Comments Red Cell Distribution Width (test code = 31825-3) 15.1 11.7 -14.4 H [facility] CenterPlatelet Rmdgw4510-03-97 06:29:00* Test Item Value Reference Range Interpretation Comments Platelet Count (test code = 777-3) 70 140-360 L [facility] CenterNeutrophils (%) (Auto)2019-09-11 06:29:00 * Test Item Value Reference Range Interpretation Comments Neutrophils (%) (Auto) (test code = 23724-5) 50.9 38.7-80.0 [facility] CenterLymphocytes (%) (Auto)2019-09-11 06:29:00 * Test Item Value Reference Range Interpretation Comments Lymphocytes (%) (Auto) (test code = 736-9) 29.8 18.0-39.1 [facility] CenterMonocytes (%) (Auto)2019-09-11 06:29:00* Test Item Value Reference Range Interpretation Comments Monocytes (%) (Auto) (test code = 5905-5) 11.7 4.4-11.3 H [facility] CenterEosinophils (%) (Auto)2019-09-11 06:29:00 * Test Item Value Reference Range Interpretation Comments Eosinophils (%) (Auto) (test code = 713-8) 6.1 0.0-6.0 H [facility] CenterBasophils (%) (Auto)2019-09-11 06:29:00* Test Item Value Reference Range Interpretation Comments Basophils (%) (Auto) (test code = 706-2) 0.3 0.0-1.0 [facility] CenterIM GRANULOCYTES %2019-09-11 06:29:00* Test Item Value Reference Range Interpretation Comments IM GRANULOCYTES % (test code = IM GRANULOCYTES %) 1.2 0.0- 1.0 H [facility] CenterNeutrophils # (Auto)2019-09-11 06:29:00* Test Item Value Reference Range Interpretation Comments Neutrophils # (Auto) (test code = 751-8) 1.7 2.1-6.9 L [facility] CenterLymphocytes # (Auto)2019-09-11 06:29:00* Test Item Value Reference Range Interpretation Comments Lymphocytes # (Auto) (test code = 99744-1) 1.0 1.0-3.2 [facility] CenterMonocytes # (Auto)2019-09-11 06:29:00* Test Item Value Reference Range Interpretation Comments Monocytes # (Auto) (test code = 742-7) 0.4 0.2-0.8 [facility] CenterEosinophils # (Auto)2019-09-11 06:29:00* Test Item Value Reference Range Interpretation Comments Eosinophils # (Auto) (test code = 711-2) 0.2 0.0-0.4 [facility] CenterBasophils # (Auto)2019-09-11 06:29:00* Test Item Value Reference Range Interpretation Comments Basophils # (Auto) (test code = 704-7) 0.0 0.0-0.1 [facility] CenterAbsolute Immature Granulocyte (auto 2019-09-11 06:29:00* Test Item Value Reference Range Interpretation Comments Absolute Immature Granulocyte (auto (india t code = Absolute Immature Granulocyte (auto) 0.04 0-0.1 [facility] CenterTotal Xllgekiey2534-37-48 06:21:00* Test Item Value Reference Range Interpretation Comments Total Bilirubin (test code = 1975-2) 2.5 0.2-1.2 H [facility] CenterAspartate Amino Transf (AST/SGOT) 2019-09-10 06:21:00* Test Item Value Reference Range Interpretation Comments Aspartate Amino Transf (AST/SGOT) (test code = Aspartate Amino Transf (AST/SGOT)) 63 5-34 H [facility] CenterAlanine Aminotransferase (ALT/SGPT) 2019-09-10 06:21:00* Test Item Value Reference Range Interpretation Comments Alanine Aminotransferase (ALT/SGPT) (test code = 1742-6) 30 0-55 [facility] CenterTotal Jrxdfyc9532-91-88 06:21:00* Test Item Value Reference Range Interpretation Comments Total Protein (test code = 2885-2) 6.3 6.5-8.1 L [facility] CenterAlbumin2020-03-25 06:21:00* Test Item Value Reference Range Interpretation Comments Albumin (test code = 1751-7) 3.5 3.5-5.0 [facility] CenterGlobulin2020-03-25 06:21:00* Test Item Value Reference Range Interpretation Comments Globulin (test code = 69920-3) 2.8 2.3-3.5 [facility] CenterAlbumin/Globulin Twqly8621-37-21 06:21:00 * Test Item Value Reference Range Interpretation Comments Albumin/Globulin Ratio (test code = 1759-0) 1.3 0.8-2.0 [facility] CenterAlkaline Zepavahkgtk4635-58-31 06:21:00* Test Item Value Reference Range Interpretation Comments Alkaline Phosphatase (test code = 6768-6) 63 40-150 [facility] CenterCreatine Bcqhhx8998-00-03 06:21:00* Test Item Value Reference Range Interpretation Comments Creatine Kinase (test code = 2157-6) 356 29-168 H [facility] CenterCreatine Kinase [id number] 06:21:00* Test Item Value Reference Range Interpretation Comments Creatine Kinase MB (test code = 65280-9) 13.20 0-5.0 H [facility] CenterTroponin A8986-11-07 06:21:00* Test Item Value Reference Range Interpretation Comments Troponin I (test code = DYR3734) < 0.001 0-0.300 [facility] CenterMRA HEAD SG3810-75-25 16:58:00 [address] [place] [address] Patient Name: TORY ANGLIN MR #: [id number] : 1950 Age/Sex: 69/F Req #: [id number] Adm Physician: ALPHONSO OLIVARES MD Ordered by: DEVEN RAMOS MD Report #: [id number] Location: MED/SURG Room/Bed: [facility] Procedure: [id number] MRI /MRA HEAD WO Exam Date: Exam Time: REPORT STATUS: Signed Veins: Brain MRI, neck MRA and intracranial MRAs without IV contrast History: Altered mental status Comparison studies: Head CT 09/06/2018 Technique: Brain: Axial DWI, 3-D T1, axial T2 FLAIR and axial T2*GRE.. Neck MRA: Axial 2-D yvkh-kw-rcfgxz with 3-D MIP reformats. Intracranial MRA: Axial 3-D bxxy-nc-bxdtka with 3-D MIP re formats. Findings: All [...] in the neck and grossl y patent [place] without gross flow-limiting stenosis. Signed by : Dr. Danielle Hicks M.D. on 09/09/2019 5:17 PM Dictated By: DANIELLE BENJAMIN MD 16 Transcribe d By: MIKE on 09/09/191716 COPY TO: DEVEN RAMOS MD MRA NECK [id number] 16:58:00 [facility] [address] [address] Patient Name: TORY ANGLIN MR #: [id number] : 1950 Age/Sex: 69/F Req #: [id number] Adm Physician: ALPHONSO OLIVARES MD Ordered by: DEVEN RAMOS MD Report #: [id number] Location: MED/SURG Room/Bed: [facility] Procedure: [id number] MRI /MRA NECK WO Exam Date: Exam Time: REPORT STATUS: Signed Veins: Brain MRI, neck MRA and intracranial MRAs without IV contrast History: Altered mental status Comparison studies: Head CT 09/06/2018 Technique: Brain: Axial DWI, 3-D T1, axial T2 FLAIR and axial T2*GRE.. Neck MRA: Axial 2-D cwup-yw-mhnksf with 3-D MIP reformats. Intracranial MRA: Axial 3-D vxqz-np-vetvlf with 3-D MIP re formats. Findings: All [...] in the neck and grossl y patent [place] without gross flow-limiting stenosis. Signed by : Dr. Danielle Hicks M.D. on 09/09/2019 5:17 PM Dictated By: DANIELLE BENJAMIN MD 16 Transcribe d By: MIKE on 09/09/191716 COPY TO: DEVEN RAMOS MD MRI BRAIN [id number] 16:58:00 [address] [address] Patient Name: TORY ANGLIN MR #: [id number] : 1950 Age/Sex: 69/F Req #: [id number] Adm Physician: ALPHONSO OLIVARES MD Ordered by: DEVEN RAMOS MD Report #: [id number] Location: MED/SURG Room/Bed: 101-1 Procedure: [id number] MRI /MRI BRAIN WO Exam Date: Exam Time: REPORT STATUS: Signed Veins: Brain MRI, neck M RA and intracranial MRAs without IV contrast History: Altered mental status Comparison studies: Head CT 09/06/2018 Technique: Brain: Axial DWI, 3-D T1, axial T2 FLAIR and axial T2*GRE.. Neck MRA: Axial 2-D tmkm-ht-hprdvc with 3-D MIP reformats. Intracranial MRA: Axial 3-D mqsl-hk-kyxfrc with 3-D MIP r eformats. Findings: All [...] in the neck and gross ly patent [place] without gross flow-limiting stenosis. Signed b y: Dr. Danielle Hicks M.D. on 09/09/2019 5:17 PM Dictated By: DANIELLE NEFF MD 16 Transcrib ed By: MIKE on 09/09/191716 COPY TO: DEVEN RAMOS MD Blood Eswajut6207-96-44 13:51:00* Test Item Value Reference Range Interpretation Comments Blood Culture (test code = 600-7) No Result Data Provided [facility] CenterPhosphorus Tperl8098-04-23 10:32:00* Test Item Value Reference Range Interpretation Comments Phosphorus Level (test code = ADJ1549) 2.5 2.3-4.7 [facility] CenterTriglycerides Mafbs5785-77-72 06:23:00* Test Item Value Reference Range Interpretation Comments Triglycerides Level (test code = 2571-8) 110 0-149 [facility] CenterCholesterol Tbzdm3910-40-61 06:23:00* Test Item Value Reference Range Interpretation Comments Cholesterol Level (test code = 2093-3) 138 0-199 Less than 200 mg/dL Low Ffbv295 - 239 mg/dL Borderline Yrji883 m g/dl and greater High Risk [facility] CenterLDL Tmnvblpbymg4751-16-37 06:23:00* Test Item Value Reference Range Interpretation Comments LDL Cholesterol (test code = 2089-1) 72 60-130 [facility] CenterHDL Efsrtihvbrc1336-93-00 06:23:00* Test Item Value Reference Range Interpretation Comments HDL Cholesterol (test code = 2085-9) 44 40-60 [facility] CenterCholesterol/HDL Ajrzl1540-45-53 06:23:00 * Test Item Value Reference Range Interpretation Comments Cholesterol/HDL Ratio (test code = 9830-1) 3.1 3.0-3.6 [facility] CenterAmmonia2020-03-23 05:31:00* Test Item Value Reference Range Interpretation Comments Ammonia (test code = 07992-9) 66 31-123 [facility] CenterCT ABDOMEN/PELVIS [id number] 20:18:00 [address] [place] [address] Patient Name: TORY ANGLIN MR #: [id number] : 1950 Age/Sex: 69/F Req #: [id number] Adm Physician: ALPHONSO OLIVARES MD Ordered by: PADMINI GOLDSMITH MD Report #: [id number] Location: [facility] Room/Bed: [place] [address] Procedure: [id number] CT/CT ABDOMEN/PELVIS W Exam Date: 09/07/19 Exam [...] 32 COPY TO: JOSE GOLDSMITH MD Amylase Fadnf3662-47-18 19:47:00* Test Item Value Reference Range Interpretation Comments Amylase Level (test code = 1798-8) 22 25-125 L [facility] CenterLipase2020-03-22 19:47:00* Test Item Value Reference Range Interpretation Comments Lipase (test code = 3040-3) 15 8 [facility] CenterCHEST SINGLE (PORTABLE)2019-09-07 17:52:00 [facility] [address] [place] [address] Patient Name: TORY ANGLIN MR #: [id number] : 1950 Age/Sex: 69/F Req #: [id number] Adm Physician: Ordered by: PADMINI GOLDSMITH MD Report #: [id number] Location: ER Room/Bed: Procedure: [id number] DX/LEILANI ST SINGLE (PORTABLE) Exam Date: 09/07/19 Exam Time: 1730 REPORT STATUS: Signed [place]: Single AP [...] COPY TO: PADMINI GOLDSMITH MD CT BRAIN [id number] 17:52:00 [place] [id number] Patient Name: TORY ANGLIN MR #: [id number] : 1950 Age/Sex: 69/F Req #: [id number] Adm Physician: Ordered by: PADMINI GOLDSMITH MD Report #: [id number] Location: ER Room/Bed: Procedure: [id number] CT/CT BRAIN WO Exam Date: 09/07/19 Exam Time: 1730 REPORT STATUS: Signed History: Altered mental status [...] 09/06 COPY TO: PADMINI GOLDSMITH MD Urine Rrsgy7394-56-64 17:32:00* Test Item Value Reference Range Interpretation Comments Urine Color (test code = 5778-6) YELLOW YELLOW [facility] CenterUrine Fbzfyit6876-61-81 17:32:00* Test Item Value Reference Range Interpretation Comments Urine Clarity (test code = 64134-5) CLEAR CLEAR [facility] CenterUrine Specific Abbfrdw5198-16-29 17:32:00 * Test Item Value Reference Range Interpretation Comments Urine Specific [place] (test code = 5811-5) >=1.030 1.010-1.02 5 [facility] CenterUrine xV5973-92-29 17:32:00* Test Item Value Reference Range Interpretation Comments Urine pH (test code = 21911-2) 8 5-7 [facility] Medical CenterUrine Leukocyte Bmxnzgef9949-99-73 17:32:00* Test Item Value Reference Range Interpretation Comments Urine Leukocyte Esterase (test code = 5799-2) NEGATIVE NEGATIVE [facility] Bdwlkho8821-91-15 17:32:00* Test Item Value Reference Range Interpretation Comments Urine Nitrite (test code = 42256-3) NEGATIVE NEGATIVE [facility] CenterUrine Nszqtgt2188-55-33 17:32:00* Test Item Value Reference Range Interpretation Comments Urine Protein (test code = 5804-0) NEGATIVE NEGATIVE [facility] CenterUrine Glucose (UA)2019-09-07 17:32:00* Test Item Value Reference Range Interpretation Comments Urine Glucose (UA) (test code = 2349-9) NEGATIVE NEGATIVE [facility] CenterUrine Hzelxky6192-93-61 17:32:00* Test Item Value Reference Range Interpretation Comments Urine Ketones (test code = 21130-1) TRACE NEGATIVE H [facility] CenterUrine Ndsmjnsctgim8436-84-08 17:32:00* Test Item Value Reference Range Interpretation Comments Urine Urobilinogen (test code = 07910-5) 2.0 0.2-1 H [facility] CenterUrine Ndwcwldvh3714-02-36 17:32:00* Test Item Value Reference Range Interpretation Comments Urine Bilirubin (test code = 1978-6) NEGATIVE NEGATIVE [facility] CenterUrine Rbvqb0185-28-80 17:32:00* Test Item Value Reference Range Interpretation Comments Urine Blood (test code = 91212-6) NEGATIVE NEGATIVE [facility] CenterUrine DCG7351-40-47 17:32:00* Test Item Value Reference Range Interpretation Comments Urine WBC (test code = 5821-4) 0-5 0-5 [facility] CenterUrine OXX0334-48-80 17:32:00* Test Item Value Reference Range Interpretation Comments Urine RBC (test code = 16956-8) 0-5 0-5 [facility] CenterUrine Rkmezepa1548-16-56 17:32:00* Test Item Value Reference Range Interpretation Comments Urine Bacteria (test code = 31216-0) RARE NONE [facility] CenterUrine Epithelial Bhzfb0766-94-09 17:32:00 * Test Item Value Reference Range Interpretation Comments Urine Epithelial Cells (test code = 65490-2) FEW NONE [facility] CenterB-Type Natriuretic Hawgjwn2936-51-41 17:21:00* Test Item Value Reference Range Interpretation Comments B-Type Natriuretic Peptide (test code = 11933-5) 217.4 0-100 H [facility] CenterProthrombin Krks3318-32-17 17:10:00* Test Item Value Reference Range Interpretation Comments Prothrombin Time (test code = 5902-2) 16.6 11.9-14.5 H [facility] CenterProthromb Time International Ratio 2019-09-07 17:10:00* Test Item Value Reference Range Interpretation Comments Prothromb Time International Ratio (test code = 6301-6) 1.26 Oral Anticoagulant Therapy INR Values:1. Low Intensity Therapy 1.5 - 2.02 . Moderate Intensity Therapy 2.0 - 3.03. High Intensity Therapy(1) 2.5 - 3. 54. High Intensity Therapy(2) 3.0 - 4.05. Panic Value INR > 5.0 [facility] CenterActivated Partial Thromboplast Time 2019-09-07 17:10:00* Test Item Value Reference Range Interpretation Comments Activated Partial Thromboplast Time (test code = 73673-0) 32.1 23.8-35.5 [facility] DIGITAL 2019-04-29 10:00:23 - SCR MAMM BILATERAL KIRIT CAD DIGITALBILATERAL DIGITAL SCREENING MAMMOGRAM 3D/2D WITH CAD: 04/04/2019CLINICAL: Asymptomatic. Digital breast tomosynthesis was performed in addition to routine CC and MLO views. Current mammographic images were evaluated by either a [employer] Image[employer]er CAD (computer aided detection system). Comparison is made to exams dated 02/20/2018 mammogram, 02/08/2016 mammogram, and 12/17/2015 mammogram - [facility]. There are scattered fibroglandular tissues in both [...] 04/29/2019 10:00:23Imaging Technologist: Tory Fong MM, [facility] Mammographyletter sent: BIRADS 1-2 Normal Mammogram BI-RADS: 2 BenignSodium Nyoen5598-74-21 07:22:00* Test Item Value Reference Range Interpretation Comments Sodium Level (test code = 2951-2) 138 136-145 [facility] CenterPotassium Iantz9322-15-80 07:22:00* Test Item Value Reference Range Interpretation Comments Potassium Level (test code = 2823-3) 4.2 3.5-5.1 [facility] CenterChloride Xjsci5386-40-68 07:22:00* Test Item Value Reference Range Interpretation Comments Chloride Level (test code = 2075-0) 111 98-107 H [facility] CenterCarbon Dioxide Fmkss0591-44-77 07:22:00* Test Item Value Reference Range Interpretation Comments Carbon Dioxide Level (test code = 2028-9) 24 22-29 [facility] CenterAnion Mkp9463-22-23 07:22:00* Test Item Value Reference Range Interpretation Comments Anion Gap (test code = 14221-4) 7.2 8-16 L [facility] CenterBlood Urea Tgckecnj5525-60-92 07:22:00* Test Item Value Reference Range Interpretation Comments Blood Urea Nitrogen (test code = 3094-0) 5 7-26 L [facility] CenterCreatinine2019-05-03 07:22:00* Test Item Value Reference Range Interpretation Comments Creatinine (test code = 2160-0) 0.68 0.57-1.11 [facility] CenterBUN/Creatinine Qtdxg5830-92-69 07:22:00* Test Item Value Reference Range Interpretation Comments BUN/Creatinine Ratio (test code = 3097-3) 7 6-25 [facility] Medical CenterEstimat Glomerular Filtration Rate 2018-10-18 07:22:00* Test Item Value Reference Range Interpretation Comments Estimat Glomerular Filtration Rate (test code = 898818986) > 60 >60 Ranges were taken from the National Kidney Disease Education Program and the [facility] literature.Reference ranges:60 or greater: Vihdvh50-26 ( for 3 consecutive months): Chronic kidney disease 15 or less: Kidney failureCHRI[facility] – Medical CenterGlucose Tzlik5252-64-91 07:22:00* Test Item Value Reference Range Interpretation Comments Glucose Level (test code = YBO3320) 91 74-118 [facility] CenterCalcium Eapcg2720-27-78 07:22:00* Test Item Value Reference Range Interpretation Comments Calcium Level (test code = 99356-2) 7.6 8.4-10.2 L [facility] CenterTotal Nmfrhnweh9661-23-17 07:22:00* Test Item Value Reference Range Interpretation Comments Total Bilirubin (test code = 1975-2) 1.3 0.2-1.2 H [facility] Medical CenterAspartate Amino Transf (AST/SGOT) 2018-10-18 07:22:00* Test Item Value Reference Range Interpretation Comments Aspartate Amino Transf (AST/SGOT) (test code = Aspartate Amino Transf (AST/SGOT)) 23 5-34 [facility] Medical CenterAlanine Aminotransferase (ALT/SGPT) 2018-10-18 07:22:00* Test Item Value Reference Range Interpretation Comments Alanine Aminotransferase (ALT/SGPT) (test code = 1742-6) 13 0-55 [facility] CenterTotal Jakshog0115-71-81 07:22:00* Test Item Value Reference Range Interpretation Comments Total Protein (test code = 2885-2) 5.1 6.5-8.1 L [facility] CenterAlbumin2019-05-03 07:22:00* Test Item Value Reference Range Interpretation Comments Albumin (test code = 1751-7) 2.6 3.5-5.0 L [facility] Medical CenterGlobulin2019-05-03 07:22:00* Test Item Value Reference Range Interpretation Comments Globulin (test code = 93285-3) 2.5 2.3-3.5 [facility] CenterAlbumin/Globulin Rowsp3612-19-98 07:22:00 * Test Item Value Reference Range Interpretation Comments Albumin/Globulin Ratio (test code = 1759-0) 1.0 0.8-2.0 [facility] CenterAlkaline Qtngtftzdzw0955-10-17 07:22:00* Test Item Value Reference Range Interpretation Comments Alkaline Phosphatase (test code = 6768-6) 53 40-150 [facility] CenterVitamin B12 Urpah3259-07-65 05:44:00* Test Item Value Reference Range Interpretation Comments Vitamin B12 Level (test code = 96831-9) 353 213-816 [facility] CenterFolate2019-05-03 05:44:00* Test Item Value Reference Range Interpretation Comments Folate (test code = 2284-8) 6.0 7.0-15.4 L [facility] CenterB-Type Natriuretic Tuswfqh3537-73-00 05:19:00* Test Item Value Reference Range Interpretation Comments B-Type Natriuretic Peptide (test code = 76507-3) 361.2 0-100 H [facility] CenterFerritin2019-05-03 05:06:00* Test Item Value Reference Range Interpretation Comments Ferritin (test code = 2276-4) 100.37 4.63-204.00 [facility] CenterMagnesium Hitte4796-34-08 04:46:00* Test Item Value Reference Range Interpretation Comments Magnesium Level (test code = 58720-7) 1.8 1.3-2.1 [facility] Medical CenterIron Qhpmr8592-26-13 04:46:00* Test Item Value Reference Range Interpretation Comments Iron Level (test code = 2498-4) 115 50-170 [facility] CenterTotal Iron Binding Btoqrfdk0732-63-84 04:46:00* Test Item Value Reference Range Interpretation Comments Total Iron Binding Capacity (test code = 2500-7) 207 261-4 78 L [facility] CenterPercent Iron Wljfkwekdy6177-76-60 04:46:00* Test Item Value Reference Range Interpretation Comments Percent Iron Saturation (test code = 2502-3) 56 15-50 H [facility] CenterTransferrin2019-05-03 04:46:00* Test Item Value Reference Range Interpretation Comments Transferrin (test code = 3034-6) 148 180-382 L [facility] CenterWhite Blood Vnzye4126-86-94 04:24:00* Test Item Value Reference Range Interpretation Comments White Blood Count (test code = 6690-2) 3.10 4.8-10.8 L [facility] CenterRed Blood Ofebh4891-45-81 04:24:00* Test Item Value Reference Range Interpretation Comments Red Blood Count (test code = 789-8) 2.90 3.6-5.1 L [facility] CenterHemoglobin2019-05-03 04:24:00* Test Item Value Reference Range Interpretation Comments Hemoglobin (test code = 46512-5) 8.7 12.0-16.0 L [facility] CenterHematocrit2019-05-03 04:24:00* Test Item Value Reference Range Interpretation Comments Hematocrit (test code = 4544-3) 27.5 34.2-44.1 L [facility] CenterMean Corpuscular Mdhewi9089-99-98 04:24:00* Test Item Value Reference Range Interpretation Comments Mean Corpuscular Volume (test code = 787-2) 94.8 81-99 [facility] CenterMean Corpuscular Shbvurwbpo4554-01-93 04:24:00* Test Item Value Reference Range Interpretation Comments Mean Corpuscular Hemoglobin (test code = 785-6) 30.0 28-32 [facility] CenterMean Corpuscular Hemoglobin Concent 2018-10-18 04:24:00* Test Item Value Reference Range Interpretation Comments Mean Corpuscular Hemoglobin Concent (test code = 786-4) 31.6 31-35 [facility] CenterRed Cell Distribution Ylwis3991-90-36 04:24:00* Test Item Value Reference Range Interpretation Comments Red Cell Distribution Width (test code = 87950-3) 15.1 11.7 -14.4 H [facility] Medical CenterPlatelet Kcyjb1355-62-42 04:24:00* Test Item Value Reference Range Interpretation Comments Platelet Count (test code = 777-3) 57 140-360 L [facility] CenterNeutrophils (%) (Auto)2018-10-18 04:24:00 * Test Item Value Reference Range Interpretation Comments Neutrophils (%) (Auto) (test code = 88916-0) 59.7 38.7-80.0 [facility] CenterLymphocytes (%) (Auto)2018-10-18 04:24:00 * Test Item Value Reference Range Interpretation Comments Lymphocytes (%) (Auto) (test code = 736-9) 25.8 18.0-39.1 [facility] CenterMonocytes (%) (Auto)2018-10-18 04:24:00* Test Item Value Reference Range Interpretation Comments Monocytes (%) (Auto) (test code = 5905-5) 8.7 4.4-11.3 [facility] CenterEosinophils (%) (Auto)2018-10-18 04:24:00 * Test Item Value Reference Range Interpretation Comments Eosinophils (%) (Auto) (test code = 713-8) 4.5 0.0-6.0 [facility] CenterBasophils (%) (Auto)2018-10-18 04:24:00* Test Item Value Reference Range Interpretation Comments Basophils (%) (Auto) (test code = 706-2) 0.3 0.0-1.0 [facility] CenterIM GRANULOCYTES %2018-10-18 04:24:00* Test Item Value Reference Range Interpretation Comments IM GRANULOCYTES % (test code = IM GRANULOCYTES %) 1.0 0.0- 1.0 [facility] CenterNeutrophils # (Auto)2018-10-18 04:24:00* Test Item Value Reference Range Interpretation Comments Neutrophils # (Auto) (test code = 751-8) 1.9 2.1-6.9 L [facility] CenterLymphocytes # (Auto)2018-10-18 04:24:00* Test Item Value Reference Range Interpretation Comments Lymphocytes # (Auto) (test code = 60039-0) 0.8 1.0-3.2 L [facility] CenterMonocytes # (Auto)2018-10-18 04:24:00* Test Item Value Reference Range Interpretation Comments Monocytes # (Auto) (test code = 742-7) 0.3 0.2-0.8 [facility] CenterEosinophils # (Auto)2018-10-18 04:24:00* Test Item Value Reference Range Interpretation Comments Eosinophils # (Auto) (test code = 711-2) 0.1 0.0-0.4 [facility] CenterBasophils # (Auto)2018-10-18 04:24:00* Test Item Value Reference Range Interpretation Comments Basophils # (Auto) (test code = 704-7) 0.0 0.0-0.1 [facility] CenterAbsolute Immature Granulocyte (auto 2018-10-18 04:24:00* Test Item Value Reference Range Interpretation Comments Absolute Immature Granulocyte (auto (india t code = Absolute Immature Granulocyte (auto) 0.03 0-0.1 [facility] Medical CenterPlatelet Hsemddvf8991-97-74 07:54:00* Test Item Value Reference Range Interpretation Comments Platelet Estimate (test code = 37327-2) MARKEDLY DECREASED [facility] Medical CenterPlatelet Morphology Jsbrfbv8131-70-34 07:54:00* Test Item Value Reference Range Interpretation Comments Platelet Morphology Comment (test code = 77253-5) NORMAL [facility] CenterHypochromasia2019-05-02 07:54:00* Test Item Value Reference Range Interpretation Comments Hypochromasia (test code = 728-6) MODERATE [facility] CenterAnisocytosis2019-05-02 07:54:00* Test Item Value Reference Range Interpretation Comments Anisocytosis (test code = 702-1) SLIGHT [facility] CenterRed Cell Morphology Zkzwdqo9291-60-72 07:54:00* Test Item Value Reference Range Interpretation Comments Red Cell Morphology Comment (test code = 6742-1) NORMAL [facility] CenterDirect Vpbzuzzga1161-93-00 04:32:00* Test Item Value Reference Range Interpretation Comments Direct Bilirubin (test code = 44452-9) 0.5 0.0-0.5 [facility] CenterPhosphorus Rruyg2268-37-33 06:45:00* Test Item Value Reference Range Interpretation Comments Phosphorus Level (test code = OYP6459) 2.2 2.3-4.7 L [facility] CenterFree Rcmhcvntv9992-31-13 04:07:00* Test Item Value Reference Range Interpretation Comments Free Thyroxine (test code = 3024-7) 0.78 0.9-1.8 L [facility] Medical CenterThyroid Stimulating Hormone (TSH) 2018-10-14 04:07:00* Test Item Value Reference Range Interpretation Comments Thyroid Stimulating Hormone (TSH) (test code = 30118-2) 0.860 0.350-4.940 [facility] CenterAmylase Milwq2561-09-36 03:46:00* Test Item Value Reference Range Interpretation Comments Amylase Level (test code = 1798-8) 44 25-125 [facility] CenterLipase2019-04-29 03:46:00* Test Item Value Reference Range Interpretation Comments Lipase (test code = 3040-3) 61 8-78 [facility] CenterHemoglobin A1c Dxivmyw9089-45-95 03:40:00 * Test Item Value Reference Range Interpretation Comments Hemoglobin A1c Percent (test code = Hemoglobin A1c Percent) 4.5 4.0-7.0 [facility] CenterCT ABDOMEN/PELVIS I4065-31-14 01:07:00 [facility] [address] [address] Patient Name: TORY ANGLIN MR #: [id number] : 1950 Age/Sex: 68/F Req #: [id number] Adm Physician: Ordered by: DARIN STEWART MD Report #: [id number] Location: ER Room/Bed: Procedure: [id number] CT/CT ABDOMEN/PELVIS W Exam Date: Exam Time: [...] 10/13/18123 COPY TO: DARIN STEWART MD Prothrombin Iehw9201-49-38 23:25:00* Test Item Value Reference Range Interpretation Comments Prothrombin Time (test code = 5902-2) 13.4 11.9-14.5 [facility] CenterProthromb Time International Ratio 2018-10-12 23:25:00* Test Item Value Reference Range Interpretation Comments Prothromb Time International Ratio (test code = 6301-6) 0.97 Oral Anticoagulant Therapy INR Values:1. Low Intensity Therapy 1.5 - 2.02 . Moderate Intensity Therapy 2.0 - 3.03. High Intensity Therapy(1) 2.5 - 3. 54. High Intensity Therapy(2) 3.0 - 4.05. Panic Value INR > 5.0 [facility] CenterActivated Partial Thromboplast Time 2018-10-12 23:25:00* Test Item Value Reference Range Interpretation Comments Activated Partial Thromboplast Time (test code = 13346-1) 32.0 23.8-35.5 [facility] CenterUrine MLF1275-89-80 23:25:00* Test Item Value Reference Range Interpretation Comments Urine WBC (test code = 5821-4) 11-20 0-5 [facility] [id number] 23:25:00* Test Item Value Reference Range Interpretation Comments Urine RBC (test code = 77658-2) 0-5 0-5 [facility] [id number] 23:25:00* Test Item Value Reference Range Interpretation Comments Urine Bacteria (test code = 83304-3) MODERATE NONE [facility] Epithelial [id number] 23:25:00 * Test Item Value Reference Range Interpretation Comments Urine Epithelial Cells (test code = 51163-7) MODERATE NONE [facility] [id number] 23:20:00* Test Item Value Reference Range Interpretation Comments Urine Color (test code = 5778-6) YELLOW YELLOW [facility] [id number] 23:20:00* Test Item Value Reference Range Interpretation Comments Urine Clarity (test code = 51080-5) CLEAR CLEAR [facility] Specific [id number] 23:20:00 * Test Item Value Reference Range Interpretation Comments Urine Specific [place] (test code = 5811-5) 1.020 1.010-1.02 5 [facility] [id number] 23:20:00* Test Item Value Reference Range Interpretation Comments Urine pH (test code = 76772-3) 6.5 5-7 [facility] Leukocyte [id number] 23:20:00* Test Item Value Reference Range Interpretation Comments Urine Leukocyte Esterase (test code = 5799-2) 1+ NEGATIVE H [facility] [id number] 23:20:00* Test Item Value Reference Range Interpretation Comments Urine Nitrite (test code = 08293-4) NEGATIVE NEGATIVE [facility] [id number] 23:20:00* Test Item Value Reference Range Interpretation Comments Urine Protein (test code = 5804-0) NEGATIVE NEGATIVE [facility] Glucose ([id number] 23:20:00* Test Item Value Reference Range Interpretation Comments Urine Glucose (UA) (test code = 2349-9) NEGATIVE NEGATIVE [facility] [id number] 23:20:00* Test Item Value Reference Range Interpretation Comments Urine Ketones (test code = 64220-4) TRACE NEGATIVE H [facility] [id number] 23:20:00* Test Item Value Reference Range Interpretation Comments Urine Urobilinogen (test code = 77052-9) 0.2 0.2-1 [facility] [id number] 23:20:00* Test Item Value Reference Range Interpretation Comments Urine Bilirubin (test code = 1978-6) NEGATIVE NEGATIVE [facility] [id number] 23:20:00* Test Item Value Reference Range Interpretation Comments Urine Blood (test code = 83172-2) NEGATIVE NEGATIVE [facility] [id number] 23:15:00 [facility] [address] [place] [address] Patient Name: TORY ANGLIN MR #: [id number] : 1950 Age/Sex: 68/F Req #: [id number] Adm Physician: Ordered by: DARIN STEWART MD Report #: [id number] Location: ER Room/Bed: Procedure: [id number] US/US GALLBLADDER Exam Date: 10/12/18 Exam Time: [...]
[2020-02-29 15:13] LABS: BASOPHILS % 0.9 % (0.0-1.0); EOSINOPHILS # (AUTO) 0.3 (0.0-0.4); EOSINOPHILS % 5.9 % (0.0-6.0); HEMOGLOBIN 11.6 g/dL (12.0-16.0); LYMPHOCYTES # (AUTO) 1.3 (1.0-3.2); LYMPHOCYTES % 27.4 % (18.0-39.1); MEAN CORPUSCULAR HEMOGLOBIN 29.7 pg (28-32); MEAN CORPUSCULAR HGB CONC 31.4 g/dL (31-35); MEAN CORPUSCULAR VOLUME 94.9 fL (81-99); MONOCYTES # (AUTO) 0.5 (0.2-0.8); MONOCYTES % 11.2 % (4.4-11.3); NEUTROPHILS # (AUTO) 2.5 (2.1-6.9); NEUTROPHILS % 54.4 % (38.7-80.0); PLATELET COUNT 93 x10e3/uL (140-360); RED CELL DISTRIBUTION WIDTH 16.1 % (11.7-14.4)
[2020-02-29 15:31] LABS: INR 1.11; PROTHROMBIN TIME 14.9 seconds (11.9-14.5)
[2020-02-29 15:32] LABS: PARTIAL THROMBOPLASTIN TIME 31.2 seconds (23.8-35.5)
[2020-02-29 15:42] LABS: ALANINE AMINOTRANSFERASE 20 IU/L (0-55); ALBUMIN 3.7 g/dL (3.5-5.0); ALBUMIN/GLOBULIN RATIO 1.2 (0.8-2.0); ALKALINE PHOSPHATASE 196 IU/L (40-150); ANION GAP 16.1 mmol/L (8-16); BLOOD UREA NITROGEN 16 mg/dL (7-26); BUN/CREATININE RATIO 17 (6-25); CALCIUM 9.1 mg/dL (8.4-10.2); CARBON DIOXIDE 26 mmol/L (22-29); CHLORIDE 100 mmol/L (98-107); CREATINE KINASE 50 IU/L (29-168); CREATININE, SERUM 0.93 mg/dL (0.57-1.11); EST GLOMERULAR FILTRATION RATE 59 ML/MIN (60-); GLUCOSE 88 mg/dL (74-118); POTASSIUM 4.1 mmol/L (3.5-5.1); SODIUM 138 mmol/L (136-145)
--- NOTE | 2020-02-29 15:50 | Diagnostic Imaging Report ---
EXAMINATION: CHEST SINGLE (PORTABLE) INDICATION: Altered mental status. COMPARISON: Chest x-ray on 02/01/2020. FINDINGS: TUBES and LINES: None. LUNGS: Normal lung volumes. Lungs are clear. No consolidations. PLEURA: No pleural effusion or pneumothorax. HEART AND MEDIASTINUM: The cardiomediastinal silhouette is unremarkable. BONES AND SOFT TISSUES: No acute osseous lesion. Soft tissues are unremarkable. UPPER ABDOMEN: No free air under the diaphragm. IMPRESSION: No acute thoracic radiographic abnormality. Signed by: Alireza Pineda MD on 02/29/2020 3:46 PM
[2020-02-29 15:55] LABS: B-TYPE NATRIURETIC PEPTIDE2 138.7 pg/mL (0-100)
--- NOTE | 2020-02-29 15:55 | Diagnostic Imaging Report ---
EXAMINATION: Head CT HISTORY: 69-year-old female with altered mental status, confusion, pulmonary opacity, leukopenia COMPARISON: None available TECHNIQUE: Helical axial images of the head were obtained. Reformatted coronal and sagittal images from the axial data. Image quality: Motion artifact mildly limits evaluation of the study. FINDINGS: Parenchyma: 1. No abnormal densities. 2. No mass or hemorrhage. No CT evidence of acute territorial vascular insult. Extra-axial spaces:No abnormal density. No extra-axial fluid collections Brain volume: Normal for age. Ventricles: No hydrocephalus or displacement. Arteries: No density suggestive of thrombus. Dural sinuses: No abnormal density. Foramen magnum: No mass, Chiari malformation, or basilar invagination. Sella: No obvious mass. Paranasal/mastoid sinuses: Imaged portions unremarkable. Skull/Scalp: No lytic or blastic lesions. No fractures. IMPRESSION: No intracranial hemorrhage, mass, midline shift, herniation or cortical infarct. Signed by: Dr. China Gibson M.D. on 02/29/2020 3:51 PM
[2020-02-29 16:16] LABS: CLARITY,URINE HAZY (CLEAR); COLOR,URINE YELLOW (YELLOW); LEUKOCYTE ESTERASE ,URINE NEGATIVE (NEGATIVE)
[2020-02-29 16:17] LABS: BILIRUBIN,URINE NEGATIVE (NEGATIVE); KETONES,URINE NEGATIVE (NEGATIVE); NITRITE,URINE NEGATIVE (NEGATIVE); PROTEIN,URINE DIPSTICK NEGATIVE (NEGATIVE); URINE UROBILINOGEN 2 mg/dL (0.2 - 1)
[2020-02-29 16:21] LABS: BACTERIA,URINE FEW /HPF; EPITHELIAL CELLS,URINE FEW /LPF; RBC,URINE 0-5 /HPF (0-5); WBC,URINE (MAN) 0-5 /HPF (0-5)
--- NOTE | 2020-02-29 16:43 | Emergency Department Note ---
History of Present Illnes History of Present Illness Chief Complaint: Genitourinary History of Present Illness This is a 69 year old female Comment PT BROUGHT IN BY DAUGHTER DUE TO HAVING BACK PAIN (RECENTLY FALL ~3WKS AGO WITH T12 COMPRESSION FX), URINARY FREQUENCY, AND CONFUSION PER DAUGHTER. PT STATES SHE RECENTLY "CRUSHED" HER SPINE AND WAS IN A REHAB FACILITY. PT DENIES COVID SYMPTOMS. PER DAUGHTER, PT WAS ABLE TO USE WALKER TO AMBULATE, BUT FOR PAST FEW WEEKS, PT HAS BEEN USING WHEELCHAIR. PT ABLE TO STAND WITH ASSISTANCE. PT IS A/A/OX4. . 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, Family Member Arrival Mode: Car Filler Block Inserter Remover Required: No Onset (how long ago): day(s) Radiation: Reports non-radiation Severity: moderate Onset quality: gradual Timing of current episode: constant (BACK PAIN), intermittent (CONFUSION) Progression: improving Chronicity: new Context: Denies recent illness Relieving factors: none Exacerbating factors: none Associated symptoms: Reports denies other symptoms Treatments prior to arrival: none Past Medical/Family History Physician Review I have reviewed the patient's past medical and family history. Any updates have been documented here. Past Medical History Recent Fever: No Clinical Suspicion of Infectio: No New/Unexplained Change in Ment: No Past Medical History: Asthma, Liver Disease, Anxiety, Depression, Hyperlipedemia, Chronic Back Pain, Osteoarthritis Other Medical History: Neuropathy in legs and feet Fibromyalgia HX of Low WBCS/RBCS/PLTS Past Surgical History: Other Surgery: tonsillectomy broken leg/ankle removal of precancerous cells in breast and colon Social History Smoking Cessation: Former smoker Counseling Performed: No Alcohol Use: None Any Illegal Drug Use: No TB Exposure/Symptoms: No Physically hurt or threatened: No Family History Family history of heart diseas: No Other Last Tetanus: UNKNOWN Any Pre-Existing Lines (PICC,: No Review of Systems Review of Systems Constitutional: Reports no symptoms EENTM: Reports no symptoms Cardiovascular: Reports no symptoms Respiratory: Reports no symptoms Gastrointestinal: Reports no symptoms Genitourinary: Reports no symptoms Musculoskeletal: Reports as per HPI Integumentary: Reports no symptoms Neurological: Reports as per HPI Psychological: Reports no symptoms Endocrine: Reports no symptoms Hematological/Lymphatic: Reports no symptoms Physical Exam Related Data Allergies: Coded Allergies: Penicillins (Verified Allergy, Mild, 10/12/18) erythromycin base (Verified Allergy, Mild, 10/12/18) Triage Vital Signs Vital Signs Date Time Temp Pulse Resp B/P (MAP) Pulse Ox O2 Delivery O2 Flow Rate FiO2 02/29/20 14:45 97.8 87 16 100/53 99 Room Air Vital signs reviewed: Yes Physical Exam CONSTITUTIONAL Constitutional: Present well-developed, Present well-nourished HENT HENT: Present normocephalic, Present atraumatic, Present oropharynx clear/moist, Present nose normal HENT L/R: Present left ext ear normal, Present right ext ear normal EYES Eyes: Reports PERRL, Reports conjunctivae normal NECK Neck: Present ROM normal PULMONARY Pulmonary: Present effort normal, Present breath sounds normal CARDIOVASCULAR Cardiovascular: Present regular rhythm, Present heart sounds normal, Present capillary refill normal, Present normal rate GASTROINTESTINAL Abdominal: Present soft, Present nontender, Present bowel sounds normal GENITOURINARY Genitourinary: Present exam deferred SKIN Skin: Present warm, Present dry MUSCULOSKELETAL Musculoskeletal: Present ROM normal, Present other (NEG SLR) NEUROLOGICAL Neurological: Present alert, Present oriented x 3, Present DTRs normal, Present no gross motor or sensory deficits, Present other (NO ASTERIXIS); Absent sensory deficit, Absent abnormal coordination, Absent weakness PSYCHOLOGICAL Psychological: Present mood/affect normal, Present judgement normal Results Laboratory Result Diagram: 02/29/20 1500 02/29/20 1500 Laboratory Laboratory Tests Test 02/29/20 16:00 02/29/20 15:00 Urine Color Yellow (YELLOW) Urine Clarity Hazy (CLEAR) Urine pH 7 (5 - 7) Urine Specific [place] 1.015 (1.010-1.025) Urine Protein Negative (NEGATIVE) Urine Glucose (UA) Negative (NEGATIVE) Urine Ketones Negative (NEGATIVE) Urine Blood Negative (NEGATIVE) Urine Nitrite Negative (NEGATIVE) Urine Bilirubin Negative (NEGATIVE) Urine Urobilinogen 2 mg/dL (0.2 - 1) Urine Leukocyte Esterase Negative (NEGATIVE) Urine RBC 0-5 /HPF (0-5) Urine WBC 0-5 /HPF (0-5) Urine Epithelial Cells Few /LPF (NONE) Urine Bacteria Few /HPF (NONE) White Blood Count 4.56 x10e3/uL (4.8-10.8) Red Blood Count 3.90 x10e6/uL (3.6-5.1) Hemoglobin 11.6 g/dL (12.0-16.0) Hematocrit 37.0 % (34.2-44.1) Mean Corpuscular Volume 94.9 fL (81-99) Mean Corpuscular Hemoglobin 29.7 pg (28-32) Mean Corpuscular Hemoglobin Concent 31.4 g/dL (31-35) Red Cell Distribution Width 16.1 % (11.7-14.4) Platelet Count 93 x10e3/uL (140-360) Neutrophils (%) (Auto) 54.4 % (38.7-80.0) Lymphocytes (%) (Auto) 27.4 % (18.0-39.1) Monocytes (%) (Auto) 11.2 % (4.4-11.3) Eosinophils (%) (Auto) 5.9 % (0.0-6.0) Basophils (%) (Auto) 0.9 % (0.0-1.0) Neutrophils # (Auto) 2.5 (2.1-6.9) Lymphocytes # (Auto) 1.3 (1.0-3.2) Monocytes # (Auto) 0.5 (0.2-0.8) Eosinophils # (Auto) 0.3 (0.0-0.4) Basophils # (Auto) 0.0 (0.0-0.1) Absolute Immature Granulocyte (auto 0.01 x10e3/uL (0-0.1) Prothrombin Time 14.9 seconds (11.9-14.5) Prothromb Time International Ratio 1.11 Activated Partial Thromboplast Time 31.2 seconds (23.8-35.5) Sodium Level 138 mmol/L (136-145) Potassium Level 4.1 mmol/L (3.5-5.1) Chloride Level 100 mmol/L (98-107) Carbon Dioxide Level 26 mmol/L (22-29) Anion Gap 16.1 mmol/L (8-16) Blood Urea Nitrogen 16 mg/dL (7-26) Creatinine 0.93 mg/dL (0.57-1.11) Estimat Glomerular Filtration Rate 59 ML/MIN (60-) BUN/Creatinine Ratio 17 (6-25) Glucose Level 88 mg/dL (74-118) Calcium Level 9.1 mg/dL (8.4-10.2) Magnesium Level 2.0 MG/DL (1.3-2.1) Total Bilirubin 3.1 mg/dL (0.2-1.2) Aspartate Amino Transf (AST/SGOT) 38 IU/L (5-34) Alanine Aminotransferase (ALT/SGPT) 20 IU/L (0-55) Alkaline Phosphatase 196 IU/L (40-150) Ammonia 135 UG/DL (31-123) Creatine Kinase 50 IU/L (29-168) Creatine Kinase MB 2.60 ng/mL (0-5.0) Troponin I < 0.001 ng/mL (0-0.300) B-Type Natriuretic Peptide 138.7 pg/mL (0-100) Total Protein 6.9 g/dL (6.5-8.1) Albumin 3.7 g/dL (3.5-5.0) Globulin 3.2 g/dL (2.3-3.5) Albumin/Globulin Ratio 1.2 (0.8-2.0) Lab results reviewed: Yes Imaging Imaging results reviewed: Yes Procedures 12 Lead ECG Interpretation ECG Interpretation : ECG: ECG 1 Filler Block Inserter Remover: Interpreted by ED physician Date: Feb 29, 2020 Time: 15:08 Rhythm: sinus bradycardia Rate: bradycardia (58) QRS axis: normal Conduction: incomplete RBBB ST segments normal: Yes T wave inversion: V3 Clinical Impression: abnormal ECG Assessment & Plan Medical Decision Making MDM H/O CIRRHOSIS, REPORTED AMS BUT PT AOX4, URINARY FREQ - CHECK CBC, CHEM, ECG, CARDIACS, NH3, CXR, CT BRAIN, UA/CX, PT/PTT - R/O HEPATIC ENCEPHALOPATHY, UTI, THROMBOCYTOPENIA, COAGULOPATHY, CEREBRAL BLEED, ELECTROLYTE ABNL Reassessment Reassessment PT STILL DOING WELL ONLY C/O BACK PAIN, ON TRAMADOL AT HOME - I SPOKE WITH DR OLIVARES (PCP) WITH RESULTS OF STUDIES - DC HOME WITH LACTULOSE, F/U IN CLINIC 2 DAYS, RTED PRN SX'S WORSEN Assessment & Plan Final Impression: (1) Hepatic encephalopathy (2) T12 compression fracture Depart Disposition: HOME, SELF-CARE Last Vital Signs Date Time Temp Pulse Resp B/P (MAP) Pulse Ox O2 Delivery O2 Flow Rate FiO2 02/29/20 16:05 68 16 116/56 99 Room Air 02/29/20 14:45 97.8 Home Meds Active Scripts Folic Acid (FOLIC ACID) 1 Mg Tablet, 1 MG PO DAILY for 30 Days Prov:RACIEL SILVA CNC MACHINE SETTER 10/18/18 Reported Medications Metoprolol Tartrate (METOPROLOL TARTRATE) 50 Mg Tablet, 50 MG PO BID, TAB 02/01/20 Pantoprazole Sodium* (PROTONIX) 40 Mg Tablet.dr, 40 MG PO DAILY@0600, TAB 02/01/20 Tramadol Hcl* (ULTRAM 50MG*) 50 Mg Tab, 50 MG PO Q8H, TAB 09/07/19 Sertraline Hcl (ZOLOFT) 50 Mg Tablet, 50 MG PO HS, #30 TAB 10/13/18 Medications in the ED Sodium Chloride 1,000 ml @ 0 mls/hr Q0M STAT IV Last administered on 02/29/20at 15:18; Admin Dose 999 MLS/HR; Start 02/29/20 at 14:49; Stop 02/29/20 at 14:54; Status DC Acetaminophen/ Hydrocodone Bitart 1 ea ONCE ONCE PO ; Start 02/29/20 at 16:45; Stop 02/29/20 at 16:46; Status UNV PADMINI LYMAN MD Feb 29, 2020 16:43
[2020-02-29] MEDS ORDERED: HYDROCODONE/APAP 5MG-325MG TAB PO ONE (16:45)
[2020-02-29 17:00] VITALS: BP 106/64
== END 2020-02-29 17:17 | disposition home or self-care (01) ==
LOC: ER 14:57
DX: K72.90 Hepatic failure, unspecified without coma (principal); R41.0 Disorientation, unspecified; S22.080D Wedge compression fracture of T11-T12 vertebra, subsequent encounter for fracture with routine healing; G62.9 Polyneuropathy, unspecified; E78.5 Hyperlipidemia, unspecified; M79.7 Fibromyalgia; G89.29 Other chronic pain
CPT/HCPCS: 36415; 51701; 70450; 71045; 80053; 81001; 82140; 82550; 82553; 83735; 83880; 84484; 85025; 85610; 85730; 87040; 87086; 93005; 99284; J7030

== ENCOUNTER 2020-04-02 14:25 | Emergency (ER) | payer MEDICARE, OTHER ==
[~2020-04-02] VITALS: Ht 317.5 cm; Wt 85.7 kg
--- NOTE | 2020-04-02 15:03 | Emergency Department Note ---
History of Present Illnes History of Present Illness Chief Complaint: Respiratory History of Present Illness This is a 69 year old female Chief Complaint Comment Patient in from home with complaints of shortness of breath and swelling in her bilateral lower extremities that started today. Patient is not in any acute respiratory distress and her oxygen saturation is 99% on room air. 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 Patient denies pain. 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 Arrival Mode: Car News Reporter Required: No Onset (how long ago): day(s) Location: Legs Quality: Swelling Radiation: Reports non-radiation Severity: mild Onset quality: gradual Duration (how long): day(s) (1) Timing of current episode: constant Progression: worsening Chronicity: new Context: Denies recent illness, Denies recent surgery Relieving factors: none Exacerbating factors: none Associated symptoms: Reports denies other symptoms Treatments prior to arrival: none Past Medical/Family History Physician Review I have reviewed the patient's past medical and family history. Any updates have been documented here. Past Medical History Recent Fever: No Clinical Suspicion of Infectio: No New/Unexplained Change in Ment: No Past Medical History: Asthma, Liver Disease, Anxiety, Depression, Hyperlipedemia, Chronic Back Pain, Osteoarthritis Other Medical History: Neuropathy in legs and feet Fibromyalgia HX of Low WBCS/RBCS/PLTS Past Surgical History: Other Surgery: tonsillectomy broken leg/ankle removal of precancerous cells in breast and colon Other Last Tetanus: UNKNOWN Review of Systems Review of Systems Constitutional: Reports no symptoms EENTM: Reports no symptoms Cardiovascular: Reports no symptoms Respiratory: Reports as per HPI Gastrointestinal: Reports no symptoms Genitourinary: Reports no symptoms Musculoskeletal: Reports as per HPI, Reports other (BLE swelling) Integumentary: Reports no symptoms Neurological: Reports no symptoms Psychological: Reports no symptoms Endocrine: Reports no symptoms Hematological/Lymphatic: Reports no symptoms Physical Exam Related Data Allergies: Coded Allergies: Penicillins (Verified Allergy, Mild, 10/12/18) erythromycin base (Verified Allergy, Mild, 10/12/18) Triage Vital Signs Vital Signs Date Time Temp Pulse Resp B/P (MAP) Pulse Ox O2 Delivery O2 Flow Rate FiO2 04/02/20 14:44 98.3 73 20 109/50 99 Room Air Vital signs reviewed: Yes Physical Exam CONSTITUTIONAL Constitutional: Present well-developed, Present well-nourished HENT HENT: Present normocephalic, Present atraumatic, Present oropharynx clear/moist, Present nose normal HENT L/R: Present left ext ear normal, Present right ext ear normal EYES Eyes: Reports PERRL, Reports conjunctivae normal NECK Neck: Present ROM normal PULMONARY Pulmonary: Present effort normal, Present breath sounds normal CARDIOVASCULAR Cardiovascular: Present regular rhythm, Present heart sounds normal, Present capillary refill normal, Present normal rate GASTROINTESTINAL Abdominal: Present soft, Present nontender, Present bowel sounds normal GENITOURINARY Genitourinary: Present exam deferred SKIN Skin: Present warm, Present dry MUSCULOSKELETAL Musculoskeletal: Present ROM normal, Present edema (BLE 2+ pitting) NEUROLOGICAL Neurological: Present alert, Present oriented x 3, Present no gross motor or sensory deficits PSYCHOLOGICAL Psychological: Present mood/affect normal, Present judgement normal Results Laboratory Lab results reviewed: Yes Imaging Imaging results reviewed: Yes Assessment & Plan Medical Decision Making MDM 69 y.o F PMH sig for liver disease on rifaximin presents for BLE swelling and SoB. Exam shows 2+ pitting BLE edema. Doubt DVT. W/u benign. Diagnosis favors dependent edema. VSS, WNL, O2 98%, no resp distress. Will f/u w/ Dr. Luis in clinic. Appropriate for DC. Reassessment Reassessment time: 16:31 Reassessment Well appearing, NAD Assessment & Plan Final Impression: (1) Dependent edema Depart Disposition: HOME, SELF-CARE Last Vital Signs Date Time Temp Pulse Resp B/P (MAP) Pulse Ox O2 Delivery O2 Flow Rate FiO2 04/02/20 14:44 98.3 73 20 109/50 99 Room Air Home Meds Active Scripts Folic Acid (FOLIC ACID) 1 Mg Tablet, 1 MG PO DAILY for 30 Days Prov:RACIEL SILVA STAKING PRESS OPERATOR 10/18/18 Reported Medications Metoprolol Tartrate (METOPROLOL TARTRATE) 50 Mg Tablet, 50 MG PO BID, TAB 02/01/20 Pantoprazole Sodium* (PROTONIX) 40 Mg Tablet.dr, 40 MG PO DAILY@0600, TAB 02/01/20 Tramadol Hcl* (ULTRAM 50MG*) 50 Mg Tab, 50 MG PO Q8H, TAB 09/07/19 Sertraline Hcl (ZOLOFT) 50 Mg Tablet, 50 MG PO HS, #30 TAB 10/13/18 NEGRA ABRAHAM MD Apr 02, 2020 15:03
[2020-04-02 15:16] LABS: BASOPHILS % 0.7 % (0.0-1.0); EOSINOPHILS # (AUTO) 0.4 (0.0-0.4); EOSINOPHILS % 7.7 % (0.0-6.0); HEMATOCRIT 34.7 % (34.2-44.1); HEMOGLOBIN 11.1 g/dL (12.0-16.0); LYMPHOCYTES # (AUTO) 1.7 (1.0-3.2); LYMPHOCYTES % 30.8 % (18.0-39.1); MEAN CORPUSCULAR HEMOGLOBIN 30.6 pg (28-32); MEAN CORPUSCULAR VOLUME 95.6 fL (81-99); MONOCYTES # (AUTO) 0.6 (0.2-0.8); MONOCYTES % 10.1 % (4.4-11.3); NEUTROPHILS # (AUTO) 2.7 (2.1-6.9); NEUTROPHILS % 50.3 % (38.7-80.0); RED BLOOD COUNT 3.63 x10e6/uL (3.6-5.1); RED CELL DISTRIBUTION WIDTH 14.8 % (11.7-14.4)
[2020-04-02 15:17] LABS: PLATELET COUNT 95 x10e3/uL (140-360)
--- OUTSIDE RECORDS SUMMARY | 2020-04-02 15:22 | XMS REPORT | Continuity of Care Document ---
Author Author [facility] t Organization [facility] Address [address] [place] [address] Phone Unavailable Care Team Providers Care Coding Auditor Name Role Phone MARSHALL ANG, MD WERNER PCP Kirill GOLDSMITH Attphys Unavailable ALPHONSO OLIVARES Attphys Unavailable Lorena STEWART Attphys Unavailable ALPHONSO OLIVARES Admphys Unavailable Payers Payer Name Policy Type Policy Number Effective Date Expiration Date [facility] [id number] 2019 00:00 :00 [facility] Medicare A & B [id number] 2013 00:00:00 [facility] Cdc Review [id number] [facility] Problems Condition Name Condition Details Condition Category Status Onset Date Resolution Date Last Treatment Date Treating Clinician Comments Source Cholecystitis without calculus Acalculous cholecystitis Problem Active 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 Urinary tract infection UTI (urinary tract infection) Problem Active [facility] Compression fracture of T12 vertebra Problem Active [facility] Recurrent falls Problem Active [facility] Hepatic encephalopathy Problem Active [facility] Allergies, Adverse Reactions, Alerts Allergy Name Allergy Type Status Severity Reaction(s) Onset Date Inacti ve Date Treating Clinician Comments Source Penicillin Allergy to substance Active Mild 2018-10-12 00:00:00 [facility] Erythromycin base Allergy to substance Active Mild 2018-10-12 00 :00:00 [facility] Erythromycin Propensity to adverse reactions to drug Active GI Intolerance 2018-05-22 00:00:00 [place] [facility] Penicillins Propensity to adverse reactions to drug Active Rash 2018-05-22 00:00:00 [place] [facility] Penicillins DA Active SV 2016-04-12 00:00:00 [facility] Macrolide Antibiotics DA Active U 2016-04-12 00:00:00 [facility] erythromycin base DA Active DE 2016-04-12 00:00:00 [facility] azithromycin DA Active DE 2016-04-12 00:00:00 [facility] Family History Family Member Diagnosis Comments Start Date Stop Date Source Natural mother Colon cancer [place] [facility] Natural mother Ovarian cancer [place] [facility] Social History Social Habit Start Date Stop Date Quantity Comments Source History SDOH Alcohol Std Drinks [place] [facility] History SDOH Alcohol Binge [place] [facility] Sex Assigned At [facility] Alcohol intake 2018-05-22 00:00:00 2018-05-22 00:00:00 Current non-drinker of alcohol (finding) [place] [facility] History SDOH Alcohol Frequency 2018-05-22 00:00:00 2018-05-22 00:00:0 0 1 [place] [facility] Tobacco Comment 2018-05-22 00:00:00 2018-05-22 00:00:00 romeo 2010 [place] [facility] Smoking Status Start Date Stop Date Source Former smoker 2018-05-22 00:00:00 2018-05-22 00:00:00 [place] [facility] Medications Ordered Medication Name Filled Medication Name Start Date Stop Da te Current Medication? Ordering Clinician Indication Dosage Frequency Signature (SIG) Comments Components Source Apixaban (Eliquis) 5 Mg TABLET Apixaban (Eliquis) 5 Mg TABLE T 2019-09-11 13:13:00 2020-02-01 00:00:00 [address] [facility] Metoprolol Tartrate Metoprolol Tartrate 2019-09-11 13:13:2020-01 00:00:00 No 50 Every 6 Hours [facility] Pantoprazole Sod (Protonix) 40 Mg/Ml SUSP Pantoprazole Sod (Protonix) 40 Mg/Ml SUSP 2019-09-11 13:13:00 2020-02-01 00:00:00 No [address] [facility] Rosuvastatin Calcium Rosuvastatin Calcium 2019-09-11 13:13:00 20 05-02-16 00:00:[address] [facility] Folic Acid Folic Acid 2018-10-18 06:49:[address] [facility] Ascorbic Acid Ascorbic Acid 2018-10-18 06:49:00 2020-02-01 00:00:00 No [address] [facility] Metoprolol Tartrate (Lopressor) 25 Mg TAB Metoprolol T artrate (Lopressor) 25 Mg TAB 2018-10-18 06:49:00 2019-09-11 00:00:00 No [address] [facility] LYRICA 50 mg capsule 2018-05-08 00:00:00 Yes TK 1 C PO BID FOR PAIN [place] [facility] sertraline (ZOLOFT) 100 MG tablet 2018-05-08 00:00:00 Yes TK 1 T PO D FOR MOOD [place] [facility] traZODone (DESYREL) 150 MG tablet 2018-04-01 00:00:00 Yes 150mg QD Take 150 mg by mouth nightly as needed. for sleep [place] [facility] Metoprolol Tartrate Metoprolol Tartrate Yes [address] [facility] Pantoprazole Sodium (Protonix) 40 Mg TABLET. Pantopr azole Sodium (Protonix) 40 Mg TABLET. Yes 40 Daily@0600 I [facility] Sertraline Hcl (Zoloft) 50 Mg TABLET Sertraline Hcl (Zoloft) 50 Mg TABLET Yes [address] [facility] Tramadol Hcl (Ultram 50MG*) 50 Mg TAB Tramadol Hcl (Ultram 50MG*) 5 0 Mg TAB Yes 50 Every 8 Hours [facility] Baclofen Baclofen 2020-02-04 00:00:[address] [facility] Ciprofloxacin Hcl (Cipro) 500 Mg TABLET Ciprofloxacin Hcl (C ipro) 500 Mg TABLET 2020-02-04 00:00:00 No [address] [facility] Trazodone Hcl Trazodone Hcl 2020-02-04 00:00:00 No 75 Bedtime as needed for Insomnia [facility] Eye Drops Eye Drops 2020-02-01 00:00:00 No [address] [facility] Trolamine Salicylate (Aspercreme 10% Cream) 35.4 Gm CR Trolamine Salicylate (Aspercreme 10% Cream) 35.4 Gm CR 2020-02-01 00:00:00 No for Neuropathy [facility] Flunase Flunase 2019-09-11 00:00:00 No [address] [facility] Pregabalin (Lyrica) 50 Mg CAP Pregabalin (Lyrica) 50 Mg CAP 2019-09-07 00:00:[address] [facility] Pregabalin (Lyrica) 50 Mg CAP Pregabalin (Lyrica) 50 Mg CAP 2019-09-07 00:00:00 No 50 Daily as needed for Neuropathy [facility] Vital Signs Vital Name Observation Time Observation Value Comments Source Body Temperature 2020-02-29 17:00:00 98.0 [degF] [facility] Weight 2020-02-29 14:45:00 189 [lb_av] [facility] BMI (Body Mass Index) 2020-02-29 14:45:00 8.5 kg/m2 [facility] Procedures Procedure Date / Time Performed Performing Clinician [facility] e Computed tomography of brain without radiopaque contrast 2020-02 00:00:00 [facility] TRANSFUSE NONAUT PLATELETS IN PERIPH VEIN, PERC 2020-02-02 00:00 :00 [facility] Computed tomography of brain without radiopaque contrast 2020-01 00:00:00 [facility] Computed tomography of cervical spine without contrast 2020-01-17 6 00:00:00 [facility] Computed tomography of lumbar spine without contrast 2020-02-01 00:00:00 [facility] Computed tomography of thoracic spine without contrast 2020-01-17 6 00:00:00 [facility] Computed tomography of pelvis without contrast 2020-02-01 00:00: 00 [facility] Magnetic resonance imaging of thoracic spine without c ontrast 2020-02-01 00:00:00 [facility] Magnetic resonance angiography of neck without contrast 2019 00:00:00 DEVEN RAMOS [facility] Magnetic resonance imaging of brain without contrast 2019-08 00:00:00 DEVEN RAMOS [facility] Magnetic resonance angiography of head without contrast 2019 00:00:[address] [facility] Computed tomography of brain without radiopaque contrast 00:00:[address] [facility] Computed tomography of abdomen and pelvis with contrast 2019 00:00:[address] [facility] Plan of Care Planned Activity Planned Date Details Comments Source Future Scheduled Test 2020-01-17 00:00:00 INFLUENZA VACCINE [code = INFLUENZA VACCINE] [facility] Scheduled Test 2013 00:00:00 65+ PNEUMOCOCCAL V ACCINE (1 of 1 - PPSV23) [code = 65+ PNEUMOCOCCAL VACCINE (1 of 1 - PPSV23)] [facility] Scheduled Test 1998 00:00:00 BREAST CANCER SCRE ENING [code = BREAST CANCER SCREENING] [facility] Scheduled Test 1998 00:00:00 COLONOSCOPY SCREEN ING [code = COLONOSCOPY SCREENING] [facility] Scheduled Test 1998 00:00:00 SHINGLES VACCINES (#1) [code = SHINGLES VACCINES (#1)] [facility] Instructions Confusion [facility] Instructions [facility]Generalized[facility] Start Date/Time End Date/Time Encounter Type Admission Type Attendi [facility] Care Department Encounter ID Source 2020-02-01 12:51:00 2020-02-04 20:06:00 Discharged Inpatient 1 ALPHONSO OLIVARES [facility] [id number] [facility] 2019-09-07 18:41:00 2019-09-11 17:07:00 Discharged Inpatient 1 ALPHONSO OLIVARES [facility] [id number] [facility] 2018-10-13 02:24:00 2018-10-18 13:19:00 Discharged Inpatient 1 DARIN STEWART [facility] [id number] [facility] Results Test Description Test Time Test Comments Results Result Comments Source Urine color determination 2020-02-29 16:00:00 Test Item Urine Color (test code = 5778-6) YELLOW YELLOW [facility] [id number] 16:00:00* Test Item Value Reference Range Interpretation Comments Urine Clarity (test code = 02484-7) [facility] Test strip 2020-02-29 16:00:00* Test Item Value Reference Range Interpretation Comments Urine Specific [place] (test code = 5811-5) 1.015 1.010-1.[address] [facility] pH measurement by automated test [id number] 16:00:00* Test Item Value Reference Range Interpretation Comments Urine pH (test code = 98561-2) 7 5-7 [facility] leukocyte esterase detection by [id number] 16:00:00* Test Item Value Reference Range Interpretation Comments Urine Leukocyte Esterase (test code = 5799-2) NEGATIVE NEGATIVE [facility] Center[facility] nitrite [id number] 16:00:00* Test Item Value Reference Range Interpretation Comments Urine Nitrite (test code = 89485-3) NEGATIVE NEGATIVE [facility] protein measurement by test strip (mass/volume)2020-02-29 16:00:00* Test Item Value Reference Range Interpretation Comments Urine Protein (test code = 5804-0) NEGATIVE NEGATIVE [facility] Center[facility] glucose [id number] 16:00:00* Test Item Value Reference Range Interpretation Comments Urine Glucose (UA) (test code = 2349-9) NEGATIVE NEGATIVE [facility] ketones detection by automated test [id number] 16:00:00* Test Item Value Reference Range Interpretation Comments Urine Ketones (test code = 64742-2) NEGATIVE NEGATIVE [facility] urobilinogen measurement by test strip (mass/volume)2020-02-29 16:00:00* Test Item Value Reference Range Interpretation Comments Urine Urobilinogen (test code = 26615-5) 2 0.2-1 [facility] total bilirubin measurement (mass/volume)2020-02-29 16:00:00* Test Item Value Reference Range Interpretation Comments Urine Bilirubin (test code = 1978-6) NEGATIVE NEGATIVE [facility] Center[facility] erythrocytes [id number] 16:00:00* Test Item Value Reference Range Interpretation Comments Urine Blood (test code = 33184-2) NEGATIVE NEGATIVE [facility] CenterAutom[facility] urine sediment leukocyte count by microscopy (number/high power field)2020-02-29 16:00:00* Test Item Value Reference Range Interpretation Comments Urine WBC (test code = 5821-4) 0-5 0-5 [facility] CenterErythrocytes detection in urine sediment by light spztsaoenh7528-08-53 16:00:00* Test Item Value Reference Range Interpretation Comments Urine RBC (test code = 06482-9) 0-5 0-5 [facility] CenterBacteria detection in urine sediment by light ozwkurzjtp5864-32-57 16:00:00* Test Item Value Reference Range Interpretation Comments Urine Bacteria (test code = 61891-0) FEW NONE [facility] CenterEpithelial cells detection in urine sediment by light [id number] 16:00:00* Test Item Value Reference Range Interpretation Comments Urine Epithelial Cells (test code = 13854-4) FEW NONE [facility] CenterCHEST SINGLE (PORTABLE)2020-02-29 15:46:00 [place] [address] Patient Name: TORY ANGLIN MR #: [id number] : 1950 Age/Sex: 69/F Req #: [id number] Adm Physician: Ordered by: PADMINI GOLDSMITH MD Report #: [id number] Location: ER Room/Bed: Procedure: [id number] DX/CHEST SINGLE ( PORTABLE) Exam Date: 02/29/20 Exam Time: 153 REPORT STATUS: Signed EXAMINATION: EST SINGLE (PORTABLE) INDICATION: Altered mental status. COMPARISO N: Chest x-ray on 02/01/2020. FINDINGS: TUBES and LINES: Non e. LUNGS: Normal lung volumes. Lungs are clear. No consolidations. PLEURA: No pleural effusion or pneumothorax. HEART AND MEDIASTINUM: The c ardiomediastinal silhouette is unremarkable. BONES AND SOFT TISSUES: N o acute osseous lesion. Soft tissues are unremarkable. UPPER ABDOMEN: No free air under the diaphragm. IMPRESSION: No acute thoracic radi ographic abnormality. Signed by: Jose G Rowell MD on 02/29/2020 3:46 PM Dictated By: JOSE G ROWELL MD 1546 Transcribed By: MIKE on 02/29/201545 COPY TO: PADMINI BLANCHARD MD CT BRAIN [id number] 15:37:00 [place] [address] Patient Name: TORY ANGLIN MR #: [id number] : 1950 Age/Sex: 69/F Req #: [id number] Adm Physician: Ordered by: PADMINI GOLDSMITH MD Report #: [id number] Location: ER Room/Bed: Procedure: [id number] CT/CT BRAIN WO E xa Date: 02/29/20 Exam Time: 153 REPORT STATUS: Signed EXAMINATION: Head CT H ISTORY: 69-year-old female with altered mental status, confusion, pulmonary op acity, leukopenia COMPARISON: None available TECHNIQUE: Helical axial image s of the head were obtained. Reformatted coronal and sagittal images from the axial data. Image quality: Motion artifact mildly limits evaluation of the s tudy. FINDINGS: Parenchyma: 1. No abnormal densities. 2. N o mass or hemorrhage. No CT evidence of acute territorial vascular insult. Extra-axial spaces:No abnormal density. No extra-axial fluid collect ions Brain volume: Normal for age. Ventricles: No hydrocephalus or displacement. Arteries: No density suggestive of thrombus. D ural sinuses: No abnormal density. Foramen magnum: No mass, Chiari malfo rmation, or basilar invagination. Sella: No obvious mass. Paran sima/mastoid sinuses: Imaged portions unremarkable. Skull/Scalp: No lyti c or blastic lesions. No fractures. IMPRESSION: No intracranial hemo rrhage, mass, midline shift, herniation or cortical infarct. Signed by: Patrick Gibson M.D. on 02/29/2020 3:51 PM Dictated By: ELYSE GIBSON MD El ectronically Signed By: ELYSE GIBSON MD on 02/29/201550 Transcribed By: MIKE on 02/29/201550 COPY TO: PADMINI GOLDSMITH MD Blood leukocytes automated count (number/volume)2020-02-29 15:00:00* Test Item Value Reference Range Interpretation Comments White Blood Count (test code = 6690-2) 4.56 4.8-10.8 [facility] erythrocytes automated count (number/volume)2020-02-29 15:00:00* Test Item Value Reference Range Interpretation Comments Red Blood Count (test code = 789-8) 3.90 3.6-5.1 [facility] Center[facility] hemoglobin measurement (moles/volume)2020-02-29 15:00:00* Test Item Value Reference Range Interpretation Comments Hemoglobin (test code = 44289-9) 11.6 12.0-16.0 [facility] CenterAutomated blood hematocrit (volume fraction)2020-02-29 15:00:00* Test Item Value Reference Range Interpretation Comments Hematocrit (test code = 4544-3) 37.0 34.2-44.1 [facility] CenterAutomated erythrocyte mean corpuscular [id number] 15:00:00* Test Item Value Reference Range Interpretation Comments Mean Corpuscular Volume (test code = 787-2) 94.9 81-99 [facility] CenterAutomated erythrocyte mean corpuscular hemoglobin (mass per erythrocyte)2020-02-29 15:00:00* Test Item Value Reference Range Interpretation Comments Mean Corpuscular Hemoglobin (test code = 785-6) 29.7 28-32 [facility] CenterAutomated erythrocyte mean corpuscular hemoglobin concentration measurement (mass/volume)2020-02-29 15:00:00* Test Item Value Reference Range Interpretation Comments Mean Corpuscular Hemoglobin Concent (test code = 786-4) 31.4 31-35 [facility] CenterRDW JbkJd-[id number] 15:00:00* Test Item Value Reference Range Interpretation Comments Red Cell Distribution Width (test code = 70479-4) 16.1 11.7 -14.4 [facility] CenterAutomated blood platelet count (count/volume)2020-02-29 15:00:00* Test Item Value Reference Range Interpretation Comments Platelet Count (test code = 777-3) 93 140-360 [facility] CenterAutomated blood segmented neutrophil count as percentage of total yejmskwhef5275-74-97 15:00:00* Test Item Value Reference Range Interpretation Comments Neutrophils (%) (Auto) (test code = 04492-7) 54.4 38.7-80.0 [facility] CenterAutomated blood lymphocyte count as percentage ot total hcqfycrmyk1331-64-68 15:00:00* Test Item Value Reference Range Interpretation Comments Lymphocytes (%) (Auto) (test code = 736-9) 27.4 18.0-39.1 [facility] CenterAutomated blood monocyte count as percentage of total zzfeoayawv2659-60-80 15:00:00* Test Item Value Reference Range Interpretation Comments Monocytes (%) (Auto) (test code = 5905-5) 11.2 4.4-11.3 [facility] CenterAutomated blood eosinophil count as percentage of total wfwyqzxbls5706-52-60 15:00:00* Test Item Value Reference Range Interpretation Comments Eosinophils (%) (Auto) (test code = 713-8) 5.9 0.0-6.0 [facility] CenterAutomated blood basophil count as percentage of total ejsbpcasop6827-86-99 15:00:00* Test Item Value Reference Range Interpretation Comments Basophils (%) (Auto) (test code = 706-2) 0.9 0.0-1.0 [facility] CenterFluoroscopic procedure less than one hour [id number] 15:00:00* Test Item Value Reference Range Interpretation Comments IM GRANULOCYTES % (test code = IM GRANULOCYTES %) 0.2 0.0- 1.0 [facility] CenterAutomated blood neutrophil count 2020-02-29 15:00:00* Test Item Value Reference Range Interpretation Comments Neutrophils # (Auto) (test code = 751-8) 2.5 2.1-6.9 [facility] CenterBlood lymphocytes count (number/volume) 2020-02-29 15:00:00* Test Item Value Reference Range Interpretation Comments Lymphocytes # (Auto) (test code = 42186-4) 1.3 1.0-3.2 [facility] CenterBlood monocytes automated count (number/volume)2020-02-29 15:00:00* Test Item Value Reference Range Interpretation Comments Monocytes # (Auto) (test code = 742-7) 0.5 0.2-0.8 [facility] CenterAutomated blood eosinophil count 2020-02-29 15:00:00* Test Item Value Reference Range Interpretation Comments Eosinophils # (Auto) (test code = 711-2) 0.3 0.0-0.4 [facility] CenterAutomated blood basophil count (count/volume)2020-02-29 15:00:00* Test Item Value Reference Range Interpretation Comments Basophils # (Auto) (test code = 704-7) 0.0 0.0-0.1 [facility] CenterFluoroscopic procedure less than one hour [id number] 15:00:00* Test Item Value Reference Range Interpretation Comments Absolute Immature Granulocyte (auto (india t code = Absolute Immature Granulocyte (auto) 0.01 0-0.1 [facility] CenterProthrombin time (PT) in platelet poor plasma by coagulation [id number] 15:00:00* Test Item Value Reference Range Interpretation Comments Prothrombin Time (test code = 5902-2) 14.9 11.9-14.5 [facility] CenterINR in Platelet poor plasma by Coagulation [id number] 15:00:00* Test Item Value Reference Range Interpretation Comments Prothromb Time International Ratio (test code = 6301-6) 1.11 Oral Anticoagulant Therapy INR Values:1. Low Intensity Therapy 1.5 - 2.02 . Moderate Intensity Therapy 2.0 - 3.03. High Intensity Therapy(1) 2.5 - 3. 54. High Intensity Therapy(2) 3.0 - 4.05. Panic Value INR > 5.0 [facility] CenterActivated partial thromboplastin time (aPTT) in platelet poor plasma by coagulation oecyx3624-72-00 15:00:00* Test Item Value Reference Range Interpretation Comments Activated Partial Thromboplast Time (test code = 23656-8) 31.2 23.8-35.5 [facility] sodium measurement (moles/volume)2020-02-29 15:00:00* Test Item Value Reference Range Interpretation Comments Sodium Level (test code = 2951-2) 138 136-145 [facility] or plasma potassium measurement (moles/volume)2020-02-29 15:00:00* Test Item Value Reference Range Interpretation Comments Potassium Level (test code = 2823-3) 4.1 3.5-5.1 [facility] or plasma chloride measurement (moles/volume)2020-02-29 15:00:00* Test Item Value Reference Range Interpretation Comments Chloride Level (test code = 2075-0) 100 98-107 [facility] or plasma carbon dioxide, total measurement (moles/volume)2020-02-29 15:00:00* Test Item Value Reference Range Interpretation Comments Carbon Dioxide Level (test code = 2028-9) 26 22-29 [facility] or plasma anion [id number] 15:00:00* Test Item Value Reference Range Interpretation Comments Anion Gap (test code = 62013-4) 16.1 8-16 [facility] or plasma urea nitrogen measurement (mass/volume)2020-02-29 15:00:00* Test Item Value Reference Range Interpretation Comments Blood Urea Nitrogen (test code = 3094-0) 16 7-26 [facility] plasma creatinine measurement (mass/volume)2020-02-29 15:00:00* Test Item Value Reference Range Interpretation Comments Creatinine (test code = 2160-0) 0.93 0.57-1.11 [facility] or plasma urea nitrogen/creatinine mass [id number] 15:00:00* Test Item Value Reference Range Interpretation Comments BUN/Creatinine Ratio (test code = 3097-3) 17 6-25 [facility] CenterEstimated glomerular filtration rate (GFR) gnnebtwaxkjtg5507-87-74 15:00:00* Test Item Value Reference Range Interpretation Comments Estimat Glomerular Filtration Rate (test code = 153814678) 59 >60 Ranges were taken from the National Kidney Disease Education Program and the [employer] literature.Reference ranges:60 or greater: Mhhvsg10-34 ( for 3 consecutive months): Chronic kidney disease 15 or less: Kidney failureSt. [facility] CenterGlucose qohapzemguy1455-62-76 15:00:00* Test Item Value Reference Range Interpretation Comments Glucose Level (test code = BCP2392) 88 74-118 [facility] or plasma calcium measurement (mass/volume)2020-02-29 15:00:00* Test Item Value Reference Range Interpretation Comments Calcium Level (test code = 36501-1) 9.1 8.4-10.2 [facility] or plasma magnesium measurement (mass/volume)2020-02-29 15:00:00* Test Item Value Reference Range Interpretation Comments Magnesium Level (test code = 10087-9) 2.0 1.3-2.1 [facility]um or plasma total bilirubin measurement (mass/volume)2020-02-29 15:00:00* Test Item Value Reference Range Interpretation Comments Total Bilirubin (test code = 1975-2) 3.1 0.2-1.2 [facility] CenterFluoroscopic procedure less than one hour ngzidziv0328-79-70 15:00:00* Test Item Value Reference Range Interpretation Comments Aspartate Amino Transf (AST/SGOT) (test code = Aspartate Amino Transf (AST/SGOT)) 38 5-34 [facility] alanine aminotransferase measurement (enzymatic activity/volume)2020-02-29 15:00:00* Test Item Value Reference Range Interpretation Comments Alanine Aminotransferase (ALT/SGPT) (test code = 1742-6) 20 0-55 [facility] CenterAmmonia Bdb-vYcx6102-92-13 15:00:00* Test Item Value Reference Range Interpretation Comments Ammonia (test code = 60190-1) 135 31-123 [facility] protein measurement (mass/volume)2020-02-29 15:00:00* Test Item Value Reference Range Interpretation Comments Total Protein (test code = 2885-2) 6.9 6.5-8.1 [facility] albumin measurement (mass/volume)2020-02-29 15:00:00* Test Item Value Reference Range Interpretation Comments Albumin (test code = 1751-7) 3.7 3.5-5.0 [facility] CenterPlasma globulin measurement (mass/volume) 2020-02-29 15:00:00* Test Item Value Reference Range Interpretation Comments Globulin (test code = 36369-6) 3.2 2.3-3.5 [facility] albumin/globulin mass vbjob7808-16-12 15:00:00* Test Item Value Reference Range Interpretation Comments Albumin/Globulin Ratio (test code = 1759-0) 1.2 0.8-2.0 [facility] alkaline phosphatase measurement (enzymatic activity/volume)2020-02-29 15:00:00* Test Item Value Reference Range Interpretation Comments Alkaline Phosphatase (test code = 6768-6) 196 40-150 [facility] CenterBNP Eyb-vCjv2600-77-13 15:00:00* Test Item Value Reference Range Interpretation Comments B-Type Natriuretic Peptide (test code = 30674-1) 138.7 0-100 [facility] creatine kinase measurement (enzymatic activity/volume)2020-02-29 15:00:00* Test Item Value Reference Range Interpretation Comments Creatine Kinase (test code = 2157-6) 50 29-168 [facility] creatine kinase MB measurement (mass/volume)2020-02-29 15:00:00* Test Item Value Reference Range Interpretation Comments Creatine Kinase MB (test code = 81402-3) 2.60 0-5.0 [facility] CenterTroponin I measurement by highly sensitive enzyme pcyvxtizoko5191-51-81 15:00:00* Test Item Value Reference Range Interpretation Comments Troponin I (test code = 40239-8) < 0.001 0-0.300 [facility] triglyceride measurement (mass/volume)2020-02-03 04:40:00* Test Item Value Reference Range Interpretation Comments Triglycerides Level (test code = 2571-8) 75 0-149 [facility] cholesterol measurement (mass/volume)2020-02-03 04:40:00* Test Item Value Reference Range Interpretation Comments Cholesterol Level (test code = 2093-3) 138 0-199 Less than 200 mg/dL Low Rjyb464 - 239 mg/dL Borderline Uaag251 m g/dl and greater High Risk [facility] cholesterol in LDL measurement (mass/volume) 2020-02-03 04:40:00* Test Item Value Reference Range Interpretation Comments LDL Cholesterol (test code = 2089-1) 83 60-130 [facility] cholesterol in HDL measurement (mass/volume)2020-02-03 04:40:00* Test Item Value Reference Range Interpretation Comments HDL Cholesterol (test code = 2085-9) 40 40-60 [facility] total cholesterol/cholesterol in HDL mass wltsi5619-85-65 04:40:00* Test Item Value Reference Range Interpretation Comments Cholesterol/HDL Ratio (test code = 9830-1) 3.5 3.0-3.6 [facility] plasma thyrotropin measurement by detection limit <= 0.005 miu/l (units/volume)2020-02-02 04:00:00* Test Item Value Reference Range Interpretation Comments Thyroid Stimulating Hormone (TSH) (test code = 16002-3) 0.490 0.350-4.940 [facility] CenterMRI SPINE THORACIC DE0251-56-63 15:47:00 [facility] [address] [place] [address] Patient Name: TORY ANGLIN MR #: [id number] : 1950 Age/Sex: 69/F Req #: [id number] Adm Physician: ALPHONSO OLIVARES MD Ordered by: PADMINI GOLDSMITH MD Report #: [id number] Location: MED/SURG Room/Bed: [facility] Procedure: [id number] MRI/MRI SPINE DINAH DELGADO Exam Date: Exam Time: REPORT STATUS: Signed EXAMINATION: MRI of the thora cic spine without contrast HISTORY: 69-year-old female status post multip le falls, severe back pain and severe compression fracture of T12. COMPARISO N: Thoracic spine CT performed earlier on the same day TECHNIQUE: Sagittal T1 without contrast, T2, and STIR; axial T2. Coronal T2. FINDINGS: Curvature: Mild increased upper thoracic and lower thoracic kyphosis at the le malcom of the T6 and T12 compression fractures. Vertebrae: * Acute severe o steoporotic compression fracture of the T12 vertebral body, with decreased nilo tebral body height by approximately 90% (vertebral plan), diffuse bone marrow edema is seen in the remaining vertebral body, there is associated approximate ly 7 mm dorsal retropulsion of the posterior vertebral body within the spinal canal, which results in severe canal stenoses, it is abutting the ventral spin al cord with minimal compression, and abnormal signal within the cord at this time. Bone marrow edema is extending to the right T12 pedicle. * Moderate c hronic compression fracture of the T6 vertebral body, decreased vertebral body height by approximately 60 %, anterior wedging, minimal inferior endplate pos terior retropulsion without associated canal stenosis. * Minimal chronic ante rior wedging of the T2 and T4 vertebral bodies without posterior retropulsion or spinal spinal stenosis. * Diffuse heterogeneous bone marrow signal intensi ty related to osteoporosis. Discs: Mild disc bulge at T5-T6 and T6-T7 as well as T11-T12 and T12-L1 results in mild foraminal narrowing. S sanjeev canal: No mass or abnormal blood vessels. Spinal cord: No abnorma l signal intensity Foramina: Mild foraminal narrowing at T11-T12 and T1 2-L1 Paraspinal soft tissues: Unremarkable. Proximal ribs: No abnormal signal intensity. IMPRESSION: Overall suboptimal evaluation due to motion artifact. 1. Grossly unchanged severe acute osteoporotic co mpression fracture of the T12 vertebral body with posterior retropulsion resul ts in severe spinal canal stenosis and mild cord compression compared to CT pe rformed earlier on the same date. No abnormal signal within the cord at this t [place]. 2. Moderate chronic compression fracture of T6. Minimal chronic compr ession fracture of T2 and T4 as detailed above. Signed by: Dr. Stacie Gibson M.D. on 02/01/2020 3:57 PM Dictated By: ELYSE hood Signed By: ELYSE GIBSON MD on 02/01/201556 Transcribed By: MIKE on 1556 COPY TO: PADMINI GOLDSMITH MD CT PELVIS [id number] 12:29:00 [place] [address] Patient Name: TORY ANGLIN MR #: [id number] : 1950 Age/Sex: 69/F Req #: [id number] Adm Physician: Ordered by: PADMINI GOLDSMITH MD Report #: [id number] Location: ER Room/Bed: Procedure: [id number] CT/CT PELVIS WO Exam Date: 02/01/20 Exam Time: 1030 REPORT STATUS: Signed EXAM: CT Pelvis WITHOUT con trast INDICATION: Pelvic pain after recent fall. COMPARISON: CT abdomen a nd pelvis on 09/07/2019. TECHNIQUE: Pelvis were scanned utilizing a multidetect or helical scanner from the iliac crest to the pubic symphysis without adminis tration of IV contrast. Coronal and sagittal reformations were obtained. Routi ne protocol was performed. IV CONTRAST: None ORAL CONTRAST: Peterson er COMPLICATIONS: None RADIATION DOSE: Total DLP: 3 866.96 mGy*cm Estimated effective dose: (DLP x 0.015 x size factor) mSv CTDIvol has been reviewed. It is below the limits set by the Radiation P rotocol Committee (RPC). Dose modulation, iterative reconstruction, and/o r weight based adjustment of the mA/kV was utilized to reduce the radiation do se to as low as reasonably achievable. FINDINGS: LINES and TUBES: F oley catheter which terminates in the urinary bladder lumen. GI TRACT: In t he partially imaged abdomen, no abnormal distention, wall thickening, or evide nce of bowel obstruction. Appendix is not visualized. PELVIC ORGANS/BLADDER : Unremarkable. LYMPH NODES: No lymphadenopathy. VESSELS: Mild atheros clerotic calcification of the distal abdominal aorta and its pelvic branches. PERITONEUM / RETROPERITONEUM: No free air or fluid. BONES: There is en dplate depression of the L4 vertebral body new since prior examination on 09/06. No displaced fracture on the pelvis identified. There are mild degenera tive changes of the bilateral hips. SOFT TISSUES: Unremarkable. IMPRESSION: 1. L4 vertebral body superior endplate compression fracture of indeterminate age, although new since 09/07/2019. Correlate with point ten derness. 2. No displaced fractures around the pelvis. Signed by: Jose G Rowell MD on 02/01/2020 12:37 PM Dictated By: JOSE G ROWELL MD [facility] Signed By: JOSE G ROWELL MD on 02/01/20 1237 Transcribed By: MIKE on 02/01/20 1237 COPY TO: PADMINI GOLDSMITH MD CT CERVICAL SPINE WO 2020-02-01 11:53:00 [place] [address] Patient Name: TORY ANGLIN MR #: [id number] : 1950 Age/Sex: 69/F Req #: [id number] Adm Physician: Ordered by: PADMINI GOLDSMITH MD Report #: [id number] Location: ER Room/Bed: Procedure: [id number] CT/CT CERVICAL SP INE WO Exam Date: 02/01/20 Exam Time: 1030 REPORT STATUS: Signed EXAMINATION: CT of the cervical spine HISTORY: 69-year-old female with frequent falls in the left upper lobe days, pain COMPARISON: None available TECHNIQUE: Multidete ctor helical axial images were obtained without contrast from the foramen magn um to T1. The images were reconstructed using bone and soft tissue algorithms and were viewed in axial, sagittal and coronal planes. Dose modulation, it erative reconstruction, and/or weight based adjustment of the mA/kV was utiliz ed to reduce the radiation dose to as low as reasonably achievable. FINDI NGS: Alignment: Normal alignment and lordosis Soft tissue s: Normal Vertebrae: Diffuse demineralization. Minimal chronic depressi on of the inferior endplate of the C6 vertebral body without posterior retropu lsion or spinal stenosis. Partially visualized minimal chronic anterior wedgin g of the T2 vertebral body. Degenerative changes: No significant d egenerative changes, spinal canal or foraminal stenosis. IMPRESSION: 1. No acute cervical spine fractures or dislocations. 2. Minimal chron ic depression of the inferior endplate of C6 and anterior wedging of T2 verteb ral bodies. Note: Acute postraumatic spinal cord, vascular or ligamentous i njuries cannot adequately be assessed by CT. Signed by: Dr. Elyse dasilva M.D. on 02/01/2020 11:57 AM Dictated By: ELYSE GIBSON MD Electronicall y Signed By: ELYSE GIBSON MD on 02/01/20 1157 Transcribed By: MIKE on 0 1157 COPY TO: PADMINI GOLDSMITH MD CT BRAIN [id number] 11:49:00 [place] [address] Patient Name: TORY ANGLIN MR #: [id number] : 1950 Age/Sex: 69/F Req #: [id number] Adm Physician: Ordered by: PADMINI GOLDSMITH MD Report #: [id number] Location: ER Room/Bed: Procedure: [id number] CT/CT BRAIN WO E xam Date: 02/01/20 Exam Time: 1030 REPORT STATUS: Signed EXAMINATION: Head CT H ISTORY: 69-year-old female status post multiple fall, trauma, pain COMPARISON: Brain MRI 09/09/2019 TECHNIQUE: Helical axial images of the head were obtaine d. Reformatted coronal and sagittal images from the axial data. Dose modulati on, iterative reconstruction, and/or weight based adjustment of the mA/kV was utilized to reduce the radiation dose to as low as reasonably achievable. Im age quality: Motion/streaking artifact limits the evaluation of the skull base and posterior cranial fossa. FINDINGS: Parenchyma: 1. Few scattered white matter hypodensities, consistent with minimal chronic microva scular ischemic changes. Better visualized and unchanged from prior MRI of 08/17 2. No mass or hemorrhage. No CT evidence of acute territorial vascular insult. Extra-axial spaces:No abnormal density. No extra-axial fluid collections Brain volume: Normal for age. Ventricles: No hydrocephalus or displacement. Arteries: No density suggestive of throm bus. Dural sinuses: No abnormal density. Foramen magnum: No mass , Chiari malformation, or basilar invagination. Sella: No obvious mass. Paranasal/mastoid sinuses: Imaged portions unremarkable. Skull/ Scalp: No lytic or blastic lesions. No fractures. IMPRESSION: 1. No acute post traumatic intracranial hemorrhage. 2. Minimal chronic microvascul ar ischemic changes, stable compared to MRI of 09/09/2019. Signed by: Dr. Elyse Gibson M.D. on 02/01/2020 11:52 AM Dictated By: ELYSE GIBSON MD Elec tronically Signed By: ELYSE GIBSON MD on 02/01/20 1152 Transcribed By: MIKE daniels 02/01/20 1152 COPY TO: PADMINI GOLDSMITH MD CT LUMBAR SPINE WO 2020-02-01 11:39:00 [facility] [address] [place] [address] Patient Name: TORY ANGLIN MR #: [id number] : 1950 Age/Sex: 69/F Req #: [id number] Adm Physician: Ordered by: PADMINI GOLDSMITH MD Report #: [id number] Location: ER Room/Bed: Procedure: [id number] CT/CT LUMBAR SPIN E WO Exam Date: 02/01/20 Exam Time: 1030 REPORT STATUS: Signed EXAMINATION: CT of the lumbar spine HISTORY: 69-year-old female status post fall multiple times in the last 3 days, the last time this morning, back pain COMPARISON: [facility] spine CT performed on the same day TECHNIQUE: Multidetector helical axial images were obtained without contrast from L1 to S1. Dose modulation, iterati ve reconstruction, and/or weight based adjustment of the mA/kV was utilized to reduce the radiation dose to as low as reasonably achievable. FINDINGS: Alignment: Normal alignment and lordosis. Vertebral bodies: * Age indeterminate likely subacute or chronic mild compression fracture of the L4 vertebral body, depression of the superior endplate and decreased vertebral vianney dy height by approximately 15% centrally. No significant spinal canal stenosis . * Probably acute mild compression/burst fracture of the L3 vertebral body w ith minimal decreased vertebral body height (about 10%), no posterior retropul donavon or canal stenosis, motion artifact limits evaluation. * Partially visu alized severe acute compression fracture of T12, better described on separate thoracic spine CT report. * Diffuse demineralization. Paraspinal muscl es: Atrophy of the paraspinal muscles. Partially visualized possible small spl enules in the left upper quadrant.. Intervertebral disks: : Mild disc bulge at L2-L3 and L3-L4 without spinal canal stenosis. IMPRESSION: 1. Probably acute mild osteoporotic compression fracture of the L3 vertebral body without posterior retropulsion or canal stenosis. 2. Mild chronic osteoporotic compression fracture of the L4 vertebral body without posterior retropulsion or canal stenosis. 3. Partially visualized severe acute posto perative compression fracture of T12, please see separate dictation for thorac ic spine CT performed on the same day and the recommendation of MRI for furthe r evaluation, the findings were discussed with the attending physician at the completion of dictation. Signed by: Dr. Elyse Gibson M.D. on 2019 11:49 AM Dictated By: ELYSE GIBSON MD 114 Transcribed By: MIKE on 02/01/20 114 COPY TO: PADMINI GOLDSMITH MD ANKLE 3 + VIEWS [id number] 11:37:00 [place] [address] Patient Name: TORY ANGLIN MR #: [id number] : 1950 Age/Sex: 69/F Req #: [id number] Adm Physician: Ordered by: PADMINI GOLDSMITH MD Report #: [id number] Location: ER Room/Bed: Procedure: [id number] DX/ANKLE 3 + VIEW S RIGHT Exam Date: 02/01/20 Exam Time: 1103 REPORT STATUS: Signed X-ray 3 views of t he ankle. HISTORY: Ankle pain. COMPARISON: None available. FIND INGS: Bones/joints: No acute fracture or dislocation. Ankle mortise is symmetr ic. Enthesophytes at the dorsal calcaneus, dorsal navicular and talus. So ft tissues: There is mild ankle soft tissue swelling. IMPRESSION: No acute fracture or dislocation. Mild ankle soft tissue swelling. Signed by: Jose G Rowell MD on 02/01/2020 11:38 AM Dictated By: JOSE G ROWELL MD El ectronically Signed By: JOSE G ROWELL MD on 02/01/201137 Transcribed By: MARIA M BEJARANO on 02/01/201137 COPY TO: PADMINI GOLDSMITH MD ANKLE 3+ VIEWS [id number] 11:33:00 [place] [address] Patient Name: TORY ANGLIN MR #: [id number] : 1950 Age/Sex: 69/F Req #: [id number] Adm Physician: Ordered by: PADMINI GOLDSMITH MD Report #: [id number] Location: ER Room/Bed: Procedure: [id number] DX/ANKLE 3+ VIEWS LEFT Exam Date: 02/01/20 Exam Time: 1103 REPORT STATUS: Signed X-ray 3 views of the ankle. HISTORY: Ankle pain COMPARISON: None available. FIND INGS: See impression. IMPRESSION: 1. Status post ORIF for healing di stal fibular fracture. There are percutaneous K wires over the healing medial malleolar fracture. 2. There is mild medial clear space widening measuring a pproximately 5 mm suggestive of ligamentous injury. 3. There is diffuse so ft tissue swelling around the ankle. Signed by: Jose G Rowell MD on 02/01/20 11:36 AM Dictated By: JOSE G ROWELL MD 35 Transcribed By: MIKE on 02/01/201135 COPY TO: PADMINI GOLDSMITH MD CHEST SINGLE (PORTABLE)2020-02-01 11:31:00 [facility] [address] [place] [address] Patient Name: TORY ANGLIN MR #: [id number] : 1950 Age/Sex: 69/F Req #: [id number] Adm Physician: Ordered by: PADMINI GOLDSMITH MD Report #: [id number] Location: ER Room/Bed: Procedure: [id number] DX/CHEST SINGLE ( PORTABLE) Exam Date: 02/01/20 Exam Time: 1103 REPORT STATUS: Signed EXAMINATION: CH EST SINGLE (PORTABLE) INDICATION: Status post fall. COMPARISON: N one FINDINGS: TUBES and LINES: None. There is linear ar ea of high density projecting over the mid chest, likely artifact external to the patient. LUNGS: Normal lung volumes. Lungs are clear. No consolidati ons. PLEURA: No pleural effusion or pneumothorax. HEART AND MEDIASTIN UM: The cardiomediastinal silhouette is unremarkable. BONES AND SOFT T ISSUES: No acute osseous lesion. Soft tissues are unremarkable. UPPER A BDOMEN: No free air under the diaphragm. IMPRESSION: No acute tho racic radiographic abnormality. Signed by: Jose G Rowell MD on 02/01/2020 11:32 AM Dictated By: JOSE G ROWELL MD 1132 Transcribed By: MIKE on 02/01/20 1132 CO PY TO: PADMINI GOLDSMITH MD CT THORACIC SPINE [id number] 11:16:00 [place] [address] Patient Name: TORY ANGLIN MR #: [id number] : 1950 Age/Sex: 69/F Req #: [id number] [facility] Physician: Ordered by: PADMINI GOLDSMITH MD Report #: [id number] Location: ER Room/Bed: Procedure: [id number] CT/CT THORACIC SP INE WO Exam Date: 02/01/20 Exam Time: 1030 REPORT STATUS: Signed EXAMINATION: CT of the thoracic spine without contrast. HISTORY: 69-year-old female status pos t fall multiple times in the last 3 days, the last time this morning, back benjamín n COMPARISON: None. TECHNIQUE: Multidetector helical axial images were obtai suad without contrast through the thoracic spine. The images were reconstructe d using bone and soft tissue algorithms and were viewed in axial, sagittal and coronal planes. Dose modulation, iterative reconstruction, and/or weight b ased adjustment of the mA/kV was utilized to reduce the radiation dose to as l ow as reasonably achievable. FINDINGS: Curvature: Increased upp er thoracic kyphosis centered at C6 chronic fracture and in the thoracolumbar region center at the T12 fracture. Vertebrae: * Acute severe osteopor otic compression fracture of the T12 vertebral body, with decreased vertebral body height by approximately 90% (vertebral plan), associated approximately 7 mm dorsal retropulsion of the posterior vertebral body within the spinal canal , which results in severe canal stenoses and probable cord compression. Foci o f air are seen within the fractured vertebral body and within the adjacent T11 -T12 and T12-L1 intervertebral disc. Minimal associated paraspinal [...] above Posterior ribs: Unremarkable. IMPRESSION: 1. Acute se yvette osteoporotic compression fracture of the T12 vertebral body (90% decrease d height) with posterior retropulsion and moderate canal stenosis as well as p robable mild cord compression, correlation with physical examination is advise d. Thoracic spine MRI and neurosurgery consult are also recommended 2. M oderate chronic compression fracture of the T6 vertebral body without posterio r retropulsion or foraminal stenoses. 3. Minimal chronic anterior wedging of the T2 and T4 vertebral bodies without posterior functional canal stenosis. Note is made of acute post traumatic spinal cord, vascular ligamentous inj ury cannot adequately be assessed with CT. The findings were discussed wi th the attending physician Dr. Goldsmith on 01/31/2020 at 11:35 AM. Signed by: Dr. Elyse Gibson M.D. on 02/01/2020 11:39 AM Dictated By: ELYSE GIBSON MD 113 Transcribed By: [facility] RAN on 02/01/20 1139 COPY TO: PADMINI GOLDSMITH MD Transitional cells detection in urine sediment by light dldtzhkoxh3873-36-54 10:40:00* Test Item Value Reference Range Interpretation Comments Urine Transitional Epithelial Cells (test code = 8249-5) FEW NONE [facility] CenterRenal epithelial cells detection in urine sediment by light rityyompyn9225-04-55 10:40:00* Test Item Value Reference Range Interpretation Comments Urine Renal Epithelial Cells (test code = 45725-3) RARE NON E [facility] CenterFluoroscopic procedure less than one hour hqlrdoho0777-74-31 10:22:00* Test Item Value Reference Range Interpretation Comments Coronavirus (PCR) (test code = Coronavirus (PCR)) NOT DETECTED NOTD ETECTED SARS-COV2/RT-PCRNegative results do not preclude SARS-CoV-2 infection and should not be used as the sole basis for patient management decisions. Negative results must be combined with clinical observations, patient history, and epidemiologi ben information. A false negative result may occur if a specimen is improperly c ollected, transported or handled.The limit of detection for this assay is 250 co pies/mLThe SARS-CoV-2 test is a rapid, real-time RT-PCR test intended for the qu alitative detection of nucleic acid from SARS-CoV-2 in nasopharyngeal swab speci men collected from individuals suspected of COVID-19 by their healthcare provide r. This test has not been Food and Drug Administration (FDA) cleared or approved and has been authorized by FDA under an Emergency Use Authorization (EUA). This EUA will be effective until the declaration that circumstances exist justifying the authorization of the emergency use of in vitro diagnostic test for detection and or diagnosis of COVID-19 is terminated under section 564(b) of the Act, or the the EUA is revoked under 564(g) of the ACT.Testing performed by [facility] [place] [id number] [place], [place] [address]Blood Lsuyfcc8842-81-56 16:43:00* Test Item Value Reference Range Interpretation Comments Blood Culture (test code = 31945791) NO GROWTH AFTER 5 DAYS, FINAL REPORT [facility] CenterCoronavirus (PCR)2019-09-12 15:25:00* Test Item Value [...] to perform high complexity tests.Specimen sent to [facility] and testing performed by [facility] [address] [place] [address] [phone] Director: Dank Avila M.D.CLIA # [id number] [facility] Nknjb2006-80-96 06:50:00 * Test Item Value Reference Range Interpretation Comments Sodium Level (test code = 2951-2) 138 136-145 [facility] CenterPotassium Mdtpd3749-52-74 06:50:00* Test Item Value Reference Range Interpretation Comments Potassium Level (test code = 2823-3) 3.9 3.5-5.1 [facility] CenterChloride Vtqzb0726-01-40 06:50:00* Test Item Value Reference Range Interpretation Comments Chloride Level (test code = 2075-0) 103 98-107 [facility] CenterCarbon Dioxide Fqvvz4026-31-61 06:50:00* Test Item Value Reference Range Interpretation Comments Carbon Dioxide Level (test code = 2028-9) 30 22-[address] [facility] CenterAnion Sux2624-57-69 06:50:00* Test Item Value Reference Range Interpretation Comments Anion Gap (test code = 22913-1) 8.9 8-16 [facility] CenterBlood Urea Stgbpglh1653-15-59 06:50:00* Test Item Value Reference Range Interpretation Comments Blood Urea Nitrogen (test code = 3094-0) 8 7-26 [facility] CenterCreatinine2020-03-26 06:50:00* Test Item Value Reference Range Interpretation Comments Creatinine (test code = 2160-0) 0.69 0.57-1.11 [facility] CenterBUN/Creatinine Kydqm5026-23-89 06:50:00* Test Item Value Reference Range Interpretation Comments BUN/Creatinine Ratio (test code = 3097-3) 12 - [facility] CenterEstimat Glomerular Filtration Rate 2019-09-11 06:50:00* Test Item Value Reference Range Interpretation Comments Estimat Glomerular Filtration Rate (test code = 856997453) > 60 >60 Ranges were taken from the National Kidney Disease Education Program and the [facility] Foundation literature.Reference ranges:60 or greater: Ognbem51-79 ( for 3 consecutive months): Chronic kidney disease 15 or less: Kidney failureSt. [facility]'s [facility] CenterGlucose Lsota4189-33-92 06:50:00* Test Item Value Reference Range Interpretation Comments Glucose Level (test code = KNW6655) 87 74-118 [facility] CenterCalcium Cdjpb7774-52-58 06:50:00* Test Item Value Reference Range Interpretation Comments Calcium Level (test code = 13532-8) 8.1 8.4-10.[address] [facility] CenterMagnesium Llbtg3589-46-63 06:50:00* Test Item Value Reference Range Interpretation Comments Magnesium Level (test code = 67009-4) 1.7 1.3-2.1 [facility] CenterWhite Blood Oqlmi7168-75-82 06:29:00* Test Item Value Reference Range Interpretation Comments White Blood Count (test code = 6690-2) 3.42 4.8-10.[address] [facility] CenterRed Blood Tzsim1592-81-53 06:29:00* Test Item Value Reference Range Interpretation Comments Red Blood Count (test code = 789-8) 3.16 3.6-5.[address] [facility] CenterHemoglobin2020-03-26 06:29:00* Test Item Value Reference Range Interpretation Comments Hemoglobin (test code = 97636-5) 9.4 12.0-16.[address] [facility] CenterHematocrit2020-03-26 06:29:00* Test Item Value Reference Range Interpretation Comments Hematocrit (test code = 4544-3) 29.3 34.2-44.[address] [facility] CenterMean Corpuscular Gqceis2770-74-60 06:29:00* Test Item Value Reference Range Interpretation Comments Mean Corpuscular Volume (test code = 787-2) 92.7 81-99 [facility] CenterMean Corpuscular Plpeyvgflx8177-83-81 06:29:00* Test Item Value Reference Range Interpretation Comments Mean Corpuscular Hemoglobin (test code = 785-6) 29.7 28-32 [facility] CenterMean Corpuscular Hemoglobin Concent 2019-09-11 06:29:00* Test Item Value Reference Range Interpretation Comments Mean Corpuscular Hemoglobin Concent (test code = 786-4) 32.1 31-35 [facility] CenterRed Cell Distribution Jzyqn6310-72-73 06:29:00* Test Item Value Reference Range Interpretation Comments Red Cell Distribution Width (test code = 71263-2) 15.1 11.7 -14.[address] [facility] CenterPlatelet Vewyd4479-71-79 06:29:00* Test Item Value Reference Range Interpretation Comments Platelet Count (test code = 777-3) 70 140-[address] [facility] CenterNeutrophils (%) (Auto)2019-09-11 06:29:00 * Test Item Value Reference Range Interpretation Comments Neutrophils (%) (Auto) (test code = 57585-1) 50.9 38.7-80.0 [facility] CenterLymphocytes (%) (Auto)2019-09-11 06:29:00 * Test Item Value Reference Range Interpretation Comments Lymphocytes (%) (Auto) (test code = 736-9) 29.8 18.0-39.1 [facility] CenterMonocytes (%) (Auto)2019-09-11 06:29:00* Test Item Value Reference Range Interpretation Comments Monocytes (%) (Auto) (test code = 5905-5) 11.7 4.4-11.[address] [facility] CenterEosinophils (%) (Auto)2019-09-11 06:29:00 * Test Item Value Reference Range Interpretation Comments Eosinophils (%) (Auto) (test code = 713-8) 6.1 0.0-6.[address] [facility] CenterBasophils (%) (Auto)2019-09-11 06:29:00* Test Item Value Reference Range Interpretation Comments Basophils (%) (Auto) (test code = 706-2) 0.3 0.0-1.0 [facility] CenterIM GRANULOCYTES %2019-09-11 06:29:00* Test Item Value Reference Range Interpretation Comments IM GRANULOCYTES % (test code = IM GRANULOCYTES %) 1.2 0.0- 1.[address] [facility] CenterNeutrophils # (Auto)2019-09-11 06:29:00* Test Item Value Reference Range Interpretation Comments Neutrophils # (Auto) (test code = 751-8) 1.7 2.1-6.[address] [facility] CenterLymphocytes # (Auto)2019-09-11 06:29:00* Test Item Value Reference Range Interpretation Comments Lymphocytes # (Auto) (test code = 84379-8) 1.0 1.0-3.2 [facility] CenterMonocytes # (Auto)2019-09-11 06:29:00* Test Item Value Reference Range Interpretation Comments Monocytes # (Auto) (test code = 742-7) 0.4 0.2-0.8 [facility] CenterEosinophils # (Auto)2019-09-11 06:29:00* Test Item Value Reference Range Interpretation Comments Eosinophils # (Auto) (test code = 711-2) 0.2 0.0-0.4 [facility] CenterBasophils # (Auto)2019-09-11 06:29:00* Test Item Value Reference Range Interpretation Comments Basophils # (Auto) (test code = 704-7) 0.0 0.0-0.1 [facility] CenterAbsolute Immature Granulocyte (auto 2019-09-11 06:29:00* Test Item Value Reference Range Interpretation Comments Absolute Immature Granulocyte (auto (india t code = Absolute Immature Granulocyte (auto) 0.04 0-0.1 [facility] CenterTotal Orsqzhqrz5064-98-92 06:21:00* Test Item Value Reference Range Interpretation Comments Total Bilirubin (test code = 1975-2) 2.5 0.2-1.[address] [facility] CenterAspartate Amino Transf (AST/SGOT) 2019-09-10 06:21:00* Test Item Value Reference Range Interpretation Comments Aspartate Amino Transf (AST/SGOT) (test code = Aspartate Amino Transf (AST/SGOT)) 63 5-[address] [facility] CenterAlanine Aminotransferase (ALT/SGPT) 2019-09-10 06:21:00* Test Item Value Reference Range Interpretation Comments Alanine Aminotransferase (ALT/SGPT) (test code = 1742-6) 30 0-55 [facility] CenterTotal Onweawh6886-50-49 06:21:00* Test Item Value Reference Range Interpretation Comments Total Protein (test code = 2885-2) 6.3 6.5-8.[address] [facility] CenterAlbumin2020-03-25 06:21:00* Test Item Value Reference Range Interpretation Comments Albumin (test code = 1751-7) 3.5 3.5-5.0 [facility] CenterGlobulin2020-03-25 06:21:00* Test Item Value Reference Range Interpretation Comments Globulin (test code = 04953-5) 2.8 2.3-3.5 [facility] CenterAlbumin/Globulin Sotpr2585-92-44 06:21:00 * Test Item Value Reference Range Interpretation Comments Albumin/Globulin Ratio (test code = 1759-0) 1.3 0.8-2.0 [facility] CenterAlkaline Ngurvpqliuf4675-05-67 06:21:00* Test Item Value Reference Range Interpretation Comments Alkaline Phosphatase (test code = 6768-6) 63 40-150 [facility] CenterCreatine Ogfadu2546-44-61 06:21:00* Test Item Value Reference Range Interpretation Comments Creatine Kinase (test code = 2157-6) 356 29-[address] [facility] CenterCreatine Kinase IC1447-46-85 06:21:00* Test Item Value Reference Range Interpretation Comments Creatine Kinase MB (test code = 48152-1) 13.20 0-5.[address] [facility] CenterTroponin L6311-20-88 06:21:00* Test Item Value Reference Range Interpretation Comments Troponin I (test code = OZI5093) < 0.001 0-0.300 [facility] CenterMRA HEAD KR2629-44-26 16:58:00 [place] [address] Patient Name: TORY ANGLIN MR #: [id number] : 1950 Age/Sex: 69/F Req #: [id number] Adm Physician: ALPHONSO OLIVARES MD Ordered by: DEVEN RAMOS MD Report #: [id number] Location: MED/SURG Room/Bed: 101-1 Procedure: [id number] MRI /MRA HEAD WO Exam Date: Exam Time: REPORT STATUS: Signed Veins: Brain MRI, neck MRA and intracranial MRAs without IV contrast History: Altered mental status Comparison studies: Head CT 09/06/2018 Technique: Brain: Axial DWI, 3-D T1, axial T2 FLAIR and axial T2*GRE.. Neck MRA: Axial 2-D rujo-rl-eypvsk with 3-D MIP reformats. Intracranial MRA: Axial 3-D xdvk-ll-sqwymk with 3-D MIP re formats. Findings: All [...] in the neck and grossl y patent minto of [place] without gross flow-limiting stenosis. Signed by : Dr. Danielle Hicks M.D. on 09/09/2019 5:17 PM Dictated By: DANIELLE BENJAMIN MD 16 Transcribe d By: MIKE on 09/09/191716 COPY TO: DEVEN RAMOS MD MRA NECK EG3335-22-80 16:58:00 [place] [address] Patient Name: TORY ANGLIN MR #: [id number] : 1950 Age/Sex: 69/F Req #: [id number] Adm Physician: ALPHONSO OLIVARES MD Ordered by: DEVEN RAMOS MD Report #: [id number] Location: MED/SURG Room/Bed: Formerly named [facility] Procedure: [id number] MRI /MRA NECK WO Exam Date: Exam Time: REPORT STATUS: Signed Veins: Brain MRI, neck MRA and intracranial MRAs without IV contrast History: Altered mental status Comparison studies: Head CT 09/06/2018 Technique: Brain: Axial DWI, 3-D T1, axial T2 FLAIR and axial T2*GRE.. Neck MRA: Axial 2-D txaa-fb-wtxtow with 3-D MIP reformats. Intracranial MRA: Axial 3-D bfhg-ul-yktymj with 3-D MIP re formats. Findings: All [...] in the neck and grossl y patent minto of [place] without gross flow-limiting stenosis. Signed by : Dr. Danielle Hicks M.D. on 09/09/2019 5:17 PM Dictated By: DANIELLE BENJAMIN MD 16 Transcribe d By: MIKE on 09/09/191716 COPY TO: DEVEN RAMOS MD MRI BRAIN LO4495-82-29 16:58:00 [place] [address] Patient Name: TORY ANGLIN MR #: [id number] : 1950 Age/Sex: 69/F Req #: [id number] Adm Physician: ALPHONSO OLIVARES MD Ordered by: DEVEN RAMOS MD Report #: [id number] Location: MED/SURG Room/Bed: Formerly named [facility] Procedure: [id number] MRI /MRI BRAIN WO Exam Date: Exam Time: REPORT STATUS: Signed Veins: Brain MRI, neck M RA and intracranial MRAs without IV contrast History: Altered mental status Comparison studies: Head CT 09/06/2018 Technique: Brain: Axial DWI, 3-D T1, axial T2 FLAIR and axial T2*GRE.. Neck MRA: Axial 2-D yesq-nm-qqfotc with 3-D MIP reformats. Intracranial MRA: Axial 3-D gqpq-sk-bxsmxn with 3-D MIP r eformats. Findings: All [...] in the neck and gross ly patent minto of [place] without gross flow-limiting stenosis. Signed b y: Dr. Danielle Hicks M.D. on 09/09/2019 5:17 PM Dictated By: DANIELLE NEFF MD 16 Transcrib ed By: MIKE on 09/09/191716 COPY TO: DEVEN RAMOS MD Blood Kjghmeo9289-01-11 13:51:00* Test Item Value Reference Range Interpretation Comments Blood Culture (test code = 600-7) No Result Data Provided [facility] CenterPhosphorus Hhvri5215-68-56 10:32:00* Test Item Value Reference Range Interpretation Comments Phosphorus Level (test code = UZG5660) 2.5 2.3-4.7 [facility] CenterPhosphorus pditeanmrpw2539-36-90 09:50:00 * Test Item Value Reference Range Interpretation Comments Phosphorus Level (test code = LTH1463) 2.5 2.3-4.7 [facility] CenterTriglycerides Evvfl0911-01-68 06:23:00* Test Item Value Reference Range Interpretation Comments Triglycerides Level (test code = 2571-8) 110 0-149 [facility] CenterCholesterol Gwzmx5741-83-22 06:23:00* Test Item Value Reference Range Interpretation Comments Cholesterol Level (test code = 2093-3) 138 0-199 Less than 200 mg/dL Low Zdoy594 - 239 mg/dL Borderline Qhwb472 m g/dl and greater High Risk [facility] CenterLDL Hfgxjrsfwdo6335-70-19 06:23:00* Test Item Value Reference Range Interpretation Comments LDL Cholesterol (test code = 2089-1) 72 60-130 [facility] CenterHDL Phrxutxyhsk3594-66-02 06:23:00* Test Item Value Reference Range Interpretation Comments HDL Cholesterol (test code = 2085-9) 44 40-60 [facility] CenterCholesterol/HDL Xoeeh9176-42-78 06:23:00 * Test Item Value Reference Range Interpretation Comments Cholesterol/HDL Ratio (test code = 9830-1) 3.1 3.0-3.6 [facility] CenterAmmonia2020-03-23 05:31:00* Test Item Value Reference Range Interpretation Comments Ammonia (test code = 66722-5) 66 31-123 [facility] CenterCT ABDOMEN/PELVIS M0932-10-39 20:18:00 [facility] [address] [place] [address] Patient Name: TORY ANGLIN MR #: [id number] : 1950 Age/Sex: 69/F Req #: [id number] Adm Physician: ALPHONSO OLIVARES MD Ordered by: PADMINI GOLDSMITH MD Report #: [id number] Location: [facility] Room/Bed: [place] [address] Procedure: [id number] CT/CT ABDOMEN/PELVIS W Exam Date: 09/07/19 Exam [...] 32 COPY TO: JOSE GOLDSMITH MD Amylase Dyngs1623-89-36 19:47:00* Test Item Value Reference Range Interpretation Comments Amylase Level (test code = 1798-8) 22 25-[address] [facility] CenterLipase2020-03-22 19:47:00* Test Item Value Reference Range Interpretation Comments Lipase (test code = 3040-3) 15 8-78 [facility] CenterCHEST SINGLE (PORTABLE)2019-09-07 17:52:00 [place] [address] Patient Name: TORY ANGLIN MR #: [id number] : 1950 Age/Sex: 69/F Req #: [id number] Adm Physician: Ordered by: PADMINI GOLDSMITH MD Report #: [id number] Location: ER Room/Bed: Procedure: [id number] DX/LEILANI ST SINGLE (PORTABLE) Exam Date: 09/07/19 [...] COPY TO: PADMINI GOLDSMITH MD CT BRAIN RP5856-87-63 17:52:00 [place] [address] Patient Name: TORY ANGLIN MR #: [id number] : 1950 Age/Sex: 69/F Req #: [id number] Adm Physician: Ordered by: PADMINI GOLDSMITH MD Report #: [id number] Location: ER Room/Bed: Procedure: [id number] CT/CT BRAIN WO Exam Date: 09/07/19 Exam [...] 09/06 COPY TO: PADMINI GOLDSMITH MD Urine Hvddw9873-90-49 17:32:00* Test Item Value Reference Range Interpretation Comments Urine Color (test code = 5778-6) YELLOW YELLOW [facility] CenterUrine Qsyufal6960-66-59 17:32:00* Test Item Value Reference Range Interpretation Comments Urine Clarity (test code = 28727-5) CLEAR CLEAR [facility] CenterUrine Specific Hpsdlgm1462-17-52 17:32:00 * Test Item Value Reference Range Interpretation Comments Urine Specific [place] (test code = 5811-5) >=1.030 1.010-1.[address] [facility] CenterUrine nB2950-66-27 17:32:00* Test Item Value Reference Range Interpretation Comments Urine pH (test code = 83237-2) 8 5-7 [facility] CenterUrine Leukocyte Ebkblrnt9220-07-22 17:32:00* Test Item Value Reference Range Interpretation Comments Urine Leukocyte Esterase (test code = 5799-2) NEGATIVE NEGATIVE [facility] CenterUrine Zasuyhh3656-98-59 17:32:00* Test Item Value Reference Range Interpretation Comments Urine Nitrite (test code = 21038-8) NEGATIVE NEGATIVE [facility] CenterUrine Mijbwfn2877-27-75 17:32:00* Test Item Value Reference Range Interpretation Comments Urine Protein (test code = 5804-0) NEGATIVE NEGATIVE [facility] CenterUrine Glucose (UA)2019-09-07 17:32:00* Test Item Value Reference Range Interpretation Comments Urine Glucose (UA) (test code = 2349-9) NEGATIVE NEGATIVE [facility] Xflvvca0197-78-55 17:32:00* Test Item Value Reference Range Interpretation Comments Urine Ketones (test code = 17054-4) TRACE NEGATIVE H [facility] Csovevjxtrfa2635-33-07 17:32:00* Test Item Value Reference Range Interpretation Comments Urine Urobilinogen (test code = 94170-6) 2.0 0.2-1 H [facility] Icuguqcvw7255-51-27 17:32:00* Test Item Value Reference Range Interpretation Comments Urine Bilirubin (test code = 1978-6) NEGATIVE NEGATIVE [facility] CenterUrine Esswj8299-30-19 17:32:00* Test Item Value Reference Range Interpretation Comments Urine Blood (test code = 02408-2) NEGATIVE NEGATIVE [facility] CenterUrine QTR4873-50-14 17:32:00* Test Item Value Reference Range Interpretation Comments Urine WBC (test code = 5821-4) 0-5 0-5 [facility] CenterUrine LEP5577-29-28 17:32:00* Test Item Value Reference Range Interpretation Comments Urine RBC (test code = 07673-2) 0-5 0-5 [facility] CenterUrine Stvvlkrn8070-76-18 17:32:00* Test Item Value Reference Range Interpretation Comments Urine Bacteria (test code = 57722-6) RARE NONE [facility] CenterUrine Epithelial Jzbwt4032-04-34 17:32:00 * Test Item Value Reference Range Interpretation Comments Urine Epithelial Cells (test code = 92714-8) FEW NONE [facility] CenterB-Type Natriuretic Kdlijnx8066-95-51 17:21:00* Test Item Value Reference Range Interpretation Comments B-Type Natriuretic Peptide (test code = 52599-7) 217.4 0-[address] [facility] CenterProthrombin Benj9152-66-44 17:10:00* Test Item Value Reference Range Interpretation Comments Prothrombin Time (test code = 5902-2) 16.6 11.9-14.[address] [facility] CenterProthromb Time International Ratio 2019-09-07 17:10:00* Test Item Value Reference Range Interpretation Comments Prothromb Time International Ratio (test code = 6301-6) 1.26 Oral Anticoagulant Therapy INR Values:1. Low Intensity Therapy 1.5 - 2.02 . Moderate Intensity Therapy 2.0 - 3.03. High Intensity Therapy(1) 2.5 - 3. 54. High Intensity Therapy(2) 3.0 - 4.05. Panic Value INR > 5.0 [facility] CenterActivated Partial Thromboplast Time 2019-09-07 17:10:00* Test Item Value Reference Range Interpretation Comments Activated Partial Thromboplast Time (test code = 44178-6) 32.1 23.8-35.5 [facility] plasma amylase measurement (enzymatic activity/volume)2019-09-07 16:43:00* Test Item Value Reference Range Interpretation Comments Amylase Level (test code = 1798-8) 22 25-125 [facility]erum or plasma lipase measurement (enzymatic activity/volume)2019-09-07 16:43:00* Test Item Value Reference Range Interpretation Comments Lipase (test code = 3040-3) 15 8-78 [facility] CenterBlood uyhayaf1816-71-37 16:35:00* Test Item Value Reference Range Interpretation Comments Blood Culture (test code = 46272128) NO GROWTH AFTER 5 DAYS, FINAL REPORT [facility] CenterBacterial blood yesacmw5276-10-97 16:35:00* Test Item Value Reference Range Interpretation Comments Blood Culture (test code = 600-7) STAPHYLOCOCCUS SP COAG NEG [facility]CR [facility] BILATERAL KIRIT CAD DIGITAL 2019-04-29 10:00:23 - SCR MAMM BILATERAL KIRIT CAD DIGITALBILATERAL DIGITAL SCREENING MAMMOGRAM 3D/2D WITH CAD: 04/04/2019CLINICAL: Asymptomatic. Digital breast tomosynthesis was performed in addition to routine CC and MLO views. Current mammographic images were evaluated by either a [employer] M-Vu ora Scrip-t ImageChecker CAD (computer aided detection system). Comparison is made to exams dated 02/20/2018 mammogram, 02/08/2016 mammogram, and 12/17/2015 mammogram - [facility]. There are scattered fibroglandular tissues in both [...] 04/29/2019 10:00:23Imaging Technologist: Tory Fong MM, [facility] Mammographyletter sent: BIRADS 1-2 Normal Mammogram BI-RADS: 2 BenignSodium Jttnh3105-14-51 07:22:00* Test Item Value Reference Range Interpretation Comments Sodium Level (test code = 2951-2) 138 136-145 [facility] CenterPotassium Meqlc7744-33-25 07:22:00* Test Item Value Reference Range Interpretation Comments Potassium Level (test code = 2823-3) 4.2 3.5-5.1 [facility] CenterChloride Gqnon3672-80-84 07:22:00* Test Item Value Reference Range Interpretation Comments Chloride Level (test code = 2075-0) 111 98-[address] [facility] CenterCarbon Dioxide Rghkx7950-52-00 07:22:00* Test Item Value Reference Range Interpretation Comments Carbon Dioxide Level (test code = 2028-9) 24 -29 [facility] CenterAnion Tgl7968-98-96 07:22:00* Test Item Value Reference Range Interpretation Comments Anion Gap (test code = 35718-2) 7.2 8-[address] [facility] CenterBlood Urea Jghuhbrk3229-17-87 07:22:00* Test Item Value Reference Range Interpretation Comments Blood Urea Nitrogen (test code = 3094-0) 5 7-[address] [facility] CenterCreatinine2019-05-03 07:22:00* Test Item Value Reference Range Interpretation Comments Creatinine (test code = 2160-0) 0.68 0.57-1.11 [facility] CenterBUN/Creatinine Hsmna9167-61-89 07:22:00* Test Item Value Reference Range Interpretation Comments BUN/Creatinine Ratio (test code = 3097-3) 7 6-25 [facility] CenterEstimat Glomerular Filtration Rate 2018-10-18 07:22:00* Test Item Value Reference Range Interpretation Comments Estimat Glomerular Filtration Rate (test code = 192133869) > 60 >60 Ranges were taken from the National Kidney Disease Education Program and the [facility] Foundation literature.Reference ranges:60 or greater: Jiiaba07-53 ( for 3 consecutive months): Chronic kidney disease 15 or less: Kidney failureSt. [facility]'s [facility] CenterGlucose Arphw1895-12-97 07:22:00* Test Item Value Reference Range Interpretation Comments Glucose Level (test code = IVS5981) 91 74-118 [facility] CenterCalcium Yhkgj9734-24-40 07:22:00* Test Item Value Reference Range Interpretation Comments Calcium Level (test code = 55780-3) 7.6 8.4-10.[address] [facility] CenterTotal Rdunlijpb5619-04-63 07:22:00* Test Item Value Reference Range Interpretation Comments Total Bilirubin (test code = 1975-2) 1.3 0.2-1.[address] [facility] CenterAspartate Amino Transf (AST/SGOT) 2018-10-18 07:22:00* Test Item Value Reference Range Interpretation Comments Aspartate Amino Transf (AST/SGOT) (test code = Aspartate Amino Transf (AST/SGOT)) 23 5-34 [facility] CenterAlanine Aminotransferase (ALT/SGPT) 2018-10-18 07:22:00* Test Item Value Reference Range Interpretation Comments Alanine Aminotransferase (ALT/SGPT) (test code = 1742-6) 13 0-55 [facility] CenterTotal Sqrkwrk3523-31-43 07:22:00* Test Item Value Reference Range Interpretation Comments Total Protein (test code = 2885-2) 5.1 6.5-8.[address] [facility] CenterAlbumin2019-05-03 07:22:00* Test Item Value Reference Range Interpretation Comments Albumin (test code = 1751-7) 2.6 3.5-5.[address] [facility] CenterGlobulin2019-05-03 07:22:00* Test Item Value Reference Range Interpretation Comments Globulin (test code = 43252-0) 2.5 2.3-3.5 [facility] CenterAlbumin/Globulin Asdxp9554-44-61 07:22:00 * Test Item Value Reference Range Interpretation Comments Albumin/Globulin Ratio (test code = 1759-0) 1.0 0.8-2.0 [facility] CenterAlkaline Qwvorahksbf2276-40-64 07:22:00* Test Item Value Reference Range Interpretation Comments Alkaline Phosphatase (test code = 6768-6) 53 40-150 [facility] CenterVitamin B12 Rfbxq9449-38-22 05:44:00* Test Item Value Reference Range Interpretation Comments Vitamin B12 Level (test code = 15876-3) 353 213-816 [facility] CenterFolate2019-05-03 05:44:00* Test Item Value Reference Range Interpretation Comments Folate (test code = 2284-8) 6.0 7.0-15.[address] [facility] CenterB-Type Natriuretic Vresxhv2044-69-90 05:19:00* Test Item Value Reference Range Interpretation Comments B-Type Natriuretic Peptide (test code = 41467-0) 361.2 0-[address] [facility] CenterFerritin2019-05-03 05:06:00* Test Item Value Reference Range Interpretation Comments Ferritin (test code = 2276-4) 100.37 4.63-204.00 [facility] [facility] CenterMagnesium Qsgsn7893-00-13 04:46:00* Test Item Value Reference Range Interpretation Comments Magnesium Level (test code = 78371-7) 1.8 1.3-2.1 [facility] CenterIron Syzie1204-31-55 04:46:00* Test Item Value Reference Range Interpretation Comments Iron Level (test code = 2498-4) 115 50-170 [facility] CenterTotal Iron Binding Linzrfjk8305-47-68 04:46:00* Test Item Value Reference Range Interpretation Comments Total Iron Binding Capacity (test code = 2500-7) 207 261-[address] [facility] CenterPercent Iron Xqewacdnmd2959-35-35 04:46:00* Test Item Value Reference Range Interpretation Comments Percent Iron Saturation (test code = 2502-3) 56 15-[address] [facility] CenterTransferrin2019-05-03 04:46:00* Test Item Value Reference Range Interpretation Comments Transferrin (test code = 3034-6) 148 180-[address] [facility] CenterWhite Blood Olwdi2366-56-87 04:24:00* Test Item Value Reference Range Interpretation Comments White Blood Count (test code = 6690-2) 3.10 4.8-10.[address] [facility] CenterRed Blood Uijum2552-53-49 04:24:00* Test Item Value Reference Range Interpretation Comments Red Blood Count (test code = 789-8) 2.90 3.6-5.[address] [facility] CenterHemoglobin2019-05-03 04:24:00* Test Item Value Reference Range Interpretation Comments Hemoglobin (test code = 43103-0) 8.7 12.0-16.[address] [facility] CenterHematocrit2019-05-03 04:24:00* Test Item Value Reference Range Interpretation Comments Hematocrit (test code = 4544-3) 27.5 34.2-44.[address] [facility] CenterMean Corpuscular Howljl1684-13-29 04:24:00* Test Item Value Reference Range Interpretation Comments Mean Corpuscular Volume (test code = 787-2) 94.8 81-99 [facility] CenterMean Corpuscular Rhexnporpi5394-20-09 04:24:00* Test Item Value Reference Range Interpretation Comments Mean Corpuscular Hemoglobin (test code = 785-6) 30.0 28-32 [facility] CenterMean Corpuscular Hemoglobin Concent 2018-10-18 04:24:00* Test Item Value Reference Range Interpretation Comments Mean Corpuscular Hemoglobin Concent (test code = 786-4) 31.6 31-35 [facility] CenterRed Cell Distribution Qirvf8963-02-15 04:24:00* Test Item Value Reference Range Interpretation Comments Red Cell Distribution Width (test code = 79822-5) 15.1 11.7 -14.[address] [facility] CenterPlatelet Owlan3950-15-21 04:24:00* Test Item Value Reference Range Interpretation Comments Platelet Count (test code = 777-3) 57 140-[address] [facility] CenterNeutrophils (%) (Auto)2018-10-18 04:24:00 * Test Item Value Reference Range Interpretation Comments Neutrophils (%) (Auto) (test code = 27593-2) 59.7 38.7-80.0 [facility] CenterLymphocytes (%) (Auto)2018-10-18 04:24:00 * Test Item Value Reference Range Interpretation Comments Lymphocytes (%) (Auto) (test code = 736-9) 25.8 18.0-39.1 [facility] CenterMonocytes (%) (Auto)2018-10-18 04:24:00* Test Item Value Reference Range Interpretation Comments Monocytes (%) (Auto) (test code = 5905-5) 8.7 4.4-11.3 [facility] CenterEosinophils (%) (Auto)2018-10-18 04:24:00 * Test Item Value Reference Range Interpretation Comments Eosinophils (%) (Auto) (test code = 713-8) 4.5 0.0-6.0 [facility] CenterBasophils (%) (Auto)2018-10-18 04:24:00* Test Item Value Reference Range Interpretation Comments Basophils (%) (Auto) (test code = 706-2) 0.3 0.0-1.0 [facility] CenterIM GRANULOCYTES %2018-10-18 04:24:00* Test Item Value Reference Range Interpretation Comments IM GRANULOCYTES % (test code = IM GRANULOCYTES %) 1.0 0.0- 1.0 [facility] CenterNeutrophils # (Auto)2018-10-18 04:24:00* Test Item Value Reference Range Interpretation Comments Neutrophils # (Auto) (test code = 751-8) 1.9 2.1-6.[address] [facility] CenterLymphocytes # (Auto)2018-10-18 04:24:00* Test Item Value Reference Range Interpretation Comments Lymphocytes # (Auto) (test code = 61953-8) 0.8 1.0-3.[address] [facility] CenterMonocytes # (Auto)2018-10-18 04:24:00* Test Item Value Reference Range Interpretation Comments Monocytes # (Auto) (test code = 742-7) 0.3 0.2-0.8 [facility] CenterEosinophils # (Auto)2018-10-18 04:24:00* Test Item Value Reference Range Interpretation Comments Eosinophils # (Auto) (test code = 711-2) 0.1 0.0-0.4 [facility] CenterBasophils # (Auto)2018-10-18 04:24:00* Test Item Value Reference Range Interpretation Comments Basophils # (Auto) (test code = 704-7) 0.0 0.0-0.1 [facility] CenterAbsolute Immature Granulocyte (auto 2018-10-18 04:24:00* Test Item Value Reference Range Interpretation Comments Absolute Immature Granulocyte (auto (india t code = Absolute Immature Granulocyte (auto) 0.03 0-0.1 [facility] CenterPlatelet Btbgrvlx8738-71-59 07:54:00* Test Item Value Reference Range Interpretation Comments Platelet Estimate (test code = 52902-8) MARKEDLY DECREASED [facility] CenterPlatelet Morphology Sirumdi0412-17-31 07:54:00* Test Item Value Reference Range Interpretation Comments Platelet Morphology Comment (test code = 76062-0) NORMAL [facility] CenterHypochromasia2019-05-02 07:54:00* Test Item Value Reference Range Interpretation Comments Hypochromasia (test code = 728-6) MODERATE [facility] CenterAnisocytosis2019-05-02 07:54:00* Test Item Value Reference Range Interpretation Comments Anisocytosis (test code = 702-1) SLIGHT [facility] CenterRed Cell Morphology Kjjhddz0468-50-85 07:54:00* Test Item Value Reference Range Interpretation Comments Red Cell Morphology Comment (test code = 6742-1) NORMAL [facility] CenterDirect Jgheqzlvq3345-87-15 04:32:00* Test Item Value Reference Range Interpretation Comments Direct Bilirubin (test code = 72200-1) 0.5 0.0-0.5 [facility] CenterPhosphorus Hkctq8789-05-22 06:45:00* Test Item Value Reference Range Interpretation Comments Phosphorus Level (test code = ZLQ7947) 2.2 2.3-4.[address] [facility] CenterFree Zkwqzqoiv7689-79-53 04:07:00* Test Item Value Reference Range Interpretation Comments Free Thyroxine (test code = 3024-7) 0.78 0.9-1.[address] [facility] CenterThyroid Stimulating Hormone (TSH) 2018-10-14 04:07:00* Test Item Value Reference Range Interpretation Comments Thyroid Stimulating Hormone (TSH) (test code = 26210-4) 0.860 0.350-4.940 [facility] CenterAmylase Tzjqq5736-66-03 03:46:00* Test Item Value Reference Range Interpretation Comments Amylase Level (test code = 1798-8) 44 25-125 [facility] CenterLipase2019-04-29 03:46:00* Test Item Value Reference Range Interpretation Comments Lipase (test code = 3040-3) 61 8-78 [facility] CenterHemoglobin A1c Megwanw4919-45-56 03:40:00 * Test Item Value Reference Range Interpretation Comments Hemoglobin A1c Percent (test code = Hemoglobin A1c Percent) 4.5 4.0-7.0 [facility] S5316-85-37 01:07:00 [facility] [address] [address] Patient Name: TORY ANGLIN MR #: [id number] : 1950 Age/Sex: 68/F Req #: [id number] Adm Physician: Ordered by: DARIN STEWART MD Report #: [id number] Location: ER Room/Bed: Procedure: [id number] CT/CT ABDOMEN/PELVIS W Exam Date: Exam Time: [...] 10/13/18123 COPY TO: DARIN STEWART MD Prothrombin Jqib7545-78-52 23:25:00* Test Item Value Reference Range Interpretation Comments Prothrombin Time (test code = 5902-2) 13.4 11.9-14.5 [facility] CenterProthromb Time International Ratio 2018-10-12 23:25:00* Test Item Value Reference Range Interpretation Comments Prothromb Time International Ratio (test code = 6301-6) 0.97 Oral Anticoagulant Therapy INR Values:1. Low Intensity Therapy 1.5 - 2.02 . Moderate Intensity Therapy 2.0 - 3.03. High Intensity Therapy(1) 2.5 - 3. 54. High Intensity Therapy(2) 3.0 - 4.05. Panic Value INR > 5.0 [facility] CenterActivated Partial Thromboplast Time 2018-10-12 23:25:00* Test Item Value Reference Range Interpretation Comments Activated Partial Thromboplast Time (test code = 14909-4) 32.0 23.8-35.5 [facility] CenterUrine HEO5804-70-99 23:25:00* Test Item Value Reference Range Interpretation Comments Urine WBC (test code = 5821-4) 11-20 0-[address] [facility] CenterUrine NMA6219-62-78 23:25:00* Test Item Value Reference Range Interpretation Comments Urine RBC (test code = 92793-1) 0-5 0-5 [facility] CenterUrine Ptbtaxis0413-13-97 23:25:00* Test Item Value Reference Range Interpretation Comments Urine Bacteria (test code = 83958-6) MODERATE NONE H [facility] CenterUrine Epithelial Axxgu4013-84-75 23:25:00 * Test Item Value Reference Range Interpretation Comments Urine Epithelial Cells (test code = 04380-8) MODERATE NONE [facility] CenterUrine Dpcwr8322-64-02 23:20:00* Test Item Value Reference Range Interpretation Comments Urine Color (test code = 5778-6) YELLOW YELLOW [facility] CenterUrine Frhsgan7620-87-33 23:20:00* Test Item Value Reference Range Interpretation Comments Urine Clarity (test code = 70899-3) CLEAR CLEAR [facility] CenterUrine Specific Gffookw7072-99-78 23:20:00 * Test Item Value Reference Range Interpretation Comments Urine Specific [place] (test code = 5811-5) 1.020 1.010-1.[address] [facility] CenterUrine tC1366-22-20 23:20:00* Test Item Value Reference Range Interpretation Comments Urine pH (test code = 35748-0) 6.5 5-7 [facility] CenterUrine Leukocyte Ltriaigh5573-21-05 23:20:00* Test Item Value Reference Range Interpretation Comments Urine Leukocyte Esterase (test code = 5799-2) 1+ NEGATIVE H [facility] CenterUrine Futnecg4593-18-90 23:20:00* Test Item Value Reference Range Interpretation Comments Urine Nitrite (test code = 00138-4) NEGATIVE NEGATIVE [facility] CenterUrine Ustytxc4457-74-17 23:20:00* Test Item Value Reference Range Interpretation Comments Urine Protein (test code = 5804-0) NEGATIVE NEGATIVE [facility] CenterUrine Glucose (UA)2018-10-12 23:20:00* Test Item Value Reference Range Interpretation Comments Urine Glucose (UA) (test code = 2349-9) NEGATIVE NEGATIVE [facility] CenterUrine Yjzndby0138-69-89 23:20:00* Test Item Value Reference Range Interpretation Comments Urine Ketones (test code = 79944-1) TRACE NEGATIVE H [facility] CenterUrine Ickinxujifyn7690-67-94 23:20:00* Test Item Value Reference Range Interpretation Comments Urine Urobilinogen (test code = 92100-3) 0.2 0.2-1 [facility] CenterUrine Xgbomtjoh0196-69-45 23:20:00* Test Item Value Reference Range Interpretation Comments Urine Bilirubin (test code = 1978-6) NEGATIVE NEGATIVE [facility] CenterUrine Grztf4820-11-27 23:20:00* Test Item Value Reference Range Interpretation Comments Urine Blood (test code = 68991-8) NEGATIVE NEGATIVE [facility] CenterUS URWTSDGZIVZ3432-81-89 23:15:00 [facility] [address] [place] [address] Patient Name: TORY ANGLIN MR #: [id number] : 1950 Age/Sex: 68/F Req #: [id number] Adm Physician: Ordered by: DARIN STEWART MD Report #: [id number] Location: ER Room/Bed: Procedure: [id number] US/US GALLBLADDER Exam Date: 10/12/18 Exam Time: REPORT STATUS: Signed EXAM: G allbladder Ultrasound [...]
--- OUTSIDE RECORDS SUMMARY | 2020-04-02 15:22 | XMS REPORT | Clinical Summary ---
Author Author [facility] Organization [facility] Address Unknown Phone Unavailable Care Team Providers Care Maintenance Welder Name Role Phone Prabhu Kirk DO PCP [...] for sleep Active Problems Not on file Surgical History Surgery Date Site/Laterality Comments ANKLE FRACTURE SURGERY 2018 SECTION 06/18/1981 - 06/17/1982 COLONOSCOPY 06/18/2016 - 06/17/2017 UPPER GASTROINTESTINAL 06/18/2016 - ENDOSCOPY 06/17/2017 Medical History Medical History Date Comments Cirrhosis of liver (HCC) 2014 Family History Medical History Relation Name Comments [...] Assigned at Date Recorded Not on file Last Filed Vital Signs Not on file Plan of Treatment Health Maintenance Due Date Last Done Comments BREAST CANCER SCREENING 1998 COLONOSCOPY SCREENING 1998 SHINGLES VACCINES (#1) 1998 65+ PNEUMOCOCCAL VACCINE 2013 (1 of 1 - PPSV23) INFLUENZA VACCINE 01/17/2020 Results Not on fileafter 04/02/2019 Insurance Type Payer Benefit Subscriber ID Effective Phone Address Plan / Dates Group O UHC MEDICARE UHC [id number] 2017-P MEDICARE resent HMO/PPO Advance Directives For more information, please contact: [phone] Patient Hand Striper Explanation Type Date Recorded Advance Directives, Living Will and Medical Power of Differential Repairer
[2020-04-02 15:31] LABS: ALANINE AMINOTRANSFERASE 12 IU/L (0-55); ALBUMIN 3.3 g/dL (3.5-5.0); ALKALINE PHOSPHATASE 128 IU/L (40-150); BLOOD UREA NITROGEN 13 mg/dL (7-26); BUN/CREATININE RATIO 16 (6-25); CALCIUM 8.8 mg/dL (8.4-10.2); CARBON DIOXIDE 29 mmol/L (22-29); CHLORIDE 102 mmol/L (98-107); CREATININE, SERUM 0.82 mg/dL (0.57-1.11); EST GLOMERULAR FILTRATION RATE > 60 ML/MIN (60-); GLUCOSE 90 mg/dL (74-118); SODIUM 139 mmol/L (136-145)
[2020-04-02 15:40] LABS: B-TYPE NATRIURETIC PEPTIDE2 196.1 pg/mL (0-100)
--- NOTE | 2020-04-02 15:54 | Diagnostic Imaging Report ---
EXAM: CHEST SINGLE (PORTABLE) DATE: 04/02/2020 3:10 PM INDICATION: Chest pain COMPARISON: 02/29/2020 FINDINGS: The trachea is midline. The lungs are symmetrically expanded without evidence for large focal consolidation, pneumothorax, or significant pleural effusion. The cardiomediastinal silhouette is stable in appearance. The pulmonary vasculature is within normal limits. No acute osseous abnormality is identified. The surrounding soft tissues are unremarkable. IMPRESSION: No acute cardiopulmonary process significant interval change identified from 02/29/2020. Signed by: Dr. Jemal Hudson MD on 04/02/2020 3:50 PM
== END 2020-04-02 16:49 | disposition home or self-care (01) ==
LOC: ER 14:40
DX: R60.9 Edema, unspecified (principal); R06.02 Shortness of breath; K76.9 Liver disease, unspecified; G62.9 Polyneuropathy, unspecified; M79.7 Fibromyalgia; E78.5 Hyperlipidemia, unspecified; M54.9 Dorsalgia, unspecified; G89.29 Other chronic pain
CPT/HCPCS: 36415; 71045; 80053; 82140; 83880; 84484; 85025; 93005; 99284

== ENCOUNTER 2020-05-04 11:36 | Observation (INO) | payer MEDICARE, OTHER ==
[~2020-05-04] VITALS: Ht 165.1 cm; Wt 85.7 kg
[2020-05-04 12:25] LABS: BASOPHILS % 0.5 % (0.0-1.0); EOSINOPHILS # (AUTO) 0.3 (0.0-0.4); EOSINOPHILS % 5.7 % (0.0-6.0); HEMATOCRIT 34.5 % (34.2-44.1); HEMOGLOBIN 10.9 g/dL (12.0-16.0); LYMPHOCYTES # (AUTO) 1.2 (1.0-3.2); LYMPHOCYTES % 22.1 % (18.0-39.1); MEAN CORPUSCULAR HEMOGLOBIN 30.4 pg (28-32); MEAN CORPUSCULAR HGB CONC 31.6 g/dL (31-35); MEAN CORPUSCULAR VOLUME 96.4 fL (81-99); MONOCYTES # (AUTO) 0.6 (0.2-0.8); NEUTROPHILS # (AUTO) 3.3 (2.1-6.9); NEUTROPHILS % 59.6 % (38.7-80.0); PLATELET COUNT 81 x10e3/uL (140-360); RED BLOOD COUNT 3.58 x10e6/uL (3.6-5.1); RED CELL DISTRIBUTION WIDTH 15.3 % (11.7-14.4)
[2020-05-04 12:43] LABS: ALANINE AMINOTRANSFERASE 16 IU/L (0-55); ALBUMIN/GLOBULIN RATIO 0.9 (0.8-2.0); ALKALINE PHOSPHATASE 127 IU/L (40-150); ANION GAP 12.3 mmol/L (8-16); BLOOD UREA NITROGEN 18 mg/dL (7-26); BUN/CREATININE RATIO 22 (6-25); CALCIUM 8.6 mg/dL (8.4-10.2); CARBON DIOXIDE 29 mmol/L (22-29); CHLORIDE 104 mmol/L (98-107); CREATININE, SERUM 0.83 mg/dL (0.57-1.11); EST GLOMERULAR FILTRATION RATE > 60 ML/MIN (60-); GLUCOSE 98 mg/dL (74-118); POTASSIUM 4.3 mmol/L (3.5-5.1); SODIUM 141 mmol/L (136-145)
[2020-05-04] MEDS ORDERED: SODIUM CHLORIDE 0.9% 500ML 500 ML IV STA (14:30)
[2020-05-04] MEDS ORDERED: SODIUM CHLORIDE 0.9% 500ML 500 ML ONE (14:56)
[2020-05-04 15:19] LABS: CLARITY,URINE SL CLOUDY (CLEAR); COLOR,URINE AMBER (YELLOW); LEUKOCYTE ESTERASE ,URINE NEGATIVE (NEGATIVE); NITRITE,URINE NEGATIVE (NEGATIVE)
[2020-05-04 15:20] LABS: BILIRUBIN,URINE SMALL (NEGATIVE); KETONES,URINE NEGATIVE (NEGATIVE); PROTEIN,URINE DIPSTICK NEGATIVE (NEGATIVE); URINE UROBILINOGEN 4 mg/dL (0.2 - 1)
[2020-05-04 15:32] LABS: BACTERIA,URINE MODERATE /HPF
[2020-05-04 15:33] LABS: AMORPHOUS SEDIMENT,URINE FEW (FEW); CALCIUM OXALATE CRYSTALS,UR MODERATE (FEW); EPITHELIAL CELLS,URINE FEW /LPF
[2020-05-04] MEDS ORDERED: CEFTRIAXONE SOD 1 GM/NS 50 ML 50 ML IV ONE (16:00)
[2020-05-04] MEDS ORDERED: KEFLEX500 MG PO (16:14)
[2020-05-04] MEDS ORDERED: FUROSEMIDE INJ 10 MG/ML 4 ML VIAL IV ONE (18:00)
[2020-05-04] MEDS ORDERED: HYDRALAZINE HCL 20 MG/ML VIAL IV PRN (18:00)
[2020-05-04] MEDS ORDERED: ACETAMINOPHEN 325 MG TAB PO PRN (18:00)
[2020-05-04 19:45] VITALS: BP 100/58
[2020-05-04 19:54] VITALS: BP 100/58
[2020-05-04 20:23] VITALS: BP 100/58
[2020-05-04] MEDS: SERTRALINE HCL 50 MG TAB PO SCH (21:36)
[2020-05-04] MEDS ORDERED: TRAMADOL HCL 50 MG TAB PO SCH (22:00)
[2020-05-04] MEDS: TRAMADOL HCL 50 MG TAB PO PRN (22:27)
[2020-05-04 23:44] VITALS: BP 80/70
[2020-05-05] VITALS (9 sets, daily range): BP systolic 86–102; BP diastolic 37–65
[2020-05-05] MEDS: PANTOPRAZOLE SOD 40 MG TABEC PO SCH (05:15)
[2020-05-05 06:01] LABS: BASOPHILS % 0.7 % (0.0-1.0); EOSINOPHILS # (AUTO) 0.1 (0.0-0.4); HEMOGLOBIN 9.8 g/dL (12.0-16.0); LYMPHOCYTES # (AUTO) 1.6 (1.0-3.2); LYMPHOCYTES % 26.7 % (18.0-39.1); MEAN CORPUSCULAR HEMOGLOBIN 30.4 pg (28-32); MEAN CORPUSCULAR HGB CONC 31.6 g/dL (31-35); MEAN CORPUSCULAR VOLUME 96.3 fL (81-99); MONOCYTES # (AUTO) 0.7 (0.2-0.8); MONOCYTES % 11.1 % (4.4-11.3); NEUTROPHILS # (AUTO) 3.5 (2.1-6.9); NEUTROPHILS % 59.3 % (38.7-80.0); PLATELET COUNT 88 x10e3/uL (140-360); RED BLOOD COUNT 3.22 x10e6/uL (3.6-5.1); RED CELL DISTRIBUTION WIDTH 15.3 % (11.7-14.4)
[2020-05-05 06:24] LABS: ANION GAP 10.7 mmol/L (8-16); BLOOD UREA NITROGEN 18 mg/dL (7-26); BUN/CREATININE RATIO 24 (6-25); CALCIUM 8.1 mg/dL (8.4-10.2); CARBON DIOXIDE 32 mmol/L (22-29); CHLORIDE 103 mmol/L (98-107); CREATININE, SERUM 0.76 mg/dL (0.57-1.11); EST GLOMERULAR FILTRATION RATE > 60 ML/MIN (60-); GLUCOSE 86 mg/dL (74-118); POTASSIUM 3.7 mmol/L (3.5-5.1); SODIUM 142 mmol/L (136-145)
[2020-05-05] MEDS: METOPROLOL TARTRATE 50 MG TAB PO SCH ×2 (09:00→17:00)
[2020-05-05] MEDS: CEFTRIAXONE SOD 1 GM/NS 50 ML 50 ML IV SCH (09:28)
[2020-05-05] MEDS ORDERED: SODIUM CHLORIDE 0.9% 250ML 250 ML ONE (09:35)
[2020-05-05] MEDS: SERTRALINE HCL 50 MG TAB PO SCH (20:53)
[2020-05-05] MEDS: TRAMADOL HCL 50 MG TAB PO PRN (20:58)
[2020-05-06] VITALS: BP 94/44
[2020-05-06 04:00] VITALS: BP 86/52
[2020-05-06 05:41] LABS: BASOPHILS % 0.4 % (0.0-1.0); EOSINOPHILS # (AUTO) 0.2 (0.0-0.4); EOSINOPHILS % 4.8 % (0.0-6.0); HEMATOCRIT 28.9 % (34.2-44.1); HEMOGLOBIN 9.3 g/dL (12.0-16.0); LYMPHOCYTES # (AUTO) 1.5 (1.0-3.2); LYMPHOCYTES % 32.4 % (18.0-39.1); MEAN CORPUSCULAR HEMOGLOBIN 31.6 pg (28-32); MEAN CORPUSCULAR HGB CONC 32.2 g/dL (31-35); MEAN CORPUSCULAR VOLUME 98.3 fL (81-99); MONOCYTES # (AUTO) 0.5 (0.2-0.8); MONOCYTES % 11.2 % (4.4-11.3); NEUTROPHILS # (AUTO) 2.3 (2.1-6.9); NEUTROPHILS % 49.9 % (38.7-80.0); PLATELET COUNT 75 x10e3/uL (140-360); RED BLOOD COUNT 2.94 x10e6/uL (3.6-5.1); RED CELL DISTRIBUTION WIDTH 15.8 % (11.7-14.4)
[2020-05-06 06:00] LABS: ANION GAP 9.8 mmol/L (8-16); BLOOD UREA NITROGEN 18 mg/dL (7-26); BUN/CREATININE RATIO 25 (6-25); CALCIUM 7.9 mg/dL (8.4-10.2); CARBON DIOXIDE 32 mmol/L (22-29); CHLORIDE 104 mmol/L (98-107); CREATININE, SERUM 0.73 mg/dL (0.57-1.11); EST GLOMERULAR FILTRATION RATE > 60 ML/MIN (60-); GLUCOSE 94 mg/dL (74-118); POTASSIUM 3.8 mmol/L (3.5-5.1); SODIUM 142 mmol/L (136-145)
[2020-05-06] MEDS: PANTOPRAZOLE SOD 40 MG TABEC PO SCH (06:10)
[2020-05-06 07:35] VITALS: BP 103/52
[2020-05-06 07:38] VITALS: BP 103/52
[2020-05-06] MEDS: METOPROLOL TARTRATE 50 MG TAB PO SCH (09:00)
[2020-05-06] MEDS: CEFTRIAXONE SOD 1 GM/NS 50 ML 50 ML IV SCH (09:02)
[2020-05-06 11:41] VITALS: BP 100/50
== END 2020-05-06 14:25 ==
LOC: ER 11:45 → ERHOLD 17:15 → MED/SURG3 18:30
PROVIDERS: ADMIT Internal Medicine; ATTEND Internal Medicine
DX: S00.03XA Contusion of scalp, initial encounter (principal); K70.30 Alcoholic cirrhosis of liver without ascites; W01.0XXA Fall on same level from slipping, tripping and stumbling without subsequent striking against object, initial encounter; Z91.81 History of falling; D69.6 Thrombocytopenia, unspecified; F32.9 Major depressive disorder, single episode, unspecified; S80.02XA Contusion of left knee, initial encounter; S80.01XA Contusion of right knee, initial encounter; I48.91 Unspecified atrial fibrillation; M79.7 Fibromyalgia
CPT/HCPCS: 36415 ×3; 70450; 71045; 72125; 72170; 73562; 80048 ×2; 80053; 81001; 82140; 82550; 83605; 83880; 84484; 85025 ×3; 87040; 87086; 93005; 93306; 93880; 97116; 97139; 97162; 99284; G0378 ×3; J0696 ×3; J1940; J7040; J7050; S0164 ×2; U0002

== ENCOUNTER 2020-05-20 16:07 | Inpatient (IN) | payer MEDICARE, OTHER ==
[~2020-05-20] VITALS: Ht 167.6 cm; Wt 68.7 kg
[~2020-05-20 16:07] MED LIST changes: +KEFLEX500 MG PO
[2020-05-20] MEDS ORDERED: ASPIRIN 81 MG CHEW TAB PO ONE ×2 (16:15→18:00)
[2020-05-20 16:56] LABS: BASOPHILS # (AUTO) 0.1 (0.0-0.1); BASOPHILS % 0.9 % (0.0-1.0); EOSINOPHILS # (AUTO) 0.4 (0.0-0.4); EOSINOPHILS % 7.9 % (0.0-6.0); HEMATOCRIT 38.8 % (34.2-44.1); HEMOGLOBIN 11.7 g/dL (12.0-16.0); LYMPHOCYTES # (AUTO) 1.7 (1.0-3.2); LYMPHOCYTES % 30.7 % (18.0-39.1); MEAN CORPUSCULAR HEMOGLOBIN 30.6 pg (28-32); MEAN CORPUSCULAR HGB CONC 30.2 g/dL (31-35); MEAN CORPUSCULAR VOLUME 101.6 fL (81-99); MONOCYTES # (AUTO) 0.5 (0.2-0.8); MONOCYTES % 9.7 % (4.4-11.3); NEUTROPHILS # (AUTO) 2.7 (2.1-6.9); NEUTROPHILS % 50.2 % (38.7-80.0); PLATELET COUNT 113 x10e3/uL (140-360); RED BLOOD COUNT 3.82 x10e6/uL (3.6-5.1); RED CELL DISTRIBUTION WIDTH 17.1 % (11.7-14.4)
[2020-05-20 17:15] LABS: ALANINE AMINOTRANSFERASE 19 IU/L (0-55); ALBUMIN 3.1 g/dL (3.5-5.0); ALBUMIN/GLOBULIN RATIO 0.9 (0.8-2.0); ALKALINE PHOSPHATASE 177 IU/L (40-150); ANION GAP 11.9 mmol/L (8-16); BLOOD UREA NITROGEN 14 mg/dL (7-26); BUN/CREATININE RATIO 16 (6-25); CALCIUM 8.2 mg/dL (8.4-10.2); CARBON DIOXIDE 28 mmol/L (22-29); CHLORIDE 104 mmol/L (98-107); CREATINE KINASE 66 IU/L (29-168); EST GLOMERULAR FILTRATION RATE > 60 ML/MIN (60-); GLUCOSE 125 mg/dL (74-118); POTASSIUM 3.9 mmol/L (3.5-5.1); SODIUM 140 mmol/L (136-145)
[2020-05-20] MEDS ORDERED: MORPHINE SULFATE INJ 4 MG/ML INJ 1ML IV PRN (18:00)
[2020-05-20] MEDS ORDERED: ONDANSETRON HCL INJ 2MG/ML 2ML 2 MG/ML VIAL IV PRN (18:00)
[2020-05-20 20:32] VITALS: BP 133/65
[2020-05-20 21:00] VITALS: BP 124/46
[2020-05-20 21:46] VITALS: BP 133/65
[2020-05-20] MEDS ORDERED: MIRALAX17 GM PO (22:44)
[2020-05-21] VITALS (7 sets, daily range): BP systolic 96–127; BP diastolic 46–64
[2020-05-21] MEDS ORDERED: FUROSEMIDE INJ 10 MG/ML 4 ML VIAL IV SCH ×2 (00:30→01:00)
[2020-05-21] MEDS ORDERED: FUROSEMIDE 20 MG TAB PO SCH (00:30)
[2020-05-21 03:13] LABS: CREATINE KINASE 51 IU/L (29-168)
[2020-05-21] MEDS: TRAMADOL HCL 50 MG TAB PO SCH ×3 (05:29→21:39)
[2020-05-21] MEDS: PANTOPRAZOLE SOD 40 MG TABEC PO SCH (05:29)
[2020-05-21 05:33] LABS: BASOPHILS # (AUTO) 0.1 (0.0-0.1); BASOPHILS % 1.3 % (0.0-1.0); EOSINOPHILS # (AUTO) 0.4 (0.0-0.4); EOSINOPHILS % 7.9 % (0.0-6.0); HEMATOCRIT 38.1 % (34.2-44.1); HEMOGLOBIN 11.5 g/dL (12.0-16.0); LYMPHOCYTES # (AUTO) 1.9 (1.0-3.2); LYMPHOCYTES % 34.4 % (18.0-39.1); MEAN CORPUSCULAR HEMOGLOBIN 30.8 pg (28-32); MEAN CORPUSCULAR HGB CONC 30.2 g/dL (31-35); MEAN CORPUSCULAR VOLUME 102.1 fL (81-99); MONOCYTES # (AUTO) 0.7 (0.2-0.8); MONOCYTES % 12.2 % (4.4-11.3); NEUTROPHILS # (AUTO) 2.4 (2.1-6.9); NEUTROPHILS % 43.7 % (38.7-80.0); RED BLOOD COUNT 3.73 x10e6/uL (3.6-5.1); RED CELL DISTRIBUTION WIDTH 16.9 % (11.7-14.4)
[2020-05-21 05:42] LABS: PLATELET COUNT 95 x10e3/uL (140-360)
[2020-05-21 05:54] LABS: ALANINE AMINOTRANSFERASE 17 IU/L (0-55); ALBUMIN 2.8 g/dL (3.5-5.0); ALBUMIN/GLOBULIN RATIO 0.8 (0.8-2.0); ALKALINE PHOSPHATASE 162 IU/L (40-150); BLOOD UREA NITROGEN 14 mg/dL (7-26); BUN/CREATININE RATIO 19 (6-25); CALCIUM 8.1 mg/dL (8.4-10.2); CARBON DIOXIDE 29 mmol/L (22-29); CHLORIDE 104 mmol/L (98-107); CREATININE, SERUM 0.74 mg/dL (0.57-1.11); EST GLOMERULAR FILTRATION RATE > 60 ML/MIN (60-); GLUCOSE 91 mg/dL (74-118); SODIUM 141 mmol/L (136-145)
[2020-05-21] MEDS: POLYETHYLENE GLYCOL 3350 17 GM PACK PO SCH ×2 (09:00→21:15)
[2020-05-21] MEDS: METOPROLOL TARTRATE 50 MG TAB PO SCH ×2 (09:00→16:43)
[2020-05-21] MEDS ORDERED: POTASSIUM CHLORIDE 20 MEQ TAB CR PO SCH (09:15)
[2020-05-21] MEDS ORDERED: ACETAMINOPHEN 325 MG TAB PO PRN (09:15)
[2020-05-21] MEDS ORDERED: METOPROLOL TARTRATE INJ 1 MG/ML VIAL IV PRN (09:15)
[2020-05-21] MEDS ORDERED: MORPHINE SULFATE 2 MG/ML SYR 1ML IV PRN (09:30)
[2020-05-21] MEDS: FOLIC ACID 1 MG TAB PO SCH ×2 (09:31→09:33)
[2020-05-21] MEDS: FUROSEMIDE INJ 10 MG/ML 4 ML VIAL IV SCH (09:38)
[2020-05-21 09:53] LABS: INR 1.17; PROTHROMBIN TIME 15.5 seconds (11.9-14.5)
[2020-05-21 09:59] LABS: CREATINE KINASE 33 IU/L (29-168)
[2020-05-21] MEDS ORDERED: MORPHINE SULFATE INJ 4 MG/ML INJ 1ML IV PRN (10:00)
[2020-05-21] MEDS ORDERED: ONDANSETRON HCL 4 MG ORAL DISINTEGRATING TAB PO PRN (11:45)
[2020-05-21 17:16] LABS: RBC,BODY FLUID 3616 cells/uL; WBC,BODY FLUID 124 cells/uL
[2020-05-21 18:22] LABS: LYMPHOCYTES,BODY FLUID 62 %; MONO/MACROPHG,BODY FLUID 20 %; NEUTROPHILS,BODY FLUID 14 %; OTHER CELLS,BODY FLUID 4 %
[2020-05-21] MEDS: SERTRALINE HCL 50 MG TAB PO SCH (21:38)
[2020-05-22] VITALS (9 sets, daily range): BP systolic 91–122; BP diastolic 46–62
[2020-05-22] MEDS: PANTOPRAZOLE SOD 40 MG TABEC PO SCH (05:22)
[2020-05-22] MEDS: TRAMADOL HCL 50 MG TAB PO SCH ×3 (05:23→21:09)
[2020-05-22 06:04] LABS: BASOPHILS % 0.7 % (0.0-1.0); EOSINOPHILS # (AUTO) 0.4 (0.0-0.4); EOSINOPHILS % 6.5 % (0.0-6.0); HEMATOCRIT 34.3 % (34.2-44.1); HEMOGLOBIN 10.4 g/dL (12.0-16.0); LYMPHOCYTES # (AUTO) 1.4 (1.0-3.2); LYMPHOCYTES % 25.2 % (18.0-39.1); MEAN CORPUSCULAR HEMOGLOBIN 30.9 pg (28-32); MEAN CORPUSCULAR HGB CONC 30.3 g/dL (31-35); MEAN CORPUSCULAR VOLUME 101.8 fL (81-99); MONOCYTES # (AUTO) 0.6 (0.2-0.8); MONOCYTES % 9.6 % (4.4-11.3); NEUTROPHILS # (AUTO) 3.3 (2.1-6.9); NEUTROPHILS % 57.7 % (38.7-80.0); PLATELET COUNT 97 x10e3/uL (140-360); RED BLOOD COUNT 3.37 x10e6/uL (3.6-5.1)
[2020-05-22 06:09] LABS: INR 1.17; PROTHROMBIN TIME 15.5 seconds (11.9-14.5)
[2020-05-22 06:10] LABS: PARTIAL THROMBOPLASTIN TIME 32.7 seconds (23.8-35.5)
[2020-05-22 06:32] LABS: ALANINE AMINOTRANSFERASE 15 IU/L (0-55); ALBUMIN 2.8 g/dL (3.5-5.0); ALBUMIN/GLOBULIN RATIO 0.8 (0.8-2.0); ALKALINE PHOSPHATASE 167 IU/L (40-150); ANION GAP 11.1 mmol/L (8-16); BLOOD UREA NITROGEN 17 mg/dL (7-26); BUN/CREATININE RATIO 22 (6-25); CARBON DIOXIDE 36 mmol/L (22-29); CHLORIDE 97 mmol/L (98-107); CREATININE, SERUM 0.79 mg/dL (0.57-1.11); EST GLOMERULAR FILTRATION RATE > 60 ML/MIN (60-); GLUCOSE 87 mg/dL (74-118); POTASSIUM 4.1 mmol/L (3.5-5.1); SODIUM 140 mmol/L (136-145)
[2020-05-22] MEDS: FUROSEMIDE INJ 10 MG/ML 4 ML VIAL IV SCH (09:00)
[2020-05-22] MEDS: METOPROLOL TARTRATE 50 MG TAB PO SCH ×2 (09:01→16:09)
[2020-05-22] MEDS: SPIRONOLACTONE 25 MG TAB PO SCH (09:01)
[2020-05-22] MEDS: SERTRALINE HCL 50 MG TAB PO SCH (21:03)
[2020-05-23] VITALS (8 sets, daily range): BP systolic 88–105; BP diastolic 43–58
[2020-05-23] MEDS: PANTOPRAZOLE SOD 40 MG TABEC PO SCH ×2 (05:29→05:31)
[2020-05-23] MEDS: TRAMADOL HCL 50 MG TAB PO SCH ×3 (05:31→21:04)
[2020-05-23] MEDS: SPIRONOLACTONE 25 MG TAB PO SCH (09:12)
[2020-05-23] MEDS: POLYETHYLENE GLYCOL 3350 17 GM PACK PO SCH ×3 (09:12→09:20)
[2020-05-23] MEDS: FOLIC ACID 1 MG TAB PO SCH (09:12)
[2020-05-23] MEDS: FUROSEMIDE 40 MG TAB PO SCH (09:16)
[2020-05-23] MEDS: DOCUSATE SODIUM 100 MG CAP PO SCH ×2 (09:16→17:22)
[2020-05-23] MEDS: METOPROLOL TARTRATE 50 MG TAB PO SCH ×2 (09:21→17:00)
[2020-05-23] MEDS: SERTRALINE HCL 50 MG TAB PO SCH (21:04)
[2020-05-24 00:24] VITALS: BP 100/62
[2020-05-24 04:00] VITALS: BP 100/52
[2020-05-24] MEDS: PANTOPRAZOLE SOD 40 MG TABEC PO SCH (04:39)
[2020-05-24] MEDS: TRAMADOL HCL 50 MG TAB PO SCH (04:39)
[2020-05-24 05:49] LABS: BASOPHILS # (AUTO) 0.1 (0.0-0.1); BASOPHILS % 0.9 % (0.0-1.0); EOSINOPHILS # (AUTO) 0.4 (0.0-0.4); EOSINOPHILS % 7.2 % (0.0-6.0); HEMATOCRIT 37.2 % (34.2-44.1); HEMOGLOBIN 11.6 g/dL (12.0-16.0); LYMPHOCYTES # (AUTO) 1.8 (1.0-3.2); LYMPHOCYTES % 33.9 % (18.0-39.1); MEAN CORPUSCULAR HEMOGLOBIN 30.7 pg (28-32); MEAN CORPUSCULAR HGB CONC 31.2 g/dL (31-35); MEAN CORPUSCULAR VOLUME 98.4 fL (81-99); MONOCYTES # (AUTO) 0.5 (0.2-0.8); MONOCYTES % 9.7 % (4.4-11.3); NEUTROPHILS # (AUTO) 2.5 (2.1-6.9); NEUTROPHILS % 47.7 % (38.7-80.0); PLATELET COUNT 103 x10e3/uL (140-360); RED BLOOD COUNT 3.78 x10e6/uL (3.6-5.1)
[2020-05-24 06:01] LABS: INR 1.12
[2020-05-24 06:02] LABS: PARTIAL THROMBOPLASTIN TIME 28.5 seconds (23.8-35.5)
[2020-05-24 06:16] LABS: ALANINE AMINOTRANSFERASE 13 IU/L (0-55); ALBUMIN 2.6 g/dL (3.5-5.0); ALBUMIN/GLOBULIN RATIO 0.8 (0.8-2.0); ALKALINE PHOSPHATASE 161 IU/L (40-150); ANION GAP 11.4 mmol/L (8-16); BLOOD UREA NITROGEN 18 mg/dL (7-26); BUN/CREATININE RATIO 24 (6-25); CALCIUM 8.2 mg/dL (8.4-10.2); CARBON DIOXIDE 39 mmol/L (22-29); CHLORIDE 94 mmol/L (98-107); CREATININE, SERUM 0.76 mg/dL (0.57-1.11); EST GLOMERULAR FILTRATION RATE > 60 ML/MIN (60-); GLUCOSE 82 mg/dL (74-118); MAGNESIUM 1.7 MG/DL (1.3-2.1); POTASSIUM 3.4 mmol/L (3.5-5.1); SODIUM 141 mmol/L (136-145)
[2020-05-24 07:12] VITALS: BP 95/50
[2020-05-24 08:23] VITALS: BP 95/50
[2020-05-24] MEDS: SPIRONOLACTONE 25 MG TAB PO SCH (09:00)
[2020-05-24] MEDS: FUROSEMIDE 40 MG TAB PO SCH (09:00)
[2020-05-24] MEDS: METOPROLOL TARTRATE 50 MG TAB PO SCH (09:00)
[2020-05-24] MEDS: DOCUSATE SODIUM 100 MG CAP PO SCH (09:00)
[2020-05-24] MEDS ORDERED: TRAMADOL HCL 50 MG TAB PO PRN (10:30)
[2020-05-24 10:59] VITALS: BP 95/50
[2020-05-24] MEDS ORDERED: POTASSIUM CHLORIDE 10MEQ EA PO ONE (11:00)
[2020-05-24] MEDS: FOLIC ACID 1 MG TAB PO SCH (11:46)
[2020-05-24] MEDS: POLYETHYLENE GLYCOL 3350 17 GM PACK PO SCH (11:46)
[2020-05-27 07:40] LABS: BODY FLUID APPEARANCE SL.CLOUDY; BODY FLUID COLOR YELLOW
[2020-05-27 07:41] LABS: BODY FLUID TYPE PLEURAL
== END 2020-05-24 13:27 | DRG 433 ==
LOC: ER 16:12 → ERHOLD 17:55 → MED/SURG 20:29
PROVIDERS: ADMIT Internal Medicine; ATTEND Internal Medicine
PROC: 0W993ZX Drainage of Right Pleural Cavity, Percutaneous Approach, Diagnostic (ICD-10-PCS; principal; 2020-05-21)
DX: K74.60 Unspecified cirrhosis of liver (principal); J91.8 Pleural effusion in other conditions classified elsewhere; M48.50XA Collapsed vertebra, not elsewhere classified, site unspecified, initial encounter for fracture; M80.88XA Other osteoporosis with current pathological fracture, vertebra(e), initial encounter for fracture; I48.20 Chronic atrial fibrillation, unspecified; I50.9 Heart failure, unspecified; J44.9 Chronic obstructive pulmonary disease, unspecified; R09.02 Hypoxemia; Z20.828 Contact with and (suspected) exposure to other viral communicable diseases; J45.909 Unspecified asthma, uncomplicated; D69.59 Other secondary thrombocytopenia; Z74.09 Other reduced mobility; F32.9 Major depressive disorder, single episode, unspecified; Z79.01 Long term (current) use of anticoagulants; M81.0 Age-related osteoporosis without current pathological fracture; M79.7 Fibromyalgia; E78.5 Hyperlipidemia, unspecified
CPT/HCPCS: 32555; 36415; 71045; 71250; 72146; 74470; 80053; 82140; 82550; 82553; 83605; 83735; 83880; 84100; 84484; 85025; 85610; 85730; 87040; 87070; 87205; 89051; 93005; 97139; 99284; J1940; J2270; J2405; U0002

== ENCOUNTER 2020-06-09 12:48 | Inpatient (IN) | payer MEDICARE, OTHER ==
[~2020-06-09] VITALS: Ht 167.6 cm; Wt 68.5 kg
[~2020-06-09 12:48] MED LIST changes: +MIRALAX17 GM PO
[2020-06-09] MEDS ORDERED: SODIUM CHLORIDE 0.9% 1000ML 1,000 ML IV STA ×2 (12:50→17:24)
[2020-06-09 13:53] LABS: BASOPHILS # (AUTO) 0.1 (0.0-0.1); EOSINOPHILS # (AUTO) 0.4 (0.0-0.4); HEMATOCRIT 37.4 % (34.2-44.1); HEMOGLOBIN 11.8 g/dL (12.0-16.0); LYMPHOCYTES # (AUTO) 1.9 (1.0-3.2); LYMPHOCYTES % 26.9 % (18.0-39.1); MEAN CORPUSCULAR HEMOGLOBIN 30.4 pg (28-32); MEAN CORPUSCULAR HGB CONC 31.6 g/dL (31-35); MEAN CORPUSCULAR VOLUME 96.4 fL (81-99); MONOCYTES # (AUTO) 0.6 (0.2-0.8); MONOCYTES % 8.5 % (4.4-11.3); NEUTROPHILS # (AUTO) 4.1 (2.1-6.9); PLATELET COUNT 128 x10e3/uL (140-360); RED BLOOD COUNT 3.88 x10e6/uL (3.6-5.1); RED CELL DISTRIBUTION WIDTH 15.9 % (11.7-14.4)
[2020-06-09 14:09] LABS: ALBUMIN 2.9 g/dL (3.5-5.0); ALBUMIN/GLOBULIN RATIO 0.8 (0.8-2.0); ANION GAP 15.4 mmol/L (8-16); CALCIUM 8.8 mg/dL (8.4-10.2); CREATININE, SERUM 1.54 mg/dL (0.57-1.11); POTASSIUM 4.4 mmol/L (3.5-5.1)
[2020-06-09 14:15] LABS: CREATINE KINASE MB 1.7 ng/mL (0-5.0)
[2020-06-09 14:18] LABS: CLARITY,URINE SL CLOUDY (CLEAR); COLOR,URINE YELLOW (YELLOW); KETONES,URINE NEGATIVE (NEGATIVE); LEUKOCYTE ESTERASE ,URINE NEGATIVE (NEGATIVE); NITRITE,URINE NEGATIVE (NEGATIVE); PROTEIN,URINE DIPSTICK NEGATIVE (NEGATIVE); URINE UROBILINOGEN 2 mg/dL (0.2 - 1)
[2020-06-09 14:33] LABS: BACTERIA,URINE MODERATE /HPF; EPITHELIAL CELLS,URINE FEW /LPF
[2020-06-09 14:49] LABS: ABG HCO3 40 mmol/L (22-26); ABG PCO2 62 mmHg (35-45); ABG PH 7.42 (7.35-7.45); ABG PO2 145 mmHg (80-105); ABG TCO2 42
[2020-06-09] MEDS ORDERED: IOPAMIDOL 370 MG/ML 200 ML INFUS..BTL INJ ONE (17:44)
[2020-06-09] MEDS ORDERED: SODIUM CHLORIDE 0.9% 50ML 0 ML ONE (17:44)
[2020-06-09] MEDS: LEVOFLOXACIN 750MG/D5W 150ML 150 ML IV SCH (17:52)
[2020-06-09] MEDS: ALBUMIN 25% 12.5GM 0.25 GM/ML BTL IV SCH (23:38)
[2020-06-09] MEDS: MIDODRINE HCL 5 MG TABLET PO SCH (23:38)
[2020-06-10 05:41] LABS: BASOPHILS % 0.5 % (0.0-1.0); EOSINOPHILS # (AUTO) 0.3 (0.0-0.4); HEMATOCRIT 33.5 % (34.2-44.1); HEMOGLOBIN 10.5 g/dL (12.0-16.0); LYMPHOCYTES # (AUTO) 1.7 (1.0-3.2); LYMPHOCYTES % 30.5 % (18.0-39.1); MEAN CORPUSCULAR HGB CONC 31.3 g/dL (31-35); MEAN CORPUSCULAR VOLUME 98.8 fL (81-99); MONOCYTES # (AUTO) 0.5 (0.2-0.8); NEUTROPHILS % 53.1 % (38.7-80.0); PLATELET COUNT 87 x10e3/uL (140-360); RED BLOOD COUNT 3.39 x10e6/uL (3.6-5.1); RED CELL DISTRIBUTION WIDTH 16.1 % (11.7-14.4)
[2020-06-10 06:12] LABS: ALBUMIN 3.3 g/dL (3.5-5.0); ALBUMIN/GLOBULIN RATIO 1.1 (0.8-2.0); ANION GAP 15.7 mmol/L (8-16); CALCIUM 8.4 mg/dL (8.4-10.2); CREATININE, SERUM 1.2 mg/dL (0.57-1.11); POTASSIUM 3.7 mmol/L (3.5-5.1)
[2020-06-10 06:44] LABS: CREATINE KINASE MB 2.9 ng/mL (0-5.0)
[2020-06-10] MEDS: ALBUMIN 25% 12.5GM 0.25 GM/ML BTL IV SCH ×2 (07:14→13:20)
[2020-06-10] MEDS: MIDODRINE HCL 5 MG TABLET PO SCH ×3 (07:51→17:00)
[2020-06-10 10:03] VITALS: BP 109/59
[2020-06-10 12:12] VITALS: BP 108/57
[2020-06-10] MEDS: TRAMADOL HCL 50 MG TAB PO PRN ×2 (13:42→21:55)
[2020-06-10 13:49] LABS: CREATINE KINASE MB 3.1 ng/mL (0-5.0)
[2020-06-10 16:08] VITALS: BP 108/57
[2020-06-10 16:18] VITALS: BP 111/53
[2020-06-10] MEDS: LEVOFLOXACIN 750MG/D5W 150ML 150 ML IV SCH (17:04)
[2020-06-10 20:00] VITALS: BP 107/59
[2020-06-10 21:00] VITALS: BP 107/59
[2020-06-11] VITALS (8 sets, daily range): BP systolic 98–115; BP diastolic 58–69
[2020-06-11 06:06] LABS: ANION GAP 13.7 mmol/L (8-16); CALCIUM 8.7 mg/dL (8.4-10.2); CREATININE, SERUM 1.08 mg/dL (0.57-1.11); POTASSIUM 3.7 mmol/L (3.5-5.1)
[2020-06-11] MEDS: MIDODRINE HCL 5 MG TABLET PO SCH ×3 (08:00→16:00)
[2020-06-11] MEDS ORDERED: ONDANSETRON HCL INJ 2MG/ML 2ML 2 MG/ML VIAL IV PRN (17:00)
[2020-06-12 00:43] VITALS: BP 117/52
[2020-06-12 04:00] VITALS: BP 116/58
[2020-06-12 06:18] LABS: ANION GAP 12.7 mmol/L (8-16); CALCIUM 8.7 mg/dL (8.4-10.2); POTASSIUM 3.7 mmol/L (3.5-5.1)
[2020-06-12 06:30] LABS: FERRITIN 254.46 ng/mL (4.63-204.00)
[2020-06-12 07:49] VITALS: BP 119/52
[2020-06-12] MEDS: MIDODRINE HCL 5 MG TABLET PO SCH ×3 (08:00→16:00)
[2020-06-12 08:55] VITALS: BP 119/52
[2020-06-12 12:14] VITALS: BP 123/67
[2020-06-12] MEDS ORDERED: MIDODRINE HCL5 MG PO (13:11)
[2020-06-12] MEDS ORDERED: SODIUM CHLORIDE 0.9% 1000ML 1,000 ML IV ONE (16:00)
[2020-06-12 16:09] VITALS: BP 109/70
[2020-06-12] MEDS ORDERED: LEVOFLOXACIN 750MG/D5W 150ML 150 ML IV SCH (17:00)
[2020-06-12] MEDS ORDERED: SODIUM CHLORIDE 0.9% 1000ML 1,000 ML IV SCH (17:30)
== END 2020-06-12 16:48 | disposition home or self-care (01) | DRG 871 ==
LOC: ER 12:50 → ERHOLD 14:33 → MED/SURG2 06-10 09:52
PROVIDERS: ADMIT Internal Medicine; ATTEND Internal Medicine
DX: A41.9 Sepsis, unspecified organism (principal); R65.21 Severe sepsis with septic shock; N39.0 Urinary tract infection, site not specified; N17.9 Acute kidney failure, unspecified; M48.56XA Collapsed vertebra, not elsewhere classified, lumbar region, initial encounter for fracture; I48.0 Paroxysmal atrial fibrillation; K74.60 Unspecified cirrhosis of liver; Z20.828 Contact with and (suspected) exposure to other viral communicable diseases; M81.0 Age-related osteoporosis without current pathological fracture; D69.59 Other secondary thrombocytopenia; Z91.81 History of falling; M79.7 Fibromyalgia; J44.9 Chronic obstructive pulmonary disease, unspecified; D63.8 Anemia in other chronic diseases classified elsewhere; F32.9 Major depressive disorder, single episode, unspecified; F10.21 Alcohol dependence, in remission
CPT/HCPCS: 36415; 36600; 70450; 71045; 71250; 74176; 76705; 80048; 80053; 81001; 82140; 82550; 82553; 82607; 82728; 82746; 82805; 83540; 83605; 83880; 84466; 84484; 85025; 85045; 87040; 93005; 93306; 93880; 97139; 99285; J2405; J7030; Q9967; U0002

== ENCOUNTER 2020-07-05 17:08 | Emergency (ER) | payer MEDICARE, OTHER ==
[~2020-07-05] VITALS: Ht 167.6 cm; Wt 68.5 kg
[~2020-07-05 17:08] MED LIST changes: +MIDODRINE HCL5 MG PO
[2020-07-05] MEDS ORDERED: ACETAMINOPHEN 325 MG TAB PO ONE (18:00)
== END 2020-07-05 22:16 | disposition home or self-care (01) ==
LOC: ER 17:53
DX: M48.54XA Collapsed vertebra, not elsewhere classified, thoracic region, initial encounter for fracture (principal); S00.03XA Contusion of scalp, initial encounter; W18.30XA Fall on same level, unspecified, initial encounter; Y93.01 Activity, walking, marching and hiking; Y92.008 Other place in unspecified non-institutional (private) residence as the place of occurrence of the external cause; J44.9 Chronic obstructive pulmonary disease, unspecified; I50.9 Heart failure, unspecified; K76.9 Liver disease, unspecified; E78.5 Hyperlipidemia, unspecified; M79.7 Fibromyalgia
CPT/HCPCS: 70450; 72125; 72128; 72131; 72170; 99283